=== PATIENT | male | born 1945 | race Caucasian/White ===

== ENCOUNTER 2020-03-06 10:16 | Outpatient (REF) | payer MEDICARE, MEDICAID, SELFPAY | END 2020-03-06 10:17 | disposition home or self-care (01) | LOC: HO.LAB 10:16 | PROVIDERS: PCP Family Medicine; Visit Provider Internal Medicine | DX: Z20.828 Contact with and (suspected) exposure to other viral communicable diseases (principal) | CPT/HCPCS: 87635 ==

== ENCOUNTER → 2020-03-21 11:37 | Outpatient (BNVA) | payer MEDICARE, MEDICAID, SELFPAY | PROVIDERS: PCP Family Medicine; Referring Provider Family Medicine; Visit Provider Nurse Practitioner | DX: K70.30 Alcoholic cirrhosis of liver without ascites (principal); K21.9 Gastro-esophageal reflux disease without esophagitis; K72.90 Hepatic failure, unspecified without coma; I85.00 Esophageal varices without bleeding; E55.9 Vitamin D deficiency, unspecified; Z79.899 Other long term (current) drug therapy | CPT/HCPCS: 99212 ==

== ENCOUNTER 2020-04-07 22:55 | Emergency (ER) | payer MEDICARE, MEDICAID, SELFPAY ==
[2020-04-07 22:59] VITALS: BP 130/80; BP 138/71; PULSE 79; PULSE 80; RESP 18; TEMP 36.9; O2SAT 94; BMI 25.6
--- NOTE | 2020-04-07 23:36 | XR_ITS ---
EXAMINATION: XR ABDOMEN KUB CLINICAL INDICATION: Evaluate stool burden COMPARISON: CT from 08/05/2017 TECHNIQUE: AP view of the abdomen. FINDINGS: Nonobstructive bowel gas pattern. No dilated loops of bowel. No obstruction. Gas and stool throughout the colon. Mild to moderate colonic stool burden. Degenerative changes of the spine. XR/XR KUB IMPRESSION: Mild to moderate colonic stool burden.
--- NOTE | 2020-04-07 23:49 | XR_ITS ---
EXAMINATION: XR CHEST CLINICAL INFORMATION: Baseline COMPARISON: 07/28/2018 TECHNIQUE: Frontal view of the chest was obtained. FINDINGS: Lung volumes are low. Patchy bilateral diffuse airspace opacities are seen. No pleural effusion or pneumothorax. The cardiomediastinal silhouette is unchanged. No acute osseous abnormality. XR/XR chest 1V IMPRESSION: Patchy diffuse bilateral airspace opacities.
[2020-04-08] MEDS: 0.9 % Sodium Chloride 1,000 ML 1000 ML IV (00:21)
--- NOTE | 2020-04-08 00:22 | ED.GENADULT ---
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 Otherwise, patient states he has not had the energy to walk around and it is noted on review of his history that he does have liver cirrhosis and on review of documentation it is noted that he attended an appointment with GI on 03/21 Related Data Home Medications Medication Instructions Recorded Confirmed brimonidine [Alphagan P] 1 drp OPHTHALMIC (EYE) BID 04/08/20 04/08/20 cholecalciferol (vitamin D3) 1 cap PO DAILY 04/08/20 04/08/20 fluticasone propionate [Flovent 2 puff PO BID 04/08/20 04/08/20 HFA] lisinopril 1 tab PO DAILY 04/08/20 04/08/20 loratadine 1 tab PO DAILY 04/08/20 04/08/20 metformin 1 tab PO QAM 04/08/20 04/08/20 montelukast 1 tab PO BEDTIME 04/08/20 04/08/20 multivitamin [Daily-Arlene] 1 tab PO DAILY 04/08/20 04/08/20 rifaximin [Xifaxan] 1 tab PO BID 04/08/20 04/08/20 Previous Rx's Medication Instructions Recorded omeprazole 20 mg capsule,delayed 20 mg PO BID 30 Days #60 cap 04/05/20 release Allergies Allergy/AdvReac Type Severity Reaction Status Date / Time No Known Allergies Allergy Verified 03/21/20 11:41 Review of Systems Review of Systems: Pertinent positives and negatives as stated in HPI 10 point review systems is otherwise negative. PMFSH Past Medical History Source: nursing notes reviewed Medical History Diabetes Hypertension Liver problem Surgical History Hx of colonoscopy Hx of endoscopy Family History Family History Father Diabetes HTN (hypertension) Mother Diabetes Sister Cancer Social History Social History Alcohol intake: current Alcohol intake frequency: does not drink Smoking Status: Never smoker Use of substances other than those prescribed or required for medical reasons: No Advance Directives: No Advance Directives Information Provided: No Physical Exam Vital Signs: Vital Signs: Last Vital Signs Temp 98.5 F 04/07/20 22:59 Pulse 80 04/08/20 01:24 Resp 16 04/08/20 01:24 BP 133/59 L 04/08/20 01:24 Pulse Ox 96 04/08/20 01:24 Body Mass Index 25.6 VITAL SIGNS: Reviewed. GENERAL: Well developed, well nourished, in no acute distress. HEAD: Normocephalic/atraumatic, EYES: PERRLA, EOMI intact without pain, no nystagmus/pallor/icterus noted EARS: Ext canals without abnormality, TMs non-bulging and non-erythematous NOSE: Nares patent bilateral OROPHARYNX: no oral lesions noted, posterior pharynx clear and non-erythematous without noted tonsillar enlargement/erythema/exudates NECK: Supple, no adenopathy LUNGS: Normal breath sounds. No adventitious sounds or accessory muscle use. SpO2<96> CARDIOVASCULAR: Regular rate and rhythm without noted murmurs, no JVD or lower extremity edema. ABDOMEN: Soft, non-tender, non-distended with bowel sounds. No rigidity. No guarding. No palpable masses or hernias noted MUSCULOSKELETAL: No tenderness, deformities, or effusions noted on gross inspection. EXTREMITIES: No cyanosis, clubbing or edema. SKIN: Inspection of the skin reveals no rashes, ulcerations, jaundice, pallor, or petechiae. NEUROLOGIC: Alert and oriented x3. Strength and sensation to light touch were grossly intact x 4. Course Course Course Narrative: This is a 74-year-old male with history and clinical presentation consistent with some component of deconditioning, however on review of investigations there are no acute findings to suggest infectious, anemic, electrolyte etiologies for patient's condition. This would include an ammonia level that is noted to be within normal limits and KUB findings that show mild to moderate stool burden and this was communicated with both the daughter and the patient that he should continue with his cirrhotic medications which will assist in regular bowel movements. Urinalysis is also noted to be within normal limits and although COVID-19 testing is demonstrated to be positive again this is not an unusual finding and patient is not currently hypoxic or complaining of shortness of breath. All results and findings were discussed with the daughter as well as the patient and they wish for patient to be returned home and he is agreeable as well. Patient is discharged to home in stable condition. Medical Decision Making Lab Data Result diagrams: 04/08/20 00:18 04/08/20 00:18 Labs: Lab Results 04/08/20 04/08/20 04/08/20 Range/Units 00:18 00:18 01:02 WBC 4.7 L (4.8-10.8) X10*3/uL RBC 5.00 (4.60-5.80) X10*6/uL Hgb 14.2 (14.0-18.0) g/dl Hct 40.1 L (42-52) % MCV 80.2 (80-98) fL MCH 28.4 (27.0-33.0) pg MCHC 35.4 (31.0-36.0) g/dl RDW 17.5 H (11.0-16.0) % Plt Count 124 L (160-400) X10*3/uL MPV 9.1 L (9.4-12.4) fL Immature Gran % (Auto) 0.4 (0.0-0.4) % Neut % (Auto) 65.3 (45-73) % Lymph % (Auto) 19.6 L (20-40) % [place] % (Auto) 12.8 H (2-11) % Eos % (Auto) 1.7 (0-4) % Baso % (Auto) 0.2 (0-2) % Lymph # (Auto) 0.9 L (1.2-4.9) X10*3/uL [place] # (Auto) 0.6 (0.1-1.2) X10*3/uL Eos # (Auto) 0.1 (0.0-0.4) X10*3/uL Baso # (Auto) 0.0 (0.0-0.2) X10*3/uL Abs Immat Gran (auto) 0.02 (0.00-0.03) X10*3/uL Absolute Neuts (auto) 3.1 (2.0-8.3) X10*3/uL Absolute Nucleated RBC 0.000 (0.0-0.012) X10*3/uL Nucleated RBC % (auto) 0.0 (0.0-0.2) /100WBC Sodium 134 L (135-145) mmol/L Potassium 4.3 (3.3-5.1) mmol/l Chloride 102 (96-108) mmol/L Carbon Dioxide 20 L (22-29) mmol/L Anion Gap 16 (12-20) BUN 15 (9-16) mg/dL Creatinine 1.09 (0.5-1.4) mg/dL Estim Creat Clear Calc 53.6 Estimated GFR > 60 Random Glucose 206 H (60-115) mg/dL Calcium 10.8 H (8.4-10.2) mg/dL Total Bilirubin 2.6 H (0.0-1.0) mg/dL AST 36 (5-37) U/L ALT 42 H (0-40) U/L Alkaline Phosphatase 114 (39-117) U/L Ammonia 51 (13-55) umol/L Total Protein 5.6 L (6.5-8.0) g/dL Albumin 2.7 L (3.5-5.0) g/dL Urine Color Urine Appearance Urine pH (5.0-8.0) Ur Specific [place] (1.005-1.025) Urine Protein (NEG-TRACE) MG/DL Urine Glucose (UA) (NEG) MG/DL Urine Ketones (NEG) MG/DL Urine Blood (NEG) Urine Nitrite (NEG) Ur Leukocyte Esterase (NEG) Coronavirus (PCR) (Negative) Influenza Type A (PCR) (Negative) Influenza Type B (PCR) (Negative) RSV RNA Qual (PCR) (Negative) 04/08/20 04/08/20 Range/Units 01:12 01:23 WBC (4.8-10.8) X10*3/uL RBC (4.60-5.80) X10*6/uL Hgb (14.0-18.0) g/dl Hct (42-52) % MCV (80-98) fL MCH (27.0-33.0) pg MCHC (31.0-36.0) g/dl RDW (11.0-16.0) % Plt Count (160-400) X10*3/uL MPV (9.4-12.4) fL Immature Gran % (Auto) (0.0-0.4) % Neut % (Auto) (45-73) % Lymph % (Auto) (20-40) % [place] % (Auto) (2-11) % Eos % (Auto) (0-4) % Baso % (Auto) (0-2) % Lymph # (Auto) (1.2-4.9) X10*3/uL [place] # (Auto) (0.1-1.2) X10*3/uL Eos # (Auto) (0.0-0.4) X10*3/uL Baso # (Auto) (0.0-0.2) X10*3/uL Abs Immat Gran (auto) (0.00-0.03) X10*3/uL Absolute Neuts (auto) (2.0-8.3) X10*3/uL Absolute Nucleated RBC (0.0-0.012) X10*3/uL Nucleated RBC % (auto) (0.0-0.2) /100WBC Sodium (135-145) mmol/L Potassium (3.3-5.1) mmol/l Chloride (96-108) mmol/L Carbon Dioxide (22-29) mmol/L Anion Gap (12-20) BUN (9-16) mg/dL Creatinine (0.5-1.4) mg/dL Estim Creat Clear Calc Estimated GFR Random Glucose (60-115) mg/dL Calcium (8.4-10.2) mg/dL Total Bilirubin (0.0-1.0) mg/dL AST (5-37) U/L ALT (0-40) U/L Alkaline Phosphatase (39-117) U/L Ammonia (13-55) umol/L Total Protein (6.5-8.0) g/dL Albumin (3.5-5.0) g/dL Urine Color RUDDY Urine Appearance CLEAR Urine pH 5.5 (5.0-8.0) Ur Specific [place] 1.025 (1.005-1.025) Urine Protein NEG (NEG-TRACE) MG/DL Urine Glucose (UA) NEG (NEG) MG/DL Urine Ketones NEG (NEG) MG/DL Urine Blood NEG (NEG) Urine Nitrite NEG (NEG) Ur Leukocyte Esterase NEG (NEG) Coronavirus (PCR) POSITIVE A (Negative) Influenza Type A (PCR) NEGATIVE (Negative) Influenza Type B (PCR) NEGATIVE (Negative) RSV RNA Qual (PCR) NEGATIVE (Negative) Discharge Plan Discharge Clinical Impression: COVID-19 Constipation Qualifiers: Constipation type: unspecified constipation type Qualified Code(s): K59.00 - Constipation, unspecified Patient Disposition: Home, Self-Care Instructions: COVID-19 (Coronavirus Disease 2019) (ED), Constipation (ED) Additional Instructions: 1. Reanude todos los medicamentos caseros seg?n lo recetado, especialmente los recomendados para lakhani afecci?n hep?candelario. Estos medicamentos pueden ayudarlo a defecar. 2. Regrese al departamento de emergencias si comienza a tener fiebre o dificultad para respirar. El paciente y / o la mayi reconocen que comprenden los resultados (seg?n corresponda), el diagn?stico, el plan de tratamiento, la necesidad de seguimiento y los s?ntomas que deber?an impulsar el regreso a la solis de emergencias. Prescriptions: No Action omeprazole 20 mg capsule,delayed release(DR/EC) 20 mg PO BID 30 Days Qty: 60 RF: 3 multivitamin [Daily-Arlene] Tablet 1 tab PO DAILY RF: 0 lisinopril 10 mg tablet 1 tab PO DAILY RF: 0 montelukast 10 mg tablet 1 tab PO BEDTIME RF: 0 Flovent HFA 220 mcg/actuation HFA aerosol inhaler 2 puff PO BID RF: 0 metformin 500 mg tablet extended release 24 hr 1 tab PO QAM RF: 0 brimonidine [Alphagan P] 0.15 % drops 1 drp ophthalmic (eye) BID RF: 0 loratadine 10 mg tablet 1 tab PO DAILY RF: 0 cholecalciferol (vitamin D3) 50 mcg (2,000 unit) capsule 1 cap PO DAILY RF: 0 Xifaxan 550 mg tablet 1 tab PO BID RF: 0 Referrals: Sabrina Franco, CESARC [Nurse Practitioner] - 2 days ( For re-evaluation of constipation and suspect not taking Xifaxan) Print Language: Belarusian
[2020-04-08 00:28] LABS: Mean Corpuscular HGB Conc 35.4 g/dl (31.0-36.0); PLT CLUMP 1; Red Cell Distribution Width 17.5 % (11.0-16.0); SCAN SMEAR FLAG 1
[2020-04-08 00:29] LABS: Basophils Percent Auto 0.2 % (0-2); Eosinophils Absolute Auto 0.1 X10*3/uL (0.0-0.4); Eosinophils Percent Auto 1.7 % (0-4); Hematocrit 40.1 % (42-52); Hemoglobin 14.2 g/dl (14.0-18.0); Imm Gran Abs Auto 0.02 X10*3/uL (0.00-0.03); Imm Gran Pct Auto 0.4 % (0.0-0.4); Lymphocytes Absolute Auto 0.9 X10*3/uL (1.2-4.9); Lymphocytes Percent Auto 19.6 % (20-40); Mean Corpuscular Hemoglobin 28.4 pg (27.0-33.0); Mean Corpuscular Volume 80.2 fL (80-98); Mean Platelet Volume 9.1 fL (9.4-12.4); Monocytes Absolute Auto 0.6 X10*3/uL (0.1-1.2); Monocytes Percent Auto 12.8 % (2-11); Neutrophils Absolute Auto 3.1 X10*3/uL (2.0-8.3); Neutrophils Percent Auto 65.3 % (45-73); Platelet Count 124 X10*3/uL (160-400); White Blood Count 4.7 X10*3/uL (4.8-10.8)
[2020-04-08 00:30] LABS: MANUAL DIFF FLAG NO
[2020-04-08 01:08] LABS: Alanine Aminotransferase 42 U/L (0-40); Albumin Level 2.7 g/dL (3.5-5.0); Alkaline Phosphatase 114 U/L (39-117); Anion Gap 16 (12-20); Aspartate Amino Transferase 36 U/L (5-37); Bilirubin Total 2.6 mg/dL (0.0-1.0); Blood Urea Nitrogen 15 mg/dL (9-16); Calcium 10.8 mg/dL (8.4-10.2); Carbon Dioxide 20 mmol/L (22-29); Chloride 102 mmol/L (96-108); Creatinine Clr Calc Pharmacy 53.6; Estimated Glomerular Filt Rate > 60; Glucose Random 206 mg/dL (60-115); Potassium 4.3 mmol/l (3.3-5.1); Sodium 134 mmol/L (135-145); Total Protein 5.6 g/dL (6.5-8.0)
[2020-04-08 01:24] VITALS: BP 133/59; PULSE 80; RESP 16; O2SAT 96
[2020-04-08 01:26] LABS: Ammonia 51 umol/L (13-55)
[2020-04-08 01:36] LABS: Glucose Urine UA NEG (NEG); Leukocyte Esterase Urine NEG (NEG); Nitrite Urine NEG (NEG); PH 5.5 (5.0-8.0); Specific Gravity - Urine 1.025 (1.005-1.025); Urine Blood NEG (NEG); Urine Ketones NEG (NEG); Urine Protein NEG (NEG-TRACE)
[2020-04-08 01:38] LABS: Appearance Urine CLEAR; Color Urine AMBER; UACC Culture Trigger NO
[2020-04-08 02:16] LABS: Influenza A PCR NEGATIVE (Negative); Influenza B PCR NEGATIVE (Negative); Resp Syncy Virus RNA Qual PCR NEGATIVE (Negative)
[2020-04-08 02:20] LABS: SARS COV2 PCR INHOUSE POSITIVE (Negative)
== END 2020-04-08 04:07 | disposition home or self-care (01) ==
PROVIDERS: Emergency Provider Student in an Organized Health Care Education/Training Program
DX: U07.1 COVID-19 (principal); K59.00 Constipation, unspecified; Z79.899 Other long term (current) drug therapy
CPT/HCPCS: 0241U; 36415; 71045; 74018; 80053; 81003; 82140; 85025; 96360; 99284

== ENCOUNTER → 2020-04-20 11:24 | Outpatient (BNVA) | payer MEDICARE, MEDICAID, SELFPAY | PROVIDERS: PCP Family Medicine; Referring Provider Family Medicine; Visit Provider Nurse Practitioner | DX: K74.60 Unspecified cirrhosis of liver (principal); K21.9 Gastro-esophageal reflux disease without esophagitis; K72.90 Hepatic failure, unspecified without coma; I85.00 Esophageal varices without bleeding; E11.9 Type 2 diabetes mellitus without complications; I10 Essential (primary) hypertension | CPT/HCPCS: Q3014 ==

== ENCOUNTER 2020-04-25 10:36 | Outpatient (REF) | payer MEDICARE, MEDICAID, SELFPAY ==
[2020-04-25 12:05] LABS: MANUAL DIFF FLAG NO
[2020-04-25 12:08] LABS: Basophils Percent Auto 0.7 % (0-2); Eosinophils Absolute Auto 0.1 X10*3/uL (0.0-0.4); Eosinophils Percent Auto 1.1 % (0-4); Hematocrit 38.4 % (42-52); Hemoglobin 13.1 g/dl (14.0-18.0); Imm Gran Abs Auto 0.01 X10*3/uL (0.00-0.03); Imm Gran Pct Auto 0.2 % (0.0-0.4); Lymphocytes Absolute Auto 1.2 X10*3/uL (1.2-4.9); Lymphocytes Percent Auto 22.6 % (20-40); Mean Corpuscular HGB Conc 34.1 g/dl (31.0-36.0); Mean Corpuscular Hemoglobin 28.6 pg (27.0-33.0); Mean Corpuscular Volume 83.8 fL (80-98); Monocytes Absolute Auto 0.4 X10*3/uL (0.1-1.2); Neutrophils Absolute Auto 3.6 X10*3/uL (2.0-8.3); Neutrophils Percent Auto 67.4 % (45-73); Red Blood Count 4.58 X10*6/uL (4.60-5.80); Red Cell Distribution Width 18.1 % (11.0-16.0); White Blood Count 5.4 X10*3/uL (4.8-10.8)
--- NOTE | 2020-04-25 12:09 | US_ITS ---
EXAMINATION: US ABDOMEN LIMITED US DUPLEX ARTERIAL VENOUS COMP CLINICAL INFORMATION: Cirrhosis of liver COMPARISON: Abdomen ultrasound 04/07/2019 TECHNIQUE: Real-time imaging of the right upper quadrant abdominal viscera. FINDINGS: LIMITED ABDOMEN ULTRASOUND: PANCREAS: The pancreas is limited in evaluation due to overlying large varices and gas. A dilated splenic vein is noted. LIVER: The liver is slightly echogenic, cirrhotic with moderate ascites surrounding the liver. 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 No focal lesion seen in the liver. GALLBLADDER: Gallbladder wall thickness is 0.4 cm. The gallbladder is physiologically distended without evidence of stones, sludge, polyps or pericholecystic fluid. COMMON BILE DUCT: Common bile duct is not seen well. RIGHT KIDNEY: Normal. No hydronephrosis. No renal calculi or focal parenchymal lesions. The kidney measures 8.9 cm in maximum dimension. FREE FLUID: None. ABDOMINAL DOPPLER: There is hepatopedal flow seen in the extrahepatic portal veins, thrombosed main, right and left portal veins are noted. The main and the left hepatic artery have antegrade flow seen. The right hepatic artery is not seen. The left hepatic artery velocity measures 35.6 cm/s. The main hepatic vein is patent. The right and left hepatic veins are not visualized. The IVC waveform is above and below the baseline suggestive of slow flow. There are collateral vessels seen in the area of the pancreas. US/US duplex arterial venous comp IMPRESSION: 1. Diffuse ascites. 2. Cirrhotic liver with increased echogenicity but no focal lesion. 3. 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 4. 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 5. Normal antegrade flow seen in the main and left hepatic artery. 6. The main hepatic vein is patent. The right and left hepatic veins are not seen. 7. The IVC has slow flow.
[2020-04-25 12:19] LABS: Platelet Count 74 X10*3/uL (160-400)
[2020-04-25 12:23] LABS: Ammonia 84 umol/L (13-55)
[2020-04-25 12:31] LABS: Alanine Aminotransferase 33 U/L (0-40); Albumin Level 2.7 g/dL (3.5-5.0); Alkaline Phosphatase 98 U/L (39-117); Aspartate Amino Transferase 39 U/L (5-37); Bilirubin Direct 1.4 mg/dL (0.0-0.5); Bilirubin Total 2.9 mg/dL (0.0-1.0); Total Protein 5.3 g/dL (6.5-8.0)
== END 2020-04-25 10:37 | disposition home or self-care (01) ==
LOC: HO.US 10:36
PROVIDERS: PCP Family Medicine; Visit Provider Nurse Practitioner
DX: K72.90 Hepatic failure, unspecified without coma (principal); K74.60 Unspecified cirrhosis of liver
CPT/HCPCS: 36415; 76705; 80076; 82140; 85025; 93975

== ENCOUNTER 2020-05-01 13:29 | Outpatient (REF) | payer MEDICARE, MEDICAID, SELFPAY | END 2020-05-01 13:30 | disposition home or self-care (01) | LOC: HO.LAB 13:29 | PROVIDERS: PCP Family Medicine; Visit Provider Internal Medicine | DX: Z20.828 Contact with and (suspected) exposure to other viral communicable diseases (principal) | CPT/HCPCS: C9803; U0003 ==

== ENCOUNTER → 2020-06-01 11:19 | Outpatient (BNVA) | payer MEDICARE, MEDICAID, SELFPAY | PROVIDERS: PCP Family Medicine; Visit Provider Nurse Practitioner | DX: Z13.89 Encounter for screening for other disorder (principal) | CPT/HCPCS: Q3014 ==

== ENCOUNTER → 2020-06-29 11:23 | Outpatient (BNVA) | payer MEDICARE, MEDICAID, SELFPAY | PROVIDERS: PCP Family Medicine; Visit Provider Nurse Practitioner | DX: Z76.89 Persons encountering health services in other specified circumstances (principal) | CPT/HCPCS: 99212 ==

== ENCOUNTER 2020-07-03 11:39 | Outpatient (REF) | payer MEDICARE, MEDICAID, SELFPAY ==
[2020-07-03 11:54] LABS: MANUAL DIFF FLAG NO
[2020-07-03 11:56] LABS: Basophils Percent Auto 0.4 % (0-2); Eosinophils Absolute Auto 0.3 X10*3/uL (0.0-0.4); Hematocrit 30.2 % (42-52); Hemoglobin 10.3 g/dl (14.0-18.0); Imm Gran Abs Auto 0.06 X10*3/uL (0.00-0.03); Imm Gran Pct Auto 0.5 % (0.0-0.4); Lymphocytes Absolute Auto 1.8 X10*3/uL (1.2-4.9); Lymphocytes Percent Auto 16.7 % (20-40); Mean Corpuscular HGB Conc 34.1 g/dl (31.0-36.0); Mean Corpuscular Hemoglobin 29.5 pg (27.0-33.0); Mean Corpuscular Volume 86.5 fL (80-98); Mean Platelet Volume 8.8 fL (9.4-12.4); Monocytes Absolute Auto 0.9 X10*3/uL (0.1-1.2); Monocytes Percent Auto 8.5 % (2-11); Neutrophils Absolute Auto 7.8 X10*3/uL (2.0-8.3); Neutrophils Percent Auto 70.9 % (45-73); Platelet Count 131 X10*3/uL (160-400); Red Blood Count 3.49 X10*6/uL (4.60-5.80); Red Cell Distribution Width 15.9 % (11.0-16.0)
[2020-07-03 12:13] LABS: Ammonia 47 umol/L (13-55)
[2020-07-03 12:35] LABS: Alanine Aminotransferase 22 U/L (0-40); Albumin Level 2.7 g/dL (3.5-5.0); Alkaline Phosphatase 101 U/L (39-117); Anion Gap 14 (12-20); Aspartate Amino Transferase 27 U/L (5-37); Bilirubin Total 3.5 mg/dL (0.0-1.0); Blood Urea Nitrogen 14 mg/dL (9-16); Calcium 9.1 mg/dL (8.4-10.2); Carbon Dioxide 25 mmol/L (22-29); Chloride 108 mmol/L (96-108); Estimated Glomerular Filt Rate 59; Glucose Random 153 mg/dL (60-115); Potassium 4.2 mmol/L (3.3-5.1); Sodium 143 mmol/L (135-145)
[2020-07-04 14:21] LABS: Alpha Fetoprotein 1.4 ng/mL (<6.1)
== END 2020-07-03 11:40 | disposition home or self-care (01) ==
LOC: HO.LAB 11:39
PROVIDERS: PCP Family Medicine; Visit Provider Nurse Practitioner
DX: R18.8 Other ascites (principal); I81 Portal vein thrombosis; K72.90 Hepatic failure, unspecified without coma; K74.60 Unspecified cirrhosis of liver
CPT/HCPCS: 36415; 80053; 82105; 82140; 85025

== ENCOUNTER 2020-07-12 08:15 | Outpatient (REF) | payer MEDICARE, MEDICAID, SELFPAY ==
--- NOTE | ~2020-07-12 | US_ITS ---
EXAMINATION: US ABDOMEN COMPLETE CLINICAL INFORMATION: Ascites. COMPARISON: Ultrasound abdomen limited 04/25/2020. TECHNIQUE: Real-time imaging of the abdominal viscera. FINDINGS: PANCREAS: Normal. ABDOMINAL AORTA: The proximal, mid, and distal segments are normal in caliber. INFERIOR VENA CAVA: Visualized portions are normal. LIVER: The liver is small size and diffusely coarse and heterogeneous. Liver contour is lobulated. No focal hepatic lesion. There is no intrahepatic biliary duct dilatation seen. There is moderate free fluid. GALLBLADDER: Gallbladder wall thickness measures 0.35 cm. The gallbladder is physiologically distended without evidence of stones, sludge, polyps, wall thickening or pericholecystic fluid. COMMON BILE DUCT: CBD is not visualized. Right kidney: Normal. No hydronephrosis. No echogenic renal calculi or focal parenchymal lesions.. The kidney measures 8.1 cm Left kidney: Normal.mNo hydronephrosis. No renal calculi or focal parenchymal lesions. The kidney measures 9.4 cm. Spleen: Normal. The spleen measures 13.0 cm borderline dimension. FREE FLUID: Moderate ascites. US/US abdomen complete IMPRESSION: Small shrunken liver with heterogeneous coarse echogenicity and lobulated liver surface contour suggestive of cirrhosis. There is moderate ascites. Similar findings were seen on the previous exam 04/25/2020. The rest of the visualized abdominal ultrasound is unremarkable.
== END 2020-07-12 08:16 | disposition home or self-care (01) ==
LOC: HO.US 08:15
PROVIDERS: Visit Provider Nurse Practitioner
DX: R18.8 Other ascites (principal); K72.90 Hepatic failure, unspecified without coma; K74.60 Unspecified cirrhosis of liver; I81 Portal vein thrombosis
CPT/HCPCS: 76700

== ENCOUNTER → 2020-08-02 10:39 | Outpatient (BNVA) | payer MEDICARE, MEDICAID, SELFPAY | PROVIDERS: PCP Family Medicine; Visit Provider Nurse Practitioner | DX: K74.60 Unspecified cirrhosis of liver (principal); K72.90 Hepatic failure, unspecified without coma; K21.9 Gastro-esophageal reflux disease without esophagitis; I81 Portal vein thrombosis; I85.00 Esophageal varices without bleeding; Z79.899 Other long term (current) drug therapy | CPT/HCPCS: Q3014 ==

== ENCOUNTER → 2020-08-30 10:58 | Outpatient (BNVA) | payer MEDICARE, MEDICAID, SELFPAY | PROVIDERS: PCP Family Medicine; Visit Provider Nurse Practitioner | DX: Z13.89 Encounter for screening for other disorder (principal) | CPT/HCPCS: Q3014 ==

== ENCOUNTER 2020-09-01 12:25 | Outpatient (REF) | payer MEDICARE, MEDICAID, SELFPAY ==
[2020-09-01 13:16] LABS: Ammonia 94 umol/L (13-55)
[2020-09-01 14:32] LABS: Alanine Aminotransferase 22 U/L (0-40); Albumin Level 2.4 g/dL (3.5-5.0); Alkaline Phosphatase 100 U/L (39-117); Anion Gap 12 (12-20); Aspartate Amino Transferase 28 U/L (5-37); Bilirubin Total 2.2 mg/dL (0.0-1.0); Blood Urea Nitrogen 22 mg/dL (9-16); Calcium 9.3 mg/dL (8.4-10.2); Carbon Dioxide 28 mmol/L (22-29); Chloride 103 mmol/L (96-108); Estimated Glomerular Filt Rate 35; Glucose Random 146 mg/dL (60-115); Potassium 4.5 mmol/L (3.3-5.1); Sodium 138 mmol/L (135-145); Total Protein 5.1 g/dL (6.5-8.0)
[2020-09-01 14:53] LABS: Ferritin 492 ng/mL (20-250)
== END 2020-09-01 12:26 | disposition home or self-care (01) ==
LOC: HO.LAB 12:25
PROVIDERS: PCP Family Medicine; Visit Provider Nurse Practitioner
DX: K74.60 Unspecified cirrhosis of liver (principal); R18.8 Other ascites
CPT/HCPCS: 36415; 80053; 82140; 82728; 84134

== ENCOUNTER → 2020-09-22 10:01 | Outpatient (BNVA) | payer MEDICARE, MEDICAID, SELFPAY | PROVIDERS: PCP Family Medicine; Visit Provider Nurse Practitioner | CPT/HCPCS: Q3014 ==

== ENCOUNTER → 2020-11-06 09:06 | Outpatient (BNVA) | payer MEDICARE, MEDICAID, SELFPAY | PROVIDERS: PCP Family Medicine; Visit Provider Nurse Practitioner | DX: K76.7 Hepatorenal syndrome (principal); K74.60 Unspecified cirrhosis of liver; K21.9 Gastro-esophageal reflux disease without esophagitis; K72.90 Hepatic failure, unspecified without coma; R18.8 Other ascites; I81 Portal vein thrombosis; I85.00 Esophageal varices without bleeding | CPT/HCPCS: Q3014 ==

== ENCOUNTER 2020-11-07 10:37 | Outpatient (REF) | payer MEDICARE, MEDICAID, SELFPAY ==
[2020-11-07 12:32] LABS: Ammonia 74 umol/L (13-55)
[2020-11-07 13:08] LABS: Alanine Aminotransferase 18 U/L (0-40); Albumin Level 2.4 g/dL (3.5-5.0); Alkaline Phosphatase 88 U/L (39-117); Anion Gap 12 (12-20); Aspartate Amino Transferase 24 U/L (5-37); Bilirubin Direct 0.6 mg/dL (0.0-0.5); Bilirubin Total 1.2 mg/dL (0.0-1.0); Blood Urea Nitrogen 26 mg/dL (9-16); Calcium 8.6 mg/dL (8.4-10.2); Carbon Dioxide 21 mmol/L (22-29); Chloride 111 mmol/L (96-108); Estimated Glomerular Filt Rate 29; Glucose Random 106 mg/dL (60-115); Potassium 4.7 mmol/L (3.3-5.1); Sodium 139 mmol/L (135-145); Total Protein 4.7 g/dL (6.5-8.0)
== END 2020-11-07 10:38 | disposition home or self-care (01) ==
LOC: HO.LAB 10:37
PROVIDERS: PCP Family Medicine; Visit Provider Nurse Practitioner
DX: K74.60 Unspecified cirrhosis of liver (principal); R18.8 Other ascites; K76.7 Hepatorenal syndrome
CPT/HCPCS: 36415; 80053; 82140; 82248

== ENCOUNTER 2020-11-09 | Outpatient (REF) | payer MEDICARE, MEDICAID, SELFPAY ==
[2020-11-15 08:14] LABS: FIT1 NEGATIVE (NEGATIVE); FIT2 NEGATIVE (NEGATIVE)
[2020-11-15 08:15] LABS: FIT Int Ctl YES
== END 2020-11-09 00:01 ==
LOC: HO.LNP
PROVIDERS: Visit Provider Nurse Practitioner
DX: K74.60 Unspecified cirrhosis of liver (principal); R18.8 Other ascites
CPT/HCPCS: 82274

== ENCOUNTER → 2020-11-10 14:13 | Outpatient (BNVA) | payer MEDICARE, MEDICAID, SELFPAY | PROVIDERS: PCP Family Medicine; Referring Provider Family Medicine; Visit Provider Nurse Practitioner | DX: K76.7 Hepatorenal syndrome (principal); K70.31 Alcoholic cirrhosis of liver with ascites; K72.90 Hepatic failure, unspecified without coma; K21.9 Gastro-esophageal reflux disease without esophagitis; I85.00 Esophageal varices without bleeding; I81 Portal vein thrombosis; E11.9 Type 2 diabetes mellitus without complications; I10 Essential (primary) hypertension | CPT/HCPCS: Q3014 ==

== ENCOUNTER → 2020-12-08 10:31 | Outpatient (BNVA) | payer MEDICARE, MEDICAID, SELFPAY | PROVIDERS: PCP Nurse Practitioner; Visit Provider Dietitian, Registered | DX: K74.60 Unspecified cirrhosis of liver (principal); E11.9 Type 2 diabetes mellitus without complications | CPT/HCPCS: 97802 ==

== ENCOUNTER 2020-12-11 07:40 | Outpatient (REF) | payer MEDICARE, MEDICAID, SELFPAY ==
--- NOTE | ~2020-12-11 | US_ITS ---
EXAMINATION: US COMPLETE ABDOMEN WITH LIVER ELASTOGRAPHY CLINICAL INFORMATION: Hepatorenal syndrome COMPARISON: Previous abdominal ultrasounds most recent July 2020 CT of the abdomen and pelvis July 2017 TECHNIQUE: Real-time imaging of the abdominal viscera. Noninvasive ultrasound liver fibrosis assessment is performed using Ernesto ElastPQ point quantification shear wave elastography (pSWE) with a C5-2 MHz transducer. Multiple elastography samples are obtained. FINDINGS: PANCREAS: Not well visualized due to bowel gas ABDOMINAL AORTA: Not well visualized due to bowel gas. INFERIOR VENA CAVA: Visualized portions are normal. LIVER: Liver appears cirrhotic. No focal liver lesion is seen. There is no biliary duct dilatation. The right lobe measures 11 cm in length. The left lobe measures 11 cm in length. Portal flow is hepatopedal. There is question of nonocclusive thrombus seen in the main portal vein. Last sonography is limited due to large volume of ascites. Shear wave liver elastography median stiffness is 1.5 m/s (reference: normal median stiffness is 1.3 m/s or less). IQR/median stiffness to assess sampling precision is 0.2 (reference: good quality data set is IQR/median stiffness of 0.15 or less). GALLBLADDER: The gallbladder wall is thickened. The gallbladder is normal in size. There are no gallstones. COMMON BILE DUCT: Normal in caliber measuring 0.3 cm in diameter. RIGHT KIDNEY: Normal. No hydronephrosis. No renal calculi or focal parenchymal lesions. The kidney measures 8.5 cm in maximum dimension. LEFT KIDNEY: Normal. No hydronephrosis. No renal calculi or focal parenchymal lesions. The kidney measures 8.4 cm in maximum dimension. SPLEEN: The spleen is enlarged. The spleen measures 14 cm in maximum dimension. FREE FLUID: There is a large amount of ascites. US/US abdomen comp w elastography IMPRESSION: 1. Small kidneys. Cirrhosis, splenomegaly and large amount of ascites. Probable nonocclusive thrombus in the main portal vein. Limited visualization of the pancreas and aorta. 2. Liver elastography: Very limited due to large amount of ascites. REFERENCE: Society of Radiologists in Ultrasound Liver Stiffness Thresholds (2020): LIVER STIFFNESS THRESHOLDS: *Liver Stiffness equal or less than 1.3 m/s: High probability of being normal. *Liver Stiffness less than 1.7 m/s: In the absence of other known clinical signs, rules out compensated advanced chronic liver disease. *Liver Stiffness 1.7-2.1 m/s: Suggestive of compensated advanced chronic liver disease but need further test for confirmation. *Liver Stiffness over 2.1 m/s: Rules in compensated advanced chronic liver disease. *Liver Stiffness over 2.4 m/s: Suggestive of clinically significant portal hypertension. QUALITY OF DATA SET: *IQR/Median value equal or less than 0.15 implies a quality data set. *IQR/Median value over 0.15 implies a poor quality data set. SIGNIFICANT CHANGE FROM PRIOR EXAM: Significant change if liver stiffness measurement is 10% or greater from prior exam. OTHER CONSIDERATIONS: The stage of liver fibrosis may be overestimated in the setting of acute hepatitis, liver inflammation, elevated liver function tests, hepatic vascular congestion, obstructive cholestasis, non-fasting state, and infiltrative diseases such as amyloidosis and lymphoma. In some patients with NAFLD, the liver stiffness thresholds for compensated advanced chronic liver disease may be lower. In causes other than viral hepatitis and NAFLD, liver stiffness thresholds are not well established.
== END 2020-12-11 07:41 | disposition home or self-care (01) ==
LOC: HO.US 07:40
PROVIDERS: Visit Provider Nurse Practitioner
DX: I81 Portal vein thrombosis (principal); I85.00 Esophageal varices without bleeding; K72.90 Hepatic failure, unspecified without coma; K74.60 Unspecified cirrhosis of liver; K76.7 Hepatorenal syndrome; R18.8 Other ascites
CPT/HCPCS: 76705; 76981

== ENCOUNTER 2020-12-20 07:45 | Day surgery (SDC) | payer OTHER, MEDICAID, SELFPAY ==
[2020-12-20] VITALS (7 sets, daily range): BP systolic 125–148; BP diastolic 55–72; PULSE 57–73; RESP 16–18; TEMP 36.1–37.3; O2SAT 99–100; BMI 25.8
--- NOTE | ~2020-12-20 | US_ITS ---
EXAMINATION: US GUIDED PARACENTESIS CLINICAL INFORMATION: Hepatorenal syndrome. COMPARISON: None TECHNIQUE: Following explaining the ultrasound-guided paracentesis procedure, benefits and risks via a family practitioner, a written consent was obtained. The patient was placed supine on the ultrasound stretcher and preliminary ultrasound imaging was obtained. An optimal site was selected along the right lower quadrant and marked. The marked site was cleaned and draped in the usual sterile manner. 1% lidocaine was injected at the puncture site. Through a small skin incision, a [employer] catheter was advanced into the peritoneal space. After observing fluid return, the stylet was withdrawn and the catheter connected to a vacuum bottle via a connecting cannula. After obtaining all fluid and observing no more fluid remaining by ultrasound, the catheter was removed and complete hemostasis achieved at the puncture site. Intravenous albumin was administered during the exam. FINDINGS: On preliminary ultrasound imaging, there is a large amount of ascites. Approximately 7.8 liters of cheryl-colored fluid was drained from the right lower quadrant. Part of this fluid was sent to the lab. US/US paracentesis abd w/image IMPRESSION: Successful ultrasound-guided therapeutic and diagnostic paracentesis performed.
[2020-12-20 08:29] LABS: Glucose, Whole Blood 99 mg/dL (60-115)
[2020-12-20 08:52] LABS: MANUAL DIFF FLAG NO
[2020-12-20 08:56] LABS: Basophils Percent Auto 0.7 % (0-2); Eosinophils Absolute Auto 0.2 X10*3/uL (0.0-0.4); Eosinophils Percent Auto 3.8 % (0-4); Hematocrit 26.3 % (42-52); Hemoglobin 8.9 g/dl (14.0-18.0); Imm Gran Abs Auto 0.01 X10*3/uL (0.00-0.03); Imm Gran Pct Auto 0.2 % (0.0-0.4); Lymphocytes Absolute Auto 0.9 X10*3/uL (1.2-4.9); Lymphocytes Percent Auto 22.1 % (20-40); Mean Corpuscular HGB Conc 33.8 g/dl (31.0-36.0); Mean Corpuscular Hemoglobin 28.5 pg (27.0-33.0); Mean Corpuscular Volume 84.3 fL (80-98); Mean Platelet Volume 9.4 fL (9.4-12.4); Monocytes Absolute Auto 0.3 X10*3/uL (0.1-1.2); Monocytes Percent Auto 7.9 % (2-11); Neutrophils Absolute Auto 2.7 X10*3/uL (2.0-8.3); Neutrophils Percent Auto 65.3 % (45-73); Red Blood Count 3.12 X10*6/uL (4.60-5.80); Red Cell Distribution Width 15.1 % (11.0-16.0); White Blood Count 4.2 X10*3/uL (4.8-10.8)
[2020-12-20 08:59] LABS: Platelet Count 60 X10*3/uL (160-400)
[2020-12-20 09:02] LABS: INTERNATIONAL NORM RATIO 1.5 (0.9-1.1); Prothrombin Time 16.8 SEC (9.9-13.0)
[2020-12-20 09:05] LABS: Partial Thromboplastin Time 32.4 SEC (24.1-38.0)
[2020-12-20 09:11] LABS: Anion Gap 12 (12-20); Carbon Dioxide 24 mmol/L (22-29); Chloride 110 mmol/L (96-108); Potassium 4.4 mmol/L (3.3-5.1); Sodium 142 mmol/L (135-145)
[2020-12-20] MEDS: Lidocaine HCl 1 % MPF 5 ML VIAL SUBCUT (10:54)
[2020-12-21 06:56] LABS: Total Protein Peritoneal Fluid 1.2
== END 2020-12-20 12:26 | disposition home or self-care (01) ==
PROVIDERS: Radiology Diagnostic Radiology; Visit Provider Nurse Practitioner
DX: R18.8 Other ascites (principal); K74.60 Unspecified cirrhosis of liver; K76.7 Hepatorenal syndrome; I10 Essential (primary) hypertension
CPT/HCPCS: 36415; 49083; 80051; 82947; 84157; 85025; 85610; 85730; 88112; P9047

== ENCOUNTER 2021-01-04 11:32 | Inpatient (IN) | payer OTHER, MEDICAID, SELFPAY ==
--- NOTE | ~2021-01-04 | US_ITS ---
EXAMINATION: ULTRASOUND-GUIDED PARACENTESIS CLINICAL INFORMATION: Ascites COMPARISON: Previous exam most recent 12/20/2020 TECHNIQUE: Procedure and risks and benefits including bleeding, infection and low blood pressure were discussed with the patient and informed consent was obtained. The right lower quadrant was prepped and draped in usual sterile fashion. The skin and soft tissues were anesthetized with 1% lidocaine plain. Using ultrasound guidance and a 5 Faroese rapid catheter, access to the ascitic fluid was obtained. 5.3 L of clear cheryl-colored fluid was removed. Diagnostic specimen was sent as requested by the ordering physician. FINDINGS: There is a large amount of ascites. US/US paracentesis abd w/image IMPRESSION: Ultrasound-guided paracentesis.
[2021-01-04 11:53] VITALS: BP 145/73; PULSE 65; RESP 16; TEMP 36.7; O2SAT 100; BMI 25.0
--- NOTE | 2021-01-04 12:31 | ED.GENADULT ---
HPI - General Adult General Chief complaint: General Medical Stated complaint: retaining water Time Seen by Provider: 01/04/21 11:51 Source: patient Mode of arrival: ambulatory History of Present Illness HPI narrative: 75-year-old male with a past medical history of alcohol use disorder, cirrhosis, asthma, prior COVID-19, AFib, diabetes, encephalopathy, recent admission to [facility], presenting to the ED complaining of increasing abdominal distension. Denies fever, chills, nausea, vomiting, dysuria/hematuria, CP/SOB Per external notes on 11/15 patient had JACOB with peak creatinine 1.8 upon admission, was obtaining IV albumin transfusion had a drop in his H&H suspected from dilution from albumin, dropped to 6.7, improved 8.3 after 1 unit RBCs. -appears patient also had 7.8 L of fluid drain from abdomen on 12/20 Related Data Home Medications Medication Instructions Recorded Confirmed fluticasone propionate 220 2 puff PO BID 04/08/20 01/04/21 mcg/actuation HFA aerosol inhaler (Flovent HFA) loratadine 10 mg tablet 1 tab PO DAILY 04/08/20 01/04/21 metformin 500 mg tablet,extended 1 tab PO QAM 04/08/20 01/04/21 release 24 hr montelukast 10 mg tablet 1 tab PO BEDTIME 04/08/20 01/04/21 multivitamin (Daily-Arlene) 1 tab PO DAILY 04/08/20 01/04/21 citalopram 10 mg tablet 10 mg PO DAILY 06/01/20 01/04/21 rivaroxaban 20 mg tablet (Xarelto) 20 mg PO DAILY 06/01/20 01/04/21 blood sugar diagnostic #10 ea 06/29/20 lactulose 10 gram/15 mL oral 30 ml PO TID 01/04/21 01/04/21 solution spironolactone 25 mg tablet 25 mg PO DAILY 01/04/21 01/04/21 Previous Rx's Medication Instructions Recorded cholecalciferol (vitamin D3) 50 50 mcg PO DAILY #30 cap 05/25/20 mcg (2,000 unit) capsule omeprazole 20 mg capsule,delayed 20 mg PO BID #60 cap 07/21/20 release rifaximin 550 mg tablet (Xifaxan) 550 mg PO BID 30 Days #60 tab 09/26/20 midodrine 2.5 mg tablet 2.5 mg PO BID 30 Days #60 tab 11/10/20 Allergies Allergy/AdvReac Type Severity Reaction Status Date / Time No Known Allergies Allergy Verified 11/10/20 14:15 Review of Systems Review of Systems: Constitutional: No Fever, No Chills, No Fatigue, No Malaise ENT/Mouth: No Ear Pain, No Nasal Congestion, No sore throat, No Rhinorrhea, No Swallowing Difficulty Eyes: No Eye Pain, No Discharge, No Vision Changes Cardiovascular: No Chest Pain, No SOB, No Dyspnea on Exertion, No Orthopnea, + Edema Respiratory: No Cough, No Dyspnea Gastrointestinal: No Nausea, No Vomiting, No Diarrhea, No Abdominal pain, + abdominal distension Genitourinary: No Dysuria, No Urinary Frequency, No Hematuria, No Flank Pain Musculoskeletal: No joint pain, No Myalgias, No Joint Swelling Skin: No Skin Lesions, No rash Neuro: No Weakness, No Numbness Yes all other systems are reviewed and are negative REPLACED BY [facility] Past Medical History Attestation statement: The following information was validated with the patient. Medical History Diabetes Hypertension Liver problem Surgical History Hx of colonoscopy Hx of endoscopy Hx of inguinal hernia repair Family History Family History Father Diabetes HTN (hypertension) Mother Diabetes Sister Cancer Social History Social History Household Members: Spouse Alcohol intake: never Patient Tobacco Use Status: Never used Tobacco Smoked in Last 30 Days: No Use of substances other than those prescribed or required for medical reasons: No Advance Directives: No Advance Directives Information Provided: No Physical Exam Vital Signs: Vital Signs: Last Vital Signs Temp 98.0 F 01/04/21 11:53 Pulse 65 01/04/21 11:53 Resp 16 01/04/21 11:53 BP 145/73 H 01/04/21 11:53 Pulse Ox 100 01/04/21 11:53 Body Mass Index 25.0 Const: General: cooperative, healthy appearing and no acute distress Orientation/consciousness: patient oriented x3 Limitations: no limitations HENMT: Head: Yes normal to inspection Ears: hearing grossly normal bilaterally General nose exam: Normal external nose present Face and sinus: Yes normal facial exam Eyes: General: appearance normal, both eyes and all related structures EOM: EOMs intact bilaterally Neck: Neck: Yes normal visual inspection and Yes no meningeal signs Resp: Effort & Inspection: normal respiratory effort Auscultation: clear to auscultation bilaterally, no rhonchi and no wheezes Cardio: Rate: regular rate Heart sounds: S1 normal heart sound present and S2 normal heart sound present GI: Inspection: Yes normal to inspection and Yes distended Palpation (GI): Soft to palpation, nontender, no guarding, not rigid and Ascites present Skin: Rashes: no rashes Wounds: no wounds Neuro: General: patient oriented x3, tone normal and no meningeal signs Gait exam (Neuro): Normal gait present Extrem: Other: +1 pedal edema General: Yes normal to inspection Course Course Course Narrative: -1400--chronic leukopenia. H&H at patient's baseline with anemia of chronic disease & chronic thrombocytopenia with elevated INR to 6.2 >> no evidence of active bleeding, occult stool obtained > 10mg IV Vitamin K+ ordered -acute on chronic JACOB with creatinine 1.79 & potassium elevated to 5.6 > IV Calcium gluconate/Kayexalyate & Albumin ordered -1513--occult blood stool negative, plan for admission Medical Decision Making MDM Narrative Medical decision making narrative: 75-year-old male with a past medical history of alcohol use disorder, cirrhosis, asthma, prior COVID-19, AFib, DM, encephalopathy, recent admission to [facility], presenting to the ED c/o increasing abdominal distension. On exam VSS, NAD, well appearing, abd soft distended nontender, +1 b/l LE edema. Low concern for SBP. Likely ascites. R/o anemia and metabolic abnormalities Plan: Labs, UA, paracentesis, fluid studies, reassess Lab Data Result diagrams: 01/04/21 13:15 01/04/21 13:15 Labs: Lab Results 01/04/21 01/04/21 01/04/21 Range/Units 13:13 13:14 13:14 WBC (4.8-10.8) X10*3/uL RBC (4.60-5.80) X10*6/uL Hgb (14.0-18.0) g/dl Hct (42-52) % MCV (80-98) fL MCH (27.0-33.0) pg MCHC (31.0-36.0) g/dl RDW (11.0-16.0) % Plt Count (160-400) X10*3/uL MPV (9.4-12.4) fL Immature Gran % (Auto) (0.0-0.4) % Neut % (Auto) (45-73) % Lymph % (Auto) (20-40) % Phelps % (Auto) (2-11) % Eos % (Auto) (0-4) % Baso % (Auto) (0-2) % Lymph # (Auto) (1.2-4.9) X10*3/uL Phelps # (Auto) (0.1-1.2) X10*3/uL Eos # (Auto) (0.0-0.4) X10*3/uL Baso # (Auto) (0.0-0.2) X10*3/uL Abs Immat Gran (auto) (0.00-0.03) X10*3/uL Absolute Neuts (auto) (2.0-8.3) X10*3/uL Absolute Nucleated RBC (0.0-0.012) X10*3/uL Nucleated RBC % (auto) (0.0-0.2) /100WBC PT 73.3 H D (9.9-13.0) SEC INR 6.2 H* D (0.9-1.1) APTT 48.6 H D (24.1-38.0) SEC Sodium (135-145) mmol/L Potassium (3.3-5.1) mmol/L Chloride (96-108) mmol/L Carbon Dioxide (22-29) mmol/L Anion Gap (12-20) BUN (9-16) mg/dL Creatinine (0.5-1.4) mg/dL Estim Creat Clear Calc Estimated GFR Random Glucose (60-115) mg/dL Calcium (8.4-10.2) mg/dL Phosphorus 3.2 (2.7-4.5) mg/dL Magnesium 2.0 (1.6-2.6) mg/dL Total Bilirubin (0.0-1.0) mg/dL Direct Bilirubin (0.0-0.5) mg/dL AST (5-37) U/L ALT (0-40) U/L Alkaline Phosphatase (39-117) U/L Ammonia (13-55) umol/L B-Natriuretic Peptide (<100) pg/mL Total Protein (6.5-8.0) g/dL Albumin (3.5-5.0) g/dL Lipase 17 (8-78) U/L Stool Occult Blood (NEGATIVE) COVID-19 ([facility]) Negative (Negative) COVID-19 Clin Com See Note 01/04/21 01/04/21 01/04/21 Range/Units 13:14 13:14 13:15 WBC 3.7 L (4.8-10.8) X10*3/uL RBC 3.17 L (4.60-5.80) X10*6/uL Hgb 9.0 L (14.0-18.0) g/dl Hct 26.7 L (42-52) % MCV 84.2 (80-98) fL MCH 28.4 (27.0-33.0) pg MCHC 33.7 (31.0-36.0) g/dl RDW 14.8 (11.0-16.0) % Plt Count 55 L (160-400) X10*3/uL MPV 9.5 (9.4-12.4) fL Immature Gran % (Auto) 0.3 (0.0-0.4) % Neut % (Auto) 68.0 (45-73) % Lymph % (Auto) 20.1 (20-40) % Phelps % (Auto) 8.6 (2-11) % Eos % (Auto) 2.7 (0-4) % Baso % (Auto) 0.3 (0-2) % Lymph # (Auto) 0.8 L (1.2-4.9) X10*3/uL Phelps # (Auto) 0.3 (0.1-1.2) X10*3/uL Eos # (Auto) 0.1 (0.0-0.4) X10*3/uL Baso # (Auto) 0.0 (0.0-0.2) X10*3/uL Abs Immat Gran (auto) 0.01 (0.00-0.03) X10*3/uL Absolute Neuts (auto) 2.6 (2.0-8.3) X10*3/uL Absolute Nucleated RBC 0.000 (0.0-0.012) X10*3/uL Nucleated RBC % (auto) 0.0 (0.0-0.2) /100WBC PT (9.9-13.0) SEC INR (0.9-1.1) APTT (24.1-38.0) SEC Sodium (135-145) mmol/L Potassium (3.3-5.1) mmol/L Chloride (96-108) mmol/L Carbon Dioxide (22-29) mmol/L Anion Gap (12-20) BUN (9-16) mg/dL Creatinine (0.5-1.4) mg/dL Estim Creat Clear Calc Estimated GFR Random Glucose (60-115) mg/dL Calcium (8.4-10.2) mg/dL Phosphorus (2.7-4.5) mg/dL Magnesium (1.6-2.6) mg/dL Total Bilirubin (0.0-1.0) mg/dL Direct Bilirubin (0.0-0.5) mg/dL AST (5-37) U/L ALT (0-40) U/L Alkaline Phosphatase (39-117) U/L Ammonia (13-55) umol/L B-Natriuretic Peptide 554 H (<100) pg/mL Total Protein 5.1 L (6.5-8.0) g/dL Albumin (3.5-5.0) g/dL Lipase (8-78) U/L Stool Occult Blood (NEGATIVE) COVID-19 ([facility]) (Negative) COVID-19 Clin Com 01/04/21 01/04/21 01/04/21 Range/Units 13:15 13:30 14:47 WBC (4.8-10.8) X10*3/uL RBC (4.60-5.80) X10*6/uL Hgb (14.0-18.0) g/dl Hct (42-52) % MCV (80-98) fL MCH (27.0-33.0) pg MCHC (31.0-36.0) g/dl RDW (11.0-16.0) % Plt Count (160-400) X10*3/uL MPV (9.4-12.4) fL Immature Gran % (Auto) (0.0-0.4) % Neut % (Auto) (45-73) % Lymph % (Auto) (20-40) % Phelps % (Auto) (2-11) % Eos % (Auto) (0-4) % Baso % (Auto) (0-2) % Lymph # (Auto) (1.2-4.9) X10*3/uL Phelps # (Auto) (0.1-1.2) X10*3/uL Eos # (Auto) (0.0-0.4) X10*3/uL Baso # (Auto) (0.0-0.2) X10*3/uL Abs Immat Gran (auto) (0.00-0.03) X10*3/uL Absolute Neuts (auto) (2.0-8.3) X10*3/uL Absolute Nucleated RBC (0.0-0.012) X10*3/uL Nucleated RBC % (auto) (0.0-0.2) /100WBC PT (9.9-13.0) SEC INR (0.9-1.1) APTT (24.1-38.0) SEC Sodium 142 (135-145) mmol/L Potassium 5.6 H D (3.3-5.1) mmol/L Chloride 110 H (96-108) mmol/L Carbon Dioxide 25 (22-29) mmol/L Anion Gap 13 (12-20) BUN 18 H (9-16) mg/dL Creatinine 1.79 H (0.5-1.4) mg/dL Estim Creat Clear Calc 32.1 Estimated GFR 37 Random Glucose 101 (60-115) mg/dL Calcium 9.5 D (8.4-10.2) mg/dL Phosphorus (2.7-4.5) mg/dL Magnesium (1.6-2.6) mg/dL Total Bilirubin 1.7 H (0.0-1.0) mg/dL Direct Bilirubin 0.7 H (0.0-0.5) mg/dL AST 22 (5-37) U/L ALT 15 (0-40) U/L Alkaline Phosphatase 67 D (39-117) U/L Ammonia 50 (13-55) umol/L B-Natriuretic Peptide (<100) pg/mL Total Protein 5.2 L (6.5-8.0) g/dL Albumin 3.1 L D (3.5-5.0) g/dL Lipase (8-78) U/L Stool Occult Blood NEGATIVE (NEGATIVE) COVID-19 ([facility]) (Negative) COVID-19 Clin Com Discharge Plan Discharge Clinical Impression: Ascites, JACOB (acute kidney injury), Elevated INR, Thrombocytopenia, Acute hyperkalemia Patient Disposition: Admitted As Inpatient Prescriptions: No Action cholecalciferol (vitamin D3) 50 mcg (2,000 unit) capsule 50 mcg PO DAILY Qty: 30 RF: 1 omeprazole 20 mg capsule,delayed release(DR/EC) 20 mg PO BID Qty: 60 RF: 6 Xifaxan 550 mg tablet 550 mg PO BID 30 Days Qty: 60 RF: 1 multivitamin [Daily-Arlene] Tablet 1 tab PO DAILY RF: 0 montelukast 10 mg tablet 1 tab PO BEDTIME RF: 0 Flovent HFA 220 mcg/actuation HFA aerosol inhaler 2 puff PO BID RF: 0 metformin 500 mg tablet extended release 24 hr 1 tab PO QAM RF: 0 loratadine 10 mg tablet 1 tab PO DAILY RF: 0 lactulose 10 gram/15 mL solution 30 ml PO TID RF: 0 spironolactone 25 mg tablet 25 mg PO DAILY RF: 0 Xarelto 20 mg tablet 20 mg PO DAILY RF: 0 citalopram 10 mg tablet 10 mg PO DAILY RF: 0 (DME) FreeStyle Lite Strips Strip See Rx Instructions ea Not Applicable BID Qty: 10 RF: 0 midodrine 2.5 mg tablet 2.5 mg PO BID 30 Days Qty: 60 RF: 3
[2021-01-04 13:19] LABS: MANUAL DIFF FLAG NO
[2021-01-04 13:23] LABS: Basophils Percent Auto 0.3 % (0-2); Eosinophils Absolute Auto 0.1 X10*3/uL (0.0-0.4); Eosinophils Percent Auto 2.7 % (0-4); Hematocrit 26.7 % (42-52); Imm Gran Abs Auto 0.01 X10*3/uL (0.00-0.03); Imm Gran Pct Auto 0.3 % (0.0-0.4); Lymphocytes Absolute Auto 0.8 X10*3/uL (1.2-4.9); Lymphocytes Percent Auto 20.1 % (20-40); Mean Corpuscular HGB Conc 33.7 g/dl (31.0-36.0); Mean Corpuscular Hemoglobin 28.4 pg (27.0-33.0); Mean Corpuscular Volume 84.2 fL (80-98); Mean Platelet Volume 9.5 fL (9.4-12.4); Monocytes Absolute Auto 0.3 X10*3/uL (0.1-1.2); Monocytes Percent Auto 8.6 % (2-11); Neutrophils Absolute Auto 2.6 X10*3/uL (2.0-8.3); Red Blood Count 3.17 X10*6/uL (4.60-5.80); Red Cell Distribution Width 14.8 % (11.0-16.0); White Blood Count 3.7 X10*3/uL (4.8-10.8)
[2021-01-04 13:25] LABS: Platelet Count 55 X10*3/uL (160-400)
[2021-01-04 13:32] LABS: Partial Thromboplastin Time 48.6 SEC (24.1-38.0)
[2021-01-04 13:36] LABS: Prothrombin Time 73.3 SEC (9.9-13.0)
[2021-01-04 13:43] LABS: INTERNATIONAL NORM RATIO 6.2 (0.9-1.1)
[2021-01-04 13:46] LABS: COVID-19 Test Negative (Negative)
[2021-01-04 13:50] LABS: B Type Natriuretic Peptide 554 pg/mL (<100)
[2021-01-04 13:50] LABS: Ammonia 50 umol/L (13-55)
[2021-01-04 13:51] LABS: Total Protein 5.1 g/dL (6.5-8.0)
--- NOTE | 2021-01-04 13:53 | PHA.MEDREC ---
Pharmacy Consult ? Medication Reconciliation Pharmacy has completed the medication reconciliation. There are no remarkable issues for provider's attention. Patient's brought in a medication list for patient that match up to claim history. Izabella Gómez, JoseD
[2021-01-04 13:57] LABS: Alanine Aminotransferase 15 U/L (0-40); Albumin Level 3.1 g/dL (3.5-5.0); Alkaline Phosphatase 67 U/L (39-117); Anion Gap 13 (12-20); Aspartate Amino Transferase 22 U/L (5-37); Bilirubin Direct 0.7 mg/dL (0.0-0.5); Bilirubin Total 1.7 mg/dL (0.0-1.0); Blood Urea Nitrogen 18 mg/dL (9-16); Calcium 9.5 mg/dL (8.4-10.2); Carbon Dioxide 25 mmol/L (22-29); Chloride 110 mmol/L (96-108); Creatinine Clr Calc Pharmacy 32.1; Estimated Glomerular Filt Rate 37; Glucose Random 101 mg/dL (60-115); Potassium 5.6 mmol/L (3.3-5.1); Sodium 142 mmol/L (135-145); Total Protein 5.2 g/dL (6.5-8.0)
[2021-01-04 14:02] LABS: Lipase 17 U/L (8-78)
[2021-01-04 14:29] LABS: Phosphorus 3.2 mg/dL (2.7-4.5)
[2021-01-04] MEDS: Albumin Human 25 % 100 ML IV (14:40)
[2021-01-04 15:05] LABS: OBS Int Ctl Valid YES; OBS1 NEGATIVE (NEGATIVE)
[2021-01-04 15:24] VITALS: BP 139/69; PULSE 61; RESP 16; TEMP 36.6; O2SAT 100
[2021-01-04] MEDS: Sodium Polystyrene Sulfon/Sorb 15 GM/60 ML ORAL.SUSP 30 GM PO (15:45)
[2021-01-04] MEDS: Calcium Gluconate/NaCl,Iso-Osm 1 GM/50 ML PLAST..BAG IV (15:46)
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
--- NOTE | 2021-01-04 16:36 | PC.NURSE ---
nurse not ready for report, will call back
[2021-01-04] MEDS: Furosemide 20 MG/2 ML VIAL IVPUSH (17:32)
[2021-01-04] MEDS: Phytonadione (Vit K1) 10 MG in 0.9 % Sodium Chloride 50 ML 51 MG IV (17:32)
[2021-01-04] MEDS: 0.9 % Sodium Chloride Flush 3 ML SYRINGE IVFLUSH (17:35)
[2021-01-04 17:36] VITALS: BP 144/62; PULSE 64; RESP 16; O2SAT 95
[2021-01-04] MEDS: Omeprazole 20 MG CAPSULE.DR PO (18:15)
[2021-01-04 18:17] VITALS: BP 149/81; PULSE 66; RESP 18; TEMP 36.6; O2SAT 99
[2021-01-04] MEDS: rifAXIMin 550 MG TABLET PO (20:44)
[2021-01-04] MEDS: Lactulose 20 GM/30 ML SOLUTION PO (20:44)
[2021-01-04] MEDS: Montelukast Sodium 10 MG TABLET PO (20:44)
[2021-01-04 23:36] VITALS: BP 124/57; PULSE 56; RESP 15; TEMP 36.9; O2SAT 100
[2021-01-05] VITALS (7 sets, daily range): BP systolic 118–151; BP diastolic 54–65; PULSE 50–75; RESP 16–20; TEMP 36.2–37.4; O2SAT 98–100
[2021-01-05] MEDS: Omeprazole 20 MG CAPSULE.DR PO ×2 (06:07→15:27)
[2021-01-05 06:36] LABS: Hematocrit 24.7 % (42-52); Hemoglobin 8.3 g/dl (14.0-18.0); Mean Corpuscular HGB Conc 33.6 g/dl (31.0-36.0); Mean Corpuscular Hemoglobin 28.1 pg (27.0-33.0); Mean Corpuscular Volume 83.7 fL (80-98); Mean Platelet Volume 9.8 fL (9.4-12.4); Red Blood Count 2.95 X10*6/uL (4.60-5.80); Red Cell Distribution Width 14.7 % (11.0-16.0); White Blood Count 3.2 X10*3/uL (4.8-10.8)
[2021-01-05 06:47] LABS: Prothrombin Time 34.9 SEC (9.9-13.0)
[2021-01-05 06:52] LABS: Anion Gap 8 (12-20); Blood Urea Nitrogen 18 mg/dL (9-16); Calcium 9.1 mg/dL (8.4-10.2); Carbon Dioxide 28 mmol/L (22-29); Chloride 110 mmol/L (96-108); Creatinine Clr Calc Pharmacy 33.6; Estimated Glomerular Filt Rate 39; Glucose Random 115 mg/dL (60-115); Magnesium 1.7 mg/dL (1.6-2.6); Potassium 4.2 mmol/L (3.3-5.1); Sodium 142 mmol/L (135-145)
[2021-01-05 06:55] LABS: Platelet Count 51 X10*3/uL (160-400)
[2021-01-05] MEDS: Cholecalciferol (Vitamin D3) 25 MCG TABLET 50 MCG PO (08:36)
[2021-01-05] MEDS: Spironolactone 25 MG TABLET PO (08:37)
[2021-01-05] MEDS: Lactulose 20 GM/30 ML SOLUTION PO ×3 (08:37→19:50)
[2021-01-05] MEDS: Midodrine HCl 2.5 MG TABLET PO ×2 (08:37→16:37)
[2021-01-05] MEDS: rifAXIMin 550 MG TABLET PO ×2 (08:37→19:50)
[2021-01-05] MEDS: Loratadine 10 MG TABLET PO (08:37)
[2021-01-05] MEDS: Multivitamin TABLET 1 TAB PO (08:37)
--- NOTE | 2021-01-05 08:43 | P.CDIC_ITS ---
CDI Concurrent Query Service Date: 01/05/21 Documentation Clarification: Please clarify if you are treating a proba ble/suspected/likely or confirmed: Hepatorenal Syndrome No Hepatorenal Syndrome Unable to Determine Other, please specify Provider Response: Other Other Diagnosis: No Hepatorenal Syndrome PLEASE DO NOT DELETE/MODIFY EXISTING CONTENT Additional information is needed in order to code to the highest accuracy and appropriate Severity of Illness (SOI). Please clarify the information noted below in your progress notes and discharge summary. Risk Factors/Clinical Indicators/Treatments Abdominal distention, history Cirrhosis, Alcohol Use disorder s/p 7.8 L fluid drained on 12/20/20 BUN 18 Creatinine 1.79 Per ED: JACOB, Ascites CDS: Zaida Plascencia RN Contact Number: [phone] Please Review the information above and exercise your independent professional judgment in responding to the query. If you concur, pleas document in the PROGRESS NOTES and DISCHARGE SUMMARY. If you do not agree with the query, please document in the query above. THIS QUERY IS PART OF THE PERMANENT MEDICAL RECORD
--- NOTE | 2021-01-05 10:42 | HO.RADPN ---
RADIOLOGY Narrative Narrative: RLQ paracentesis performed using 5 Fr angiocath. L clear ambered colored fluid removed.
[2021-01-05] MEDS: Lidocaine HCl 1 % MPF 5 ML VIAL SUBCUT (11:01)
[2021-01-05 11:47] LABS: MN% 85.7 %; PMN% 14.3 %; RBC Peritoneal Fluid 0.002 X10*6/uL; WBC Peritoneal Fluid 0.157 X10*3/uL
--- NOTE | 2021-01-05 12:14 | PC.NURSE ---
1115 returned from paracentesis Dsg D@I on right lower quad. VSS Bedrest until 1300. Denies pain.
[2021-01-05 12:24] LABS: BF Shift QC OK YES; Lymphocyte Peritoneal Fl 17 %; Monocytes Peritoneal Fl 5 %; Neutrophils Peritoneal Fluid 8 %; Other Peritioneal Fl 70 %
--- NOTE | 2021-01-05 12:39 | HO.RADPN ---
RADIOLOGY Narrative Narrative: RLQ paracentesis performed using 5 Fr catheter. 5.3 L clear cheryl colored fluid removed. Diagnostic specimen sent as ordered.
[2021-01-05] MEDS: 0.9 % Sodium Chloride Flush 3 ML SYRINGE IVFLUSH ×4 (12:42→19:50)
[2021-01-05] MEDS: Albumin Human 25 % 100 ML IV ×3 (12:42→23:26)
--- NOTE | 2021-01-05 13:51 | HO.PM.IMPN ---
Subjective Subjective Date of Service: 01/05/21 Interval History: the patient was seen and evaluated this afternoon Laying in bed, feels better after doing paracentesis done removing the fluids Denies any fever, chills or shortness of breath No reported other overnight events. Systemic review: No fever, chills or weakness No chest pain, palpitation No shortness of breath or coughing No abdominal pain, nausea or vomiting, distension decreased Passing urine No any rash or wounds Physical Exam Vital Signs: Vital Signs: Last Vital Signs Temp 97.8 F 01/05/21 12:00 Pulse 54 01/05/21 12:00 Resp 18 01/05/21 12:00 BP 125/62 01/05/21 12:00 Pulse Ox 99 01/05/21 12:00 Body Mass Index 25.0 Const: Other: Constitutional : Alert, oriented, not in distress Neck : Normal inspection, Supple Cardiovascular : RRR, S1 S2, +1 bilateral lower extremity edema Respiratory : Good bilateral air entry, no crackles, wheezes or rhonchi Gastrointestinal: soft, lax, Normal bowel sounds, Non tender, distension decreased significantly Skin : Warm, Dry Neurological : Alert & oriented x3, No focal deficit Objective Data Current Medications Generic Name Dose Route Start Last Admin Trade Name Freq PRN Reason Stop Dose Admin Acetaminophen 650 mg 01/04/21 15:50 Acetaminophen 325 Mg Tablet PO Q6H PRN Pain, Mild (Pain Scale 1-3) Albumin Human 100 mls @ 100 mls/hr 01/05/21 12:30 01/05/21 13:48 Kedbumin 25 % IV 01/06/21 07:29 Infused Q6H JAY JAY Infusion Lactulose 20 gm 01/04/21 21:00 01/05/21 08:37 Lactulose 20 Gm/30 Ml Solution PO 20 gm TID JAY JAY Administration Loratadine 10 mg 01/05/21 09:00 01/05/21 08:37 Loratadine 10 Mg Tablet PO 10 mg DAILY JAY JAY Administration Midodrine 2.5 mg 01/05/21 08:00 01/05/21 08:37 Midodrine Hcl 2.5 Mg Tablet PO 2.5 mg BIDWM JAY JAY Administration Montelukast Sodium 10 mg 01/04/21 21:00 01/04/21 20:44 Montelukast Sodium 10 Mg Tablet PO 10 mg BEDTIME JAY JAY Administration Multivitamins/Vitamin C 1 tab 01/05/21 09:00 01/05/21 08:37 Multivitamin Tablet PO 1 tab DAILY JAY JAY Administration Omeprazole 20 mg 01/04/21 16:30 01/05/21 06:07 Omeprazole 20 Mg Capsule. PO 20 mg BID@8830,5190 JAY JAY Administration Ondansetron HCl 4 mg 01/04/21 15:50 Ondansetron Hcl 4 Mg/2 Ml Vial IVPUSH Q8H PRN Nausea and Vomiting Rifaximin 550 mg 01/04/21 21:00 01/05/21 08:37 Rifaximin 550 Mg Tablet PO 550 mg BID JAY JAY Administration Sodium Chloride 3 ml 01/04/21 16:00 01/05/21 12:42 0.9 % Sodium Chloride Flush 3 Ml Syringe IVFLUSH 3 ml QSHIFT JAY JAY Administration Spironolactone 25 mg 01/05/21 09:00 01/05/21 08:37 Spironolactone 25 Mg Tablet PO 25 mg DAILY [facility] Administration Protocol Vitamin D 50 mcg 01/05/21 09:00 01/05/21 08:36 Cholecalciferol (Vitamin D3) 25 Mcg Tablet PO 50 mcg DAILY JAY JAY Administration Labs CBC & Chem 7: 01/05/21 06:00 01/05/21 06:00 Labs: Laboratory Results - last 24 hr 01/04/21 01/04/21 01/04/21 13:14 13:14 13:15 MCV MCH MCHC RDW Plt Count MPV Absolute Nucleated RBC Nucleated RBC % (auto) PT INR Anion Gap 13 Estim Creat Clear Calc 32.1 Estimated GFR 37 Random Glucose 101 Calcium 9.5 D Phosphorus 3.2 Magnesium 2.0 Total Bilirubin 1.7 H Direct Bilirubin 0.7 H AST 22 ALT 15 Alkaline Phosphatase 67 D Total Protein 5.1 L 5.2 L Albumin 3.1 L D Lipase 17 Peritoneal WBC Peritoneal RBC Periton Neutrophils Periton Lymphocytes Peritoneal Monocytes Peritoneal Other Cells Stool Occult Blood 01/04/21 01/05/21 01/05/21 14:47 06:00 06:00 MCV 83.7 MCH 28.1 MCHC 33.6 RDW 14.7 Plt Count 51 L MPV 9.8 Absolute Nucleated RBC 0.000 Nucleated RBC % (auto) 0.0 PT 34.9 H D INR 3.0 H Anion Gap Estim Creat Clear Calc Estimated GFR Random Glucose Calcium Phosphorus Magnesium Total Bilirubin Direct Bilirubin AST ALT Alkaline Phosphatase Total Protein Albumin Lipase Peritoneal WBC Peritoneal RBC Periton Neutrophils Periton Lymphocytes Peritoneal Monocytes Peritoneal Other Cells Stool Occult Blood NEGATIVE 01/05/21 01/05/21 06:00 10:15 MCV MCH MCHC RDW Plt Count MPV Absolute Nucleated RBC Nucleated RBC % (auto) PT INR Anion Gap 8 L Estim Creat Clear Calc 33.6 Estimated GFR 39 Random Glucose 115 Calcium 9.1 Phosphorus Magnesium 1.7 Total Bilirubin Direct Bilirubin AST ALT Alkaline Phosphatase Total Protein Albumin Lipase Peritoneal WBC 0.157 Peritoneal RBC 0.002 Periton Neutrophils 8 Periton Lymphocytes 17 Peritoneal Monocytes 5 Peritoneal Other Cells 70 Stool Occult Blood Assessment and Plan (1) Elevated INR: Status: Acute (2) Thrombocytopenia: Status: Acute (3) Acute hyperkalemia: Status: Acute (4) Ascites: Status: Acute Assessment and Plan: 75 years old male with PMH of alcohol use disorder, liver cirrhosis, asthma, AFib, diabetes among others who presented to the hospital with complaint of increase abdominal distension and edema in the lower extremities. Ascites Lower extremities edema Not tender, no fever or elevated WBCs To do therapeutic tap when INR drops Continue Lasix continue spironolactone Elevated INR From liver disease Xarelto Hold Xarelto for now due to therapeutic tap Received vitamin K Improved to 3, continue to monitor INR Acute hyperkalemia Resolved Monitor BMP Thrombocytopenia Secondary to chronic liver disease Monitor, no need to transfusion DVT PPX SCDs Quality Stroke Does the patient have a stroke diagnosis?: No VTE Prior VTE?: No VTE Risk Level:: Medical - moderate - high VTE Device Contraindication: N/A - Device Ordered VTE Drug Contraindication: Treatment Not Indicated
[2021-01-05] MEDS: Furosemide 20 MG/2 ML VIAL IVPUSH (14:41)
--- NOTE | 2021-01-05 15:34 | PC.NURSE ---
Right lower quadrant paracentesis site drsg CDI
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
[2021-01-05] MEDS: Montelukast Sodium 10 MG TABLET PO (19:50)
[2021-01-06] MEDS: Omeprazole 20 MG CAPSULE.DR PO (05:51)
[2021-01-06] MEDS: Albumin Human 25 % 100 ML IV (05:51)
[2021-01-06 06:16] LABS: INTERNATIONAL NORM RATIO 2.2 (0.9-1.1); Prothrombin Time 25.1 SEC (9.9-13.0)
[2021-01-06 06:43] LABS: Anion Gap 10 (12-20); Blood Urea Nitrogen 18 mg/dL (9-16); Calcium 9.4 mg/dL (8.4-10.2); Carbon Dioxide 27 mmol/L (22-29); Chloride 111 mmol/L (96-108); Creatinine Clr Calc Pharmacy 32.9; Estimated Glomerular Filt Rate 38; Glucose Random 100 mg/dL (60-115); Potassium 3.7 mmol/L (3.3-5.1); Sodium 144 mmol/L (135-145)
[2021-01-06 07:00] VITALS: BP 144/65; PULSE 54; RESP 18; TEMP 36.6; O2SAT 96
[2021-01-06] MEDS: 0.9 % Sodium Chloride Flush 3 ML SYRINGE IVFLUSH (07:40)
[2021-01-06] MEDS: Furosemide 40 MG TABLET PO (08:19)
[2021-01-06] MEDS: Spironolactone 25 MG TABLET PO (08:19)
[2021-01-06] MEDS: rifAXIMin 550 MG TABLET PO (08:19)
[2021-01-06] MEDS: Cholecalciferol (Vitamin D3) 25 MCG TABLET 50 MCG PO (08:19)
[2021-01-06] MEDS: Midodrine HCl 2.5 MG TABLET PO (08:19)
[2021-01-06] MEDS: Lactulose 20 GM/30 ML SOLUTION PO (08:20)
[2021-01-06] MEDS: Loratadine 10 MG TABLET PO (08:20)
[2021-01-06] MEDS: Multivitamin TABLET 1 TAB PO (08:20)
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
[2021-01-06 10:55] VITALS: BP 145/67; PULSE 52; RESP 20; TEMP 36.6; O2SAT 99
== END 2021-01-06 11:32 | disposition home or self-care (01) | DRG 432 ==
LOC: HO.ED 15:15 → HO.S3 16:28
PROVIDERS: Physician Assistant; Admitting Provider Student in an Organized Health Care Education/Training Program; Emergency Provider Emergency Medicine; PCP Family Medicine; Visit Provider Student in an Organized Health Care Education/Training Program
DX: K70.31 Alcoholic cirrhosis of liver with ascites (principal); I81 Portal vein thrombosis; N17.9 Acute kidney failure, unspecified; I85.10 Secondary esophageal varices without bleeding; R79.1 Abnormal coagulation profile; F10.11 Alcohol abuse, in remission; K72.90 Hepatic failure, unspecified without coma; E87.5 Hyperkalemia; E11.9 Type 2 diabetes mellitus without complications; D69.6 Thrombocytopenia, unspecified; Z86.16 Personal history of COVID-19; Z20.822 Contact with and (suspected) exposure to COVID-19; Z79.01 Long term (current) use of anticoagulants; Z79.899 Other long term (current) drug therapy
CPT/HCPCS: 36415; 49083; 80048; 80076; 82140; 82272; 83690; 83735; 83880; 84100; 84155; 85025; 85027; 85610; 85730; 87071; 87073; 87205; 87635; 89051; 96365; 96375; 99285; J0610; J1940; J3430; P9047

== ENCOUNTER 2021-01-13 10:05 | Observation (INO) | payer OTHER, SELFPAY ==
[2021-01-13] VITALS (7 sets, daily range): BP systolic 132–162; BP diastolic 67–73; PULSE 57–78; RESP 15–18; TEMP 36.2–36.8; O2SAT 98–100; BMI 23.0; BMI 22.4
--- NOTE | 2021-01-13 | ECG_ITS ---
Test Reason : ALTERED MENTAL Blood Pressure : / mmHG Vent. Rate : 068 BPM Atrial Rate : 068 BPM P-R Int : 440 ms QRS Dur : 084 ms QT Int : 430 ms P-R-T Axes : 000 -01 -65 degrees QTc Int : 457 ms Sinus rhythm with 1st degree A-V block Low voltage QRS ST & T wave abnormality, consider anterior ischemia Abnormal ECG When compared with ECG of 10-NOV-2012 11:34, Sinus rhythm is no longer with 2nd degree A-V block (Mobitz I) QRS voltage has decreased Nonspecific T wave abnormality, worse in Inferior leads T wave inversion now evident in Anterior leads QT has lengthened Referred By: Amber Juarez Electronically Signed By:MARCAI OSEI
--- NOTE | ~2021-01-13 | CT_ITS ---
EXAMINATION: CT CHEST, ABDOMEN AND PELVIS WITHOUT CONTRAST. CLINICAL INFORMATION: AMS, distended abdomen, ?ascites . COMPARISON: 08/05/2017 CT scan. TECHNIQUE: Multidetector volumetric imaging was performed from the thoracic inlet through the pubic symphysis without intravenous contrast. Sagittal and coronal reformatted images were obtained on the technologist workstation. This CT examination was performed using dose optimization techniques as appropriate, variously including the following: *Automated exposure control *Adjustment of mA and/or kV according to patient size (this includes techniques or standardized protocols for targeted exams where dose is matched to indication/reason for exam; i.e. extremities or head) *Use of iterative reconstruction technique DLP: 1004 mGy-cm FINDINGS: CHEST: Lungs: Bibasilar dependent markings more likely due to atelectasis. Tiny calcified granuloma at the right base. Mediastinum: Vascular calcification within the aorta and coronary vessels. No hilar or mediastinal adenopathy. Moderate-sized but decompressed hiatal hernia. Pericardium/Pleura: No significant effusion. No pleural mass or thickening. Chest Wall/Axilla: Gynecomastia. Likely postoperative changes to the left first rib ABDOMEN/PELVIS: Peritoneal Space:Moderate volume of abdominal ascites is again seen Liver, Gallbladder, Biliary Tree: Nodular cirrhotic liver. No gross lesions seen but the liver is not well assessed on this noncontrast study. The gallbladder is unremarkable with no evidence of radiopaque gallstones, gallbladder wall thickening, or obvious pericholecystic inflammatory changes. Pancreas: Atrophic Spleen: Mildly enlarged measuring 13.8 cm in length. Adrenal Glands: Unremarkable. Kidneys and Ureters: The kidneys are normal in size, shape, and attenuation. No hydronephrosis, hydroureter, or calculi seen. No perinephric stranding. Bladder: Decompressed by Castro catheter Gastrointestinal Tract: Moderate amount of stool within the rectum. Scattered diverticulosis but no obvious diverticulitis. No obstructive changes to the visualized small bowel Abdominal Wall: Small fluid containing right femoral hernia incidentally noted. Lymphovascular Structures: Prominent vascular calcification within the aorta iliac system. The patient's known portal varicosities are not well seen on this noncontrast study. Pelvic Viscera: Unremarkable. Osseus Structures: No acute bony abnormality. Mild degenerative changes. Old healed mid left humeral fracture incidentally noted. CT/CT abdomen pelvis wo con IMPRESSION: Moderately large volume of ascites and cirrhotic liver with sequela of portal hypertension. I do not appreciate any definitive acute superimposed process when compared to prior studies.
--- NOTE | ~2021-01-13 | CT_ITS ---
EXAMINATION: CT HEAD WITHOUT CONTRAST CLINICAL INFORMATION: Altered mental status COMPARISON: None TECHNIQUE: Contiguous axial imaging was performed from the skull base to vertex without intravenous administration of contrast. This CT examination was performed using dose optimization techniques as appropriate, variously including the following: *Automated exposure control *Adjustment of mA and/or kV according to patient size (this includes techniques or standardized protocols for targeted exams where dose is matched to indication/reason for exam; i.e. extremities or head) *Use of iterative reconstruction technique DLP: 723 mGy-cm FINDINGS: There is no evidence of acute intracranial hemorrhage or edematous territorial infarction. No abnormal mass effect or midline shift is seen. Bueno to white matter differentiation is well preserved. No extra-axial fluid collections are identified. Mild cerebral volume loss with sulcal and ventricular prominence. Mild periventricular deep white matter hypodensities suggestive of chronic microangiopathic changes. No acute calvarial fracture. Opacification right maxillary sinus, with findings in the right lamina papyracea, may be related to sinus disease versus postsurgical changes. Partial opacification of the right sphenoid sinus. Mucocele/mucosal thickening in the left maxillary sinus. Opacification of the sphenoid sinuses. Mastoid air cells are well-aerated. CT/CT head/brain wo con IMPRESSION: No CT evidence of acute intracranial pathology. Chronic changes, sinus disease as detailed above.
--- NOTE | ~2021-01-13 | XR_ITS ---
EXAMINATION: XR CHEST CLINICAL INFORMATION: Rule out pneumonia COMPARISON: Previous chest x-ray most recent March 2020 TECHNIQUE: Frontal view of the chest was obtained. FINDINGS: The cardiac and mediastinal contours are stable. The lung volumes are low. There are increased markings seen in the lungs, greatest peripherally at the lung bases. This appears improved from March 2020 exam and may be the residual of prior infection. No definite acute pneumonia is seen. There is no pleural effusion or pneumothorax. There are degenerative changes of the spine. There is question of a old healed fracture of the left humeral shaft. XR/XR chest 1V IMPRESSION: Increased lung markings peripherally and at the lung bases improved from March 2020 exam. This probably represents residual changes of a prior pneumonia. No definite acute pneumonia is seen.
[2021-01-13 11:23] LABS: Glucose, Whole Blood 105 mg/dL (60-115)
[2021-01-13 11:24] LABS: MANUAL DIFF FLAG NO
[2021-01-13 11:31] LABS: Ammonia 67 umol/L (13-55)
[2021-01-13 11:35] LABS: Lactic Acid 1.8 mmol/L (0.5-2.0)
[2021-01-13 11:36] LABS: Basophils Percent Auto 0.3 % (0-2); Eosinophils Absolute Auto 0.1 X10*3/uL (0.0-0.4); Eosinophils Percent Auto 2.6 % (0-4); Hematocrit 24.5 % (42-52); Hemoglobin 8.4 g/dl (14.0-18.0); Imm Gran Abs Auto 0.01 X10*3/uL (0.00-0.03); Imm Gran Pct Auto 0.3 % (0.0-0.4); Lymphocytes Absolute Auto 0.7 X10*3/uL (1.2-4.9); Mean Corpuscular HGB Conc 34.3 g/dl (31.0-36.0); Mean Corpuscular Hemoglobin 28.6 pg (27.0-33.0); Mean Corpuscular Volume 83.3 fL (80-98); Mean Platelet Volume 9.7 fL (9.4-12.4); Monocytes Absolute Auto 0.2 X10*3/uL (0.1-1.2); Monocytes Percent Auto 7.9 % (2-11); Neutrophils Percent Auto 65.9 % (45-73); Red Blood Count 2.94 X10*6/uL (4.60-5.80); Red Cell Distribution Width 14.6 % (11.0-16.0); White Blood Count 3.1 X10*3/uL (4.8-10.8)
[2021-01-13 11:37] LABS: Ethanol < 10 mg/dL
[2021-01-13 11:39] LABS: Anion Gap 15 (12-20); Blood Urea Nitrogen 31 mg/dL (9-16); Calcium 10.4 mg/dL (8.4-10.2); Carbon Dioxide 25 mmol/L (22-29); Chloride 106 mmol/L (96-108); Creatinine Clr Calc Pharmacy 25.8; Estimated Glomerular Filt Rate 31; Glucose Random 109 mg/dL (60-115); Potassium 4.7 mmol/L (3.3-5.1); Sodium 141 mmol/L (135-145)
[2021-01-13 11:50] LABS: Platelet Count 47 X10*3/uL (160-400)
--- NOTE | 2021-01-13 12:42 | ED_ITS ---
HPI - Altered Mental Status General Chief Complaint: Altered Mental Status Stated Complaint: ams Time Seen by Provider: 01/13/21 10:53 Source: patient, family (Daughter, isac) and seismic interpreter Mode of arrival: EMS History of Present Illness HPI narrative: 75-year-old male with history of liver cirrhosis secondary to alcohol use who is brought in by his family via ambulance when they called because patient seemed ?off?. To them. As per EMS family told them that patient got lost in the house trying to find the bathroom, as per the daughter she states that he flushed the toilet and then walked over and peed in the bed. As per the daughter, Isac, she states that patient has been seen at [facility] as well as being seen here recently. Related Data Home Medications Medication Instructions Recorded Confirmed fluticasone propionate 220 2 puff PO BID 04/08/20 01/13/21 mcg/actuation HFA aerosol inhaler (Flovent HFA) loratadine 10 mg tablet 1 tab PO DAILY 04/08/20 01/13/21 metformin 500 mg tablet,extended 1 tab PO QAM 04/08/20 01/13/21 release 24 hr montelukast 10 mg tablet 1 tab PO BEDTIME 04/08/20 01/13/21 multivitamin (Daily-Arlene) 1 tab PO DAILY 04/08/20 01/13/21 citalopram 10 mg tablet 10 mg PO DAILY 06/01/20 01/13/21 rivaroxaban 20 mg tablet (Xarelto) 20 mg PO DAILY 06/01/20 01/13/21 blood sugar diagnostic #10 ea 06/29/20 lactulose 10 gram/15 mL oral 30 ml PO TID 01/04/21 01/13/21 solution spironolactone 25 mg tablet 25 mg PO DAILY 01/04/21 01/13/21 Previous Rx's Medication Instructions Recorded cholecalciferol (vitamin D3) 50 50 mcg PO DAILY #30 cap 05/25/20 mcg (2,000 unit) capsule omeprazole 20 mg capsule,delayed 20 mg PO BID #60 cap 07/21/20 release rifaximin 550 mg tablet (Xifaxan) 550 mg PO BID 30 Days #60 tab 09/26/20 midodrine 2.5 mg tablet 2.5 mg PO BID 30 Days #60 tab 11/10/20 furosemide 40 mg tablet 40 mg PO DAILY 30 Days #30 tab 01/06/21 Allergies Allergy/AdvReac Type Severity Reaction Status Date / Time No Known Allergies Allergy Verified 11/10/20 14:15 Review of Systems Review of Systems: Pertinent positives and negatives as stated in HPI 10 point review of systems is otherwise negative. [facility] Past Medical History Source: nursing notes reviewed Medical History (Updated 01/13/21 @ 16:41 by Amber Juarez MD) Ascites Cirrhosis of liver COVID-19 Diabetes Esophageal varices Esophageal varices determined by endoscopy Hypertension Liver problem Portal vein thrombosis Vitamin D deficiency Surgical History Hx of colonoscopy Hx of endoscopy Hx of inguinal hernia repair Family History Family History Father Diabetes HTN (hypertension) Mother Diabetes Sister Cancer Social History Social History Household Members: Spouse Housing: Apartment Do you presently have visiting nurse or other home services: No Alcohol intake: never Patient Tobacco Use Status: Never used Tobacco Advance Directives: No Advance Directives Information Provided: No Physical Exam Vital Signs: Vital Signs: Last Vital Signs Temp 98.3 F 01/13/21 14:55 Pulse 70 01/13/21 14:55 Resp 15 01/13/21 14:55 BP 145/67 H 01/13/21 14:55 Pulse Ox 99 01/13/21 14:55 Body Mass Index 23.0 VITAL SIGNS: Reviewed. GENERAL: Well developed, well nourished, in no acute distress. HEAD: Normocephalic/atraumatic EYES: PERRLA, EOMI OROPHARYNX: no oral lesions noted, posterior pharynx clear, dry mucosa NECK: Supple, no adenopathy LUNGS: Normal breath sounds. No adventitious sounds or accessory muscle use. SpO2<99> CARDIOVASCULAR: Regular rate and rhythm without noted murmurs, no JVD or lower extremity edema. ABDOMEN: Soft, non-tender, distended with bowel sounds and no fluid wave SKIN: Inspection of the skin reveals no rashes NEUROLOGIC: Alert and oriented x 2. Strength and sensation to light touch were grossly intact x 4. Course Course Course Narrative: 73-year-old male with known liver cirrhosis secondary to alcohol use presents with mild altered mental status and review of all investigations demonstrates a mild JACOB on underlying CKD with mildly elevated ammonia level and otherwise CT scan negative for acute findings other than abdominal ascites. Patient was also noted to be in urinary retention and had Castro catheter placed with a negative urinalysis. This case was discussed with the inpatient hospitalist who accepts admission. MDM - Altered Mental Status Lab Data Result diagrams: 01/13/21 11:16 01/13/21 11:16 Labs: Lab Results 01/13/21 01/13/21 01/13/21 Range/Units 11:03 11:16 11:16 WBC 3.1 L (4.8-10.8) X10*3/uL RBC 2.94 L (4.60-5.80) X10*6/uL Hgb 8.4 L (14.0-18.0) g/dl Hct 24.5 L (42-52) % MCV 83.3 (80-98) fL MCH 28.6 (27.0-33.0) pg MCHC 34.3 (31.0-36.0) g/dl RDW 14.6 (11.0-16.0) % Plt Count 47 L (160-400) X10*3/uL MPV 9.7 (9.4-12.4) fL Immature Gran % (Auto) 0.3 (0.0-0.4) % Neut % (Auto) 65.9 (45-73) % Lymph % (Auto) 23.0 (20-40) % [place] % (Auto) 7.9 (2-11) % Eos % (Auto) 2.6 (0-4) % Baso % (Auto) 0.3 (0-2) % Lymph # (Auto) 0.7 L (1.2-4.9) X10*3/uL [place] # (Auto) 0.2 (0.1-1.2) X10*3/uL Eos # (Auto) 0.1 (0.0-0.4) X10*3/uL Baso # (Auto) 0.0 (0.0-0.2) X10*3/uL Abs Immat Gran (auto) 0.01 (0.00-0.03) X10*3/uL Absolute Neuts (auto) 2.0 (2.0-8.3) X10*3/uL Absolute Nucleated RBC 0.000 (0.0-0.012) X10*3/uL Nucleated RBC % (auto) 0.0 (0.0-0.2) /100WBC Sodium 141 (135-145) mmol/L Potassium 4.7 D (3.3-5.1) mmol/L Chloride 106 (96-108) mmol/L Carbon Dioxide 25 (22-29) mmol/L Anion Gap 15 (12-20) BUN 31 H D (9-16) mg/dL Creatinine 2.07 H (0.5-1.4) mg/dL Estim Creat Clear Calc 25.8 Estimated GFR 31 POC Glucose 105 (60-115) mg/dL Random Glucose 109 (60-115) mg/dL Lactic Acid (0.5-2.0) mmol/L Calcium 10.4 H D (8.4-10.2) mg/dL Ammonia (13-55) umol/L Urine Color Urine Appearance Urine pH (5.0-8.0) Ur Specific [place] (1.005-1.025) Urine Protein (NEG-TRACE) MG/DL Urine Glucose (UA) (NEG) MG/DL Urine Ketones (NEG) MG/DL Urine Blood (NEG) Urine Nitrite (NEG) Ur Leukocyte Esterase (NEG) Urine RBC (0) /HPF Urine WBC (0-4) /HPF Ur Squamous Epith Cells /LPF Urine Bacteria /LPF Urine Mucus /LPF Urine Opiates Screen (Not Detect) Urine Fentanyl Screen (Not Detect) Ur Barbiturates Screen (Not Detect) Ur Phencyclidine Scrn (Not Detect) Ur Amphetamines Screen (Not Detect) U Benzodiazepines Scrn (Not Detect) Urine Cocaine Screen (Not Detect) U Marijuana (THC) Screen (Not Detect) Ethyl Alcohol mg/dL 01/13/21 01/13/21 01/13/21 Range/Units 11:16 11:17 11:17 WBC (4.8-10.8) X10*3/uL RBC (4.60-5.80) X10*6/uL Hgb (14.0-18.0) g/dl Hct (42-52) % MCV (80-98) fL MCH (27.0-33.0) pg MCHC (31.0-36.0) g/dl RDW (11.0-16.0) % Plt Count (160-400) X10*3/uL MPV (9.4-12.4) fL Immature Gran % (Auto) (0.0-0.4) % Neut % (Auto) (45-73) % Lymph % (Auto) (20-40) % [place] % (Auto) (2-11) % Eos % (Auto) (0-4) % Baso % (Auto) (0-2) % Lymph # (Auto) (1.2-4.9) X10*3/uL [place] # (Auto) (0.1-1.2) X10*3/uL Eos # (Auto) (0.0-0.4) X10*3/uL Baso # (Auto) (0.0-0.2) X10*3/uL Abs Immat Gran (auto) (0.00-0.03) X10*3/uL Absolute Neuts (auto) (2.0-8.3) X10*3/uL Absolute Nucleated RBC (0.0-0.012) X10*3/uL Nucleated RBC % (auto) (0.0-0.2) /100WBC Sodium (135-145) mmol/L Potassium (3.3-5.1) mmol/L Chloride (96-108) mmol/L Carbon Dioxide (22-29) mmol/L Anion Gap (12-20) BUN (9-16) mg/dL Creatinine (0.5-1.4) mg/dL Estim Creat Clear Calc Estimated GFR POC Glucose (60-115) mg/dL Random Glucose (60-115) mg/dL Lactic Acid 1.8 (0.5-2.0) mmol/L Calcium (8.4-10.2) mg/dL Ammonia 67 H (13-55) umol/L Urine Color Urine Appearance Urine pH (5.0-8.0) Ur Specific [place] (1.005-1.025) Urine Protein (NEG-TRACE) MG/DL Urine Glucose (UA) (NEG) MG/DL Urine Ketones (NEG) MG/DL Urine Blood (NEG) Urine Nitrite (NEG) Ur Leukocyte Esterase (NEG) Urine RBC (0) /HPF Urine WBC (0-4) /HPF Ur Squamous Epith Cells /LPF Urine Bacteria /LPF Urine Mucus /LPF Urine Opiates Screen (Not Detect) Urine Fentanyl Screen (Not Detect) Ur Barbiturates Screen (Not Detect) Ur Phencyclidine Scrn (Not Detect) Ur Amphetamines Screen (Not Detect) U Benzodiazepines Scrn (Not Detect) Urine Cocaine Screen (Not Detect) U Marijuana (THC) Screen (Not Detect) Ethyl Alcohol < 10 mg/dL 01/13/21 01/13/21 Range/Units 13:08 13:08 WBC (4.8-10.8) X10*3/uL RBC (4.60-5.80) X10*6/uL Hgb (14.0-18.0) g/dl Hct (42-52) % MCV (80-98) fL MCH (27.0-33.0) pg MCHC (31.0-36.0) g/dl RDW (11.0-16.0) % Plt Count (160-400) X10*3/uL MPV (9.4-12.4) fL Immature Gran % (Auto) (0.0-0.4) % Neut % (Auto) (45-73) % Lymph % (Auto) (20-40) % [place] % (Auto) (2-11) % Eos % (Auto) (0-4) % Baso % (Auto) (0-2) % Lymph # (Auto) (1.2-4.9) X10*3/uL [place] # (Auto) (0.1-1.2) X10*3/uL Eos # (Auto) (0.0-0.4) X10*3/uL Baso # (Auto) (0.0-0.2) X10*3/uL Abs Immat Gran (auto) (0.00-0.03) X10*3/uL Absolute Neuts (auto) (2.0-8.3) X10*3/uL Absolute Nucleated RBC (0.0-0.012) X10*3/uL Nucleated RBC % (auto) (0.0-0.2) /100WBC Sodium (135-145) mmol/L Potassium (3.3-5.1) mmol/L Chloride (96-108) mmol/L Carbon Dioxide (22-29) mmol/L Anion Gap (12-20) BUN (9-16) mg/dL Creatinine (0.5-1.4) mg/dL Estim Creat Clear Calc Estimated GFR POC Glucose (60-115) mg/dL Random Glucose (60-115) mg/dL Lactic Acid (0.5-2.0) mmol/L Calcium (8.4-10.2) mg/dL Ammonia (13-55) umol/L Urine Color YELLOW Urine Appearance HAZY Urine pH 7.5 (5.0-8.0) Ur Specific [place] 1.010 (1.005-1.025) Urine Protein NEG (NEG-TRACE) MG/DL Urine Glucose (UA) NEG (NEG) MG/DL Urine Ketones NEG (NEG) MG/DL Urine Blood 3+ H (NEG) Urine Nitrite NEG (NEG) Ur Leukocyte Esterase NEG (NEG) Urine RBC 76-150 H (0) /HPF Urine WBC 0 (0-4) /HPF Ur Squamous Epith Cells TRACE /LPF Urine Bacteria NONE /LPF Urine Mucus TRACE /LPF Urine Opiates Screen Not Detected (Not Detect) Urine Fentanyl Screen Not Detected (Not Detect) Ur Barbiturates Screen Not Detected (Not Detect) Ur Phencyclidine Scrn Not Detected (Not Detect) Ur Amphetamines Screen Not Detected (Not Detect) U Benzodiazepines Scrn Not Detected (Not Detect) Urine Cocaine Screen Not Detected (Not Detect) U Marijuana (THC) Screen Not Detected (Not Detect) Ethyl Alcohol mg/dL ECG Data ECG #1: Attestation: I personally reviewed and interpreted this ECG as follows: Prior ECG tracings: available for review (11/10/2012 second-degree AV block at that time is now 1st degree AV block) Interpretation: Sinus rhythm with first-degree AV block, HR-68, TN/440, no STEMI, QRS/QTC are within normal limits. Discharge Plan Discharge Clinical Impression: Encephalopathy, hepatic, JACOB (acute kidney injury), Urinary retention Patient Disposition: Admitted As Inpatient Prescriptions: No Action cholecalciferol (vitamin D3) 50 mcg (2,000 unit) capsule 50 mcg PO DAILY Qty: 30 RF: 1 omeprazole 20 mg capsule,delayed release(DR/EC) 20 mg PO BID Qty: 60 RF: 6 Xifaxan 550 mg tablet 550 mg PO BID 30 Days Qty: 60 RF: 1 multivitamin [Daily-Arlene] Tablet 1 tab PO DAILY RF: 0 montelukast 10 mg tablet 1 tab PO BEDTIME RF: 0 Flovent HFA 220 mcg/actuation HFA aerosol inhaler 2 puff PO BID RF: 0 metformin 500 mg tablet extended release 24 hr 1 tab PO QAM RF: 0 loratadine 10 mg tablet 1 tab PO DAILY RF: 0 lactulose 10 gram/15 mL solution 30 ml PO TID RF: 0 spironolactone 25 mg tablet 25 mg PO DAILY RF: 0 furosemide 40 mg Tablet 40 mg PO DAILY 30 Days Qty: 30 RF: 0 Xarelto 20 mg tablet 20 mg PO DAILY RF: 0 citalopram 10 mg tablet 10 mg PO DAILY RF: 0 (DME) blood sugar diagnostic Strip See Rx Instructions ea Not Applicable BID Qty: 10 RF: 0 midodrine 2.5 mg tablet 2.5 mg PO BID 30 Days Qty: 60 RF: 3
[2021-01-13] MEDS: Lidocaine HCl 2 % Urojet 10 ML JEL.PF.APP TOPICAL (13:09)
[2021-01-13 13:17] LABS: Glucose Urine UA NEG (NEG); Leukocyte Esterase Urine NEG (NEG); Nitrite Urine NEG (NEG); PH 7.5 (5.0-8.0); UACC Culture Trigger NO; Urine Blood 3+ (NEG); Urine Ketones NEG (NEG); Urine Protein NEG (NEG-TRACE)
[2021-01-13 13:18] LABS: Appearance Urine HAZY; Color Urine YELLOW
[2021-01-13 13:25] LABS: Mucus Urine TRACE /LPF; Squamous Epithelial Cell Urine TRACE /LPF; WBC Urine 0 /HPF (0-4)
[2021-01-13 13:37] LABS: Amphetamine Screen Urine Not Detected (Not Detect); Barbiturates, Urine Not Detected (Not Detect); Benzodiazepines Screen Urine Not Detected (Not Detect); Cannabinoid Screen Urine Not Detected (Not Detect); Cocaine Screen Urine Not Detected (Not Detect); Fentanyl, urine Not Detected (Not Detect); Opiate Screen Urine Not Detected (Not Detect); Phencyclidine Screen Urine Not Detected (Not Detect)
[2021-01-13] MEDS: Lactulose 20 GM/30 ML SOLUTION PO ×2 (15:17→20:36)
--- NOTE | 2021-01-13 16:33 | P.HPHOSP_ITS ---
History of Present Illness Date of Service: 01/13/21 Chief Complaint: confusion Source of history: patient and , certified court interpreter used 75 year male with multiple medical problems including advanced liver disease, cirrhosis of liver, CKD3, diabetes, HTN was recently discharged from the hospital on January 06 2021 following admission for symptomatic and underwent 5.5 Liter therapeutic paracentesis at that time. He is melissa in by family today due to confusio, he reportedly not lost his way in the house trying to find bathroom and ended voding onto a bed. He has no fever, alert and oriented to self, place but not date and otherwise seem apropriate, renal failure is within baseline, ammonia is 67 which high for him, no UTI, head CT is unremarkable, and other routine lab unremarkable. Given lactulose in ED for presumed hapatic encephalopathy Review of Systems Review of Systems: Gen: no fever Resp: no sob, no cough CV: no chest, no ORTIZ, no leg edema GI: No n/v, no abd pain Neuro: No confusion Yes all other systems are reviewed and are negative [facility] Medical History (Updated 01/13/21 @ 16:42 by Gonzalo Beckman MD) Ascites Cirrhosis of liver CKD (chronic kidney disease) stage 3, GFR 30-59 ml/min COVID-19 Diabetes Esophageal varices Esophageal varices determined by endoscopy Hypertension Liver problem Portal vein thrombosis Vitamin D deficiency Family History Father Diabetes HTN (hypertension) Mother Diabetes Sister Cancer Surgical History Hx of colonoscopy Hx of endoscopy Hx of inguinal hernia repair Social History Household Members: Spouse Housing: Apartment Do you presently have visiting nurse or other home services: No Alcohol intake: never Patient Tobacco Use Status: Never used Tobacco Advance Directives: No Advance Directives Information Provided: No Meds Allergies Allergy/AdvReac Type Severity Reaction Status Date / Time No Known Allergies Allergy Verified 11/10/20 14:15 Home Medications Medication Instructions Recorded Confirmed Last Taken Type fluticasone propionate 220 2 puff PO BID 04/08/20 01/13/21 01/04/21 History mcg/actuation HFA aerosol inhaler (Flovent HFA) loratadine 10 mg tablet 1 tab PO DAILY 04/08/20 01/13/21 01/04/21 History metformin 500 mg tablet,extended 1 tab PO QAM 04/08/20 01/13/21 01/04/21 History release 24 hr montelukast 10 mg tablet 1 tab PO BEDTIME 04/08/20 01/13/21 01/03/21 History multivitamin (Daily-Arlene) 1 tab PO DAILY 04/08/20 01/13/21 01/04/21 History citalopram 10 mg tablet 10 mg PO DAILY 06/01/20 01/13/21 01/04/21 History rivaroxaban 20 mg tablet (Xarelto) 20 mg PO DAILY 06/01/20 01/13/21 01/04/21 [facility] blood sugar diagnostic #10 ea 06/29/20 Unknown History lactulose 10 gram/15 mL oral 30 ml PO TID 01/04/21 01/13/21 01/04/21 History solution spironolactone 25 mg tablet 25 mg PO DAILY 01/04/21 01/13/21 01/04/21 History Physical Exam Vital Signs and Narrative: Vital Signs: Last Vital Signs Temp 98.3 F 01/13/21 14:55 Pulse 70 01/13/21 14:55 Resp 15 01/13/21 14:55 BP 145/67 H 01/13/21 14:55 Pulse Ox 99 01/13/21 14:55 Body Mass Index 23.0 Constitutional Awake and Alert, No apparent distress HEENT, anicteric Neck Supple, No lymphadenopathy Cardiovascular RRR, No M/R/G, S1 S2, No S3 S4, No pedal edema Respiratory Lungs clear, No respiratory distress Gastrointestinal Non tender, Non-distended, soft,non tense ascites Skin No rash Neurological Alert & oriented x3 Psychological Appropriate affect Results Labs CBC and Chem 7: 01/13/21 11:16 01/13/21 11:16 Labs: Laboratory Results - last 24 hr 01/13/21 01/13/21 01/13/21 11:03 11:16 11:16 MCV 83.3 MCH 28.6 MCHC 34.3 RDW 14.6 Plt Count 47 L MPV 9.7 Immature Gran % (Auto) 0.3 Neut % (Auto) 65.9 Lymph % (Auto) 23.0 [place] % (Auto) 7.9 Eos % (Auto) 2.6 Baso % (Auto) 0.3 Lymph # (Auto) 0.7 L [place] # (Auto) 0.2 Eos # (Auto) 0.1 Baso # (Auto) 0.0 Abs Immat Gran (auto) 0.01 Absolute Neuts (auto) 2.0 Absolute Nucleated RBC 0.000 Nucleated RBC % (auto) 0.0 Anion Gap 15 Estim Creat Clear Calc 25.8 Estimated GFR 31 POC Glucose 105 Random Glucose 109 Lactic Acid Calcium 10.4 H D Ammonia Urine Color Urine Appearance Urine pH Ur Specific [place] Urine Protein Urine Glucose (UA) Urine Ketones Urine Blood Urine Nitrite Ur Leukocyte Esterase Urine RBC Urine WBC Ur Squamous Epith Cells Urine Bacteria Urine Mucus Urine Opiates Screen Urine Fentanyl Screen Ur Barbiturates Screen Ur Phencyclidine Scrn Ur Amphetamines Screen U Benzodiazepines Scrn Urine Cocaine Screen U Marijuana (THC) Screen Ethyl Alcohol 01/13/21 01/13/21 01/13/21 11:16 11:17 11:17 MCV MCH MCHC RDW Plt Count MPV Immature Gran % (Auto) Neut % (Auto) Lymph % (Auto) [place] % (Auto) Eos % (Auto) Baso % (Auto) Lymph # (Auto) [place] # (Auto) Eos # (Auto) Baso # (Auto) Abs Immat Gran (auto) Absolute Neuts (auto) Absolute Nucleated RBC Nucleated RBC % (auto) Anion Gap Estim Creat Clear Calc Estimated GFR POC Glucose Random Glucose Lactic Acid 1.8 Calcium Ammonia 67 H Urine Color Urine Appearance Urine pH Ur Specific [place] Urine Protein Urine Glucose (UA) Urine Ketones Urine Blood Urine Nitrite Ur Leukocyte Esterase Urine RBC Urine WBC Ur Squamous Epith Cells Urine Bacteria Urine Mucus Urine Opiates Screen Urine Fentanyl Screen Ur Barbiturates Screen Ur Phencyclidine Scrn Ur Amphetamines Screen U Benzodiazepines Scrn Urine Cocaine Screen U Marijuana (THC) Screen Ethyl Alcohol < 10 01/13/21 01/13/21 13:08 13:08 MCV MCH MCHC RDW Plt Count MPV Immature Gran % (Auto) Neut % (Auto) Lymph % (Auto) [place] % (Auto) Eos % (Auto) Baso % (Auto) Lymph # (Auto) [place] # (Auto) Eos # (Auto) Baso # (Auto) Abs Immat Gran (auto) Absolute Neuts (auto) Absolute Nucleated RBC Nucleated RBC % (auto) Anion Gap Estim Creat Clear Calc Estimated GFR POC Glucose Random Glucose Lactic Acid Calcium Ammonia Urine Color YELLOW Urine Appearance HAZY Urine pH 7.5 Ur Specific [place] 1.010 Urine Protein NEG Urine Glucose (UA) NEG Urine Ketones NEG Urine Blood 3+ H Urine Nitrite NEG Ur Leukocyte Esterase NEG Urine RBC 76-150 H Urine WBC 0 Ur Squamous Epith Cells TRACE Urine Bacteria NONE Urine Mucus TRACE Urine Opiates Screen Not Detected Urine Fentanyl Screen Not Detected Ur Barbiturates Screen Not Detected Ur Phencyclidine Scrn Not Detected Ur Amphetamines Screen Not Detected U Benzodiazepines Scrn Not Detected Urine Cocaine Screen Not Detected U Marijuana (THC) Screen Not Detected Ethyl Alcohol Imaging Radiologist's Impressions: Impressions Chest X-Ray 01/13/21 11:23 IMPRESSION: Increased lung markings peripherally and at the lung bases improved from March 2020 exam. This probably represents residual changes of a prior pneumonia. No definite acute pneumonia is seen. Abdomen/Pelvis CT 01/13/21 13:02 IMPRESSION: Moderately large volume of ascites and cirrhotic liver with sequela of portal hypertension. I do not appreciate any definitive acute superimposed process when compared to prior studies. Chest CT 01/13/21 13:02 IMPRESSION: Moderately large volume of ascites and cirrhotic liver with sequela of portal hypertension. I do not appreciate any definitive acute superimposed process when compared to prior studies. Head CT 01/13/21 13:02 IMPRESSION: No CT evidence of acute intracranial pathology. Chronic changes, sinus disease as detailed above. Assessment and Plan (1) Encephalopathy, hepatic: Status: Acute Confusion d/t heatic encephalopathy--continue Lactulose, continue rifaximin h/o portal vein thrombosis--continue xarelto Diabetes--SSI, should not be on metformin d/t renal failure Cirrhsis/Ascietes, continue Aldactone and Lasix GERD --continue Omeprazole CKD 3--stable DVT prophylaxis--Xarelto Quality Stroke Does the patient have a stroke diagnosis?: No VTE Prior VTE?: No VTE Risk Level:: Medical - low VTE Device Contraindication: Treatment Not Indicated VTE Drug Contraindication: N/A - Med Ordered
[2021-01-13 17:54] LABS: COVID-19 Test Negative (Negative); IDNOW Serial# 08D9AD1C
[2021-01-13 18:35] LABS: Glucose, Whole Blood 113 mg/dL (60-115)
[2021-01-13] MEDS: Midodrine HCl 2.5 MG TABLET PO (18:52)
[2021-01-13] MEDS: metFORMIN HCl ER 500 MG TAB.ER.24H PO (18:53)
[2021-01-13] MEDS: Fluticasone Propionate 250 MCG BLST.W.DEV 2 PUFF INHALE (19:52)
[2021-01-13 20:15] LABS: Glucose, Whole Blood 161 mg/dL (60-115)
--- NOTE | 2021-01-13 20:17 | PM.EVENT ---
Event Note Date of Service: 01/14/21 Event Note: Penile Bleeding: Patient has bleeding from the penis since insertion of Castro in the ER; gradually improving. Held Home Xarelto. Consulted urology h&H stable initially planned to to GIve platelets and FFP; Will hold off as H&H stable.
[2021-01-13] MEDS: 0.9 % Sodium Chloride Flush 3 ML SYRINGE IVFLUSH (20:36)
[2021-01-13] MEDS: rifAXIMin 550 MG TABLET PO (20:36)
[2021-01-13] MEDS: Montelukast Sodium 10 MG TABLET PO (20:36)
[2021-01-13] MEDS: Omeprazole 20 MG CAPSULE.DR PO (20:36)
--- NOTE | 2021-01-13 22:51 | PC.NURSE ---
Pt came up around 1800 from the Ed with a Castro, There was bleeding around the penile area and inner thigh. It was cleaned. 2 hrs later CANDY SEPARATOR ENROBING reported new bleeding around the same area. MD was notified of the Situation. MD ordered labs
[2021-01-13 23:39] LABS: MANUAL DIFF FLAG NO
[2021-01-13 23:41] LABS: Basophils Percent Auto 0.3 % (0-2); Eosinophils Percent Auto 0.8 % (0-4); Hematocrit 25.5 % (42-52); Hemoglobin 8.7 g/dl (14.0-18.0); Imm Gran Abs Auto 0.01 X10*3/uL (0.00-0.03); Imm Gran Pct Auto 0.3 % (0.0-0.4); Lymphocytes Absolute Auto 0.5 X10*3/uL (1.2-4.9); Lymphocytes Percent Auto 12.1 % (20-40); Mean Corpuscular HGB Conc 34.1 g/dl (31.0-36.0); Mean Corpuscular Hemoglobin 28.7 pg (27.0-33.0); Mean Corpuscular Volume 84.2 fL (80-98); Mean Platelet Volume 10.5 fL (9.4-12.4); Monocytes Absolute Auto 0.3 X10*3/uL (0.1-1.2); Monocytes Percent Auto 8.7 % (2-11); Neutrophils Percent Auto 77.8 % (45-73); Red Blood Count 3.03 X10*6/uL (4.60-5.80); White Blood Count 3.8 X10*3/uL (4.8-10.8)
[2021-01-13 23:42] LABS: Platelet Count 51 X10*3/uL (160-400)
[2021-01-14] VITALS (8 sets, daily range): BP systolic 109–145; BP diastolic 38–68; PULSE 61–79; RESP 14–18; TEMP 36.1–37.1; O2SAT 97–100
[2021-01-14 06:48] LABS: Ammonia 41 umol/L (13-55)
[2021-01-14 07:43] LABS: Glucose, Whole Blood 88 mg/dL (60-115)
[2021-01-14] MEDS: Fluticasone Propionate 250 MCG BLST.W.DEV 2 PUFF INHALE ×2 (07:51→20:47)
[2021-01-14] MEDS: Omeprazole 20 MG CAPSULE.DR PO ×2 (10:47→21:00)
[2021-01-14] MEDS: rifAXIMin 550 MG TABLET PO ×2 (10:47→21:00)
[2021-01-14] MEDS: Cholecalciferol (Vitamin D3) 25 MCG TABLET 50 MCG PO (10:48)
[2021-01-14] MEDS: Furosemide 40 MG TABLET PO (10:48)
[2021-01-14] MEDS: Midodrine HCl 2.5 MG TABLET PO (10:48)
[2021-01-14] MEDS: Loratadine 10 MG TABLET PO (10:48)
[2021-01-14] MEDS: Multivitamin TABLET 1 TAB PO (10:48)
[2021-01-14] MEDS: Escitalopram Oxalate 5 MG TABLET PO (10:49)
[2021-01-14] MEDS: Spironolactone 25 MG TABLET PO (10:49)
[2021-01-14] MEDS: 0.9 % Sodium Chloride Flush 3 ML SYRINGE IVFLUSH ×2 (10:50→16:32)
[2021-01-14 12:13] LABS: Glucose, Whole Blood 113 mg/dL (60-115)
--- NOTE | 2021-01-14 12:36 | MHC.AU.ANO ---
Adult Audiological Evaluation Date of Visit: Italian Lecturer Used: Reason for Appointment: Does patient feel they have a hearing loss?: If Yes, Which Ear?: When Was Hearing Difficulty First Noticed?: Has hearing been tested previously?: Previous Hearing Test Results: Hearing Handicap Inventory: HHIE SCORE: Based on HHIE score, patient has: Ear History: Ear Deformity: Recent Ear Drainage: Recent Ear Pain: Family History of Hearing Loss?: Recent Ear Infections: Ear Infections in Childhood: History of Ear Wax Buildup: Previous Ear Surgery: Bothersome Tinnitus/Ringing/Noises in Ears: Ear used on the phone: Blocked/Full Sensation in Ear(s): History of occupational noise exposure?: History: History: Branch: Years in : Medical History: Medical History: Medical History: Allergies: Medication List: Otoscopy: Right Ear: Left Ear: Tympanometry: Tympanometry performed due to: Right Ear: Left Ear: Acoustic Reflexes: Ipsilateral Probe Right: 500 Hz: 1000 Hz: 2000 Hz: 4000 Hz: Probe Left: 500 Hz: 1000 Hz: 2000 Hz: 4000 Hz: Contralateral Probe Right: 500 Hz: 1000 Hz: 2000 Hz: 4000 Hz: Probe Left: 500 Hz: 1000 Hz: 2000 Hz: 4000 Hz: Screening Ipsilateral Reflex Probe Right Ear: Probe Left Ear: Acoustic Reflex Decay Right Ear: Left Ear: Otoacoustic Emissions Frequency Range Used: Right Ear Results: Analysis: Left Ear Results: Analysis: Hearing Evaluation: Transducer(s) Used: Method: Stimuli Used: Right Ear: Description of Hearing: Left Ear: Description of Hearing: Speech Recognition Threshold (SRT): Method Used: Stimuli Used: Right Ear: Left Ear: Word Discrimination: Method: Word Lists Used: Right Ear: Left Ear: Most Comfortable Level (MCL): Right Ear: Left Ear: Uncomfortable Loudness Level (UCL): Right Ear: Left Ear: QuickSIN: BKB-SIN: Comparison: Compared to the most recent evaluation: Compared to most recent evaluation: Interpretation of Results: Recommendations: Diagnosis: Primary Diagnosis: Secondary Diagnosis: Services Performed: Signature: Student/Clinical Fellow: I have reviewed/agreed with student/fellow documentation: Provider:
--- NOTE | 2021-01-14 12:39 | MHC.CM.PN ---
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 PCP VERIFIED [facility] AND PT HAS NO HCP, PT WILL CONSIDER COMPLETEING PRIOR TO D/C. PT PREFERS TO RETURN HOME W/SERVICES AND NOT TO STR IF RECOMMENDED. D/C PLAN: HOME W/RESUMP OF CONFIGURATION MANAGEMENT ARCHITECT/[facility] AND [facility], FAMILY FOR TRANSPORT.
--- NOTE | 2021-01-14 15:35 | PC.NURSE ---
1400 no further bleeding from F/C.
[2021-01-14 16:17] LABS: Glucose, Whole Blood 164 mg/dL (60-115)
[2021-01-14] MEDS: Insulin Lispro 100 UNIT/ML 3 ML VIAL SUBCUT (16:32)
--- NOTE | 2021-01-14 19:45 | PM.EVENT ---
Event Note Date of Service: 01/14/21 Event Note: bacteremia: s/w Zosyn; AM team to follow up final results.
[2021-01-14 20:23] LABS: Glucose, Whole Blood 80 mg/dL (60-115)
[2021-01-14] MEDS: Piperacillin Sodium/Tazobactam 2.25 GM in 0.9 % Sodium Chloride 50 ML IV (20:58)
[2021-01-14] MEDS: Lactulose 20 GM/30 ML SOLUTION PO (20:59)
[2021-01-14] MEDS: Montelukast Sodium 10 MG TABLET PO (21:00)
[2021-01-15] VITALS (8 sets, daily range): BP systolic 119–142; BP diastolic 56–70; PULSE 60–75; RESP 15–18; TEMP 36.6–36.9; O2SAT 97–100
[2021-01-15] MEDS: Piperacillin Sodium/Tazobactam 2.25 GM in 0.9 % Sodium Chloride 50 ML IV ×4 (01:11→21:07)
[2021-01-15] MEDS: 0.9 % Sodium Chloride Flush 3 ML SYRINGE IVFLUSH ×4 (01:15→21:08)
[2021-01-15 08:08] LABS: Glucose, Whole Blood 91 mg/dL (60-115)
[2021-01-15] MEDS: Fluticasone Propionate 250 MCG BLST.W.DEV 2 PUFF INHALE ×2 (08:14→19:59)
[2021-01-15] MEDS: rifAXIMin 550 MG TABLET PO ×2 (09:39→21:07)
[2021-01-15] MEDS: Multivitamin TABLET 1 TAB PO (09:39)
[2021-01-15] MEDS: Cholecalciferol (Vitamin D3) 25 MCG TABLET 50 MCG PO (09:39)
[2021-01-15] MEDS: Furosemide 40 MG TABLET PO (09:39)
[2021-01-15] MEDS: Midodrine HCl 2.5 MG TABLET PO ×2 (09:39→18:31)
[2021-01-15] MEDS: Escitalopram Oxalate 5 MG TABLET PO (09:39)
[2021-01-15] MEDS: Loratadine 10 MG TABLET PO (09:39)
[2021-01-15] MEDS: Lactulose 20 GM/30 ML SOLUTION PO ×3 (09:39→21:08)
[2021-01-15] MEDS: Spironolactone 25 MG TABLET PO (09:39)
[2021-01-15] MEDS: Omeprazole 20 MG CAPSULE.DR PO ×2 (09:40→21:07)
--- NOTE | 2021-01-15 09:56 | MHC.CM.PN ---
PATIENT IS DISCHARGED HOME WITH [facility] FOR MEDICATION MANAGEMENT
--- NOTE | 2021-01-15 10:10 | P.CNUR_ITS ---
History of Present Illness Consult details Consult date: 01/15/21 Reason for consult: other (Patient Castro catheter consult for hematuria on inspection the patient this morning patient has no hematuria as yellow clear urine. Recommend removing Castro if possible and no longer clinically indicated.) Review of Systems Review of Systems: Yes all other systems are reviewed and are negative [facility] Past Medical History Medical History JACOB (acute kidney injury) Ascites Cirrhosis of liver CKD (chronic kidney disease) stage 3, GFR 30-59 ml/min COVID-19 Diabetes Elevated INR Esophageal varices Esophageal varices determined by endoscopy GERD (gastroesophageal reflux disease) Hepatic encephalopathy Hypertension Liver problem Portal vein thrombosis Thrombocytopenia Vitamin D deficiency Family History Family History Father Diabetes HTN (hypertension) Mother Diabetes Sister Cancer Surgical History Surgical History Hx of colonoscopy Hx of endoscopy Hx of inguinal hernia repair Social History Social History Household Members: Spouse Housing: House Do you presently have visiting nurse or other home services: Yes Alcohol intake: never Patient Tobacco Use Status: Never used Tobacco Use of substances other than those prescribed or required for medical reasons: No Currently Displaying Signs/Symptoms of Drug Intoxication Withdrawal: No Have you been hit, kicked, punched, or otherwise hurt by someone within the past year? If so, by whom?: No Do you feel safe in your current relationship?: No Is there a partner from a previous relationship who is making you feel unsafe now?: No Are you made to feel afraid or neglected: No Advance Directives: No Advance Directives Information Provided: No Do you have thoughts of harming others: None Do you have a plan to hurt others: No Plan Recently lost weight without trying: Yes How much weight loss: Unsure Eating poorly because of decreased appetite: No Nutrition screen score: 4 Nutrition Risks: No Nutritional Risk Poor oral hygiene: No service: No Current occupational status: retired Meds Allergies Allergy/AdvReac Type Severity Reaction Status Date / Time No Known Allergies Allergy Verified 11/10/20 14:15 Active Medications: Current Medications Generic Name Dose Route Start Last Admin Trade Name Jose PRN Reason Stop Dose Admin Dextrose 25 gm 01/13/21 20:22 Dextrose 50 % 25 Gm/50 Ml Vial IVPUSH Q15M PRN per Hypoglycemia Standing Ord. Protocol Escitalopram Oxalate 5 mg 01/14/21 09:00 01/15/21 09:39 Escitalopram Oxalate 5 Mg Tablet PO 5 mg DAILY JAY JAY Administration Fluticasone Propionate 2 puff 01/13/21 20:00 01/15/21 08:14 Fluticasone Propionate 250 Mcg Blst.W.Dev INHALE 2 puff RBID JAY JAY Administration Furosemide 40 mg 01/14/21 09:00 01/15/21 09:39 Furosemide 40 Mg Tablet PO 40 mg DAILY JAY JAY Administration Protocol Glucose 15 gm 01/13/21 20:22 Glucose Gel 15 Gm Gel..Gram. PO Q15M PRN per Hypoglycemia Standing Ord. Protocol Piperacillin Sod/Tazobactam 50 mls @ 100 mls/hr 01/14/21 20:00 01/15/21 09:40 Sod 2.25 gm/ Sodium Chloride IV 100 mls/hr Q6H JAY JAY Administration Insulin Human Lispro 0 unit 01/13/21 21:00 01/15/21 07:38 Insulin Lispro 100 Unit/Ml 3 Ml Vial SUBCUT [facility] Protocol Lactulose 20 gm 01/13/21 21:00 01/15/21 09:39 Lactulose 20 Gm/30 Ml Solution PO 20 gm TID JAY JAY Administration Loratadine 10 mg 01/14/21 09:00 01/15/21 09:39 Loratadine 10 Mg Tablet PO 10 mg DAILY JAY JAY Administration Metformin HCl 500 mg 01/13/21 17:00 01/13/21 18:53 Metformin Hcl Er 500 Mg Tab.Er.24h PO 500 mg DAILY JAY JAY Administration Midodrine 2.5 mg 01/13/21 18:00 01/15/21 09:39 Midodrine Hcl 2.5 Mg Tablet PO 2.5 mg BID@0900,1800 JAY JAY Administration Montelukast Sodium 10 mg 01/13/21 21:00 01/14/21 21:00 Montelukast Sodium 10 Mg Tablet PO 10 mg BEDTIME JAY JAY Administration Multivitamins/Vitamin C 1 tab 01/14/21 09:00 01/15/21 09:39 Multivitamin Tablet PO 1 tab DAILY [facility] Administration Omeprazole 20 mg 01/13/21 21:00 01/15/21 09:40 Omeprazole 20 Mg Capsule. PO 20 mg BID JAY JAY Administration Ondansetron HCl 4 mg 01/13/21 16:50 Ondansetron Hcl 4 Mg/2 Ml Vial IVPUSH Q8H PRN Nausea and Vomiting Rifaximin 550 mg 01/13/21 21:00 01/15/21 09:39 Rifaximin 550 Mg Tablet PO 550 mg BID JAY JAY Administration Rivaroxaban 20 mg 01/14/21 09:00 Rivaroxaban 20 Mg Tablet PO DAILY [facility] Sodium Chloride 3 ml 01/14/21 00:00 01/15/21 09:40 0.9 % Sodium Chloride Flush 3 Ml Syringe IVFLUSH 3 ml QSHIFT [facility] Administration Spironolactone 25 mg 01/14/21 09:00 01/15/21 09:39 Spironolactone 25 Mg Tablet PO 25 mg DAILY [facility] Administration Protocol Vitamin D 50 mcg 01/14/21 09:00 01/15/21 09:39 Cholecalciferol (Vitamin D3) 25 Mcg Tablet PO 50 mcg DAILY [facility] Administration Home Medications Medication Instructions Recorded Confirmed Last Taken Type fluticasone propionate 220 2 puff PO BID 04/08/20 01/13/21 01/04/21 History mcg/actuation HFA aerosol inhaler (Flovent HFA) loratadine 10 mg tablet 1 tab PO DAILY 04/08/20 01/13/21 01/04/21 History metformin 500 mg tablet,extended 1 tab PO QAM 04/08/20 01/13/21 01/04/21 History release 24 hr montelukast 10 mg tablet 1 tab PO BEDTIME 04/08/20 01/13/21 01/03/21 History multivitamin (Daily-Arlene) 1 tab PO DAILY 04/08/20 01/13/21 01/04/21 History citalopram 10 mg tablet 10 mg PO DAILY 06/01/20 01/13/21 01/04/21 History rivaroxaban 20 mg tablet (Xarelto) 20 mg PO DAILY 06/01/20 01/13/21 01/04/21 History blood sugar diagnostic #10 ea 06/29/20 Unknown History lactulose 10 gram/15 mL oral 30 ml PO TID 01/04/21 01/13/21 01/04/21 History solution spironolactone 25 mg tablet 25 mg PO DAILY 01/04/21 01/13/21 01/04/21 History Physical Exam Vital Signs: Vital Signs: Last Vital Signs Temp 97.9 F 01/15/21 08:00 Pulse 67 01/15/21 08:00 Resp 18 01/15/21 08:00 BP 131/65 01/15/21 08:00 Pulse Ox 100 01/15/21 08:00 Body Mass Index 22.4 HENMT: Head: Yes normal to inspection Neck: Neck: Yes normal visual inspection Chest: Chest palpation & inspection: normal inspection of the chest Resp: Effort & Inspection: normal respiratory effort and able to speak in complete sentences Cardio: Rate: regular rate Rhythm: regular rhythm GI: Inspection: Yes normal to inspection Skin: General skin exam: turgor normal Extrem: General: Yes normal to inspection and Yes full ROM Psych: Appearance: grossly normal Results Labs Result diagrams: 01/13/21 23:32 01/13/21 11:16 Labs: Abnormal lab results 01/14/21 Range/Units 16:13 POC Glucose 164 H (60-115) mg/dL Urine 01/13/21 Range/Units 13:08 Urine Color YELLOW Urine Appearance HAZY Urine pH 7.5 (5.0-8.0) Ur Specific [place] 1.010 (1.005-1.025) Urine Protein NEG (NEG-TRACE) MG/DL Urine Glucose (UA) NEG (NEG) MG/DL All other labs normal. Assessment and Plan (1) Hematuria: Status: Acute Follow-up with urology on a p.r.n. basis., most likely etiology for the bleeding that was noted his Castro catheter but is no longer bleeding. Procedures Date of Service Date of Service: 01/15/21
[2021-01-15 10:46] LABS: Anion Gap 13 (12-20); Blood Urea Nitrogen 30 mg/dL (9-16); Calcium 10.2 mg/dL (8.4-10.2); Carbon Dioxide 28 mmol/L (22-29); Chloride 106 mmol/L (96-108); Creatinine Clr Calc Pharmacy 24.2; Estimated Glomerular Filt Rate 29; Glucose Random 127 mg/dL (60-115); Sodium 143 mmol/L (135-145)
[2021-01-15 11:47] LABS: Glucose, Whole Blood 132 mg/dL (60-115)
--- NOTE | 2021-01-15 12:20 | PC.NURSE ---
flannery removed at 1000. ambualted to br and voided 200cc at 12:15. dtv # 2 at 1815.
--- NOTE | 2021-01-15 14:26 | MHC.CM.PN ---
PER CONVERSATION WITH RN, PATIENT IS NO LONGER DC. [facility] MADE AWARE [facility].
[2021-01-15 15:56] LABS: Glucose, Whole Blood 152 mg/dL (60-115)
[2021-01-15] MEDS: Insulin Lispro 100 UNIT/ML 3 ML VIAL SUBCUT (16:23)
--- NOTE | 2021-01-15 18:00 | P.PNIM_ITS ---
Subjective Subjective Date of Service: 01/16/21 Interval History: F/u on hepatic encephalopathy Review of Systems mentally clear no fever no urinary retention Physical Exam Vital Signs: Vital Signs: Last Vital Signs Temp 98 F 01/15/21 15:09 Pulse 60 01/15/21 15:09 Resp 18 01/15/21 15:09 BP 140/70 H 01/15/21 15:09 Pulse Ox 100 01/15/21 15:09 Body Mass Index 22.4 Objective Data Active Medications Dextrose (Dextrose 50 % 25 Gm/50 Ml Vial) 25 gm IVPUSH Q15M PRN; Protocol PRN Reason: per Hypoglycemia Standing Ord. Escitalopram Oxalate (Escitalopram Oxalate 5 Mg Tablet) 5 mg PO DAILY [facility] Last Admin: 01/15/21 09:39 Dose: 5 mg Documented by: TRACEY Fluticasone Propionate (Fluticasone Propionate 250 Mcg Blst.W.Dev) 2 puff INHALE RBID [facility] Last Admin: 01/15/21 08:14 Dose: 2 puff Documented by: KENNEDY Furosemide (Furosemide 40 Mg Tablet) 40 mg PO DAILY [facility]; Protocol Last Admin: 01/15/21 09:39 Dose: 40 mg Documented by: TRACEY Glucose (Glucose Gel 15 Gm Gel..Gram.) 15 gm PO Q15M PRN; Protocol PRN Reason: per Hypoglycemia Standing Ord. Piperacillin Sod/Tazobactam (Sod 2.25 gm/ Sodium Chloride) 50 mls @ 100 mls/hr IV Q6H [facility] Last Infusion: 01/15/21 15:09 Dose: 0 mls/hr Documented by: TRACEY Insulin Human Lispro (Insulin Lispro 100 Unit/Ml 3 Ml Vial) 0 unit SUBCUT QIDACHS [facility]; Protocol Last Admin: 01/15/21 16:23 Dose: 2 unit Documented by: EVANGELINA Lactulose (Lactulose 20 Gm/30 Ml Solution) 20 gm PO TID [facility] Last Admin: 01/15/21 14:35 Dose: 20 gm Documented by: TRACEY Loratadine (Loratadine 10 Mg Tablet) 10 mg PO DAILY [facility] Last Admin: 01/15/21 09:39 Dose: 10 mg Documented by: TRACEY Metformin HCl (Metformin Hcl Er 500 Mg Tab.Er.24h) 500 mg PO DAILY [facility] Last Admin: 01/13/21 18:53 Dose: 500 mg Documented by: HANNAH Midodrine (Midodrine Hcl 2.5 Mg Tablet) 2.5 mg PO BID@0900,1800 [facility] Last Admin: 01/15/21 09:39 Dose: 2.5 mg Documented by: TRACEY Montelukast Sodium (Montelukast Sodium 10 Mg Tablet) 10 mg PO BEDTIME [facility] Last Admin: 01/14/21 21:00 Dose: 10 mg Documented by: ZENA Multivitamins/Vitamin C (Multivitamin Tablet) 1 tab PO DAILY [facility] Last Admin: 01/15/21 09:39 Dose: 1 tab Documented by: TRACEY Omeprazole (Omeprazole 20 Mg Capsule.) 20 mg PO BID [facility] Last Admin: 01/15/21 09:40 Dose: 20 mg Documented by: TRACEY Ondansetron HCl (Ondansetron Hcl 4 Mg/2 Ml Vial) 4 mg IVPUSH Q8H PRN PRN Reason: Nausea and Vomiting Rifaximin (Rifaximin 550 Mg Tablet) 550 mg PO BID [facility] Last Admin: 01/15/21 09:39 Dose: 550 mg Documented by: TRACEY Rivaroxaban (Rivaroxaban 20 Mg Tablet) 20 mg PO DAILY [facility] Sodium Chloride (0.9 % Sodium Chloride Flush 3 Ml Syringe) 3 ml IVFLUSH QSHIFT [facility] Last Admin: 01/15/21 15:58 Dose: 3 ml Documented by: EVANGELINA Spironolactone (Spironolactone 25 Mg Tablet) 25 mg PO DAILY [facility]; Protocol Last Admin: 01/15/21 09:39 Dose: 25 mg Documented by: TRACEY Vitamin D (Cholecalciferol (Vitamin D3) 25 Mcg Tablet) 50 mcg PO DAILY [facility] Last Admin: 01/15/21 09:39 Dose: 50 mcg Documented by: TRACEY Labs CBC & Chem 7: 01/13/21 23:32 01/16/21 08:22 Labs: Laboratory Results - last 24 hr 01/14/21 01/15/21 01/15/21 20:16 07:36 10:13 Anion Gap 13 Estim Creat Clear Calc 24.2 Estimated GFR 29 POC Glucose 80 91 Random Glucose 127 H Calcium 10.2 09/06/21 09/06/21 11:28 15:42 Anion Gap Estim Creat Clear Calc Estimated GFR POC Glucose 132 H 152 H Random Glucose Calcium Microbiology Microbiology Results: Microbiology 01/13/21 12:00 Blood Culture - Preliminary Blood - Venous No growth after 48 hours. 01/13/21 11:16 Blood Culture - Final Blood - Venous Coag negative Staphylococcus Quality Stroke Does the patient have a stroke diagnosis?: No VTE Prior VTE?: No VTE Risk Level:: Medical - low VTE Device Contraindication: Treatment Not Indicated VTE Drug Contraindication: N/A - Med Ordered
[2021-01-15 20:06] LABS: Glucose, Whole Blood 107 mg/dL (60-115)
[2021-01-15] MEDS: Montelukast Sodium 10 MG TABLET PO (21:07)
[2021-01-16] VITALS (9 sets, daily range): BP systolic 118–144; BP diastolic 61–69; PULSE 58–75; RESP 16–18; TEMP 36.2–36.8; O2SAT 97–100
[2021-01-16] MEDS: Piperacillin Sodium/Tazobactam 2.25 GM in 0.9 % Sodium Chloride 50 ML IV ×2 (03:00→08:19)
[2021-01-16] MEDS: Fluticasone Propionate 250 MCG BLST.W.DEV 2 PUFF INHALE ×2 (08:00→20:01)
[2021-01-16 08:01] LABS: Glucose, Whole Blood 90 mg/dL (60-115)
[2021-01-16] MEDS: rifAXIMin 550 MG TABLET PO ×2 (08:20→20:35)
[2021-01-16] MEDS: Lactulose 20 GM/30 ML SOLUTION PO ×3 (08:20→20:36)
[2021-01-16] MEDS: Loratadine 10 MG TABLET PO (08:20)
[2021-01-16] MEDS: Multivitamin TABLET 1 TAB PO (08:20)
[2021-01-16] MEDS: Spironolactone 25 MG TABLET PO (08:20)
[2021-01-16] MEDS: Omeprazole 20 MG CAPSULE.DR PO ×2 (08:20→20:35)
[2021-01-16] MEDS: 0.9 % Sodium Chloride Flush 3 ML SYRINGE IVFLUSH ×3 (08:20→23:23)
[2021-01-16] MEDS: Cholecalciferol (Vitamin D3) 25 MCG TABLET 50 MCG PO (08:20)
[2021-01-16] MEDS: Furosemide 40 MG TABLET PO (08:20)
[2021-01-16] MEDS: Midodrine HCl 2.5 MG TABLET PO ×2 (08:20→18:44)
[2021-01-16] MEDS: Escitalopram Oxalate 5 MG TABLET PO (08:20)
[2021-01-16 09:00] LABS: Anion Gap 13 (12-20); Blood Urea Nitrogen 30 mg/dL (9-16); Calcium 10.1 mg/dL (8.4-10.2); Carbon Dioxide 28 mmol/L (22-29); Chloride 107 mmol/L (96-108); Estimated Glomerular Filt Rate 28; Glucose Random 102 mg/dL (60-115); Sodium 144 mmol/L (135-145)
--- NOTE | 2021-01-16 10:00 | HO.PM.IMPN ---
Subjective Subjective Date of Service: 01/16/21 Interval History: f/u hepatic encephalopathy and jacob, no new issues, cr slightly worse Review of Systems no confusion no fever Physical Exam Vital Signs: Vital Signs: Last Vital Signs Temp 97.1 F 01/16/21 07:37 Pulse 63 01/16/21 07:37 Resp 18 01/16/21 07:37 BP 141/69 H 01/16/21 07:37 Pulse Ox 100 01/16/21 07:37 Body Mass Index 22.4 General: AO X 2, no acute distress Resp: CTA bilateral CVS: S1,S2,RRR GI: +BS, NT, no distention, mild sings of ascietes Skin: No rash Neuro: motor grossly intact Psych: appropriate affect Objective Data Active Medications Dextrose (Dextrose 50 % 25 Gm/50 Ml Vial) 25 gm IVPUSH Q15M PRN; Protocol PRN Reason: per Hypoglycemia Standing Ord. Escitalopram Oxalate (Escitalopram Oxalate 5 Mg Tablet) 5 mg PO DAILY [facility] Last Admin: 01/16/21 08:20 Dose: 5 mg Documented by: TRACEY Fluticasone Propionate (Fluticasone Propionate 250 Mcg Blst.W.Dev) 2 puff INHALE RBID [facility] Last Admin: 01/16/21 08:00 Dose: 2 puff Documented by: KENNEDY Furosemide (Furosemide 40 Mg Tablet) 40 mg PO DAILY [facility]; Protocol Last Admin: 01/16/21 08:20 Dose: 40 mg Documented by: TRACEY Glucose (Glucose Gel 15 Gm Gel..Gram.) 15 gm PO Q15M PRN; Protocol PRN Reason: per Hypoglycemia Standing Ord. Piperacillin Sod/Tazobactam (Sod 2.25 gm/ Sodium Chloride) 50 mls @ 100 mls/hr IV Q6H [facility] Last Infusion: 01/16/21 09:02 Dose: 0 mls/hr Documented by: TRACEY Insulin Human Lispro (Insulin Lispro 100 Unit/Ml 3 Ml Vial) 0 unit SUBCUT QIDACHS [facility]; Protocol Last Admin: 01/16/21 08:11 Dose: Not Given Documented by: TRACEY Non-Admin Reason: No Insulin Coverage Lactulose (Lactulose 20 Gm/30 Ml Solution) 20 gm PO TID [facility] Last Admin: 01/16/21 08:20 Dose: 20 gm Documented by: TRACEY Loratadine (Loratadine 10 Mg Tablet) 10 mg PO DAILY [facility] Last Admin: 01/16/21 08:20 Dose: 10 mg Documented by: TRACEY Metformin HCl (Metformin Hcl Er 500 Mg Tab.Er.24h) 500 mg PO DAILY [facility] Last Admin: 01/13/21 18:53 Dose: 500 mg Documented by: HANNAH Midodrine (Midodrine Hcl 2.5 Mg Tablet) 2.5 mg PO BID@0900,1800 [facility] Last Admin: 01/16/21 08:20 Dose: 2.5 mg Documented by: TRACEY Montelukast Sodium (Montelukast Sodium 10 Mg Tablet) 10 mg PO BEDTIME [facility] Last Admin: 01/15/21 21:07 Dose: 10 mg Documented by: GROVER Multivitamins/Vitamin C (Multivitamin Tablet) 1 tab PO DAILY [facility] Last Admin: 01/16/21 08:20 Dose: 1 tab Documented by: TRACEY Omeprazole (Omeprazole 20 Mg Capsule.Dr) 20 mg PO BID [facility] Last Admin: 01/16/21 08:20 Dose: 20 mg Documented by: TRACEY Ondansetron HCl (Ondansetron Hcl 4 Mg/2 Ml Vial) 4 mg IVPUSH Q8H PRN PRN Reason: Nausea and Vomiting Rifaximin (Rifaximin 550 Mg Tablet) 550 mg PO BID [facility] Last Admin: 01/16/21 08:20 Dose: 550 mg Documented by: TRACEY Rivaroxaban (Rivaroxaban 20 Mg Tablet) 20 mg PO DAILY [facility] Sodium Chloride (0.9 % Sodium Chloride Flush 3 Ml Syringe) [facility] Last Admin: 01/16/21 08:20 Dose: 3 ml Documented by: TRACEY Spironolactone (Spironolactone 25 Mg Tablet) 25 mg PO DAILY [facility]; Protocol Last Admin: 01/16/21 08:20 Dose: 25 mg Documented by: TRACEY Vitamin D (Cholecalciferol (Vitamin D3) 25 Mcg Tablet) 50 mcg PO DAILY [facility] Last Admin: 01/16/21 08:20 Dose: 50 mcg Documented by: TRACEY Labs CBC & Chem 7: 01/13/21 23:32 01/16/21 08:22 Labs: Laboratory Results - last 24 hr 01/15/21 01/15/21 01/15/21 10:13 11:28 15:42 Anion Gap 13 Estim Creat Clear Calc 24.2 Estimated GFR 29 POC Glucose 132 H 152 H Random Glucose 127 H Calcium 10.2 01/15/21 01/16/21 01/16/21 19:57 07:35 08:22 Anion Gap 13 Estim Creat Clear Calc 23.0 Estimated GFR 28 POC Glucose 107 90 Random Glucose 102 Calcium 10.1 Microbiology Microbiology Results: Microbiology 01/13/21 12:00 Blood Culture - Preliminary Blood - Venous No growth after 48 hours. 01/13/21 11:16 Blood Culture - Final Blood - Venous Coag negative Staphylococcus Assessment and Plan (1) Elevated INR: (2) Thrombocytopenia: (3) Acute hyperkalemia: Status: Resolved (4) Ascites: Status: Inactive Assessment and Plan: 75/with CKD, cirrhosis here with hepatic encephalopathy and mild jacob hepatic encephalopathy--resolved JACOB on CDK, creatinine slightly hiher, nephro consult, hold diuretics ascietes--stable, possibly home today Quality Stroke Does the patient have a stroke diagnosis?: No VTE Prior VTE?: No VTE Risk Level:: Medical - low VTE Device Contraindication: Treatment Not Indicated VTE Drug Contraindication: N/A - Med Ordered
[2021-01-16 11:53] LABS: Glucose, Whole Blood 173 mg/dL (60-115)
[2021-01-16] MEDS: Insulin Lispro 100 UNIT/ML 3 ML VIAL SUBCUT ×2 (12:02→21:16)
[2021-01-16 16:44] LABS: Glucose, Whole Blood 119 mg/dL (60-115)
--- NOTE | 2021-01-16 17:07 | P.CONNP_ITS ---
History of Present Illness Reason for Consult Consult date: 01/16/21 Reason for consult: JACOB Chief Complaint Chief complaint: Hepatic encephalopathy History of Present Illness Narrative: 75 year male with multiple medical problems including advanced liver disease, cirrhosis of liver, CKD3, diabetes, HTN was recently discharged from the hospital on January 06 2021 who had underwent 5.5 Liter therapeutic paracentesis at that time. He is brought in by family today due to altered mental status. He has no fever, alert and oriented to self, place but not date and otherwise seem apropriate. His renal function was close baseline, with ammonia of 67 which high for him, no UTI, head CT is unremarkable, and other routine lab unremarkable. Given lactulose in ED for presumed hapatic encephalopathy. His serum creatinine had gone up during this hospital stay. Nephrology has been consulted to assist in his clinical care during his current hospital stay. Review of Systems Review of Systems Yes all other systems are reviewed and are negative PMFSH Past Medical History Medical History JACOB (acute kidney injury) Ascites Cirrhosis of liver CKD (chronic kidney disease) stage 3, GFR 30-59 ml/min COVID-19 Diabetes Elevated INR Esophageal varices Esophageal varices determined by endoscopy GERD (gastroesophageal reflux disease) Hepatic encephalopathy Hypertension Liver problem Portal vein thrombosis Thrombocytopenia Vitamin D deficiency Family History Family History Father Diabetes HTN (hypertension) Mother Diabetes Sister Cancer Surgical History Surgical History Hx of colonoscopy Hx of endoscopy Hx of inguinal hernia repair Social History Social History Household Members: Spouse Housing: House Do you presently have visiting nurse or other home services: Yes Alcohol intake: never Patient Tobacco Use Status: Never used Tobacco service: No Current occupational status: retired Meds Allergies Allergy/AdvReac Type Severity Reaction Status Date / Time No Known Allergies Allergy Verified 11/10/20 14:15 Active Medications: Current Medications Generic Name Dose Route Start Last Admin Trade Name Freq PRN Reason Stop Dose Admin Dextrose 25 gm 01/13/21 20:22 Dextrose 50 % 25 Gm/50 Ml Vial IVPUSH Q15M PRN per Hypoglycemia Standing Ord. Protocol Escitalopram Oxalate 5 mg 01/14/21 09:00 01/16/21 08:20 Escitalopram Oxalate 5 Mg Tablet PO 5 mg DAILY JAY JAY Administration Fluticasone Propionate 2 puff 01/13/21 20:00 01/16/21 08:00 Fluticasone Propionate 250 Mcg Blst.W.Dev INHALE 2 puff RBID JAY JAY Administration Furosemide 40 mg 01/14/21 09:00 01/16/21 08:20 Furosemide 40 Mg Tablet PO 40 mg DAILY JAY JAY Administration Protocol Glucose 15 gm 01/13/21 20:22 Glucose Gel 15 Gm Gel..Gram. PO Q15M PRN per Hypoglycemia Standing Ord. Protocol Insulin Human Lispro 0 unit 01/13/21 21:00 01/16/21 17:05 Insulin Lispro 100 Unit/Ml 3 Ml Vial SUBCUT Not Given QIDACHS [facility] Protocol Lactulose 20 gm 01/13/21 21:00 01/16/21 14:10 Lactulose 20 Gm/30 Ml Solution PO 20 gm TID JAY JAY Administration Loratadine 10 mg 01/14/21 09:00 01/16/21 08:20 Loratadine 10 Mg Tablet PO 10 mg DAILY JAY JAY Administration Metformin HCl 500 mg 01/13/21 17:00 01/13/21 18:53 Metformin Hcl Er 500 Mg Tab.Er.24h PO 500 mg DAILY JAY JAY Administration Midodrine 2.5 mg 01/13/21 18:00 01/16/21 08:20 Midodrine Hcl 2.5 Mg Tablet PO 2.5 mg BID@0900,1800 JAY JAY Administration Montelukast Sodium 10 mg 01/13/21 21:00 01/15/21 21:07 Montelukast Sodium 10 Mg Tablet PO 10 mg BEDTIME JAY JAY Administration Multivitamins/Vitamin C 1 tab 01/14/21 09:00 01/16/21 08:20 Multivitamin Tablet PO 1 tab DAILY JAY JAY Administration Omeprazole 20 mg 01/13/21 21:00 01/16/21 08:20 Omeprazole 20 Mg Capsule.Dr PO 20 mg BID JAY JAY Administration Ondansetron HCl 4 mg 01/13/21 16:50 Ondansetron Hcl 4 Mg/2 Ml Vial IVPUSH Q8H PRN Nausea and Vomiting Rifaximin 550 mg 01/13/21 21:00 01/16/21 08:20 Rifaximin 550 Mg Tablet PO 550 mg BID [facility] Administration Rivaroxaban 20 mg 01/14/21 09:00 Rivaroxaban 20 Mg Tablet PO DAILY [facility] Sodium Chloride 3 ml 01/14/21 00:00 01/16/21 14:10 0.9 % Sodium Chloride Flush 3 Ml Syringe IVFLUSH 3 ml QSHIFT [facility] Administration Spironolactone 25 mg 01/14/21 09:00 01/16/21 08:20 Spironolactone 25 Mg Tablet PO 25 mg DAILY [facility] Administration Protocol Vitamin D 50 mcg 01/14/21 09:00 01/16/21 08:20 Cholecalciferol (Vitamin D3) 25 Mcg Tablet PO 50 mcg DAILY [facility] Administration Home Medications Medication Instructions Recorded Confirmed Last Taken Type fluticasone propionate 220 2 puff PO BID 04/08/20 01/13/21 01/04/21 History mcg/actuation HFA aerosol inhaler (Flovent HFA) loratadine 10 mg tablet 1 tab PO DAILY 04/08/20 01/13/21 01/04/21 History metformin 500 mg tablet,extended 1 tab PO QAM 04/08/20 01/13/21 01/04/21 History release 24 hr montelukast 10 mg tablet 1 tab PO BEDTIME 04/08/20 01/13/21 01/03/21 History multivitamin (Daily-Arlene) 1 tab PO DAILY 04/08/20 01/13/21 01/04/21 History citalopram 10 mg tablet 10 mg PO DAILY 06/01/20 01/13/21 01/04/21 History rivaroxaban 20 mg tablet (Xarelto) 20 mg PO DAILY 06/01/20 01/13/21 01/04/21 History blood sugar diagnostic #10 ea 06/29/20 Unknown History lactulose 10 gram/15 mL oral 30 ml PO TID 01/04/21 01/13/21 01/04/21 History solution spironolactone 25 mg tablet 25 mg PO DAILY 01/04/21 01/13/21 01/04/21 History Physical Exam Vital Signs: Last Vital Signs Temp 98.0 F 01/16/21 15:20 Pulse 58 01/16/21 15:20 Resp 17 01/16/21 15:20 BP 118/61 01/16/21 15:20 Pulse Ox 100 01/16/21 15:20 Body Mass Index 22.4 Const General: No acute distress Neck Neck: Yes supple Resp Auscultation: diminished lung sounds Cardio Rate: regular rate GI Palpation (GI): Soft to palpation Neuro General: moves all extremities Results Lab Results Result Diagrams: 01/13/21 23:32 01/16/21 08:22 Lab results: Chemistry 01/15/21 01/16/21 10:13 08:22 Sodium 143 144 Potassium 4.0 4.0 Carbon Dioxide 28 28 BUN 30 H 30 H Creatinine 2.20 H 2.32 H Calcium 10.2 10.1 Hematology 01/13/21 23:32 WBC 3.8 L Hgb 8.7 L Plt Count 51 L Assessment and Plan (1) JACOB (acute kidney injury): Status: Acute JACOB likely due to compromise in renal perfusion Differential is HRS. Urine Na ordered Diuretics put on hold; On midodrine May have to given 25 % Albumin 25 Gram Q 6 hourly X 3 days Concur with rest of current management Labs AM. Shall closely follow up Procedures Date of Service Date of Service: 01/16/21
[2021-01-16] MEDS: Montelukast Sodium 10 MG TABLET PO (20:35)
[2021-01-16 21:11] LABS: Glucose, Whole Blood 165 mg/dL (60-115)
[2021-01-17] VITALS: BP 155/68; PULSE 66; RESP 16; TEMP 36.7; O2SAT 99
[2021-01-17 03:31] VITALS: BP 109/56; PULSE 55; RESP 16; TEMP 36.4; O2SAT 99
[2021-01-17 07:38] VITALS: BP 116/87; PULSE 97; RESP 18; TEMP 36.7; O2SAT 99
[2021-01-17] MEDS: Spironolactone 25 MG TABLET PO (07:46)
[2021-01-17] MEDS: Lactulose 20 GM/30 ML SOLUTION PO (07:46)
[2021-01-17] MEDS: Omeprazole 20 MG CAPSULE.DR PO (07:46)
[2021-01-17] MEDS: Multivitamin TABLET 1 TAB PO (07:46)
[2021-01-17 07:47] LABS: Glucose, Whole Blood 109 mg/dL (60-115)
[2021-01-17] MEDS: Cholecalciferol (Vitamin D3) 25 MCG TABLET 50 MCG PO (07:47)
[2021-01-17] MEDS: Midodrine HCl 2.5 MG TABLET PO (07:47)
[2021-01-17] MEDS: 0.9 % Sodium Chloride Flush 3 ML SYRINGE IVFLUSH (07:47)
[2021-01-17] MEDS: Escitalopram Oxalate 5 MG TABLET PO (07:47)
[2021-01-17] MEDS: Loratadine 10 MG TABLET PO (07:47)
[2021-01-17] MEDS: rifAXIMin 550 MG TABLET PO (07:47)
--- NOTE | 2021-01-17 08:10 | HO.PM.IMPN ---
Subjective Subjective Date of Service: 01/15/21 Interval History: Late entry not for 01/15 Seen in f/u for hepatic encephaloapthy, renal failure, overall patient feels fine, renal function is slighly Review of Systems no fever no confusion Physical Exam Vital Signs: Vital Signs: Selected Entries 01/15/21 11:59 Pulse Rate 72 Blood Pressure 119/65 vitals reviewed Body Mass Index 22.4 General: AO X 3, no acute distress Resp: CTA bilateral CVS: S1,S2,RRR GI: +BS, NT, no distention Skin: No rash Neuro: motor grossly intact Psych: appropriate affect Objective Data Active Medications Dextrose (Dextrose 50 % 25 Gm/50 Ml Vial) 25 gm IVPUSH Q15M PRN; Protocol PRN Reason: per Hypoglycemia Standing Ord. Escitalopram Oxalate (Escitalopram Oxalate 5 Mg Tablet) 5 mg PO DAILY [facility] Last Admin: 01/17/21 07:47 Dose: 5 mg Documented by: RUMA Fluticasone Propionate (Fluticasone Propionate 250 Mcg Blst.W.Dev) 2 puff INHALE RBID [facility] Last Admin: 01/16/21 20:01 Dose: 2 puff Documented by: RENE Glucose (Glucose Gel 15 Gm Gel..Gram.) 15 gm PO Q15M PRN; Protocol PRN Reason: per Hypoglycemia Standing Ord. Insulin Human Lispro (Insulin Lispro 100 Unit/Ml 3 Ml Vial) 0 unit SUBCUT QIDACHS [facility]; Protocol Last Admin: 01/17/21 07:27 Dose: Not Given Documented by: RUMA Non-Admin Reason: No Insulin Coverage Lactulose (Lactulose 20 Gm/30 Ml Solution) 20 gm PO TID [facility] Last Admin: 01/17/21 07:46 Dose: 20 gm Documented by: RUMA Loratadine (Loratadine 10 Mg Tablet) 10 mg PO DAILY [facility] Last Admin: 01/17/21 07:47 Dose: 10 mg Documented by: RUMA Metformin HCl (Metformin Hcl Er 500 Mg Tab.Er.24h) 500 mg PO DAILY [facility] Last Admin: 01/13/21 18:53 Dose: 500 mg Documented by: HANNAH Midodrine (Midodrine Hcl 2.5 Mg Tablet) 2.5 mg PO BID@0900,1800 [facility] Last Admin: 01/17/21 07:47 Dose: 2.5 mg Documented by: RUMA Montelukast Sodium (Montelukast Sodium 10 Mg Tablet) 10 mg PO BEDTIME [facility] Last Admin: 01/16/21 20:35 Dose: 10 mg Documented by: JOYCE Multivitamins/Vitamin C (Multivitamin Tablet) 1 tab PO DAILY [facility] Last Admin: 01/17/21 07:46 Dose: 1 tab Documented by: RUMA Omeprazole (Omeprazole 20 Mg Capsule.Dr) 20 mg PO BID [facility] Last Admin: 01/17/21 07:46 Dose: 20 mg Documented by: RUMA Ondansetron HCl (Ondansetron Hcl 4 Mg/2 Ml Vial) 4 mg IVPUSH Q8H PRN PRN Reason: Nausea and Vomiting Rifaximin (Rifaximin 550 Mg Tablet) 550 mg PO BID [facility] Last Admin: 01/17/21 07:47 Dose: 550 mg Documented by: RUMA Rivaroxaban (Rivaroxaban 20 Mg Tablet) 20 mg PO DAILY [facility] Sodium Chloride (0.9 % Sodium Chloride Flush 3 Ml Syringe) 3 ml IVFLUSH QSHIFT [facility] Last Admin: 01/17/21 07:47 Dose: 3 ml Documented by: RUMA Spironolactone (Spironolactone 25 Mg Tablet) 25 mg PO DAILY [facility]; Protocol Last Admin: 01/17/21 07:46 Dose: 25 mg Documented by: RUMA Vitamin D (Cholecalciferol (Vitamin D3) 25 Mcg Tablet) 50 mcg PO DAILY [facility] Last Admin: 01/17/21 07:47 Dose: 50 mcg Documented by: RUMA Labs CBC & Chem 7: 01/13/21 23:32 01/16/21 08:22 Labs: Laboratory Results - last 24 hr 01/16/21 01/16/21 01/16/21 08:22 11:20 16:34 Anion Gap 13 Estim Creat Clear Calc 23.0 Estimated GFR 28 POC Glucose 173 H 119 H Random Glucose 102 Calcium 10.1 Ur Random Sodium 01/16/21 01/17/21 01/17/21 21:05 00:05 07:38 Anion Gap Estim Creat Clear Calc Estimated GFR POC Glucose 165 H 109 Random Glucose Calcium Ur Random Sodium 73.0 Assessment and Plan (1) Elevated INR: (2) Thrombocytopenia: (3) Acute hyperkalemia: Status: Resolved (4) Ascites: Status: Inactive Assessment and Plan: 75/with CKD, cirrhosis here with hepatic encephalopathy and mild jacob hepatic encephalopathy--resolved JACOB on CDK, Cr slightly high, will monit Chronic liver disease with ascietes--stable, no indication for paracentesis at this time bacteremia 05/13, contamination, should not need Abx Date of service 01/15/21, this is a late entry Quality Stroke Does the patient have a stroke diagnosis?: No VTE Prior VTE?: No VTE Risk Level:: Medical - low VTE Device Contraindication: Treatment Not Indicated VTE Drug Contraindication: N/A - Med Ordered
[2021-01-17] MEDS: Fluticasone Propionate 250 MCG BLST.W.DEV 2 PUFF INHALE (08:17)
[2021-01-17 08:18] VITALS: PULSE 80; O2SAT 94
[2021-01-17 09:26] LABS: Anion Gap 15 (12-20); Blood Urea Nitrogen 28 mg/dL (9-16); Calcium 10.6 mg/dL (8.4-10.2); Carbon Dioxide 26 mmol/L (22-29); Chloride 105 mmol/L (96-108); Creatinine Clr Calc Pharmacy 22.3; Estimated Glomerular Filt Rate 27; Glucose Random 131 mg/dL (60-115); Potassium 4.1 mmol/L (3.3-5.1); Sodium 142 mmol/L (135-145)
--- NOTE | 2021-01-17 10:16 | PM.PNNEP ---
Subjective Subjective Date of Service: 01/17/21 Interval history: Seen AM. Events noted. Feels better. All recent data reviewed. D/W Med Attending Physical Exam Vital Signs: Vital Signs: Last Vital Signs Temp 98.0 F 01/17/21 07:38 Pulse 97 01/17/21 07:38 Resp 18 01/17/21 07:38 BP 116/87 01/17/21 07:38 Pulse Ox 99 01/17/21 07:38 Body Mass Index 22.4 Const: General: cooperative HENMT: Mouth: Normal oral and palatal mucosa present Eyes: EOM: EOMs intact bilaterally Neck: Neck: Yes supple Resp: Auscultation: diminished lung sounds Cardio: Jugular venous distension: no JVD Rate: regular rate GI: Palpation (GI): Soft to palpation Neuro: General: moves all extremities Objective Data Labs CBC & Chem 7: 01/13/21 23:32 01/17/21 08:07 Labs: Laboratory Results - last 24 hr 01/16/21 01/16/21 01/16/21 11:20 16:34 21:05 Sodium Potassium Chloride Carbon Dioxide Anion Gap BUN Creatinine Estim Creat Clear Calc Estimated GFR POC Glucose 173 H 119 H 165 H Random Glucose Calcium Ur Random Sodium 01/17/21 01/17/21 01/17/21 00:05 07:38 08:07 Sodium 142 Potassium 4.1 Chloride 105 Carbon Dioxide 26 Anion Gap 15 BUN 28 H Creatinine 2.39 H Estim Creat Clear Calc 22.3 Estimated GFR 27 POC Glucose 109 Random Glucose 131 H Calcium 10.6 H Ur Random Sodium 73.0 Microbiology Microbiology Results: Microbiology 01/13/21 12:00 Blood - Venous Blood Culture - Preliminary No growth after 48 hours. 01/13/21 11:16 Blood - Venous Blood Culture - Final Coag negative Staphylococcus Procedures Date of Service Date of Service: 01/17/21 Assessment & Plan Assessment and plan (1) JACOB (acute kidney injury): Status: Acute Assessment and Plan: ?JACOB likely due to compromise in renal perfusion Diuretics had been on hold; Could restart Spironolactone 25 mg daily Concur with rest of current management Shall arrange close office follow up if D/Reji Time Spent With Patient Time: Total time spent is greater than 50% in coordination of care (as documented) at patient's floor/unit and/or counseling patient: Progress Note: Quality Stroke Does the patient have a stroke diagnosis?: No
--- NOTE | 2021-01-17 10:45 | PM.DS ---
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 He is melissa in by family today due to confusio, he reportedly not lost his way in the house trying to find bathroom and ended voding onto a bed. He has no fever, alert and oriented to self, place but not date and otherwise seem apropriate, renal failure is within baseline, ammonia is 67 which high for him, no UTI, head CT is unremarkable, and other routine lab unremarkable. Given lactulose in ED for presumed hapatic encephalopathy Hospital course: Patient was admitted due to confusion related to hepatic encephalopathy and was treated with Lactulose with ammonia level returning to normal from 67 to 41, he had mild JACOB on top CKD and had a flannery inserted for urinary retention but believe that the visualized retention was relection of ascites,. Because renal function went up we are stopping Lasix and to continue Aldactone 25 and follow up with nephrology next week Final diagnoses Hepatic Encephalopathy JACOB Time Spent with Patient Time attestation: Total time spent providing and/or coordinating discharge services: Discharge coordination time: Greater than 30 minutes Quality: Stroke Does the patient have a stroke diagnosis?: No Physical Exam Vital Signs: Vital Signs: Selected Entries 01/17/21 07:38 Temperature 98.0 F Pulse Rate 97 Respiratory Rate 18 Blood Pressure 116/87 Pulse Oximetry 99 Oxygen Delivery Me thod Room Air Body Mass Index 22.4 General: AO X 3, no acute distress Resp: CTA bilateral CVS: S1,S2,RRR GI: +BS, NT, no distention Skin: No rash Neuro: motor grossly intact Psych: appropriate affect DS: Data Data Completed and Pending Completed studies during hospitalization [Text1]: Procedures Drainage of Peritoneal Cavity, Percutaneous Approach (01/04/21) Labs on day of discharge: Laboratory Results - last 24 hr 01/14/21 01/14/21 01/14/21 11:26 16:13 20:16 POC Glucose 113 164 H 80 01/15/21 07:36 POC Glucose 91 Preliminary micro results at discharge 01/13/21 12:00 Blood Culture - Preliminary Blood - Venous No growth after 24 hours. Discharge Plan Discharge Anticipated Discharge Date/Time: 01/17/21 10:37 Patient Disposition: Home Health Service Discharge Diagnosis: Hepatic encephalopathy Referrals: Matt MARI [Outside] - 1 Week Becca Chavez MD [Primary Care Provider] - 1 Week Discharge Medications: Continued cholecalciferol (vitamin D3) 50 mcg (2,000 unit) capsule 50 mcg PO DAILY Qty: 30 RF: 1 omeprazole 20 mg capsule,delayed release(DR/EC) 20 mg PO BID Qty: 60 RF: 6 Xifaxan 550 mg tablet 550 mg PO BID 30 Days Qty: 60 RF: 1 multivitamin [Daily-Arlene] Tablet 1 tab PO DAILY RF: 0 montelukast 10 mg tablet 1 tab PO BEDTIME RF: 0 Flovent HFA 220 mcg/actuation HFA aerosol inhaler 2 puff PO BID RF: 0 metformin 500 mg tablet extended release 24 hr 1 tab PO QAM RF: 0 loratadine 10 mg tablet 1 tab PO DAILY RF: 0 lactulose 10 gram/15 mL solution 30 ml PO TID RF: 0 spironolactone 25 mg tablet 25 mg PO DAILY RF: 0 Xarelto 20 mg tablet 20 mg PO DAILY RF: 0 citalopram 10 mg tablet 10 mg PO DAILY RF: 0 (DME) blood sugar diagnostic Strip See Rx Instructions ea Not Applicable BID Qty: 10 RF: 0 midodrine 2.5 mg tablet 2.5 mg PO BID 30 Days Qty: 60 RF: 3 Discontinued furosemide 40 mg Tablet 40 mg PO DAILY 30 Days Qty: 30 RF: 0 Discharge Orders: Discharge Order (Routine); Ordered 01/15/21 Ordered By: Gonzalo Beckman Diet: advance to usual diet Activity on Discharge: As tolerated Stand Alone Forms: Patient Portal Discharge page Care Plan Goals: avoid rehospitalization Health Concerns: chronic liver disease Plan of Treatment: take lactulose as recommended and follow up with your docotor in a week stop taking lasix (Furosemide) and follow up with kidney Doctor next week Assessment: as above
--- NOTE | 2021-01-17 10:45 | P.F2F_ITS ---
Service Date Service Date: 01/17/21 Reasons for Services Homebound: Leaving the home is medically contraindicated at this time without the asist of a device and/or another person due th the listed conditions above and below. Homebound supporting statement: homebound due to advance liver disease, ascietes causing difficulty ambulating and therefore needs the assistance of another person Certification: Based on the above findings, I certify that this patient is confined to the home and needs intermittent correction care, physical therapy and/or speech therapy, or continues to need occupational therapy. The patient is under my care, and I have initiated the establishment of the plan of care. The patient will be followed by a physician who will periodically review the plan of care.
[2021-01-17 11:31] VITALS: BP 119/54; PULSE 52; RESP 18; TEMP 36; O2SAT 100
[2021-01-17 11:37] LABS: Glucose, Whole Blood 179 mg/dL (60-115)
== END 2021-01-17 12:16 | disposition home health service (06) ==
LOC: HO.ED 16:41 → HO.EDOVER 17:11 → HO.S3 17:19
PROVIDERS: Hospitalist; Internal Medicine Nephrology; Admitting Provider Internal Medicine; Emergency Provider Student in an Organized Health Care Education/Training Program; PCP Family Medicine; Visit Provider Internal Medicine
DX: K72.90 Hepatic failure, unspecified without coma (principal); K70.31 Alcoholic cirrhosis of liver with ascites; N17.9 Acute kidney failure, unspecified; E11.22 Type 2 diabetes mellitus with diabetic chronic kidney disease; E11.65 Type 2 diabetes mellitus with hyperglycemia; I12.9 Hypertensive chronic kidney disease with stage 1 through stage 4 chronic kidney disease, or unspecified chronic kidney disease; N18.30 Chronic kidney disease, stage 3 unspecified; R79.1 Abnormal coagulation profile; D69.6 Thrombocytopenia, unspecified; E87.5 Hyperkalemia; E55.9 Vitamin D deficiency, unspecified; R33.9 Retention of urine, unspecified; R31.9 Hematuria, unspecified; R41.82 Altered mental status, unspecified; Z79.84 Long term (current) use of oral hypoglycemic drugs; Z79.899 Other long term (current) drug therapy
CPT/HCPCS: 36415; 70450; 71045; 71250; 74176; 80048; 80307; 81001; 82077; 82140; 82947; 83605; 84300; 85025; 86850; 86900; 86901; 87040; 87147; 87205; 87635; 93005; 99218; 99285; J2543

== ENCOUNTER → 2021-01-23 10:22 | Outpatient (BNVA) | payer OTHER, SELFPAY | PROVIDERS: PCP Family Medicine; Visit Provider Internal Medicine Gastroenterology ==

== ENCOUNTER 2021-03-01 13:19 | Emergency (ER) | payer OTHER, SELFPAY ==
[2021-03-01] VITALS (7 sets, daily range): BP systolic 130–159; BP diastolic 50–76; PULSE 64–81; RESP 12–18; TEMP 36.4–36.9; O2SAT 97–100; BMI 29.0
--- NOTE | ~2021-03-01 | CT_ITS ---
EXAMINATION: CT HEAD WITHOUT CONTRAST CLINICAL INFORMATION: AMS COMPARISON: CT scan of January 13, 2021 TECHNIQUE: Contiguous axial imaging was performed from the skull base to vertex without intravenous administration of contrast. This CT examination was performed using dose optimization techniques as appropriate, variously including the following: *Automated exposure control *Adjustment of mA and/or kV according to patient size (this includes techniques or standardized protocols for targeted exams where dose is matched to indication/reason for exam; i.e. extremities or head) *Use of iterative reconstruction technique DLP: 702 mGy-cm FINDINGS: There is no evidence of acute intracranial hemorrhage or territorial infarction. No abnormal mass effect or midline shift is seen. Bu[place] to white matter differentiation is well preserved. No extra-axial fluid collections are identified. There is some prominence of the ventricles, sulci, and cisterns. There is some periventricular white matter low density consistent with microangiopathy. The osseous structures and soft tissues are normal. Mastoid air cells are aerated. There is mucosal thickening seen within the sphenoid sinus. CT/CT head/brain wo con IMPRESSION: No acute intracranial pathology. Findings consistent with microangiopathy.
--- NOTE | ~2021-03-01 | XR_ITS ---
EXAMINATION: XR CHEST CLINICAL INFORMATION: Clinical suspicion for pneumonia. COMPARISON: Chest radiographs 01/13/2021, 04/07/2020, CT chest noncontrast 01/13/2021. TECHNIQUE: Portable upright AP view of the chest was obtained. FINDINGS: There are low lung volumes with mild elevation right diaphragm similar to prior studies. There is no lobar or segmental airspace consolidation or definite groundglass opacity. No air bronchograms. No visible effusion. The cardiopericardial silhouette is stable. The vascularity is within normal. XR/XR chest 1V IMPRESSION: Low lung volumes. Lungs grossly clear.
--- NOTE | 2021-03-01 14:04 | ECG_ITS ---
Test Reason : AMS Blood Pressure : / mmHG Vent. Rate : 066 BPM Atrial Rate : 066 BPM P-R Int : 456 ms QRS Dur : 090 ms QT Int : 418 ms P-R-T Axes : 085 -08 -35 degrees QTc Int : 438 ms Sinus rhythm with 1st degree A-V block Nonspecific T wave abnormality RSR' or QR pattern in V1 suggests right ventricular conduction delay Abnormal ECG When compared with ECG of 13-JAN-2021 11:09, No significant change was found Referred By: Dick Diaz Electronically Signed By:BRIAN FLORES MD
[2021-03-01 14:51] LABS: Hematocrit 21.4 % (42-52); Hemoglobin 7.2 g/dl (14.0-18.0); Mean Corpuscular HGB Conc 33.6 g/dl (31.0-36.0); Mean Corpuscular Volume 86.3 fL (80-98); Mean Platelet Volume 9.8 fL (9.4-12.4); Red Blood Count 2.48 X10*6/uL (4.60-5.80); Red Cell Distribution Width 16.1 % (11.0-16.0); White Blood Count 3.1 X10*3/uL (4.8-10.8)
[2021-03-01 14:52] LABS: Platelet Count 48 X10*3/uL (160-400)
[2021-03-01 14:56] LABS: Ammonia 51 umol/L (13-55)
[2021-03-01 14:58] LABS: Partial Thromboplastin Time 47.4 SEC (24.1-38.0)
[2021-03-01 15:02] LABS: Prothrombin Time 60.3 SEC (9.9-13.0)
[2021-03-01 15:04] LABS: INTERNATIONAL NORM RATIO 5.1 (0.9-1.1)
[2021-03-01 15:09] LABS: Troponin-I High Sensitivity 23.8 ng/L (<3.5-35.0)
[2021-03-01 15:11] LABS: Alanine Aminotransferase 20 U/L (0-40); Albumin Level 3.7 g/dL (3.5-5.0); Alkaline Phosphatase 74 U/L (39-117); Anion Gap 14 (12-20); Aspartate Amino Transferase 22 U/L (5-37); Bilirubin Total 1.2 mg/dL (0.0-1.0); Blood Urea Nitrogen 32 mg/dL (9-16); Calcium 10.1 mg/dL (8.4-10.2); Carbon Dioxide 22 mmol/L (22-29); Chloride 110 mmol/L (96-108); Creatinine Clr Calc Pharmacy 26.9; Estimated Glomerular Filt Rate 27; Glucose Random 128 mg/dL (60-115); Potassium 4.5 mmol/L (3.3-5.1); Sodium 141 mmol/L (135-145)
[2021-03-01 16:31] LABS: Appearance Urine CLEAR; Color Urine YELLOW; Glucose Urine UA NEG (NEG); Leukocyte Esterase Urine NEG (NEG); Nitrite Urine NEG (NEG); Specific Gravity - Urine 1.015 (1.005-1.025); Urine Blood NEG (NEG); Urine Ketones NEG (NEG); Urine Protein NEG (NEG-TRACE)
--- NOTE | 2021-03-01 17:32 | ED.GENADULT ---
HPI - General Adult General Chief complaint: Altered Mental Status Stated complaint: AMS/UTI Time Seen by Provider: 03/01/21 14:04 Source: patient and EMS Mode of arrival: ambulatory Limitations: no limitations History of Present Illness HPI narrative: Patient brought to the ED for evaluation for altered mental status as per EMS. Family states patient has been altered for couple days. EMS does not know baseline mentally of patient. Patient self denies any physical complaints. Patient is alert oriented x2. Patient history with diabetes, CKD, hypertension, and cirrhosis. Related Data Home Medications Medication Instructions Recorded Confirmed fluticasone propionate 220 2 puff PO BID 04/08/20 03/01/21 mcg/actuation HFA aerosol inhaler (Flovent HFA) loratadine 10 mg tablet 1 tab PO DAILY 04/08/20 03/01/21 metformin 500 mg tablet,extended 1 tab PO QAM 04/08/20 03/01/21 release 24 hr montelukast 10 mg tablet 1 tab PO BEDTIME 04/08/20 03/01/21 multivitamin (Daily-Arlene) 1 tab PO DAILY 04/08/20 03/01/21 citalopram 10 mg tablet 10 mg PO DAILY 06/01/20 03/01/21 rivaroxaban 20 mg tablet (Xarelto) 20 mg PO DAILY 06/01/20 03/01/21 lactulose 10 gram/15 mL oral 30 ml PO TID 01/04/21 01/13/21 solution spironolactone 25 mg tablet 25 mg PO DAILY 01/04/21 03/01/21 furosemide 20 mg tablet 1 tab PO BID 03/01/21 03/01/21 Previous Rx's Medication Instructions Recorded cholecalciferol (vitamin D3) 50 50 mcg PO DAILY #30 cap 05/25/20 mcg (2,000 unit) capsule rifaximin 550 mg tablet (Xifaxan) 550 mg PO BID 30 Days #60 tab 09/26/20 midodrine 2.5 mg tablet 2.5 mg PO BID 30 Days #60 tab 11/10/20 omeprazole 20 mg capsule,delayed 20 mg PO BID #60 cap 01/23/21 release trazodone 50 mg tablet 25 mg PO BEDTIME PRN #4 tab 03/01/21 Allergies Allergy/AdvReac Type Severity Reaction Status Date / Time No Known Allergies Allergy Verified 01/23/21 10:24 Review of Systems Review of Systems: Yes all other systems are reviewed and are negative Constitutional: Constitutional: Reports as per HPI and Reports no additional constitutional complaints Eyes: Eyes: Reports as per HPI and Reports no additional eye complaints ENT: Reports system reviewed and no additional complaints, except as documented and Reports as per HPI Cardiovascular: Cardiovascular: Reports as per HPI and Reports no additional cardiovascular complaints Respiratory: Respiratory: Reports as per HPI and Reports no additional respiratory complaints Gastrointestinal: Gastrointestinal: Reports as per HPI and Reports no additional gastrointestinal complaints Genitourinary: Genitourinary: Reports no additional male genitourinary complaints and Reports as per HPI Musculoskeletal: Musculoskeletal: Reports no additional musculoskeletal complaints and Reports as per HPI Integumentary/Breasts: Skin/Breast: Reports system reviewed and no additional complaints, except as docu and Reports as per HPI Neurologic: Reports system reviewed and no additional complaints, except as documented and Reports as per HPI Comments: Altered mental status Psychiatric: Psychiatric: Reports no additional psychiatric complaints and Reports as per HPI [facility] Past Medical History Medical History JACOB (acute kidney injury) Ascites Cirrhosis of liver CKD (chronic kidney disease) stage 3, GFR 30-59 ml/min COVID-19 Diabetes Elevated INR Esophageal varices Esophageal varices determined by endoscopy GERD (gastroesophageal reflux disease) Hepatic encephalopathy Hypertension Liver problem Portal vein thrombosis Thrombocytopenia Vitamin D deficiency Surgical History Hx of colonoscopy Hx of endoscopy Hx of inguinal hernia repair Family History Family History Father Diabetes HTN (hypertension) Mother Diabetes Sister Cancer Social History Social History Household Members: Spouse Housing: House Do you presently have visiting nurse or other home services: Yes Alcohol intake: never Patient Tobacco Use Status: Never used Tobacco Advance Directives: No service: No Current occupational status: retired Physical Exam Vital Signs: Vital Signs: Last Vital Signs Temp 98 F 03/01/21 16:22 Pulse 66 03/01/21 16:22 Resp 18 03/01/21 16:22 BP 154/62 H 03/01/21 16:22 Pulse Ox 97 03/01/21 16:22 Body Mass Index 29.0 Const: General: cooperative, healthy appearing, comfortable, no acute distress, well developed, alert, awake and Physically active HENMT: Head: Yes normal to inspection, Yes No palpable skull fracture present, Yes normocephalic, Yes atraumatic and No abrasion Eyes: General: appearance normal, both eyes and all related structures Neck: Neck: Yes normal visual inspection, Yes full ROM, Yes no lymphadenopathy, Yes no meningeal signs, Yes trachea midline, Yes supple and No tender Chest: Chest palpation & inspection: normal inspection of the chest and normal palpation of entire chest wall Resp: Effort & Inspection: normal respiratory effort and able to speak in complete sentences Auscultation: clear to auscultation bilaterally Cardio: Jugular venous distension: no JVD Heart sounds: S1 normal heart sound present and S2 normal heart sound present GI: Inspection: Yes normal to inspection, No abdominal wall ecchymosis and Yes distended (Abdomen usually distending at baseline due to cirrhosis.) Palpation (GI): Soft to palpation, not firm, nontender, no guarding and not rigid : General: No CVA tenderness and Yes no CVA tenderness Back/Spine/Pelvis: Back: no CVA tenderness, No CVA tenderness and No back tenderness Skin: General skin exam: no rashes or lesions noted and elasticity normal Neuro: Other: Negative slurred speech. Negative facial droop. Negative pronator drift. All extremities equal strength 5+. [id number] rapid hand movement intact. Patient presently alert oriented to person and place. Alert oriented x2. Patient knows address of his house, children's name, 's name, birthday, and has good insight. Patient able to have normal conversation. General: no meningeal signs and CN's II-XI intact bilaterally Cranial nerves: Yes CN's II-XII intact bilaterally Extrem: General: Yes normal to inspection and Yes full ROM Psych: Appearance: grossly normal, well kempt and not disheveled Course Course Course Narrative: Patient presently not toxic appearing. Patient is alert oriented x2. Will do baseline medical evaluation including head CT scan, look for source of infection. Ammonia will be added due to history of liver cirrhosis. EKG ordered. Reevaluation(s) Reevaluation #1: Patient patient hemoglobin and hematocrit dropped from 8.7-7.2. Patient's 1st troponin negative. EKG negative STEMI. Chest x-ray normal. Head CT came back negative. was at bedside and was accessed about why patient came to the ED. she states patient has been having moments of memory loss and confusion for over week. described as she will have a conversation with him and then ask him later what they talked about and he totally forgot. She then states patient with then recall the conversation. states patient has memories from Long time ago that are still intact. also states states at nighttime patient will wake up go to the kitchen and have discussion with himself and calling for people from old memories who are not there as per . Such as his mother and brothers. She states then patient will be normal when she redirects patient. states patient mother of dementia/Alzheimer's. She states patient has not officially been diagnosed with any dementia. She denies patient being lethargic or having any complaints. He denies any fever, chills, abdominal pain, any recent head trauma rectal exam negative for shayan blood, black stool, or melena. Stool guaiac negative. Discussed with hospitalist Dr. Platt for possible admission and recommend discussing case with GI to see if patient get inpatient endoscopy workup.. Due to patient being on Xarelto. Time: 18:08 Reevaluation #2: Spoke with Dr. Peters and he was informed of patient's history, physical exam, and diagnostics. Does not recommend patient be admitted for endoscopy. He does not believe he is having an active GI bleed. Spoke with hospitalist Dr. Edmar apple and she will have informed of patient's history, physical exam, and diagnostic. She states patient does not need to be admitted for lower hemoglobin/hematocrit. She recommends vitamin K, and 1 unit of blood. She also recommend holding Xarelto. She recommends patient from the take Xarelto tomorrow and follow up with her PCP for repeat INR testing on Friday. Spoke with ER attending doctor andrew Ivey who does not recommend vitamin K but agrees with plan of blood and holding Xarelto. Spoke with and daughter (whose health proxy of patient) and they were explained the patient will be receiving 1 unit of blood and they will also plan of risks including , allergic reaction, and fluid overload. Daughter Aiyana Quesada gave consent over the phone for 1 unit of blood. Daughter and patient informed that patient should not take his Xarelto tomorrow and call his PCP for repeat INR on Friday. Patient presently is alert oriented x3. states patient is at baseline. Not suspecting meningitis or encephalitis. Daughter requested patient be discharged with medication to sleep due to patient being up middle of the night talking to himself due to old memories coming back. Patient will be discharged with low-dose trazodone at bedtime as request of daughter and mother for sleep Patient presently alert oriented x3 patient is recognize , year, place, date, and person. Patient able to have conversation and make sense. Patient is not toxic appearing. Not suspecting NE, stroke, or pneumonia. Case signed out to ELVIE Mariano for discharge after blood Time: 21:11 Medical Decision Making MDM Narrative Medical decision making narrative: Behavior disturbance. Dementia. Elevated INR Lab Data Result diagrams: 03/01/21 14:43 03/01/21 14:43 Labs: Lab Results 03/01/21 03/01/21 03/01/21 Range/Units 14:43 14:43 14:43 WBC 3.1 L (4.8-10.8) X10*3/uL RBC 2.48 L (4.60-5.80) X10*6/uL Hgb 7.2 L (14.0-18.0) g/dl Hct 21.4 L (42-52) % MCV 86.3 (80-98) fL MCH 29.0 (27.0-33.0) pg MCHC 33.6 (31.0-36.0) g/dl RDW 16.1 H (11.0-16.0) % Plt Count 48 L (160-400) X10*3/uL MPV 9.8 (9.4-12.4) fL Absolute Nucleated RBC 0.000 (0.0-0.012) X10*3/uL Nucleated RBC % (auto) 0.0 (0.0-0.2) /100WBC PT (9.9-13.0) SEC INR (0.9-1.1) APTT (24.1-38.0) SEC Sodium 141 (135-145) mmol/L Potassium 4.5 (3.3-5.1) mmol/L Chloride 110 H (96-108) mmol/L Carbon Dioxide 22 (22-29) mmol/L Anion Gap 14 (12-20) BUN 32 H (9-16) mg/dL Creatinine 2.38 H (0.5-1.4) mg/dL Estim Creat Clear Calc 26.9 Estimated GFR 27 Random Glucose 128 H (60-115) mg/dL Lactic Acid 2.0 (0.5-2.0) mmol/L Calcium 10.1 (8.4-10.2) mg/dL Total Bilirubin 1.2 H (0.0-1.0) mg/dL AST 22 (5-37) U/L ALT 20 (0-40) U/L Alkaline Phosphatase 74 (39-117) U/L Ammonia (13-55) umol/L Troponin I High Sens (<3.5-35.0) ng/L Total Protein 6.0 L (6.5-8.0) g/dL Albumin 3.7 (3.5-5.0) g/dL Urine Color Urine Appearance Urine pH (5.0-8.0) Ur Specific [place] (1.005-1.025) Urine Protein (NEG-TRACE) MG/DL Urine Glucose (UA) (NEG) MG/DL Urine Ketones (NEG) MG/DL Urine Blood (NEG) Urine Nitrite (NEG) Ur Leukocyte Esterase (NEG) Stool Occult Blood (NEGATIVE) Urine Opiates Screen (Not Detect) Urine Fentanyl Screen (Not Detect) Ur Barbiturates Screen (Not Detect) Ur Phencyclidine Scrn (Not Detect) Ur Amphetamines Screen (Not Detect) U Benzodiazepines Scrn (Not Detect) Urine Cocaine Screen (Not Detect) U Marijuana (THC) Screen (Not Detect) Blood Type Antibody Screen Crossmatch 03/01/21 03/01/21 03/01/21 Range/Units 14:43 14:43 14:43 WBC (4.8-10.8) X10*3/uL RBC (4.60-5.80) X10*6/uL Hgb (14.0-18.0) g/dl Hct (42-52) % MCV (80-98) fL MCH (27.0-33.0) pg MCHC (31.0-36.0) g/dl RDW (11.0-16.0) % Plt Count (160-400) X10*3/uL MPV (9.4-12.4) fL Absolute Nucleated RBC (0.0-0.012) X10*3/uL Nucleated RBC % (auto) (0.0-0.2) /100WBC PT 60.3 H (9.9-13.0) SEC INR 5.1 H* (0.9-1.1) APTT 47.4 H (24.1-38.0) SEC Sodium (135-145) mmol/L Potassium (3.3-5.1) mmol/L Chloride (96-108) mmol/L Carbon Dioxide (22-29) mmol/L Anion Gap (12-20) BUN (9-16) mg/dL Creatinine (0.5-1.4) mg/dL Estim Creat Clear Calc Estimated GFR Random Glucose (60-115) mg/dL Lactic Acid (0.5-2.0) mmol/L Calcium (8.4-10.2) mg/dL Total Bilirubin (0.0-1.0) mg/dL AST (5-37) U/L ALT (0-40) U/L Alkaline Phosphatase (39-117) U/L Ammonia 51 (13-55) umol/L Troponin I High Sens 23.8 (<3.5-35.0) ng/L Total Protein (6.5-8.0) g/dL Albumin (3.5-5.0) g/dL Urine Color Urine Appearance Urine pH (5.0-8.0) Ur Specific [place] (1.005-1.025) Urine Protein (NEG-TRACE) MG/DL Urine Glucose (UA) (NEG) MG/DL Urine Ketones (NEG) MG/DL Urine Blood (NEG) Urine Nitrite (NEG) Ur Leukocyte Esterase (NEG) Stool Occult Blood (NEGATIVE) Urine Opiates Screen (Not Detect) Urine Fentanyl Screen (Not Detect) Ur Barbiturates Screen (Not Detect) Ur Phencyclidine Scrn (Not Detect) Ur Amphetamines Screen (Not Detect) U Benzodiazepines Scrn (Not Detect) Urine Cocaine Screen (Not Detect) U Marijuana (THC) Screen (Not Detect) Blood Type Antibody Screen Crossmatch 03/01/21 03/01/21 03/01/21 Range/Units 16:18 16:18 16:21 WBC (4.8-10.8) X10*3/uL RBC (4.60-5.80) X10*6/uL Hgb (14.0-18.0) g/dl Hct (42-52) % MCV (80-98) fL MCH (27.0-33.0) pg MCHC (31.0-36.0) g/dl RDW (11.0-16.0) % Plt Count (160-400) X10*3/uL MPV (9.4-12.4) fL Absolute Nucleated RBC (0.0-0.012) X10*3/uL Nucleated RBC % (auto) (0.0-0.2) /100WBC PT (9.9-13.0) SEC INR (0.9-1.1) APTT (24.1-38.0) SEC Sodium (135-145) mmol/L Potassium (3.3-5.1) mmol/L Chloride (96-108) mmol/L Carbon Dioxide (22-29) mmol/L Anion Gap (12-20) BUN (9-16) mg/dL Creatinine (0.5-1.4) mg/dL Estim Creat Clear Calc Estimated GFR Random Glucose (60-115) mg/dL Lactic Acid (0.5-2.0) mmol/L Calcium (8.4-10.2) mg/dL Total Bilirubin (0.0-1.0) mg/dL AST (5-37) U/L ALT (0-40) U/L Alkaline Phosphatase (39-117) U/L Ammonia (13-55) umol/L Troponin I High Sens (<3.5-35.0) ng/L Total Protein (6.5-8.0) g/dL Albumin (3.5-5.0) g/dL Urine Color YELLOW Urine Appearance CLEAR Urine pH 6.0 (5.0-8.0) Ur Specific [place] 1.015 (1.005-1.025) Urine Protein NEG (NEG-TRACE) MG/DL Urine Glucose (UA) NEG (NEG) MG/DL Urine Ketones NEG (NEG) MG/DL Urine Blood NEG (NEG) Urine Nitrite NEG (NEG) Ur Leukocyte Esterase NEG (NEG) Stool Occult Blood (NEGATIVE) Urine Opiates Screen Not Detected (Not Detect) Urine Fentanyl Screen Not Detected (Not Detect) Ur Barbiturates Screen Not Detected (Not Detect) Ur Phencyclidine Scrn Not Detected (Not Detect) Ur Amphetamines Screen Not Detected (Not Detect) U Benzodiazepines Scrn Not Detected (Not Detect) Urine Cocaine Screen Not Detected (Not Detect) U Marijuana (THC) Screen Not Detected (Not Detect) Blood Type O Positive Antibody Screen NEGATIVE Crossmatch See Detail 03/01/21 03/01/21 Range/Units 17:26 17:31 WBC (4.8-10.8) X10*3/uL RBC (4.60-5.80) X10*6/uL Hgb (14.0-18.0) g/dl Hct (42-52) % MCV (80-98) fL MCH (27.0-33.0) pg MCHC (31.0-36.0) g/dl RDW (11.0-16.0) % Plt Count (160-400) X10*3/uL MPV (9.4-12.4) fL Absolute Nucleated RBC (0.0-0.012) X10*3/uL Nucleated RBC % (auto) (0.0-0.2) /100WBC PT (9.9-13.0) SEC INR (0.9-1.1) APTT (24.1-38.0) SEC Sodium (135-145) mmol/L Potassium (3.3-5.1) mmol/L Chloride (96-108) mmol/L Carbon Dioxide (22-29) mmol/L Anion Gap (12-20) BUN (9-16) mg/dL Creatinine (0.5-1.4) mg/dL Estim Creat Clear Calc Estimated GFR Random Glucose (60-115) mg/dL Lactic Acid (0.5-2.0) mmol/L Calcium (8.4-10.2) mg/dL Total Bilirubin (0.0-1.0) mg/dL AST (5-37) U/L ALT (0-40) U/L Alkaline Phosphatase (39-117) U/L Ammonia (13-55) umol/L Troponin I High Sens 25.0 (<3.5-35.0) ng/L Total Protein (6.5-8.0) g/dL Albumin (3.5-5.0) g/dL Urine Color Urine Appearance Urine pH (5.0-8.0) Ur Specific [place] (1.005-1.025) Urine Protein (NEG-TRACE) MG/DL Urine Glucose (UA) (NEG) MG/DL Urine Ketones (NEG) MG/DL Urine Blood (NEG) Urine Nitrite (NEG) Ur Leukocyte Esterase (NEG) Stool Occult Blood NEGATIVE (NEGATIVE) Urine Opiates Screen (Not Detect) Urine Fentanyl Screen (Not Detect) Ur Barbiturates Screen (Not Detect) Ur Phencyclidine Scrn (Not Detect) Ur Amphetamines Screen (Not Detect) U Benzodiazepines Scrn (Not Detect) Urine Cocaine Screen (Not Detect) U Marijuana (THC) Screen (Not Detect) Blood Type Antibody Screen Crossmatch ECG Data Interpretation: Rhythm. Ventricular rate 66. Pr interval 456. QT C4 38. Negative STEMI Discharge Plan Discharge Clinical Impression: Behavior disturbance, Chronic anemia, Elevated INR Patient Disposition: Home, Self-Care Instructions: Anemia (ED), Elevated INR (ED) Additional Instructions: La historia, el examen f?sico y los diagn?sticos indican milly mayor posibilidad de demencia temprana. Ser? necesario que un m?dico de atenci?n primaria y un neur?logo lo eval?en m?s a fondo en busca de demencia. Tambi?n necesitar? seguimiento con gastroenterolog?a ambulatoria para la anemia debida a la cirrosis. El proveedor de atenci?n primaria tambi?n debe evaluar la presencia de anemia debido tambi?n a milly enfermedad renal cr?miguel. La tomograf?a computarizada de garg earle result? negativa por accidente cerebrovascular, hemorragia o masa. Los an?lisis de lacey y el electrocardiograma resultaron negativos para un ataque card?aco. Garg radiograf?a de t?rax result? negativa para neumon?a. La infecci?n del tracto urinario result? negativa para milly infecci?n. Garg hemograma muestra anemia cr?miguel. Le recomendamos que sostenga garg Xarelto y no lo tome ma?livia. Debe llamar a garg proveedor de atenci?n primaria para obtener un seguimiento inmediato y repetir la evaluaci?n del INR el s?bado. Regrese al servicio de urgencias inmediatamente si tiene sangrado rectal, v?mitos de lacey, tos con lacey, debilidad, mareos, letargo, palidez de la piel, dificultad para hablar, p?rdida de visi?n, mareos, dolor de pecho, dificultad para respirar, dolor de earle, dolor abdominal o cualquier otro sobre los s?ntomas. Garg nivel de cari?aco volvi? a la normalidad. Prescriptions: New trazodone 50 mg tablet 25 mg PO BEDTIME PRN (Reason: insomnia) Qty: 4 RF: 0 No Action cholecalciferol (vitamin D3) 50 mcg (2,000 unit) capsule 50 mcg PO DAILY Qty: 30 RF: 1 Xifaxan 550 mg tablet 550 mg PO BID 30 Days Qty: 60 RF: 1 omeprazole 20 mg capsule,delayed release(DR/EC) 20 mg PO BID Qty: 60 RF: 1 multivitamin [Daily-Arlene] Tablet 1 tab PO DAILY RF: 0 montelukast 10 mg tablet 1 tab PO BEDTIME RF: 0 Flovent HFA 220 mcg/actuation HFA aerosol inhaler 2 puff PO BID RF: 0 metformin 500 mg tablet extended release 24 hr 1 tab PO QAM RF: 0 loratadine 10 mg tablet 1 tab PO DAILY RF: 0 lactulose 10 gram/15 mL solution 30 ml PO TID RF: 0 spironolactone 25 mg tablet 25 mg PO DAILY RF: 0 furosemide 20 mg tablet 1 tab PO BID RF: 0 Xarelto 20 mg tablet 20 mg PO DAILY RF: 0 citalopram 10 mg tablet 10 mg PO DAILY RF: 0 midodrine 2.5 mg tablet 2.5 mg PO BID 30 Days Qty: 60 RF: 3 Referrals: Becca Chavez MD [Primary Care Provider] - 2 days
[2021-03-01 17:34] LABS: OBS1 NEGATIVE (NEGATIVE)
[2021-03-01 17:35] LABS: OBS Int Ctl Valid YES
[2021-03-01 20:00] LABS: Amphetamine Screen Urine Not Detected (Not Detect); Barbiturates, Urine Not Detected (Not Detect); Benzodiazepines Screen Urine Not Detected (Not Detect); Cannabinoid Screen Urine Not Detected (Not Detect); Cocaine Screen Urine Not Detected (Not Detect); Fentanyl, urine Not Detected (Not Detect); Opiate Screen Urine Not Detected (Not Detect); Phencyclidine Screen Urine Not Detected (Not Detect)
== END 2021-03-02 00:15 | disposition home or self-care (01) ==
PROVIDERS: Physician Assistant; Emergency Provider Emergency Medicine; PCP Family Medicine
DX: R41.82 Altered mental status, unspecified (principal); D64.9 Anemia, unspecified; R06.02 Shortness of breath; R79.89 Other specified abnormal findings of blood chemistry; R51.9 Headache, unspecified; Z79.899 Other long term (current) drug therapy
CPT/HCPCS: 36415; 36430; 70450; 71045; 80053; 80307; 81003; 82140; 82272; 83605; 84484; 85027; 85610; 85730; 86850; 86900; 86901; 86923; 87040; 87077; 87205; 93005; 99284; 99285; P9016

== ENCOUNTER 2021-03-03 09:48 | Outpatient (REF) | payer OTHER, SELFPAY ==
[2021-03-03 11:14] LABS: Albumin Level 3.7 g/dL (3.5-5.0); Anion Gap 14 (12-20); Blood Urea Nitrogen 30 mg/dL (9-16); Calcium 10.1 mg/dL (8.4-10.2); Carbon Dioxide 21 mmol/L (22-29); Chloride 109 mmol/L (96-108); Estimated Glomerular Filt Rate 27; Glucose Random 120 mg/dL (60-115); Potassium 4.3 mmol/L (3.3-5.1); Sodium 140 mmol/L (135-145)
== END 2021-03-03 09:49 | disposition home or self-care (01) ==
LOC: HO.LAB 09:48
PROVIDERS: PCP Family Medicine; Visit Provider Student in an Organized Health Care Education/Training Program
DX: K74.60 Unspecified cirrhosis of liver (principal); R18.8 Other ascites; N17.9 Acute kidney failure, unspecified
CPT/HCPCS: 36415; 80048; 82040

== ENCOUNTER 2021-03-06 11:19 | Inpatient (IN) | payer OTHER, SELFPAY ==
[2021-03-06] VITALS (9 sets, daily range): BP systolic 108–157; BP diastolic 44–82; PULSE 55–68; RESP 15–18; TEMP 36.4–36.9; O2SAT 99–100; BMI 24.2
--- NOTE | ~2021-03-06 | CT_ITS ---
EXAMINATION: CT HEAD WITHOUT CONTRAST CLINICAL INFORMATION: Head trauma. Mental status change. COMPARISON: Previous head CT most recent 03/01/2021 TECHNIQUE: Contiguous axial imaging was performed from the skull base to vertex without intravenous administration of contrast. This CT examination was performed using dose optimization techniques as appropriate, variously including the following: *Automated exposure control *Adjustment of mA and/or kV according to patient size (this includes techniques or standardized protocols for targeted exams where dose is matched to indication/reason for exam; i.e. extremities or head) *Use of iterative reconstruction technique DLP: 665 mGy-cm FINDINGS: There is no evidence of an extra-axial collection. There is no evidence of intra-axial or extra-axial hemorrhage. Ventricles and extra-axial CSF spaces are prominent suggestive of mild generalized atrophy. There is not a periventricular white matter disease. No mass, mass effect or infarct is seen. No skull fracture is seen. There is soft tissue thickening seen in the sphenoid and right ethmoid and maxillary sinuses. Paranasal sinuses, mastoid air cells and middle ears are otherwise clear. CT/CT head/brain wo con IMPRESSION: No acute findings. Mild atrophy and nonspecific periventricular white matter disease previous exams.
--- NOTE | ~2021-03-06 | XR_ITS ---
EXAMINATION: XR CHEST CLINICAL INFORMATION: AMS. COMPARISON: Chest 03/01/2021 TECHNIQUE: Frontal view of the chest was obtained. FINDINGS: The lungs are hypoexpanded but clear of acute process. The heart size and pulmonary vascularity is normal. There is moderate spondylosis of dorsal spine. There is old healed left mid humeral fracture.. XR/XR chest 1V IMPRESSION: Hypoexpanded lungs without acute process.
--- NOTE | 2021-03-06 11:31 | ECG_ITS ---
Test Reason : WEAKNESS Blood Pressure : / mmHG Vent. Rate : 058 BPM Atrial Rate : 000 BPM P-R Int : 000 ms QRS Dur : 088 ms QT Int : 640 ms P-R-T Axes : 000 -11 057 degrees QTc Int : 628 ms Normal sinus rhythm with 1st degree A-V block Low voltage QRS RSR' or QR pattern in V1 suggests right ventricular conduction delay Nonspecific T wave abnormality Prolonged QT Abnormal ECG No significant changes seen Referred By: Toro Nickerson Electronically Signed By:BRIAN FLORES MD
--- NOTE | 2021-03-06 11:38 | ED.AMS ---
HPI - Altered Mental Status General Chief Complaint: Fall Stated Complaint: lethargy Time Seen by Provider: 03/06/21 11:31 Source: family and EMS Mode of arrival: EMS Limitations: altered mental status History of Present Illness HPI narrative: 75 yo male with a past medical history of alcohol use disorder, cirrhosis, asthma, prior COVID-19, AFib, diabetes, encephalopathy, recent diagnosis of dementia presents to the emergency department via ambulance floor and generalized weaknes, 2 falls within the past 2 days, and altered mental status. Patient is unable to provide me with a history, as he appears to be altered at this time. History was obtained from EMS, and patient's daughter who is at the bedside. According to patient's daughter, yesterday she noted that her father appeared to be more confused than usual, she states he was unable to complete tasks usually complete on his own since she is eating. She states when he sat down to eat, he was unable to grab his food from his plate. She also mentions that her father has had 2 falls that occurred yesterday. She states this is not normal for him. It is unclear of whether not he hit his head, or loss consciousness. However, she states he does not on the ground for long, family helped him up. She also mentions that lately he has been peeing everywhere, and unable to control his urine. She states he has not been complaining of any pain. Daughter states that he has been diagnosed with dementia not long ago, however, he is typically able to do all activities of daily living on his own, however he has not been able to do this over the past 2 days. She reports no recent changes in medication. She states he has not had a fever, chills, abdominal pain, chest pain, shortness of breath. She does note that he has been urinating more frequently. MD complaint: altered mental status and weakness Onset (ago): day(s) (2) Timing confirmed by: family member Severity: severe Consistency of symptoms: getting Worse Context: other (dementia) Associated symptoms: weakness Related Data Home Medications Medication Instructions Recorded Confirmed fluticasone propionate 220 2 puff PO BID 04/08/20 03/06/21 mcg/actuation HFA aerosol inhaler (Flovent HFA) loratadine 10 mg tablet 1 tab PO DAILY 04/08/20 03/06/21 montelukast 10 mg tablet 1 tab PO BEDTIME 04/08/20 03/06/21 multivitamin (Daily-Arlene) 1 tab PO DAILY 04/08/20 03/06/21 citalopram 10 mg tablet 10 mg PO DAILY 06/01/20 03/06/21 rivaroxaban 20 mg tablet (Xarelto) 20 mg PO DAILY 06/01/20 03/06/21 lactulose 10 gram/15 mL oral 30 ml PO TID 01/04/21 03/06/21 solution spironolactone 25 mg tablet 25 mg PO DAILY 01/04/21 03/06/21 albuterol sulfate 3 ml INHALATION Q6H PRN 03/06/21 03/06/21 Previous Rx's Medication Instructions Recorded cholecalciferol (vitamin D3) 50 50 mcg PO DAILY #30 cap 05/25/20 mcg (2,000 unit) capsule rifaximin 550 mg tablet (Xifaxan) 550 mg PO BID 30 Days #60 tab 09/26/20 midodrine 2.5 mg tablet 2.5 mg PO BID 30 Days #60 tab 11/10/20 omeprazole 20 mg capsule,delayed 20 mg PO BID #60 cap 01/23/21 release trazodone 50 mg tablet 25 mg PO BEDTIME PRN #4 tab 03/01/21 Allergies Allergy/AdvReac Type Severity Reaction Status Date / Time No Known Allergies Allergy Verified 01/23/21 10:24 Review of Systems Review of Systems: Yes Unobtainable due to mental status PMFSH Past Medical History Attestation statement: The following information was validated with the patient. (and daughter ) Source: old records reviewed and nursing notes reviewed Medical History JACOB (acute kidney injury) JACOB (acute kidney injury) Ascites Cirrhosis of liver CKD (chronic kidney disease) stage 3, GFR 30-59 ml/min COVID-19 Diabetes Elevated INR Esophageal varices Esophageal varices determined by endoscopy GERD (gastroesophageal reflux disease) Hepatic encephalopathy Hypertension Liver problem Portal vein thrombosis Thrombocytopenia Vitamin D deficiency Surgical History Hx of colonoscopy Hx of endoscopy Hx of inguinal hernia repair Family History Family History Father Diabetes HTN (hypertension) Mother Diabetes Sister Cancer Social History Social History Household Members: Spouse Housing: House Do you presently have visiting nurse or other home services: Yes Alcohol intake: unknown Patient Tobacco Use Status: Never used Tobacco Use of substances other than those prescribed or required for medical reasons: No Advance Directives: Yes Advance Directives on File: Yes Advance Directives Date on File: 03/06/21 service: No Current occupational status: retired Physical Exam Vital Signs: Vital Signs: Last Vital Signs Temp 97.5 F 03/08/21 19:27 Pulse 60 03/08/21 19:27 Resp 14 03/08/21 19:27 BP 136/61 03/08/21 19:27 Pulse Ox 100 03/08/21 19:27 Body Mass Index 24.2 Const: General: cooperative and no acute distress Orientation/consciousness: oriented to person and oriented to place Limitations: no limitations HENMT: Head: Yes normal to inspection, Yes normocephalic and Yes atraumatic Ears: external ears normal General nose exam: Normal external nose present Face and sinus: Yes normal facial exam Mouth: Normal oral and palatal mucosa present Throat: Yes posterior oropharynx normal Eyes: General: appearance normal, both eyes and all related structures Pupils: Equal, round and reactive pupils present Neck: Neck: Yes normal visual inspection, Yes no lymphadenopathy, Yes trachea midline and Yes supple Chest: Chest palpation & inspection: normal inspection of the chest and normal palpation of entire chest wall Resp: Effort & Inspection: normal respiratory effort and able to speak in complete sentences Auscultation: clear to auscultation bilaterally Cardio: Rate: regular rate Rhythm: regular rhythm Heart sounds: S1 normal heart sound present, S2 normal heart sound present and no murmurs GI: Inspection: Yes normal to inspection Palpation (GI): Soft to palpation, nontender and no guarding Auscultation: normal bowel sounds : General: Yes no CVA tenderness Back/Spine/Pelvis: Back: no CVA tenderness Skin: General skin exam: no rashes or lesions noted Neuro: Other: Patient appears confused, unable to follow commands. General: oriented to person and oriented to place Cranial nerves: Yes CN's II-XII intact bilaterally and Yes Equal, round and reactive pupils present Cognition (Neuro): abnormal cognition and abnormal cognition (alterned mental status, unable to follow commands ) Motor exam (neuro): 5/5 motor strength present throughout Extrem: General: Yes normal to inspection Psych: Appearance: grossly normal Speech and movement: Normal speech and movement present Affect: normal affect Attitude: cooperative Thought process: Normal thought process present Thought content: Normal thought content present Course Reevaluation(s) Reevaluation #1: Baseline pancytopenia noted. With baseline anemia noted. Lactic acid 1.5, COVID negative. UA negative. Will discuss these finding with family and give them the option of speaking to case management. Time: 14:05 Reevaluation #2: Spoke to patient's daughter, and patient. Daughter expresses concerns that she is unable to take the patient back home, since he is unable to ambulate around the house, has been continuously falling, is weak. She states that they do not have the proper resources to take care of him at home. For this reason a case management consult, as well as a PT evaluation will be ordered at this time. Time: 14:12 Reevaluation #3: Physician observation started at 1414 Patient placed in physician observation because the patient needed more time for Case management and PT consult and to be further evaluated, and to look for possible placement for this patient. At the time observation was started the patient's vitals were stable, patient is alert and oriented but slightly agitated, Neuro: nonfocal, CV RRR, Lungs clear. Time: 14:14 MDM - Altered Mental Status MDM Narrative Medical decision making narrative: 75 yo m with a pmhx of alcohol use disorder, cirrhosis, asthma, prior COVID-19, AFib, diabetes, encephalopathy, recent diagnosis of dementia presents to the emergency department via ambulance for generalized weakness, 2 falls within the past 2 days, and altered mental status progressively worsening over the past two days. According to daughter she is also concerned because he has been urinating everywhere, unable to control his urine, which is abnormal for him. Patient appears to be altered, and confused, so history was obtained from EMS and daughter. No new medications. Patient is on anticoagulation, xerelto. Upon physical examination lungs are clear to auscultation bilaterally, S1-S2 appreciated free of murmurs. Patient is unable to follow commands. Abdomen is soft nontender nondistended. Head is atraumatic, normocephalic. No lower extremity edema. No signs of evident trauma. This time is to obtain an EKG, UA, CT of head and brain, chest x-ray, CBC, CMP, COVID, lactate, lipase, troponin, UA, blood cultures. Will rule out infection, ACS, ICH. Lab Data Attestation: I reviewed the patient's lab results. Result diagrams: 03/06/21 12:03/06/21 12:29 Labs: Lab Results 03/06/21 03/06/21 03/06/21 Range/Units 12: 12: 12:29 WBC 2.9 L (4.8-10.8) X10*3/uL RBC 3.11 L D (4.60-5.80) X10*6/uL Hgb 9.1 L D (14.0-18.0) g/dl Hct 27.8 L D (42-52) % MCV 89.4 (80-98) fL MCH 29.3 (27.0-33.0) pg MCHC 32.7 (31.0-36.0) g/dl RDW 15.9 (11.0-16.0) % Plt Count 48 L (160-400) X10*3/uL MPV 10.0 (9.4-12.4) fL Immature Gran % (Auto) 0.3 (0.0-0.4) % Neut % (Auto) 71.1 (45-73) % Lymph % (Auto) 18.6 L (20-40) % [place] % (Auto) 7.6 (2-11) % Eos % (Auto) 2.1 (0-4) % Baso % (Auto) 0.3 (0-2) % Lymph # (Auto) 0.5 L (1.2-4.9) X10*3/uL [place] # (Auto) 0.2 (0.1-1.2) X10*3/uL Eos # (Auto) 0.1 (0.0-0.4) X10*3/uL Baso # (Auto) 0.0 (0.0-0.2) X10*3/uL Abs Immat Gran (auto) 0.01 (0.00-0.03) X10*3/uL Absolute Neuts (auto) 2.1 (2.0-8.3) X10*3/uL Absolute Nucleated RBC 0.000 (0.0-0.012) X10*3/uL Nucleated RBC % (auto) 0.0 (0.0-0.2) /100WBC PT (9.9-13.0) SEC INR (0.9-1.1) APTT (24.1-38.0) SEC Sodium 143 (135-145) mmol/L Potassium 4.7 (3.3-5.1) mmol/L Chloride 112 H (96-108) mmol/L Carbon Dioxide 24 (22-29) mmol/L Anion Gap 12 (12-20) BUN 31 H (9-16) mg/dL Creatinine 2.12 H (0.5-1.4) mg/dL Estim Creat Clear Calc 27.1 Estimated GFR 31 Random Glucose 100 (60-115) mg/dL Lactic Acid (0.5-2.0) mmol/L Calcium 10.2 (8.4-10.2) mg/dL Total Bilirubin 1.3 H (0.0-1.0) mg/dL AST 19 (5-37) U/L ALT 15 (0-40) U/L Alkaline Phosphatase 69 (39-117) U/L Troponin I High Sens 16.0 (<3.5-35.0) ng/L Total Protein 5.9 L (6.5-8.0) g/dL Albumin 3.5 (3.5-5.0) g/dL Lipase (8-78) U/L Urine Color Urine Appearance Urine pH (5.0-8.0) Ur Specific [place] (1.005-1.025) Urine Protein (NEG-TRACE) MG/DL Urine Glucose (UA) (NEG) MG/DL Urine Ketones (NEG) MG/DL Urine Blood (NEG) Urine Nitrite (NEG) Ur Leukocyte Esterase (NEG) Urine RBC (0) /HPF Urine WBC (0-4) /HPF Ur Squamous Epith Cells /LPF Urine Bacteria /LPF COVID-19 ([facility]) (Negative) COVID-19 Clin Com 03/06/21 03/06/21 03/06/21 Range/Units 12:30 12:30 12:30 WBC (4.8-10.8) X10*3/uL RBC (4.60-5.80) X10*6/uL Hgb (14.0-18.0) g/dl Hct (42-52) % MCV (80-98) fL MCH (27.0-33.0) pg MCHC (31.0-36.0) g/dl RDW (11.0-16.0) % Plt Count (160-400) X10*3/uL MPV (9.4-12.4) fL Immature Gran % (Auto) (0.0-0.4) % Neut % (Auto) (45-73) % Lymph % (Auto) (20-40) % [place] % (Auto) (2-11) % Eos % (Auto) (0-4) % Baso % (Auto) (0-2) % Lymph # (Auto) (1.2-4.9) X10*3/uL [place] # (Auto) (0.1-1.2) X10*3/uL Eos # (Auto) (0.0-0.4) X10*3/uL Baso # (Auto) (0.0-0.2) X10*3/uL Abs Immat Gran (auto) (0.00-0.03) X10*3/uL Absolute Neuts (auto) (2.0-8.3) X10*3/uL Absolute Nucleated RBC (0.0-0.012) X10*3/uL Nucleated RBC % (auto) (0.0-0.2) /100WBC PT (9.9-13.0) SEC INR (0.9-1.1) APTT (24.1-38.0) SEC Sodium (135-145) mmol/L Potassium (3.3-5.1) mmol/L Chloride (96-108) mmol/L Carbon Dioxide (22-29) mmol/L Anion Gap (12-20) BUN (9-16) mg/dL Creatinine (0.5-1.4) mg/dL Estim Creat Clear Calc Estimated GFR Random Glucose (60-115) mg/dL Lactic Acid 1.5 (0.5-2.0) mmol/L Calcium (8.4-10.2) mg/dL Total Bilirubin (0.0-1.0) mg/dL AST (5-37) U/L ALT (0-40) U/L Alkaline Phosphatase (39-117) U/L Troponin I High Sens (<3.5-35.0) ng/L Total Protein (6.5-8.0) g/dL Albumin (3.5-5.0) g/dL Lipase 19 (8-78) U/L Urine Color Urine Appearance Urine pH (5.0-8.0) Ur Specific [place] (1.005-1.025) Urine Protein (NEG-TRACE) MG/DL Urine Glucose (UA) (NEG) MG/DL Urine Ketones (NEG) MG/DL Urine Blood (NEG) Urine Nitrite (NEG) Ur Leukocyte Esterase (NEG) Urine RBC (0) /HPF Urine WBC (0-4) /HPF Ur Squamous Epith Cells /LPF Urine Bacteria /LPF COVID-19 ([facility]) Negative (Negative) COVID-19 Clin Com See Note 03/06/21 03/06/21 Range/Units 12:32 14:06 WBC (4.8-10.8) X10*3/uL RBC (4.60-5.80) X10*6/uL Hgb (14.0-18.0) g/dl Hct (42-52) % MCV (80-98) fL MCH (27.0-33.0) pg MCHC (31.0-36.0) g/dl RDW (11.0-16.0) % Plt Count (160-400) X10*3/uL MPV (9.4-12.4) fL Immature Gran % (Auto) (0.0-0.4) % Neut % (Auto) (45-73) % Lymph % (Auto) (20-40) % [place] % (Auto) (2-11) % Eos % (Auto) (0-4) % Baso % (Auto) (0-2) % Lymph # (Auto) (1.2-4.9) X10*3/uL [place] # (Auto) (0.1-1.2) X10*3/uL Eos # (Auto) (0.0-0.4) X10*3/uL Baso # (Auto) (0.0-0.2) X10*3/uL Abs Immat Gran (auto) (0.00-0.03) X10*3/uL Absolute Neuts (auto) (2.0-8.3) X10*3/uL Absolute Nucleated RBC (0.0-0.012) X10*3/uL Nucleated RBC % (auto) (0.0-0.2) /100WBC PT 16.4 H (9.9-13.0) SEC INR 1.4 H D (0.9-1.1) APTT 33.6 D (24.1-38.0) SEC Sodium (135-145) mmol/L Potassium (3.3-5.1) mmol/L Chloride (96-108) mmol/L Carbon Dioxide (22-29) mmol/L Anion Gap (12-20) BUN (9-16) mg/dL Creatinine (0.5-1.4) mg/dL Estim Creat Clear Calc Estimated GFR Random Glucose (60-115) mg/dL Lactic Acid (0.5-2.0) mmol/L Calcium (8.4-10.2) mg/dL Total Bilirubin (0.0-1.0) mg/dL AST (5-37) U/L ALT (0-40) U/L Alkaline Phosphatase (39-117) U/L Troponin I High Sens (<3.5-35.0) ng/L Total Protein (6.5-8.0) g/dL Albumin (3.5-5.0) g/dL Lipase (8-78) U/L Urine Color YELLOW Urine Appearance CLEAR Urine pH 6.0 (5.0-8.0) Ur Specific [place] 1.015 (1.005-1.025) Urine Protein NEG (NEG-TRACE) MG/DL Urine Glucose (UA) NEG (NEG) MG/DL Urine Ketones NEG (NEG) MG/DL Urine Blood 3+ H (NEG) Urine Nitrite NEG (NEG) Ur Leukocyte Esterase NEG (NEG) Urine RBC 50-75 H (0) /HPF Urine WBC 0-2 (0-4) /HPF Ur Squamous Epith Cells NONE /LPF Urine Bacteria NONE /LPF COVID-19 ([facility]) (Negative) COVID-19 Clin Com ECG Data ECG #1: Attestation: I personally reviewed and interpreted this ECG as follows: ECG interpretation date: 03/06/21 ECG interpretation time: 12:57 Prior ECG tracings: available for review Interpretation: Ventricular rate 58,QRS normal, QT/QTC prolonged EKG shows a 1 degree AVB no TONY or depression. No acute ischemia. No significant changes when compared to EKGs from 03/01/21 Discharge Plan Discharge Clinical Impression: Falls frequently, Physical deconditioning Prescriptions: No Action cholecalciferol (vitamin D3) 50 mcg (2,000 unit) capsule 50 mcg PO DAILY Qty: 30 RF: 1 Xifaxan 550 mg tablet 550 mg PO BID 30 Days Qty: 60 RF: 1 omeprazole 20 mg capsule,delayed release(DR/EC) 20 mg PO BID Qty: 60 RF: 1 multivitamin [Daily-Arlene] Tablet 1 tab PO DAILY RF: 0 montelukast 10 mg tablet 1 tab PO BEDTIME RF: 0 Flovent HFA 220 mcg/actuation HFA aerosol inhaler 2 puff PO BID RF: 0 loratadine 10 mg tablet 1 tab PO DAILY RF: 0 lactulose 10 gram/15 mL solution 30 ml PO TID RF: 0 spironolactone 25 mg tablet 25 mg PO DAILY RF: 0 trazodone 50 mg tablet 25 mg PO BEDTIME PRN (Reason: insomnia) Qty: 4 RF: 0 albuterol sulfate 2.5 mg /3 mL (0.083 %) solution for nebulization 3 ml inhalation Q6H PRN (Reason: Shortness Of Breath) RF: 0 Xarelto 20 mg tablet 20 mg PO DAILY RF: 0 citalopram 10 mg tablet 10 mg PO DAILY RF: 0 midodrine 2.5 mg tablet 2.5 mg PO BID 30 Days Qty: 60 RF: 3
--- NOTE | 2021-03-06 12:07 | PHA.MEDREC ---
Pharmacy Consult ? Medication Reconciliation Pharmacy has completed the medication reconciliation. Based on external pharmacy fill history and most recent outpatient oncology report from 03/02/21.
[2021-03-06 12:39] LABS: MANUAL DIFF FLAG NO
[2021-03-06 12:43] LABS: Basophils Percent Auto 0.3 % (0-2); Eosinophils Absolute Auto 0.1 X10*3/uL (0.0-0.4); Eosinophils Percent Auto 2.1 % (0-4); Hematocrit 27.8 % (42-52); Hemoglobin 9.1 g/dl (14.0-18.0); Imm Gran Abs Auto 0.01 X10*3/uL (0.00-0.03); Imm Gran Pct Auto 0.3 % (0.0-0.4); Lymphocytes Absolute Auto 0.5 X10*3/uL (1.2-4.9); Lymphocytes Percent Auto 18.6 % (20-40); Mean Corpuscular HGB Conc 32.7 g/dl (31.0-36.0); Mean Corpuscular Hemoglobin 29.3 pg (27.0-33.0); Mean Corpuscular Volume 89.4 fL (80-98); Monocytes Absolute Auto 0.2 X10*3/uL (0.1-1.2); Monocytes Percent Auto 7.6 % (2-11); Neutrophils Absolute Auto 2.1 X10*3/uL (2.0-8.3); Neutrophils Percent Auto 71.1 % (45-73); Red Blood Count 3.11 X10*6/uL (4.60-5.80); Red Cell Distribution Width 15.9 % (11.0-16.0); White Blood Count 2.9 X10*3/uL (4.8-10.8)
[2021-03-06 12:45] LABS: Platelet Count 48 X10*3/uL (160-400)
[2021-03-06 12:55] LABS: Lactic Acid 1.5 mmol/L (0.5-2.0)
[2021-03-06 12:59] LABS: Lipase 19 U/L (8-78)
[2021-03-06 12:59] LABS: Alanine Aminotransferase 15 U/L (0-40); Albumin Level 3.5 g/dL (3.5-5.0); Alkaline Phosphatase 69 U/L (39-117); Anion Gap 12 (12-20); Aspartate Amino Transferase 19 U/L (5-37); Bilirubin Total 1.3 mg/dL (0.0-1.0); Blood Urea Nitrogen 31 mg/dL (9-16); Calcium 10.2 mg/dL (8.4-10.2); Carbon Dioxide 24 mmol/L (22-29); Chloride 112 mmol/L (96-108); Creatinine Clr Calc Pharmacy 27.1; Estimated Glomerular Filt Rate 31; Glucose Random 100 mg/dL (60-115); Potassium 4.7 mmol/L (3.3-5.1); Sodium 143 mmol/L (135-145); Total Protein 5.9 g/dL (6.5-8.0)
[2021-03-06 13:00] LABS: COVID-19 Test Negative (Negative); IDNOW Serial# 9DD0AD1C
[2021-03-06 13:42] LABS: Appearance Urine CLEAR; Color Urine YELLOW; Glucose Urine UA NEG (NEG); Leukocyte Esterase Urine NEG (NEG); Nitrite Urine NEG (NEG); Specific Gravity - Urine 1.015 (1.005-1.025); UACC Culture Trigger NO; Urine Blood 3+ (NEG); Urine Ketones NEG (NEG); Urine Protein NEG (NEG-TRACE)
[2021-03-06 14:01] LABS: RBC Urine 50-75 /HPF (0); WBC Urine 0-2 /HPF (0-4)
[2021-03-06 14:20] LABS: INTERNATIONAL NORM RATIO 1.4 (0.9-1.1); Prothrombin Time 16.4 SEC (9.9-13.0)
[2021-03-06 14:22] LABS: Partial Thromboplastin Time 33.6 SEC (24.1-38.0)
--- NOTE | 2021-03-06 20:39 | MHC.CM.ED ---
CM met with patient and daughter, Yudith Quesada and medical insurance biller, as pt is Fijian speaking. Pt is alert and seems to understand that he is staying overnight and will go to [facility], but it had to be explained to him several times. Pt is agreeable to go. Reviewed HCP. Again had to explain HCP several times, and patient stated his daughter would be his HCP. Yudith Quesada ([phone]). HCP completed and signed. Copies given and uploaded into [facility] and [facility] [employer]. Pt lives with his S.O. Nora Ballard. Pt uses a walker. 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 37 hours/week/daytime and 14 hours/week nighttime. Yudith expressed concerns over needing more night time hours. CM encouraged her to call her father's care program director at [facility] to address his CIVIL PROCESS SERVER needs. Pt is fully vaccinated with Moderna-07/14 and 08/11/2020. [facility] Port given to Yudith and reviewed. Yudith requests that referrals to made to [facility], [facility] and [facility]. CM did explain that additional referrals may necessary if not bed offers were made. Yudith acknowledges understanding. D/C plan is STR. [facility] will provide transportation. CM to follow for d/c needs.
[2021-03-06] MEDS: Spironolactone 25 MG TABLET PO (21:16)
[2021-03-06] MEDS: rifAXIMin 550 MG TABLET PO (21:16)
[2021-03-06] MEDS: Rivaroxaban 20 MG TABLET PO (21:17)
[2021-03-07] VITALS (10 sets, daily range): BP systolic 128–160; BP diastolic 54–67; PULSE 57–76; RESP 15–16; TEMP 36.1–36.9; O2SAT 96–100
[2021-03-07] MEDS: Omeprazole 20 MG CAPSULE.DR PO ×2 (05:46→18:41)
--- NOTE | 2021-03-07 08:33 | MHC.CM.ED ---
Patient remains in ER. Clinical updates sent to [facility] choice: [facility]) [facility] 3) [facility]. Continue to monitor for d/c needs.
[2021-03-07] MEDS: Midodrine HCl 2.5 MG TABLET PO ×2 (09:30→18:39)
[2021-03-07] MEDS: Spironolactone 25 MG TABLET PO (09:31)
[2021-03-07] MEDS: Multivitamin TABLET 1 TAB PO (09:32)
[2021-03-07] MEDS: Rivaroxaban 20 MG TABLET PO (09:32)
[2021-03-07] MEDS: rifAXIMin 550 MG TABLET PO ×2 (09:32→22:06)
[2021-03-07] MEDS: Cholecalciferol (Vitamin D3) 25 MCG TABLET 50 MCG PO (09:32)
[2021-03-07] MEDS: Escitalopram Oxalate 5 MG TABLET PO (09:38)
--- NOTE | 2021-03-07 10:25 | PC.NURSE ---
pt and family updated on placement status. CM aware pt has appointment upstairs later today.
--- NOTE | 2021-03-07 10:53 | MHC.CM.ED ---
Received notification from Aissatou FRY that patient has appointment at [address] Brewer aware patient is in the ER and will reschedule appointment.
--- NOTE | 2021-03-07 11:10 | PC.NURSE ---
pt ambulated to bathroom with walker and standby assist. back in bed, repositioned. call gutierrez in reach.
--- NOTE | 2021-03-07 15:09 | MHC.CM.ED ---
[facility] are unable to offer a bed. [facility] may be able to offer a bed tomorrow. Continue to monitor for d/c needs.
--- NOTE | 2021-03-07 15:51 | MHC.CM.PN ---
Addendum entered by Criselda Grider 03/07/21 21:08: Spoke with Yudith. 11 referrals sent. [facility] is first choice. Patient pleasant and cooperative. CM to follow for d/c needs. Original Note: [facility] and [facility] unable to offer a bed. [facility] might have a bed tomorrow. CM spoke with Yudith regarding options to refer to more facilities locally or consider home PT if she doesn't like choices. Yudith willing to refer locally. 7 referral placed. Will discuss with Yudith if bed offers made. Yudith is worried about finding the right place for him. CM to follow for d/c needs.
--- NOTE | 2021-03-07 20:32 | PC.NURSE ---
PATIENT ATE 75 % OF SHAHEED ,DRANK 240 ML MILK ,
--- NOTE | 2021-03-07 20:32 | PC.NURSE ---
PATIENT URINATE 3 TIMES IN THE URINAL .
--- NOTE | 2021-03-07 21:26 | PC.NURSE ---
patient was given a bed bath by this pct ,patient void 200 ml in urinal .
--- NOTE | 2021-03-08 02:08 | PC.NURSE ---
this nurse called to bedside by charge master coordinator and manufacturing process technician. pt requesting to void but unable to, pt was bladder scanned which revealed 700ml in bladder. this nurse, charge master coordinator and manufacturing process technician Kamla attempted to straight cath pt but unabe to pass catheter through to bladder. notified. pts IV (L ac) was leaking blood. IV site cleaned but did not stop bleeding at site. IV removed by Miroslava FRY. MD notified.
--- NOTE | 2021-03-08 02:19 | PC.NURSE ---
PREM Cason and Medina at bedside assisting pt with bedside urinal while standing up. pt voided 200cc of urine into urinal and was bladder scanned after voiding. bladder scan revealed 420ml still in bladder. notified
--- NOTE | 2021-03-08 02:24 | PC.NURSE ---
MD aware of pt retaining urine and unsuccessful straight cath attempt. per provider pt is to be monitored for voiding needs. no new orders at this time.
[2021-03-08 07:16] VITALS: BP 155/70; PULSE 58; RESP 14; O2SAT 100
[2021-03-08] MEDS: Midodrine HCl 2.5 MG TABLET PO ×2 (07:18→16:46)
[2021-03-08] MEDS: Omeprazole 20 MG CAPSULE.DR PO ×2 (07:18→16:48)
[2021-03-08] MEDS: Cholecalciferol (Vitamin D3) 25 MCG TABLET 50 MCG PO (09:03)
[2021-03-08] MEDS: Escitalopram Oxalate 5 MG TABLET PO (09:03)
[2021-03-08] MEDS: Multivitamin TABLET 1 TAB PO (09:03)
[2021-03-08] MEDS: Spironolactone 25 MG TABLET PO (09:03)
[2021-03-08] MEDS: Rivaroxaban 20 MG TABLET PO (10:49)
[2021-03-08] MEDS: rifAXIMin 550 MG TABLET PO (10:49)
--- NOTE | 2021-03-08 14:47 | MHC.CM.ED ---
Ana Cristina from [facility] will be on site at 4pm to see patient. Continue to monitor for d/c needs.
[2021-03-08 15:57] VITALS: BP 178/68; PULSE 59; RESP 16; TEMP 36.6; O2SAT 100
[2021-03-08 16:50] VITALS: BP 123/52; PULSE 65; RESP 14; O2SAT 96
--- NOTE | 2021-03-08 19:19 | PC.NURSE ---
assumed care of pt. Pt's daughter is ready to leave and wants us to know pt is incontinent. Curtain open and pt by nursing station for safety. Bed in low locked position, call gutierrez at bedside for pt. will continue to monitor pt.
[2021-03-08 19:27] VITALS: BP 136/61; PULSE 60; RESP 14; TEMP 36.4; O2SAT 100
--- NOTE | 2021-03-08 23:15 | PC.NURSE ---
PT CLEANED UP AFTER PT URINATING IN STRETCHER. PT FALLS BACK TO SLEEP AND IN NAD. RESPIRATIONS EASY, N/L. SKIN W/D. PT AWAITING FOR FURTHER ORDERS.
[2021-03-08 23:18] VITALS: BP 164/73; PULSE 61; RESP 12; O2SAT 95
[2021-03-09] VITALS (9 sets, daily range): BP systolic 136–159; BP diastolic 63–73; PULSE 60–86; RESP 14–19; TEMP 36.6–37; O2SAT 99–100
--- NOTE | 2021-03-09 00:51 | PC.NURSE ---
pt sleeping, wakes to voice. respirations n/l, skin w/d.
--- NOTE | 2021-03-09 02:19 | PC.NURSE ---
pt cleaned up, warm blk applied to pt. vs obtained. pt in NAD,
--- NOTE | 2021-03-09 04:27 | PC.NURSE ---
Pt urinated in bed, pt unable to hold urinal. pt cleaned up. pt awaiting for bed assignment. will continue to monitor pt.
--- NOTE | 2021-03-09 06:13 | PC.NURSE ---
pt cleaned and linens changed.
[2021-03-09] MEDS: Omeprazole 20 MG CAPSULE.DR PO ×2 (06:33→16:46)
--- NOTE | 2021-03-09 06:33 | PC.NURSE ---
pt medicated as per emar. Pt awake, respirations are non-labored. skin w/d will continue to monitor pt.
[2021-03-09] MEDS: Fluticasone Propionate 250 MCG BLST.W.DEV 2 PUFF INHALE (08:28)
--- NOTE | 2021-03-09 08:45 | MHC.CM.ED ---
Late entry from 03/08 at 4pm: Ana Cristina from [facility] on site. Visited with patient and spoke with daughter Yudith via telephone. [facility] will start insurance auth. But will need an updated physical therapy eval. Physical therapy will be made aware in morning. Continue to monitor for d/c needs.
[2021-03-09] MEDS: Cholecalciferol (Vitamin D3) 25 MCG TABLET 50 MCG PO (09:06)
[2021-03-09] MEDS: Escitalopram Oxalate 5 MG TABLET PO (09:06)
[2021-03-09] MEDS: Multivitamin TABLET 1 TAB PO (09:06)
[2021-03-09] MEDS: Midodrine HCl 2.5 MG TABLET PO ×2 (09:07→16:42)
[2021-03-09] MEDS: Spironolactone 25 MG TABLET PO (09:09)
[2021-03-09] MEDS: Rivaroxaban 20 MG TABLET PO (09:18)
[2021-03-09] MEDS: rifAXIMin 550 MG TABLET PO ×2 (09:18→20:17)
--- NOTE | 2021-03-09 09:53 | PC.NURSE ---
incontinent of urine, and cleaned, medicated as ordered, drank a small amt of water w meds, declined breakfast
--- NOTE | 2021-03-09 09:55 | MHC.CM.ED ---
Addendum entered by Jerilyn [place] 03/09/21 11:15: Neg Covid PCR sent to [facility]. Original Note: Physical therapy progress note completed and uploaded to [facility]. [facility] is starting insurance auth. Requesting PCR Covid swab. Covid swab pending. Continue to monitor for d/c needs.
[2021-03-09 10:35] LABS: Influenza A PCR NEGATIVE (Negative); Influenza B PCR NEGATIVE (Negative); Resp Syncy Virus RNA Qual PCR NEGATIVE (Negative); SARS COV2 PCR INHOUSE NEGATIVE (Negative)
[2021-03-09 12:51] LABS: MANUAL DIFF FLAG NO
[2021-03-09 12:52] LABS: Basophils Percent Auto 0.3 % (0-2); Eosinophils Absolute Auto 0.1 X10*3/uL (0.0-0.4); Eosinophils Percent Auto 3.7 % (0-4); Hematocrit 27.1 % (42-52); Hemoglobin 9.1 g/dl (14.0-18.0); Imm Gran Abs Auto 0.01 X10*3/uL (0.00-0.03); Imm Gran Pct Auto 0.3 % (0.0-0.4); Lymphocytes Absolute Auto 0.7 X10*3/uL (1.2-4.9); Lymphocytes Percent Auto 20.7 % (20-40); Mean Corpuscular HGB Conc 33.6 g/dl (31.0-36.0); Mean Corpuscular Hemoglobin 29.8 pg (27.0-33.0); Mean Corpuscular Volume 88.9 fL (80-98); Mean Platelet Volume 9.6 fL (9.4-12.4); Monocytes Absolute Auto 0.3 X10*3/uL (0.1-1.2); Neutrophils Absolute Auto 2.4 X10*3/uL (2.0-8.3); Red Blood Count 3.05 X10*6/uL (4.60-5.80); Red Cell Distribution Width 15.7 % (11.0-16.0); White Blood Count 3.5 X10*3/uL (4.8-10.8)
[2021-03-09 12:53] LABS: Platelet Count 47 X10*3/uL (160-400)
[2021-03-09 13:11] LABS: Ammonia 80 umol/L (13-55)
[2021-03-09 13:16] LABS: Alanine Aminotransferase 18 U/L (0-40); Albumin Level 3.5 g/dL (3.5-5.0); Alkaline Phosphatase 62 U/L (39-117); Anion Gap 12 (12-20); Aspartate Amino Transferase 19 U/L (5-37); Bilirubin Direct 0.6 mg/dL (0.0-0.5); Bilirubin Total 1.4 mg/dL (0.0-1.0); Blood Urea Nitrogen 32 mg/dL (9-16); Calcium 10.8 mg/dL (8.4-10.2); Carbon Dioxide 24 mmol/L (22-29); Chloride 112 mmol/L (96-108); Creatinine Clr Calc Pharmacy 29.9; Estimated Glomerular Filt Rate 34; Glucose Random 111 mg/dL (60-115); Sodium 143 mmol/L (135-145); Total Protein 5.7 g/dL (6.5-8.0)
--- NOTE | 2021-03-09 14:00 | MHC.CM.ED ---
Received notification from [facility] [place]Note 2] that they are not able to offer any more beds. There is a bed for patient at [facility] when insurance auth is obtained. Received notification from Cheri MARX that patient will be admitted due to elevated ammonia levels. Cheri notified daughter. T/W notified [facility] [place]. Continue to monitor for d/c needs.
--- NOTE | 2021-03-09 14:12 | PM.IMHP ---
History of Present Illness Date of Service: 03/09/21 Chief Complaint: Altered mental status 75-year-old male was brought in by his on 03/06/2021 for altered mental status. She reported that at nighttime patient would get up to use the bathroom and urinate on the floor, occasionally falling on the floor, she was having difficulty taking care of him. She also noted that he was only having bowel movements every other day, and that he was shaky when trying to feed himself. During the day he was mostly at baseline. In ED patient was awaiting bed for rehab, he then became more confused and sleepy, on day of admission patient did not recognize his . Labs were done which showed elevated ammonia of 80. Review of Systems Review of Systems: Yes Unobtainable due to mental status PMFSH Medical History JACOB (acute kidney injury) JACOB (acute kidney injury) Ascites Cirrhosis of liver CKD (chronic kidney disease) stage 3, GFR 30-59 ml/min COVID-19 Diabetes Elevated INR Esophageal varices Esophageal varices determined by endoscopy GERD (gastroesophageal reflux disease) Hepatic encephalopathy Hypertension Portal vein thrombosis Thrombocytopenia Vitamin D deficiency Family History Father Diabetes HTN (hypertension) Mother Diabetes Sister Cancer Pertinent family history: . Surgical History Hx of colonoscopy Hx of endoscopy Hx of inguinal hernia repair Social History Household Members: Spouse Housing: House Do you presently have visiting nurse or other home services: Yes Alcohol intake: unknown Patient Tobacco Use Status: Never used Tobacco Use of substances other than those prescribed or required for medical reasons: No Advance Directives: Yes Advance Directives on File: Yes Advance Directives Date on File: 03/06/21 service: No Current occupational status: retired Meds Allergies Allergy/AdvReac Type Severity Reaction Status Date / Time No Known Allergies Allergy Verified 01/23/21 10:24 Active Medications: Current Medications Albuterol Sulfate (Albuterol Sulfate (0.083%) 2.5 Mg/3 Ml Vial.Neb) 2.5 mg INHALE Q6H PRN PRN Reason: Shortness Of Breath Escitalopram Oxalate (Escitalopram Oxalate 5 Mg Tablet) 5 mg PO DAILY [facility] Last Admin: 03/09/21 09:06 Dose: 5 mg Documented by: Fluticasone Propionate (Fluticasone Propionate 250 Mcg Blst.W.Dev) 2 puff INHALE RBID [facility] Last Admin: 03/09/21 08:28 Dose: 2 puff Documented by: Lactulose (Lactulose 20 Gm/30 Ml Solution) 20 gm PO TID [facility] Midodrine (Midodrine Hcl 2.5 Mg Tablet) 2.5 mg PO BIDWM [facility] Last Admin: 03/09/21 09:07 Dose: 2.5 mg Documented by: Montelukast Sodium (Montelukast Sodium 10 Mg Tablet) 10 mg PO BEDTIME [facility] Multivitamins/Vitamin C (Multivitamin Tablet) 1 tab PO DAILY [facility] Last Admin: 03/09/21 09:06 Dose: 1 tab Documented by: Omeprazole (Omeprazole 20 Mg Capsule.Dr) 20 mg PO BID@0630,1630 [facility] Last Admin: 03/09/21 06:33 Dose: 20 mg Documented by: Pharmacy Consult (Consult Rx Perform Med Rec) 1 each MISCELLANE ONCE PRN PRN Reason: Consult order Rifaximin (Rifaximin 550 Mg Tablet) 550 mg PO BID [facility] Last Admin: 03/09/21 09:18 Dose: 550 mg Documented by: Rivaroxaban (Rivaroxaban 20 Mg Tablet) 20 mg PO DAILY [facility] Last Admin: 03/09/21 09:18 Dose: 20 mg Documented by: Spironolactone (Spironolactone 25 Mg Tablet) 25 mg PO DAILY [facility]; Protocol Last Admin: 03/09/21 09:09 Dose: 25 mg Documented by: Trazodone HCl (Trazodone Hcl 25 Mg Halftab) 25 mg PO BEDTIME PRN PRN Reason: insomnia Vitamin D (Cholecalciferol (Vitamin D3) 25 Mcg Tablet) 50 mcg PO DAILY [facility] Last Admin: 03/09/21 09:06 Dose: 50 mcg Documented by: Home Medications Medication Instructions Recorded Confirmed Last Taken Type fluticasone propionate 220 2 puff PO BID 04/08/20 03/06/21 01/04/21 History mcg/actuation HFA aerosol inhaler (Flovent HFA) loratadine 10 mg tablet 1 tab PO DAILY 04/08/20 03/06/21 01/04/21 History montelukast 10 mg tablet 1 tab PO BEDTIME 04/08/20 03/06/21 01/03/21 History multivitamin (Daily-Arlene) 1 tab PO DAILY 04/08/20 03/06/21 01/04/21 History citalopram 10 mg tablet 10 mg PO DAILY 06/01/20 03/06/21 01/04/21 History rivaroxaban 20 mg tablet (Xarelto) 20 mg PO DAILY 06/01/20 03/06/21 01/04/21 History lactulose 10 gram/15 mL oral 30 ml PO TID 01/04/21 03/06/21 01/04/21 History solution spironolactone 25 mg tablet 25 mg PO DAILY 01/04/21 03/06/21 01/04/21 History albuterol sulfate 3 ml INHALATION Q6H PRN 03/06/21 03/06/21 Unknown History Physical Exam Vital Signs and Narrative: Vital Signs: Last Vital Signs Temp 97.8 F 03/09/21 06:11 Pulse 63 03/09/21 09:12 Resp 19 03/09/21 09:12 BP 159/73 H 03/09/21 09:12 Pulse Ox 99 03/09/21 06:11 Body Mass Index 24.2 General: lethargic, groaning, not answering any questions HEENT: atraumatic Neck: normal to visual inspection CVS: S1, S2, RRR Resp: CTA bilateral Chest: non tender GI: soft, non tender, non distended : no CVA tenderness Skin: no rashes Extremities: no edema Neuro: disoriented, grossly intact Psych: flat affect Results Labs CBC and Chem 7: 03/09/21 12:46 03/09/21 12:46 Labs: Laboratory Results - last 24 hr 03/09/21 03/09/21 03/09/21 09:46 12:46 12:46 MCV 88.9 MCH 29.8 MCHC 33.6 RDW 15.7 Plt Count 47 L MPV 9.6 Immature Gran % (Auto) 0.3 Neut % (Auto) 67.0 Lymph % (Auto) 20.7 [place] % (Auto) 8.0 Eos % (Auto) 3.7 Baso % (Auto) 0.3 Lymph # (Auto) 0.7 L [place] # (Auto) 0.3 Eos # (Auto) 0.1 Baso # (Auto) 0.0 Abs Immat Gran (auto) 0.01 Absolute Neuts (auto) 2.4 Absolute Nucleated RBC 0.000 Nucleated RBC % (auto) 0.0 Anion Gap 12 Estim Creat Clear Calc 29.9 Estimated GFR 34 Random Glucose 111 Calcium 10.8 H Total Bilirubin 1.4 H Direct Bilirubin 0.6 H AST 19 ALT 18 Alkaline Phosphatase 62 Ammonia Total Protein 5.7 L Albumin 3.5 Influenza Type A (PCR) NEGATIVE Influenza Type B (PCR) NEGATIVE RSV RNA Qual (PCR) NEGATIVE SARS-CoV-2 RNA (RT-PCR) NEGATIVE 03/09/21 12:46 MCV MCH MCHC RDW Plt Count MPV Immature Gran % (Auto) Neut % (Auto) Lymph % (Auto) [place] % (Auto) Eos % (Auto) Baso % (Auto) Lymph # (Auto) [place] # (Auto) Eos # (Auto) Baso # (Auto) Abs Immat Gran (auto) Absolute Neuts (auto) Absolute Nucleated RBC Nucleated RBC % (auto) Anion Gap Estim Creat Clear Calc Estimated GFR Random Glucose Calcium Total Bilirubin Direct Bilirubin AST ALT Alkaline Phosphatase Ammonia 80 H Total Protein Albumin Influenza Type A (PCR) Influenza Type B (PCR) RSV RNA Qual (PCR) SARS-CoV-2 RNA (RT-PCR) Assessment and Plan (1) Hepatic encephalopathy: Status: Acute 75M presented with AMS hepatic encephalopathy in setting of 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
--- NOTE | 2021-03-09 16:30 | PC.NURSE ---
pt arrived from ER with no IV access.
[2021-03-09] MEDS: 0.9 % Sodium Chloride Flush 3 ML SYRINGE IVFLUSH (16:42)
[2021-03-09] MEDS: Lactulose 20 GM/30 ML SOLUTION PO ×2 (16:45→20:17)
[2021-03-09] MEDS: Montelukast Sodium 10 MG TABLET PO (20:17)
[2021-03-10] VITALS: BP 155/69; PULSE 59; RESP 14; TEMP 36.8; O2SAT 100
[2021-03-10] MEDS: 0.9 % Sodium Chloride Flush 3 ML SYRINGE IVFLUSH ×4 (01:53→21:48)
[2021-03-10 06:16] LABS: Hematocrit 27.8 % (42-52); Hemoglobin 9.4 g/dl (14.0-18.0); Mean Corpuscular HGB Conc 33.8 g/dl (31.0-36.0); Mean Corpuscular Hemoglobin 29.8 pg (27.0-33.0); Mean Corpuscular Volume 88.3 fL (80-98); Mean Platelet Volume 9.5 fL (9.4-12.4); Platelet Count 54 X10*3/uL (160-400); Red Blood Count 3.15 X10*6/uL (4.60-5.80); Red Cell Distribution Width 15.4 % (11.0-16.0); White Blood Count 4.3 X10*3/uL (4.8-10.8)
[2021-03-10 06:47] LABS: Anion Gap 13 (12-20); Blood Urea Nitrogen 33 mg/dL (9-16); Calcium 10.9 mg/dL (8.4-10.2); Carbon Dioxide 23 mmol/L (22-29); Chloride 113 mmol/L (96-108); Creatinine Clr Calc Pharmacy 29.2; Estimated Glomerular Filt Rate 33; Glucose Fasting 112 mg/dL (60-99); Magnesium 1.9 mg/dL (1.6-2.6); Potassium 4.4 mmol/L (3.3-5.1); Sodium 145 mmol/L (135-145)
[2021-03-10 07:15] LABS: Glucose, Whole Blood 117 mg/dL (60-115)
[2021-03-10 07:15] LABS: Estimated Average Glucose 88 mg/dL; Hemoglobin A1c % 4.7 %
[2021-03-10 08:00] VITALS: BP 138/73; PULSE 78; RESP 18; TEMP 36.9; O2SAT 100
[2021-03-10] MEDS: Fluticasone Propionate 250 MCG BLST.W.DEV 2 PUFF INHALE ×2 (08:00→20:37)
[2021-03-10 08:01] VITALS: PULSE 75; O2SAT 98
[2021-03-10 08:32] LABS: Glucose, Whole Blood 104 mg/dL (60-115)
[2021-03-10] MEDS: Midodrine HCl 2.5 MG TABLET PO ×2 (08:43→16:36)
[2021-03-10] MEDS: Multivitamin TABLET 1 TAB PO (08:43)
[2021-03-10] MEDS: Rivaroxaban 20 MG TABLET PO (08:43)
[2021-03-10] MEDS: rifAXIMin 550 MG TABLET PO ×2 (08:43→21:45)
[2021-03-10] MEDS: Spironolactone 25 MG TABLET PO (08:43)
[2021-03-10] MEDS: Cholecalciferol (Vitamin D3) 25 MCG TABLET 50 MCG PO (08:43)
[2021-03-10] MEDS: Escitalopram Oxalate 5 MG TABLET PO (08:43)
[2021-03-10] MEDS: Lactulose 20 GM/30 ML SOLUTION PO ×4 (08:43→17:28)
--- NOTE | 2021-03-10 10:08 | P.PNIM_ITS ---
Subjective Subjective Date of Service: 03/10/21 Interval History: cc: ams interval history: unchanged Review of Systems Review of Systems: Yes Unobtainable due to mental status Physical Exam Vital Signs: Vital Signs: Last Vital Signs Temp 98.4 F 03/10/21 08:00 Pulse 78 03/10/21 08:00 Resp 18 03/10/21 08:00 BP 138/73 03/10/21 08:00 Pulse Ox 100 03/10/21 08:00 Body Mass Index 24.2 General: confused, arousable, no acute distress Resp: CTA bilateral, no accessory muscles used CVS: S1,S2,RRR GI: soft, non tender, non distended Neuro: motor grossly intact, alert Psych: appropriate affect, impaired insight Objective Data Active Medications Albuterol Sulfate (Albuterol Sulfate (0.083%) 2.5 Mg/3 Ml Vial.Neb) 2.5 mg INHALE Q6H PRN PRN Reason: Shortness Of Breath Escitalopram Oxalate (Escitalopram Oxalate 5 Mg Tablet) 5 mg PO DAILY [facility] Last Admin: 03/10/21 08:43 Dose: 5 mg Documented by: MAXIME Fluticasone Propionate (Fluticasone Propionate 250 Mcg Blst.W.Dev) 2 puff INHALE RBID [facility] Last Admin: 03/10/21 08:00 Dose: 2 puff Documented by: LOC Lactulose (Lactulose 20 Gm/30 Ml Solution) 20 gm PO Q4H [facility] Last Admin: 03/10/21 08:43 Dose: 20 gm Documented by: MAXIME Midodrine (Midodrine Hcl 2.5 Mg Tablet) 2.5 mg PO BIDWM [facility] Last Admin: 03/10/21 08:43 Dose: 2.5 mg Documented by: MAXIME Montelukast Sodium (Montelukast Sodium 10 Mg Tablet) 10 mg PO BEDTIME [facility] Last Admin: 03/09/21 20:17 Dose: 10 mg Documented by: VIKTORIA Multivitamins/Vitamin C (Multivitamin Tablet) 1 tab PO DAILY [facility] Last Admin: 03/10/21 08:43 Dose: 1 tab Documented by: MAXIME Omeprazole (Omeprazole 20 Mg Capsule.) 20 mg PO BID@0630,1630 [facility] Last Admin: 03/10/21 06:05 Dose: Not Given Documented by: VIKTORIA Non-Admin Reason: unable to swallow whole pill Pharmacy Consult (Consult Rx Perform Med Rec) 1 each MISCELLANE ONCE PRN PRN Reason: Consult order Rifaximin (Rifaximin 550 Mg Tablet) 550 mg PO BID [facility] Last Admin: 03/10/21 08:43 Dose: 550 mg Documented by: MAXIME Rivaroxaban (Rivaroxaban 20 Mg Tablet) 20 mg PO DAILY [facility] Last Admin: 03/10/21 08:43 Dose: 20 mg Documented by: MAXIME Sodium Chloride (0.9 % Sodium Chloride Flush 3 Ml Syringe) 3 ml IVFLUSH QSHIFT [facility] Last Admin: 03/10/21 08:43 Dose: 3 ml Documented by: MAXIME Spironolactone (Spironolactone 25 Mg Tablet) 25 mg PO DAILY [facility]; Protocol Last Admin: 03/10/21 08:43 Dose: 25 mg Documented by: MAXIME Trazodone HCl (Trazodone Hcl 25 Mg Halftab) 25 mg PO BEDTIME PRN PRN Reason: insomnia Vitamin D (Cholecalciferol (Vitamin D3) 25 Mcg Tablet) 50 mcg PO DAILY [facility] Last Admin: 03/10/21 08:43 Dose: 50 mcg Documented by: MAXIME Labs CBC & Chem 7: 03/10/21 05:40 03/10/21 05:40 Labs: Laboratory Results - last 24 hr 03/09/21 03/09/21 03/09/21 09:46 12:46 12:46 MCV 88.9 MCH 29.8 MCHC 33.6 RDW 15.7 Plt Count 47 L MPV 9.6 Immature Gran % (Auto) 0.3 Neut % (Auto) 67.0 Lymph % (Auto) 20.7 [place] % (Auto) 8.0 Eos % (Auto) 3.7 Baso % (Auto) 0.3 Lymph # (Auto) 0.7 L [place] # (Auto) 0.3 Eos # (Auto) 0.1 Baso # (Auto) 0.0 Abs Immat Gran (auto) 0.01 Absolute Neuts (auto) 2.4 Absolute Nucleated RBC 0.000 Nucleated RBC % (auto) 0.0 Anion Gap 12 Estim Creat Clear Calc 29.9 Estimated GFR 34 POC Glucose Random Glucose 111 Fasting Glucose Estimat Average Glucose Hemoglobin A1c % Calcium 10.8 H Magnesium Total Bilirubin 1.4 H Direct Bilirubin 0.6 H AST 19 ALT 18 Alkaline Phosphatase 62 Ammonia Total Protein 5.7 L Albumin 3.5 Influenza Type A (PCR) NEGATIVE Influenza Type B (PCR) NEGATIVE RSV RNA Qual (PCR) NEGATIVE SARS-CoV-2 RNA (RT-PCR) NEGATIVE 03/09/21 03/09/21 03/10/21 12:46 23:42 05:40 MCV 88.3 MCH 29.8 MCHC 33.8 RDW 15.4 Plt Count 54 L MPV 9.5 Immature Gran % (Auto) Neut % (Auto) Lymph % (Auto) [place] % (Auto) Eos % (Auto) Baso % (Auto) Lymph # (Auto) [place] # (Auto) Eos # (Auto) Baso # (Auto) Abs Immat Gran (auto) Absolute Neuts (auto) Absolute Nucleated RBC 0.000 Nucleated RBC % (auto) 0.0 Anion Gap Estim Creat Clear Calc Estimated GFR POC Glucose 117 H Random Glucose Fasting Glucose Estimat Average Glucose Hemoglobin A1c % Calcium Magnesium Total Bilirubin Direct Bilirubin AST ALT Alkaline Phosphatase Ammonia 80 H Total Protein Albumin Influenza Type A (PCR) Influenza Type B (PCR) RSV RNA Qual (PCR) SARS-CoV-2 RNA (RT-PCR) 03/10/21 03/10/21 03/10/21 05:40 05:40 08:28 MCV MCH MCHC RDW Plt Count MPV Immature Gran % (Auto) Neut % (Auto) Lymph % (Auto) [place] % (Auto) Eos % (Auto) Baso % (Auto) Lymph # (Auto) [place] # (Auto) Eos # (Auto) Baso # (Auto) Abs Immat Gran (auto) Absolute Neuts (auto) Absolute Nucleated RBC Nucleated RBC % (auto) Anion Gap 13 Estim Creat Clear Calc 29.2 Estimated GFR 33 POC Glucose 104 Random Glucose Fasting Glucose 112 H Estimat Average Glucose 88 Hemoglobin A1c % 4.7 Calcium 10.9 H Magnesium 1.9 Total Bilirubin Direct Bilirubin AST ALT Alkaline Phosphatase Ammonia Total Protein Albumin Influenza Type A (PCR) Influenza Type B (PCR) RSV RNA Qual (PCR) SARS-CoV-2 RNA (RT-PCR) 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
--- NOTE | 2021-03-10 10:29 | MHC.CM.PN ---
spoke with pts dgter plan is for deloris luciano ...jimmy searches [facility]place pt is kailee
[2021-03-10 11:29] LABS: Glucose, Whole Blood 168 mg/dL (60-115)
[2021-03-10 15:22] VITALS: BP 160/70; PULSE 60; RESP 16; TEMP 36.8; O2SAT 99
[2021-03-10] MEDS: Omeprazole 20 MG CAPSULE.DR PO (15:46)
[2021-03-10 16:41] LABS: Glucose, Whole Blood 146 mg/dL (60-115)
[2021-03-10 20:37] VITALS: PULSE 73; O2SAT 96
[2021-03-10 20:45] LABS: Glucose, Whole Blood 131 mg/dL (60-115)
[2021-03-10] MEDS: Montelukast Sodium 10 MG TABLET PO (21:45)
[2021-03-10 23:15] VITALS: BP 163/72; PULSE 71; RESP 14; TEMP 36.6; O2SAT 99
[2021-03-11] MEDS: Lactulose 20 GM/30 ML SOLUTION PO ×3 (01:45→16:51)
[2021-03-11] MEDS: traZODone HCL 25 MG HALFTAB PO (01:45)
[2021-03-11] MEDS: Omeprazole 20 MG CAPSULE.DR PO ×2 (05:47→16:51)
[2021-03-11 06:12] LABS: Hematocrit 24.1 % (42.0-52.0); Hemoglobin 8.2 g/dl (14.0-18.0); Mean Corpuscular Hemoglobin 29.6 pg (27.0-33.0); Mean Platelet Volume 9.3 fL (9.4-12.4); Red Blood Count 2.77 X10*6/uL (4.60-5.80); Red Cell Distribution Width 15.4 % (11.0-16.0)
[2021-03-11 06:18] LABS: Ammonia 53 umol/L (13-55)
[2021-03-11 06:21] LABS: Platelet Count 40 X10*3/uL (160-400); White Blood Count 2.3 X10*3/uL (4.8-10.8)
[2021-03-11 06:51] LABS: Anion Gap 12 (12-20); Blood Urea Nitrogen 26 mg/dL (9-16); Calcium 10.4 mg/dL (8.4-10.2); Carbon Dioxide 21 mmol/L (22-29); Chloride 112 mmol/L (96-108); Creatinine Clr Calc Pharmacy 27.5; Estimated Glomerular Filt Rate 31; Glucose Fasting 132 mg/dL (60-99); Magnesium 1.8 mg/dL (1.6-2.6); Potassium 4.1 mmol/L (3.3-5.1); Sodium 141 mmol/L (135-145)
[2021-03-11 07:15] VITALS: BP 147/70; PULSE 74; RESP 18; TEMP 36.1; O2SAT 100
[2021-03-11 07:53] LABS: Glucose, Whole Blood 112 mg/dL (60-115)
--- NOTE | 2021-03-11 09:03 | HO.PM.IMPN ---
Subjective Subjective Date of Service: 03/11/21 Interval History: cc: ams interval history: less sleepy, had 3 BMs Cardiovascular Cardiovascular: Reports no additional cardiovascular complaints Respiratory Respiratory: Reports no additional respiratory complaints Physical Exam Vital Signs: Vital Signs: Last Vital Signs Temp 97.0 F 03/11/21 07:15 Pulse 74 03/11/21 07:15 Resp 18 03/11/21 07:15 BP 147/70 H 03/11/21 07:15 Pulse Ox 100 03/11/21 07:15 Body Mass Index 24.2 General: confused, arousable, no acute distress Resp:? CTA bilateral, no accessory muscles used CVS: S1,S2,RRR GI: soft, non tender, non distended Neuro:? motor grossly intact, alert Psych: appropriate affect, impaired insight? Objective Data Active Medications Albuterol Sulfate (Albuterol Sulfate (0.083%) 2.5 Mg/3 Ml Vial.Neb) 2.5 mg INHALE Q6H PRN PRN Reason: Shortness Of Breath Escitalopram Oxalate (Escitalopram Oxalate 5 Mg Tablet) 5 mg PO DAILY [facility] Last Admin: 03/10/21 08:43 Dose: 5 mg Documented by: MAXIME Fluticasone Propionate (Fluticasone Propionate 250 Mcg Blst.W.Dev) 2 puff INHALE RBID [facility] Last Admin: 03/11/21 07:52 Dose: Not Given Documented by: LOC Non-Admin Reason: See Note Lactulose (Lactulose 20 Gm/30 Ml Solution) 20 gm PO Q8H [facility] Last Admin: 03/11/21 01:45 Dose: 20 gm Documented by: ZENA Midodrine (Midodrine Hcl 2.5 Mg Tablet) 2.5 mg PO BIDWM [facility] Last Admin: 03/10/21 16:36 Dose: 2.5 mg Documented by: MAXIME Montelukast Sodium (Montelukast Sodium 10 Mg Tablet) 10 mg PO BEDTIME [facility] Last Admin: 03/10/21 21:45 Dose: 10 mg Documented by: ZENA Multivitamins/Vitamin C (Multivitamin Tablet) 1 tab PO DAILY [facility] Last Admin: 03/10/21 08:43 Dose: 1 tab Documented by: MAXIME Omeprazole (Omeprazole 20 Mg Capsule.) 20 mg PO BID@0630,1630 [facility] Last Admin: 03/11/21 05:47 Dose: 20 mg Documented by: ZENA Pharmacy Consult (Consult Rx Perform Med Rec) 1 each MISCELLANE ONCE PRN PRN Reason: Consult order Rifaximin (Rifaximin 550 Mg Tablet) 550 mg PO BID [facility] Last Admin: 03/10/21 21:45 Dose: 550 mg Documented by: ZENA Rivaroxaban (Rivaroxaban 20 Mg Tablet) 20 mg PO DAILY [facility] Last Admin: 03/10/21 08:43 Dose: 20 mg Documented by: MAXIME Sodium Chloride (0.9 % Sodium Chloride Flush 3 Ml Syringe) 3 ml IVFLUSH QSHIFT [facility] Last Admin: 03/10/21 21:48 Dose: 3 ml Documented by: ZENA Spironolactone (Spironolactone 25 Mg Tablet) 25 mg PO DAILY [facility]; Protocol Last Admin: 03/10/21 08:43 Dose: 25 mg Documented by: MAXIME Trazodone HCl (Trazodone Hcl 25 Mg Halftab) 25 mg PO BEDTIME PRN PRN Reason: insomnia Last Admin: 03/11/21 01:45 Dose: 25 mg Documented by: ZENA Vitamin D (Cholecalciferol (Vitamin D3) 25 Mcg Tablet) 50 mcg PO DAILY [facility] Last Admin: 03/10/21 08:43 Dose: 50 mcg Documented by: MAXIME Labs CBC & Chem 7: 03/11/21 05:45 03/11/21 05:45 Labs: Laboratory Results - last 24 hr 03/06/21 03/09/21 03/10/21 12:29 12:46 05:40 MCV MCH MCHC RDW Plt Count MPV Absolute Nucleated RBC Nucleated RBC % (auto) Anion Gap Creatinine 2.12 H 1.92 H 1.97 H Estim Creat Clear Calc Estimated GFR POC Glucose Fasting Glucose Calcium Magnesium Ammonia 03/10/21 03/10/21 03/10/21 11:24 16:37 20:33 MCV MCH MCHC RDW Plt Count MPV Absolute Nucleated RBC Nucleated RBC % (auto) Anion Gap Creatinine Estim Creat Clear Calc Estimated GFR POC Glucose 168 H 146 H 131 H Fasting Glucose Calcium Magnesium Ammonia 03/11/21 03/11/21 03/11/21 05:45 05:45 05:45 MCV 87.0 MCH 29.6 MCHC 34.0 RDW 15.4 Plt Count 40 L MPV 9.3 L Absolute Nucleated RBC 0.000 Nucleated RBC % (auto) 0.0 Anion Gap 12 Creatinine 2.09 H Estim Creat Clear Calc 27.5 Estimated GFR 31 POC Glucose Fasting Glucose 132 H Calcium 10.4 H Magnesium 1.8 Ammonia 53 03/11/21 07:12 MCV MCH MCHC RDW Plt Count MPV Absolute Nucleated RBC Nucleated RBC % (auto) Anion Gap Creatinine Estim Creat Clear Calc Estimated GFR POC Glucose 112 Fasting Glucose Calcium Magnesium Ammonia 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 ) lactulose for 2-3 bm.day - had 3 BM, will decrease back to q8h rifaximin monitor electrolytes complicated by ascites not tense, continue aldactone ammonia improved from 80 back to 53 (close to baseline) history of DM not on meds, appears normoglycemic a1c - 4.7 likely resolved history of portal vein thrombosis xarelto hepatorenal type 2 - CKD III-IV stable, monitor mild intermittent asthma singulair, albuterol prn dispo- will likely need placement Quality Stroke Does the patient have a stroke diagnosis?: No VTE Prior VTE?: Yes VTE Risk Level:: Medical - moderate - high VTE Device Contraindication: Treatment Not Indicated VTE Drug Contraindication: N/A - Med Ordered
[2021-03-11] MEDS: Midodrine HCl 2.5 MG TABLET PO ×2 (09:19→16:51)
[2021-03-11] MEDS: 0.9 % Sodium Chloride Flush 3 ML SYRINGE IVFLUSH ×3 (09:19→20:34)
[2021-03-11] MEDS: rifAXIMin 550 MG TABLET PO ×2 (09:20→20:34)
[2021-03-11] MEDS: Escitalopram Oxalate 5 MG TABLET PO (09:20)
[2021-03-11] MEDS: Cholecalciferol (Vitamin D3) 25 MCG TABLET 50 MCG PO (09:20)
[2021-03-11] MEDS: Spironolactone 25 MG TABLET PO (09:20)
[2021-03-11] MEDS: Multivitamin TABLET 1 TAB PO (09:20)
[2021-03-11] MEDS: Rivaroxaban 20 MG TABLET PO (09:20)
[2021-03-11 12:03] LABS: Glucose, Whole Blood 133 mg/dL (60-115)
[2021-03-11 15:28] VITALS: BP 132/58; PULSE 74; RESP 16; TEMP 36.4; O2SAT 99
[2021-03-11 16:25] LABS: Glucose, Whole Blood 154 mg/dL (60-115)
[2021-03-11 19:51] VITALS: PULSE 74; O2SAT 98
[2021-03-11] MEDS: Fluticasone Propionate 250 MCG BLST.W.DEV 2 PUFF INHALE (19:51)
[2021-03-11 20:19] LABS: Glucose, Whole Blood 171 mg/dL (60-115)
[2021-03-11] MEDS: Montelukast Sodium 10 MG TABLET PO (20:34)
[2021-03-12] VITALS (9 sets, daily range): BP systolic 111–150; BP diastolic 58–68; PULSE 55–76; RESP 16–18; TEMP 36.4–37.3; O2SAT 96–100
[2021-03-12] MEDS: Lactulose 20 GM/30 ML SOLUTION PO ×3 (02:36→17:07)
[2021-03-12] MEDS: Omeprazole 20 MG CAPSULE.DR PO ×2 (05:57→17:07)
[2021-03-12 06:20] LABS: Hematocrit 22.9 % (42.0-52.0); Hemoglobin 7.8 g/dl (14.0-18.0); Mean Corpuscular HGB Conc 34.1 g/dl (31.0-36.0); Mean Corpuscular Hemoglobin 29.8 pg (27.0-33.0); Mean Corpuscular Volume 87.4 fL (80.0-98.0); Mean Platelet Volume 10.8 fL (9.4-12.4); Red Blood Count 2.62 X10*6/uL (4.60-5.80); Red Cell Distribution Width 14.9 % (11.0-16.0); White Blood Count 2.6 X10*3/uL (4.8-10.8)
[2021-03-12 06:22] LABS: Platelet Count 43 X10*3/uL (160-400)
[2021-03-12 06:34] LABS: Anion Gap 12 (12-20); Blood Urea Nitrogen 23 mg/dL (9-16); Carbon Dioxide 23 mmol/L (22-29); Chloride 108 mmol/L (96-108); Creatinine Clr Calc Pharmacy 29.2; Estimated Glomerular Filt Rate 33; Glucose Fasting 108 mg/dL (60-99); Magnesium 1.8 mg/dL (1.6-2.6); Potassium 4.9 mmol/L (3.3-5.1); Sodium 138 mmol/L (135-145)
[2021-03-12 07:08] LABS: Glucose, Whole Blood 93 mg/dL (60-115)
[2021-03-12] MEDS: 0.9 % Sodium Chloride Flush 3 ML SYRINGE IVFLUSH ×2 (07:33→17:07)
[2021-03-12] MEDS: Midodrine HCl 2.5 MG TABLET PO ×2 (07:34→17:07)
[2021-03-12] MEDS: Multivitamin TABLET 1 TAB PO (07:34)
[2021-03-12] MEDS: rifAXIMin 550 MG TABLET PO ×2 (07:34→20:34)
[2021-03-12] MEDS: Spironolactone 25 MG TABLET PO (07:35)
[2021-03-12] MEDS: Escitalopram Oxalate 5 MG TABLET PO (07:35)
[2021-03-12] MEDS: Rivaroxaban 20 MG TABLET PO (07:35)
[2021-03-12] MEDS: Cholecalciferol (Vitamin D3) 25 MCG TABLET 50 MCG PO (07:35)
[2021-03-12] MEDS: Fluticasone Propionate 250 MCG BLST.W.DEV 2 PUFF INHALE ×2 (07:48→20:24)
--- NOTE | 2021-03-12 09:17 | HO.PM.IMPN ---
Subjective Subjective Date of Service: 03/12/21 Interval History: cc: ams interval history: no complaints, appears back to baseline Cardiovascular Cardiovascular: Reports no additional cardiovascular complaints Respiratory Respiratory: Reports no additional respiratory complaints Physical Exam Vital Signs: Vital Signs: Last Vital Signs Temp 99.1 F 03/12/21 07:25 Pulse 62 03/12/21 07:35 Resp 18 03/12/21 07:25 BP 150/68 H 03/12/21 07:35 Pulse Ox 99 03/12/21 07:25 Body Mass Index 24.2 General: Alert, no acute distress Resp: CTA bilateral, no accessory muscles used CVS: S1,S2,RRR GI: soft, non tender, non distended Neuro: motor grossly intact, alert Psych: appropriate affect, impaired insight Objective Data Active Medications Albuterol Sulfate (Albuterol Sulfate (0.083%) 2.5 Mg/3 Ml Vial.Neb) 2.5 mg INHALE Q6H PRN PRN Reason: Shortness Of Breath Escitalopram Oxalate (Escitalopram Oxalate 5 Mg Tablet) 5 mg PO DAILY [facility] Last Admin: 03/12/21 07:35 Dose: 5 mg Documented by: RADHA Fluticasone Propionate (Fluticasone Propionate 250 Mcg Blst.W.Dev) 2 puff INHALE RBID [facility] Last Admin: 03/12/21 07:48 Dose: 2 puff Documented by: POLY Lactulose (Lactulose 20 Gm/30 Ml Solution) 20 gm PO Q8H [facility] Last Admin: 03/12/21 07:35 Dose: 20 gm Documented by: RADHA Midodrine (Midodrine Hcl 2.5 Mg Tablet) 2.5 mg PO BIDWM [facility] Last Admin: 03/12/21 07:34 Dose: 2.5 mg Documented by: RADHA Montelukast Sodium (Montelukast Sodium 10 Mg Tablet) 10 mg PO BEDTIME [facility] Last Admin: 03/11/21 20:34 Dose: 10 mg Documented by: GROVER Multivitamins/Vitamin C (Multivitamin Tablet) 1 tab PO DAILY [facility] Last Admin: 03/12/21 07:34 Dose: 1 tab Documented by: RADHA Omeprazole (Omeprazole 20 Mg Capsule.) 20 mg PO BID@0630,1630 [facility] Last Admin: 03/12/21 05:57 Dose: 20 mg Documented by: GROVER Pharmacy Consult (Consult Rx Perform Med Rec) 1 each MISCELLANE ONCE PRN PRN Reason: Consult order Rifaximin (Rifaximin 550 Mg Tablet) 550 mg PO BID [facility] Last Admin: 03/12/21 07:34 Dose: 550 mg Documented by: RADHA Rivaroxaban (Rivaroxaban 20 Mg Tablet) 20 mg PO DAILY [facility] Last Admin: 03/12/21 07:35 Dose: 20 mg Documented by: RADHA Sodium Chloride (0.9 % Sodium Chloride Flush 3 Ml Syringe) 3 ml IVFLUSH QSHIFT [facility] Last Admin: 03/12/21 07:33 Dose: 3 ml Documented by: RADHA Spironolactone (Spironolactone 25 Mg Tablet) 25 mg PO DAILY [facility]; Protocol Last Admin: 03/12/21 07:35 Dose: 25 mg Documented by: RADHA Trazodone HCl (Trazodone Hcl 25 Mg Halftab) 25 mg PO BEDTIME PRN PRN Reason: insomnia Last Admin: 03/11/21 01:45 Dose: 25 mg Documented by: ZENA Vitamin D (Cholecalciferol (Vitamin D3) 25 Mcg Tablet) 50 mcg PO DAILY [facility] Last Admin: 03/12/21 07:35 Dose: 50 mcg Documented by: RADHA Labs CBC & Chem 7: 03/12/21 06:01 03/12/21 06:01 Labs: Laboratory Results - last 24 hr 03/11/21 03/11/21 03/11/21 11:10 16:14 20:05 MCV MCH MCHC RDW Plt Count MPV Absolute Nucleated RBC Nucleated RBC % (auto) Anion Gap Estim Creat Clear Calc Estimated GFR POC Glucose 133 H 154 H 171 H Fasting Glucose Calcium Magnesium 03/12/21 03/12/21 03/12/21 06:01 06:01 07:05 MCV 87.4 MCH 29.8 MCHC 34.1 RDW 14.9 Plt Count 43 L MPV 10.8 Absolute Nucleated RBC 0.000 Nucleated RBC % (auto) 0.0 Anion Gap 12 Estim Creat Clear Calc 29.2 Estimated GFR 33 POC Glucose 93 Fasting Glucose 108 H Calcium 10.0 Magnesium 1.8 Microbiology Microbiology Results: Microbiology 03/06/21 12:31 Blood Culture - Final Blood - Venous No growth after 5 days. 03/06/21 12:29 Blood Culture - Final Blood - Venous No growth after 5 days. 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 ) much improved lactulose for 2-3 bm.day - continue lactulose q8h rifaximin monitor electrolytes continue aldactone ammonia improved from 80 back to 53 (close to baseline) history of DM not on meds, appears normoglycemic a1c - 4.7 likely resolved history of portal vein thrombosis xarelto hepatorenal type 2 - CKD III-IV stable, monitor mild intermittent asthma singulair, albuterol prn dispo- will likely need placement Quality Stroke Does the patient have a stroke diagnosis?: No VTE Prior VTE?: Yes VTE Risk Level:: Medical - moderate - high VTE Device Contraindication: Treatment Not Indicated VTE Drug Contraindication: N/A - Med Ordered
[2021-03-12 11:58] LABS: Glucose, Whole Blood 160 mg/dL (60-115)
--- NOTE | 2021-03-12 12:32 | MHC.CM.PN ---
Addendum entered by Emily Robert 03/12/21 13:26: CM MET WITH PT AND DAUGHTER WHO WAS AT BEDSIDE. THEY ARE BOTH AWARE [facility] OFFERING A BED FOR TOMORROW PENDING INSURANCE AUTH AND COVID RESULTS Original Note: CM SPOKE TO ADAN AT [facility]. SHE REPORTS THEY WILL NEED A NEW PT EVAL TO OBTAIN AUTH FOR THIS PT WELL A PCR COVID-19 TEST. INFO FORWARDED TO .
[2021-03-12 13:17] LABS: COVID-19 Test Negative (Negative); IDNOW Serial# 08D9AD1C
--- NOTE | 2021-03-12 16:14 | MHC.CLN ---
NUTRITION CONSULT VISITED WITH PATIENT AND WITH VOCATIONAL TEACHER, ALYSSA. CONSULT DUE TO WEIGHT LOSS. REVIEW OF WEIGHT HISTORY SHOWS VARIABLE WEIGHTS. SUSPECT WEIGHT FLUCTUATION DUE TO HAS RECEIVED PARACENTESIS. PATIENT REPORTS GOOD APPETITE AT HOSPITAL. WOULD LIKE GLUCERNA TID. ADDED TO PROVIDE 710 KCAL, 30 GRAMS PROTEIN. WANTED LOWER SUGAR PRODUCT DUE TO HX DM BUT CURRENT A1c NORMAL SHOWING GOOD BLOOD GLUCOSE CONTROL. ASSOCIATES POOR APPETITE WHEN PATIENT IS CONFUSED DUE TO LIVER DISEASE. CHANGED DIET TO 2 GRAM SODIUM DUE TO CKD STAGE 3-4. ADDED GLUCERNA TID.
[2021-03-12 16:57] LABS: Glucose, Whole Blood 111 mg/dL (60-115)
[2021-03-12] MEDS: Magnesium Oxide 400 MG TABLET PO (17:07)
[2021-03-12 19:43] LABS: Glucose, Whole Blood 140 mg/dL (60-115)
[2021-03-12] MEDS: Montelukast Sodium 10 MG TABLET PO (20:34)
[2021-03-13] VITALS (7 sets, daily range): BP systolic 118–120; BP diastolic 56; PULSE 50–63; RESP 17–18; TEMP 36.2–36.3; O2SAT 96–100
[2021-03-13] MEDS: 0.9 % Sodium Chloride Flush 3 ML SYRINGE IVFLUSH ×4 (01:04→23:10)
[2021-03-13] MEDS: Lactulose 20 GM/30 ML SOLUTION PO ×3 (02:05→16:33)
[2021-03-13] MEDS: Omeprazole 20 MG CAPSULE.DR PO ×2 (06:21→16:33)
[2021-03-13 07:44] LABS: Glucose, Whole Blood 98 mg/dL (60-115)
[2021-03-13] MEDS: Fluticasone Propionate 250 MCG BLST.W.DEV 2 PUFF INHALE ×2 (08:16→20:49)
[2021-03-13] MEDS: Rivaroxaban 20 MG TABLET PO (08:20)
[2021-03-13] MEDS: Midodrine HCl 2.5 MG TABLET PO ×2 (08:20→16:33)
[2021-03-13] MEDS: Spironolactone 25 MG TABLET PO (08:20)
[2021-03-13] MEDS: Multivitamin TABLET 1 TAB PO (08:20)
[2021-03-13] MEDS: Magnesium Oxide 400 MG TABLET PO ×2 (08:20→16:33)
[2021-03-13] MEDS: Escitalopram Oxalate 5 MG TABLET PO (08:21)
[2021-03-13] MEDS: Cholecalciferol (Vitamin D3) 25 MCG TABLET 50 MCG PO (08:21)
[2021-03-13] MEDS: rifAXIMin 550 MG TABLET PO ×2 (08:21→20:48)
[2021-03-13 11:13] LABS: Glucose, Whole Blood 80 mg/dL (60-115)
--- NOTE | 2021-03-13 11:57 | MHC.CM.PN ---
MALE 75 DX HEPATIC ENCEPHALOPATHY HE IS READY TO DISCHARGE TO [facility] TODAY. THE FACILITY IS GOING FOR AUTHORIZATION. a PCR COVID TEST HAS BEEN REQUESTED FOR ADMITT. THE MD HAS BEEN NOTIFIED. CM WILL FOLLOW.
[2021-03-13 13:07] LABS: Influenza A PCR NEGATIVE (Negative); Influenza B PCR NEGATIVE (Negative); Resp Syncy Virus RNA Qual PCR NEGATIVE (Negative); SARS COV2 PCR INHOUSE NEGATIVE (Negative)
--- NOTE | 2021-03-13 13:23 | HO.PM.IMPN ---
Subjective Subjective Date of Service: 03/13/21 Interval History: cc: ams interval history: no complaints, appears back to baseline Cardiovascular Cardiovascular: Reports no additional cardiovascular complaints Respiratory Respiratory: Reports no additional respiratory complaints Physical Exam Vital Signs: Vital Signs: Last Vital Signs Temp 97.2 F 03/13/21 07:14 Pulse 63 03/13/21 09:11 Resp 17 03/13/21 07:14 BP 120/56 L 03/13/21 09:11 Pulse Ox 100 03/13/21 07:14 Body Mass Index 24.2 General: Alert, no acute distress Resp:? CTA bilateral, no accessory muscles used CVS: S1,S2,RRR GI: soft, non tender, non distended Neuro:? motor grossly intact, alert Psych: appropriate affect, impaired insight? Objective Data Active Medications Albuterol Sulfate (Albuterol Sulfate (0.083%) 2.5 Mg/3 Ml Vial.Neb) 2.5 mg INHALE Q6H PRN PRN Reason: Shortness Of Breath Escitalopram Oxalate (Escitalopram Oxalate 5 Mg Tablet) 5 mg PO DAILY [facility] Last Admin: 03/13/21 08:21 Dose: 5 mg Documented by: RADHA Fluticasone Propionate (Fluticasone Propionate 250 Mcg Blst.W.Dev) 2 puff INHALE RBID [facility] Last Admin: 03/13/21 08:16 Dose: 2 puff Documented by: KAT Lactulose (Lactulose 20 Gm/30 Ml Solution) 20 gm PO Q8H [facility] Last Admin: 03/13/21 08:21 Dose: 20 gm Documented by: RADHA Magnesium Oxide (Magnesium Oxide 400 Mg Tablet) 400 mg PO BIDPC [facility] Last Admin: 03/13/21 08:20 Dose: 400 mg Documented by: RADHA Midodrine (Midodrine Hcl 2.5 Mg Tablet) 2.5 mg PO BIDWM [facility] Last Admin: 03/13/21 08:20 Dose: 2.5 mg Documented by: RADHA Montelukast Sodium (Montelukast Sodium 10 Mg Tablet) 10 mg PO BEDTIME [facility] Last Admin: 03/12/21 20:34 Dose: 10 mg Documented by: GROVER Multivitamins/Vitamin C (Multivitamin Tablet) 1 tab PO DAILY [facility] Last Admin: 03/13/21 08:20 Dose: 1 tab Documented by: RADHA Omeprazole (Omeprazole 20 Mg Capsule.Dr) 20 mg PO BID@0630,8950 [facility] Last Admin: 03/13/21 06:21 Dose: 20 mg Documented by: GROVER Pharmacy Consult (Consult Rx Perform Med Rec) 1 each MISCELLANE ONCE PRN PRN Reason: Consult order Rifaximin (Rifaximin 550 Mg Tablet) 550 mg PO BID [facility] Last Admin: 03/13/21 08:21 Dose: 550 mg Documented by: RADHA Rivaroxaban (Rivaroxaban 20 Mg Tablet) 20 mg PO DAILY [facility] Last Admin: 03/13/21 08:20 Dose: 20 mg Documented by: RADHA Sodium Chloride (0.9 % Sodium Chloride Flush 3 Ml Syringe) 3 ml IVFLUSH QSHIFT [facility] Last Admin: 03/13/21 08:21 Dose: 3 ml Documented by: RADHA Spironolactone (Spironolactone 25 Mg Tablet) 25 mg PO DAILY [facility]; Protocol Last Admin: 03/13/21 08:20 Dose: 25 mg Documented by: RADHA Trazodone HCl (Trazodone Hcl 25 Mg Halftab) 25 mg PO BEDTIME PRN PRN Reason: insomnia Last Admin: 03/11/21 01:45 Dose: 25 mg Documented by: ZENA Vitamin D (Cholecalciferol (Vitamin D3) 25 Mcg Tablet) 50 mcg PO DAILY [facility] Last Admin: 03/13/21 08:21 Dose: 50 mcg Documented by: RADHA Labs CBC & Chem 7: 03/12/21 06:01 03/12/21 06:01 Labs: Laboratory Results - last 24 hr 03/12/21 03/12/21 03/13/21 16:52 19:39 07:41 POC Glucose 111 140 H 98 Influenza Type A (PCR) Influenza Type B (PCR) RSV RNA Qual (PCR) SARS-CoV-2 RNA (RT-PCR) 03/13/21 03/13/21 11:09 11:58 POC Glucose 80 Influenza Type A (PCR) NEGATIVE Influenza Type B (PCR) NEGATIVE RSV RNA Qual (PCR) NEGATIVE SARS-CoV-2 RNA (RT-PCR) NEGATIVE 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 ) much improved lactulose for 2-3 bm.day - continue lactulose q8h rifaximin monitor electrolytes continue aldactone ammonia improved from 80 back to 53 (close to baseline) mental status back to baseline history of DM not on meds, appears normoglycemic a1c - 4.7 likely resolved history of portal vein thrombosis xarelto hepatorenal type 2 - CKD III-IV stable, monitor mild intermittent asthma singulair, albuterol prn dispo- awaiting SNF placement Quality Stroke Does the patient have a stroke diagnosis?: No VTE Prior VTE?: Yes VTE Risk Level:: Medical - moderate - high VTE Device Contraindication: Treatment Not Indicated VTE Drug Contraindication: N/A - Med Ordered
[2021-03-13 17:03] LABS: Glucose, Whole Blood 137 mg/dL (60-115)
[2021-03-13 20:17] LABS: Glucose, Whole Blood 138 mg/dL (60-115)
[2021-03-13] MEDS: Montelukast Sodium 10 MG TABLET PO (20:48)
[2021-03-14] VITALS: BP 117/68; PULSE 67; RESP 18; TEMP 37.3; O2SAT 100
[2021-03-14] MEDS: Lactulose 20 GM/30 ML SOLUTION PO ×2 (00:25→09:44)
[2021-03-14] MEDS: Omeprazole 20 MG CAPSULE.DR PO ×2 (05:44→15:40)
[2021-03-14 06:25] LABS: Hematocrit 25.9 % (42.0-52.0); Hemoglobin 8.6 g/dl (14.0-18.0); Mean Corpuscular HGB Conc 33.2 g/dl (31.0-36.0); Mean Corpuscular Hemoglobin 29.6 pg (27.0-33.0); Mean Platelet Volume 10.3 fL (9.4-12.4); Red Blood Count 2.91 X10*6/uL (4.60-5.80); White Blood Count 4.8 X10*3/uL (4.8-10.8)
[2021-03-14 06:26] LABS: Platelet Count 59 X10*3/uL (160-400)
[2021-03-14 06:45] LABS: Anion Gap 10 (12-20); Blood Urea Nitrogen 34 mg/dL (9-16); Calcium 10.6 mg/dL (8.4-10.2); Carbon Dioxide 27 mmol/L (22-29); Chloride 105 mmol/L (96-108); Creatinine Clr Calc Pharmacy 24.5; Estimated Glomerular Filt Rate 27; Glucose Fasting 109 mg/dL (60-99); Potassium 5.1 mmol/L (3.3-5.1); Sodium 137 mmol/L (135-145)
[2021-03-14 07:18] VITALS: BP 131/61; PULSE 50; RESP 17; TEMP 36.6; O2SAT 99
[2021-03-14 07:29] LABS: Glucose, Whole Blood 105 mg/dL (60-115)
[2021-03-14] MEDS: Fluticasone Propionate 250 MCG BLST.W.DEV 2 PUFF INHALE (07:29)
[2021-03-14 07:30] VITALS: PULSE 62; O2SAT 95
[2021-03-14] MEDS: Rivaroxaban 20 MG TABLET PO (09:44)
[2021-03-14] MEDS: Midodrine HCl 2.5 MG TABLET PO ×2 (09:44→15:40)
[2021-03-14] MEDS: Multivitamin TABLET 1 TAB PO (09:44)
[2021-03-14] MEDS: Spironolactone 25 MG TABLET PO (09:44)
[2021-03-14] MEDS: Cholecalciferol (Vitamin D3) 25 MCG TABLET 50 MCG PO (09:44)
[2021-03-14] MEDS: 0.9 % Sodium Chloride Flush 3 ML SYRINGE IVFLUSH ×2 (09:44→15:40)
[2021-03-14] MEDS: Escitalopram Oxalate 5 MG TABLET PO (09:44)
[2021-03-14] MEDS: Magnesium Oxide 400 MG TABLET PO (09:44)
[2021-03-14 09:54] VITALS: BP 131/61; PULSE 50; O2SAT 99
[2021-03-14 11:33] LABS: Glucose, Whole Blood 127 mg/dL (60-115)
--- NOTE | 2021-03-14 11:53 | MHC.CM.PN ---
IMM 03/14/21 Male 75 DX Encephalopathy Discharge today. Pt did not qualify for STR. He was accepted for skilled nursing. The family declined SNF for LTC. They have requested Rehab at home. Preferences obtained, referral sent. [facility] is 1st choice. Family providing transportation home.
[2021-03-14 15:18] VITALS: BP 117/59; PULSE 65; RESP 16; TEMP 37.4; O2SAT 100
--- NOTE | 2021-03-14 15:37 | W.MHC.F2F ---
Service Date Service Date: 03/14/21 Encounter Date of encounter: 03/14/21 Reasons for Services Reason for physical therapy: home safety and mobility Homebound: Leaving the home is medically contraindicated at this time without the asist of a device and/or another person due th the listed conditions above and below. Reason homebound: unsteady gait / fall risk Certification: Based on the above findings, I certify that this patient is confined to the home and needs intermittent fci care, physical therapy and/or speech therapy, or continues to need occupational therapy. The patient is under my care, and I have initiated the establishment of the plan of care. The patient will be followed by a physician who will periodically review the plan of care.
--- NOTE | 2021-03-14 15:38 | PM.DS ---
DS: Providers Provider Date of Service: 03/14/21 Date of admission: 03/09/21 14:10 Primary care physician: Becca Chavez MD DS: Diagnosis Discharge Diagnosis (1) Hepatic encephalopathy: Status: Acute (2) Portal vein thrombosis: Status: Acute DS: Summary Hospital Course Hospital Course: History of presenting illness Chief Complaint: Altered mental status 75-year-old male was brought in by his on 03/06/2021 for altered mental status.? She reported that at nighttime patient would get up to use the bathroom and urinate on the floor, occasionally falling on the floor, she was having difficulty taking care of him.? She also noted that he was only having bowel movements every other day, and that he was shaky when trying to feed himself.? During the day he was mostly at baseline.? In ED patient was awaiting bed for rehab, he then became more confused and sleepy, on day of admission patient did not recognize his .? Labs were done which showed elevated ammonia of 80. 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 Has history of grade 4 esophageal varices and portal gastropathy recommend to continue Prilosec. Due to generalized weakness,falls and deconditioning patient was recommended rehab by Physical therapy however patient's declined and wishes to take patient home with [facility] care. 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 history of DM not on meds, appears normoglycemic hemoglobin A1c 4.7 History mild intermittent asthma recommend to continue singulair, albuterol prn Time Spent with Patient Time attestation: Total time spent providing and/or coordinating discharge services: Discharge coordination time: Greater than 30 minutes Quality: Stroke Does the patient have a stroke diagnosis?: No Physical Exam Vital Signs: Vital Signs: Last Vital Signs Temp 99.3 F 03/14/21 15:18 Pulse 65 03/14/21 15:18 Resp 16 03/14/21 15:18 BP 117/59 L 03/14/21 15:18 Pulse Ox 100 03/14/21 15:18 Body Mass Index 24.2 General: Awake alert, no acute distress Resp:? CTA bilateral, no accessory muscles used CVS: S1,S2,RRR GI: soft, non tender, non distended Neuro:? motor grossly intact, alert Psych: appropriate affect, impaired insight? ? DS: Data Data Completed and Pending Completed studies during hospitalization [Text1]: Procedures Drainage of Peritoneal Cavity, Percutaneous Approach (01/04/21) Labs on day of discharge: Laboratory Results - last 24 hr 03/13/21 03/13/21 03/14/21 16:59 20:00 05:51 WBC 4.8 RBC 2.91 L Hgb 8.6 L Hct 25.9 L MCV 89.0 MCH 29.6 MCHC 33.2 RDW 15.0 Plt Count 59 L D MPV 10.3 Absolute Nucleated RBC 0.000 Nucleated RBC % (auto) 0.0 Sodium Potassium Chloride Carbon Dioxide Anion Gap BUN Creatinine Estim Creat Clear Calc Estimated GFR POC Glucose 137 H 138 H Fasting Glucose Calcium 03/14/21 03/14/21 03/14/21 05:51 07:15 11:24 WBC RBC Hgb Hct MCV MCH MCHC RDW Plt Count MPV Absolute Nucleated RBC Nucleated RBC % (auto) Sodium 137 Potassium 5.1 Chloride 105 Carbon Dioxide 27 Anion Gap 10 L BUN 34 H Creatinine 2.35 H Estim Creat Clear Calc 24.5 Estimated GFR 27 POC Glucose 105 127 H Fasting Glucose 109 H Calcium 10.6 H Discharge Plan Discharge Patient Disposition: Home Health Service Discharge Diagnosis: Acute hepatic encephalopathy Referrals: Becca Chavez MD [Primary Care Provider] - 1 Week Discharge Medications: Continued cholecalciferol (vitamin D3) 50 mcg (2,000 unit) capsule 50 mcg PO DAILY Qty: 30 RF: 1 Xifaxan 550 mg tablet 550 mg PO BID 30 Days Qty: 60 RF: 1 omeprazole 20 mg capsule,delayed release(DR/EC) 20 mg PO BID Qty: 60 RF: 1 multivitamin [Daily-Arlene] Tablet 1 tab PO DAILY RF: 0 montelukast 10 mg tablet 1 tab PO BEDTIME RF: 0 Flovent HFA 220 mcg/actuation HFA aerosol inhaler 2 puff PO BID RF: 0 loratadine 10 mg tablet 1 tab PO DAILY RF: 0 lactulose 10 gram/15 mL solution 30 ml PO TID RF: 0 spironolactone 25 mg tablet 25 mg PO DAILY RF: 0 trazodone 50 mg tablet 25 mg PO BEDTIME PRN (Reason: insomnia) Qty: 4 RF: 0 albuterol sulfate 2.5 mg /3 mL (0.083 %) solution for nebulization 3 ml inhalation Q6H PRN (Reason: Shortness Of Breath) RF: 0 Xarelto 20 mg tablet 20 mg PO DAILY RF: 0 citalopram 10 mg tablet 10 mg PO DAILY RF: 0 midodrine 2.5 mg tablet 2.5 mg PO BID 30 Days Qty: 60 RF: 3 No Action melatonin-lemon balm leaf extr 10-1 mg tablet 1 tab PO BEDTIME RF: 0 Discharge Orders: Discharge Order (Routine); Ordered 03/14/21 Ordered By: Roberto Mayo Diet: advance to usual diet and diabetic diet Activity on Discharge: As tolerated Stand Alone Forms: Patient Portal Discharge page Care Plan Goals: Acute hepatic encephalopathy resolved continue to take lactulose 3 times a day as recommended hold for more than 2 bowel movement per day, patient and family was recommended rehab however they declined and wishes to go home but 02/12 Health Concerns: Unsteady gait and fall recommend home physical therapy Plan of Treatment: Outpatient follow-up with primary care physician in next 7-10 days Assessment: As above Discharge Date/Time: 03/14/21 16:59
== END 2021-03-14 16:59 | disposition home health service (06) | DRG 441 ==
LOC: HO.ED 19:48 → HO.EDOVER 03-09 14:16 → HO.S3 03-09 15:18
PROVIDERS: Nurse Practitioner Family; Admitting Provider Internal Medicine; Emergency Provider Emergency Medicine Emergency Medical Services; PCP Family Medicine; Visit Provider Hospitalist
DX: K72.90 Hepatic failure, unspecified without coma (principal); K76.7 Hepatorenal syndrome; D61.818 Other pancytopenia; N18.30 Chronic kidney disease, stage 3 unspecified; K70.30 Alcoholic cirrhosis of liver without ascites; E11.22 Type 2 diabetes mellitus with diabetic chronic kidney disease; I12.9 Hypertensive chronic kidney disease with stage 1 through stage 4 chronic kidney disease, or unspecified chronic kidney disease; J45.20 Mild intermittent asthma, uncomplicated; Z20.822 Contact with and (suspected) exposure to COVID-19; Z23 Encounter for immunization; F10.11 Alcohol abuse, in remission; Z86.718 Personal history of other venous thrombosis and embolism; Z86.16 Personal history of COVID-19; Z79.01 Long term (current) use of anticoagulants; Z79.899 Other long term (current) drug therapy
CPT/HCPCS: 0241U; 36415; 70450; 71045; 72125; 80048; 80053; 80076; 80143; 80179; 81001; 82077; 82140; 82550; 82947; 83036; 83605; 83690; 83735; 84484; 85025; 85027; 85610; 85730; 86850; 86900; 86901; 86923; 87040; 87635; 90686; 93005; 96360; 97110; 97116; 97161; 97162; 99285; P9016

== ENCOUNTER 2021-03-18 09:23 | Inpatient (IN) | payer OTHER, SELFPAY ==
[2021-03-18] VITALS (7 sets, daily range): BP systolic 105–140; BP diastolic 40–62; PULSE 55–70; RESP 15–18; TEMP 36.6–37; O2SAT 97–100; BMI 25.2
--- NOTE | ~2021-03-18 | CT_ITS ---
EXAMINATION: CT HEAD/BRAIN WITHOUT CONTRAST CLINICAL INFORMATION: Status post fall downstairs, acute mental status change, rule out intracranial abnormality. COMPARISON: 03/06/[address] scan. TECHNIQUE: Multiple axial images of the head/brain were obtained without administration of intravenous contrast. Coronal and sagittal reformatted images were obtained. FINDINGS: There is mild widening of the cortical sulci and associated ventriculomegaly. Mild periventricular microvascular changes are seen. The lateral ventricles are symmetrical. The third and fourth ventricles are in their normal midline position. The basilar and prepontine cisterns are unremarkable. There is no acute intra or extracerebral abnormality. There is no mass effect or midline shift. Sections through the bony calvarium are unremarkable. The orbits are intact. The paranasal sinuses are clear. The mastoid air cells are clear. CT/CT cervical spine wo con IMPRESSION: No acute intracranial abnormality.
--- NOTE | ~2021-03-18 | XR_ITS ---
EXAMINATION: XR CHEST CLINICAL INFORMATION: Falls, acute mental status change. COMPARISON: 03/06/2021 chest radiograph. TECHNIQUE: Frontal view of the chest was obtained. FINDINGS: The lungs are clear. The heart and mediastinal structures are unremarkable. The visualized osseous structures are intact. XR/XR chest 1V IMPRESSION: No acute cardiopulmonary process.
--- NOTE | ~2021-03-18 | CT_ITS ---
EXAMINATION: CT HEAD/BRAIN WITHOUT CONTRAST CLINICAL INFORMATION: Status post fall downstairs, acute mental status change, rule out intracranial abnormality. COMPARISON: 03/06/[address] scan. TECHNIQUE: Multiple axial images of the head/brain were obtained without administration of intravenous contrast. Coronal and sagittal reformatted images were obtained. FINDINGS: There is mild widening of the cortical sulci and associated ventriculomegaly. Mild periventricular microvascular changes are seen. The lateral ventricles are symmetrical. The third and fourth ventricles are in their normal midline position. The basilar and prepontine cisterns are unremarkable. There is no acute intra or extracerebral abnormality. There is no mass effect or midline shift. Sections through the bony calvarium are unremarkable. The orbits are intact. The paranasal sinuses are clear. The mastoid air cells are clear. CT/CT head/brain wo con IMPRESSION: No acute intracranial abnormality.
--- NOTE | 2021-03-18 09:32 | ECG_ITS ---
Test Reason : SOB Blood Pressure : / mmHG Vent. Rate : 063 BPM Atrial Rate : 044 BPM P-R Int : 000 ms QRS Dur : 080 ms QT Int : 322 ms P-R-T Axes : 000 010 093 degrees QTc Int : 329 ms Junctional rhythm with A-V dissociation T wave abnormality, consider inferior ischemia Abnormal ECG previous study had long with 1st degree A-V block Clinical Correlation Advised Referred By: Celia Rankin Electronically Signed By:BRIAN FLORES MD
--- NOTE | 2021-03-18 09:36 | ED.GENADULT ---
HPI - General Adult General Chief complaint: Psychiatric Symptoms <ELVIE Roach - Last Filed: 03/18/21 12:51> Stated complaint: SUICIDAL IDEATION, SEEN RECENTLY PER EMS <ELVIE Roach - Last Filed: 03/18/21 12:51> Time Seen by Provider: 03/18/21 09:31 <ELVIE Roach - Last Filed: 03/18/21 12:51> Source: patient and EMS <ELVIE Roach - Last Filed: 03/18/21 12:51> Mode of arrival: EMS <ELVIE Roach Last Filed: 03/18/21 12:51> Limitations: no limitations <ELVIE Roach Last Filed: 03/18/21 12:51> History of Present Illness HPI narrative: 75-year-old male alcohol use disorder, cirrhosis, asthma, prior COVID-19, AFib, diabetes, encephalopathy, portal HTN gastropathy, esophageal varicies presents to the ED via EMS for altered mental status, and suicidal ideation x2 days on a [place] [address]. According to EMS patient's family is concerned that patient has been acting strangely, talking to himself, peeing in various corners of the house. Family also states that he has been making frequent suicidal comments, according to family he states he wants to hang himself. Family also reports that yesterday he threw himself down a flight of stairs. She states that this is not normal behavior for him. When interviewing the patient he is slow to answer questions, he states he wants to , he does not elaborate on the plan. When asked if anything hurts he says yes, but he does not elaborate on what is hurting. Patient denies chest pain, shortness of breath, fevers, chills, headache, changes in vision. Patient denies visual, auditory and tactile hallucinations. Patient is currently on rivaroxaban 20 mg daily. <ELVIE Roach - Last Filed: 03/18/21 12:51> Onset (ago): day(s) (2) <ELVIE Roach Last Filed: 03/18/21 12:51> Relieving factors: none <ELVIE Roach - Last Filed: 03/18/21 12:51> Exacerbating factors: none <ELVIE Roach - Last Filed: 03/18/21 12:51> Associated symptoms: denies other symptoms and other (SI) <ELVIE Roach - Last Filed: 03/18/21 12:51> Treatments prior to arrival: none <ELVIE Roach - Last Filed: 03/18/21 12:51> Related Data Home medications: Home Medications Medication Instructions Recorded Confirmed fluticasone propionate 220 2 puff PO BID 04/08/20 03/18/21 mcg/actuation HFA aerosol inhaler (Flovent HFA) loratadine 10 mg tablet 1 tab PO DAILY 04/08/20 03/18/21 montelukast 10 mg tablet 1 tab PO BEDTIME 04/08/20 03/18/21 multivitamin (Daily-Arlene) 1 tab PO DAILY 04/08/20 03/18/21 citalopram 10 mg tablet 10 mg PO DAILY 06/01/20 03/18/21 rivaroxaban 20 mg tablet (Xarelto) 20 mg PO DAILY 06/01/20 03/18/21 lactulose 10 gram/15 mL oral 30 ml PO TID 01/04/21 03/18/21 solution spironolactone 25 mg tablet 25 mg PO DAILY 01/04/21 03/18/21 albuterol sulfate 3 ml INHALATION Q6H PRN 03/06/21 03/18/21 melatonin 10 mg-lemon balm leaf 1 tab PO BEDTIME 03/18/21 03/18/21 extract 1 mg tablet Previous Rx's Medication Instructions Recorded cholecalciferol (vitamin D3) 50 50 mcg PO DAILY #30 cap 05/25/20 mcg (2,000 unit) capsule rifaximin 550 mg tablet (Xifaxan) 550 mg PO BID 30 Days #60 tab 09/26/20 midodrine 2.5 mg tablet 2.5 mg PO BID 30 Days #60 tab 11/10/20 omeprazole 20 mg capsule,delayed 20 mg PO BID #60 cap 01/23/21 release trazodone 50 mg tablet 25 mg PO BEDTIME PRN #4 tab 03/01/21 <ELVIE Roach - Last Filed: 03/18/21 12:51> Allergies/adverse reactions: Allergies Allergy/AdvReac Type Severity Reaction Status Date / Time No Known Allergies Allergy Verified 01/23/21 10:24 <ELVIE Roach Last Filed: 03/18/21 12:51> Review of Systems Review of Systems: Constitutional : No Weight loss, No Fever, No Chills, No Fatigue, No Malaise ENT/Mouth : No sore throat, No Rhinorrhea Eyes: No Eye Pain, No Swelling, No Redness Cardiovascular : No Chest Pain, No SOB, No Dyspnea on Exertion, No Orthopnea, No Edema, No Palpitations Respiratory : No Cough, No Sputum, No Wheezing Gastrointestinal : No Nausea, No Vomiting, No Diarrhea, No Constipation, No abdominal Pain, No Hematochezia, No Melena Genitourinary : No Dysuria, No Urinary Frequency, No Hematuria, Musculoskeletal : No joint pain, No Myalgias, No Joint Swelling Skin : No Skin Lesions, No rash Neuro : No Weakness, No Numbness, No Dizziness, No Headache Psych : + Anxiety/Panic, + Depression, + SI Heme/Lymph: + Bruising, No Bleeding,No Lymphadenopathy All other systems reviewed and are negative <LEVIE Roach Last Filed: 03/18/21 12:51> [facility] Past Medical History Attestation statement: The following information was validated with the patient. <ELVIE Roach Last Filed: 03/18/21 12:51> Source: old records reviewed and nursing notes reviewed <ELVIE Roach - Last Filed: 03/18/21 12:51> Medical History: Medical History JACOB (acute kidney injury) JACOB (acute kidney injury) Ascites Cirrhosis of liver CKD (chronic kidney disease) stage 3, GFR 30-59 ml/min COVID-19 Diabetes Elevated INR Esophageal varices Esophageal varices determined by endoscopy GERD (gastroesophageal reflux disease) Hepatic encephalopathy Hypertension Portal vein thrombosis Thrombocytopenia Vitamin D deficiency <ELVIE Roach Last Filed: 03/18/21 12:51> Surgical History: Surgical History Hx of colonoscopy Hx of endoscopy Hx of inguinal hernia repair <ELVIE Roach - Last Filed: 03/18/21 12:51> Family History Family History: Family History Father Diabetes HTN (hypertension) Mother Diabetes Sister Cancer <ELVIE Roach - Last Filed: 03/18/21 12:51> Social History Social History: Social History Household Members: Spouse Housing: Apartment Do you presently have visiting nurse or other home services: No Alcohol intake: unknown Patient Tobacco Use Status: Never used Tobacco Advance Directives: Yes Advance Directives on File: Yes Advance Directives Date on File: 03/06/21 service: No Current occupational status: retired <ELVIE Roach - Last Filed: 03/18/21 12:51> Physical Exam Vital Signs: Vital Signs: Last Vital Signs Temp 98.1 F 03/18/21 23:25 Pulse 70 03/18/21 23:25 Resp 16 03/18/21 23:25 BP 140/59 H 03/18/21 23:25 Pulse Ox 97 03/18/21 23:25 Body Mass Index 25.2 <ELVIE Roach - Last Filed: 03/18/21 12:51> Vital Signs: Last Vital Signs Temp 98.1 F 03/18/21 23:25 Pulse 70 03/18/21 23:25 Resp 16 03/18/21 23:25 BP 140/59 H 03/18/21 23:25 Pulse Ox 97 03/18/21 23:25 Body Mass Index 25.2 <Jordi Pereyra MD - Last Filed: 03/18/21 11:00> Vital Signs: Last Vital Signs Temp 98.1 F 03/18/21 23:25 Pulse 70 03/18/21 23:25 Resp 16 03/18/21 23:25 BP 140/59 H 03/18/21 23:25 Pulse Ox 97 03/18/21 23:25 Body Mass Index 25.2 <Toro Nickerson MD - Last Filed: 03/19/21 02:42> Appearance: Alert, awake. Oriented X3. Slow to respond. No acute distress.? No evident signs of trauma Head: Normocephalic, atraumatic. No stepoffs or deformities. +Small spider angiomas noted on bilateral cheeks Eyes: Pupils equal, round and reactive to light.? ENT: Pharynx normal.?+ mild tongue fasciculation Neck: Normal inspection.? Neck supple.? CVS: Normal heart rate and rhythm.? Pulses normal.? Respiratory: No respiratory distress.? Breath sounds normal.? Abdomen: Soft and nontender.? Skin: Skin warm and dry.? Normal skin color.? Normal skin turgor.? Extremities: No lower extremity edema.? No calf ttp. + Bilateral asterixis noted. Neuro: Alert, awake. Oriented X3.? No motor deficit.? No sensory deficit. <ELVIE Roach - Last Filed: 03/18/21 12:51> Course Reevaluation(s) Reevaluation #1: I agree with history, my physical in fral thin male, skin with ecchymotic lesions, spider angiomata, lungs clear, CV RRR, abd nontender, psych patient with slow mentation, neuro with asterixis of hands and tongue. Patient has hepatic encephalopathy he is not suicidal or homicidal in his current condition <Jordi Pereyra MD - Last Filed: 03/18/21 11:00> Time: 11:00 <Jordi Pereyra MD - Last Filed: 03/18/21 11:00> Reevaluation #2: No acute findings on chest x-ray. Baseline pancytopenia is noted. Chemistry shows elevated BUN and Cretinine, however, it appears to be patients baseline when comparing to previous labs. Calcium elevated at baseline. Ammonia 88 will be given lactulose 30 mg PO now. Urine negative. Coags ordered and pending. Lactic acid 2.9 likely secondary to underlying cirrhosis with poor tissue perfusion, not concerned for infection. Trop 41.3, second trop ordered fro 1:40. <ELVIE Roach - Last Filed: 03/18/21 12:51> Time: 11:35 <ELVIE Roach - Last Filed: 03/18/21 12:51> Reevaluation #3: Tech sam troponin early, another order will be put in for 1:40pm. Coags elevated, patient at his baseline <ELVIE Roach - Last Filed: 03/18/21 12:51> Time: 11:35 <ELVIE Roach - Last Filed: 03/18/21 12:51> Additional Reevaluation(s): [address] Mayo which will be admitting the patient <ELVIE Roach - Last Filed: 03/18/21 12:51> Procedures Catheter Insertion (Urinary) Date of insertion: 03/19/21 <Toro Nickerson MD - Last Filed: 03/19/21 02:42> Time of insertion: 02:41 <Toro Nickerson MD - Last Filed: 03/19/21 02:42> Reason for placing indwelling catheter: Acute urinary retention <Toro Nickerson MD - Last Filed: 03/19/21 02:42> Bladder scan/ultrasound used before catheterization: Yes <Toro Nickerson MD - Last Filed: 03/19/21 02:42> Estimated amount of urine (mLs): 402 <Toro Nickerson MD - Last Filed: 03/19/21 02:42> Antiseptic solution prep: Povidone-Iodine <Toro Nickerson MD - Last Filed: 03/19/21 02:42> Topical anesthesia used: Yes (100 mL lidocaine Uro jet) <Toro Nickerson MD - Last Filed: 03/19/21 02:42> Catheter type/location: [place] <Toro Nickerson MD - Last Filed: 03/19/21 02:42> Size (Emirati): 16 <Toro Nickerson MD - Last Filed: 03/19/21 02:42> Catheter balloon size (mL): 30 <Toro Nickerson MD - Last Filed: 03/19/21 02:42> Catheter balloon amount: 30 <Toro Nickerson MD - Last Filed: 03/19/21 02:42> Results: successfully catheterized-immediate flow <Toro Nickerson MD - Last Filed: 03/19/21 02:42> Procedure performed: with complications <Toro Nickerson MD - Last Filed: 03/19/21 02:42> Medical Decision Making MDM Narrative Medical decision making narrative: 0945 75-year-old male alcohol use disorder, cirrhosis, asthma, prior COVID-19, AFib, diabetes, encephalopathy, portal HTN gastropathy, esophageal varicies presents to the ED via EMS for altered mental status, and suicidal ideation x2 days on [place] [address]. Patient is a poor historian. He verbalizes that he is having pain, however he cannot elaborate as to where he is having pain. Upon physical examination the patient is sitting upright on the stretcher, appears comfortable and in no distress. There is bruising noted to bilateral upper and lower extremities. With a small skin tear to the right forearm. Pupils equal round and reactive to light bilaterally. Head is normocephalic, atraumatic, no step-offs or deformities. Mild tongue fasciculations are noted. Bilateral cheek spider angiomas. Lungs are clear to auscultation bilaterally. S1 and S2 are appreciated free of murmurs. Abdomen is soft nontender nondistended, no ascites noted. Bilateral upper extremities with 5/5 strength. There is bilateral asterixis noted to upper extremities. No focal neuro deficits noted. Patient is answering questions slowly, has slow movements. Plan at this time is to obtain an EKG, CT cervical spine, head/brain, chest x-ray, ammonia level, acetaminophen labs, BNP, CBC, CMP, COVID, creatinine kinase, ethanol, lactic acid, lipase, magnesium, salicylate, troponin, UA, blood cultures. At this time there was a concern for hepatic encephalopathy based off patient's history, physical exam findings. To note patient was admitted here at [facility] from March 09, 2021 to March 14, 2021 for acute hepatic encephalopathy. He was told to take lactulose 3 times a day. At that time family was recommended long-term rehab, however they declined,they decided that they wanted to take him home instead. <ELVIE Roach - Last Filed: 03/18/21 12:51> Lab Data Result diagrams: : 03/18/21 10:41 03/18/21 10:41 <ELVIE Roach - Last Filed: 03/18/21 12:51> Labs: Lab Results 03/18/21 03/18/21 03/18/21 Range/Units 10:41 10:41 10:41 WBC 3.5 L (4.8-10.8) X10*3/uL RBC 2.42 L (4.60-5.80) X10*6/uL Hgb 7.2 L (14.0-18.0) g/dl Hct 21.5 L (42.0-52.0) % MCV 88.8 (80.0-98.0) fL MCH 29.8 (27.0-33.0) pg MCHC 33.5 (31.0-36.0) g/dl RDW 15.8 (11.0-16.0) % Plt Count 51 L (160-400) X10*3/uL MPV 9.0 L (9.4-12.4) fL Immature Gran % (Auto) 0.3 (0.0-0.4) % Neut % (Auto) 72.7 (45-73) % Lymph % (Auto) 15.1 L (20-40) % [place] % (Auto) 9.3 (2-11) % Eos % (Auto) 2.0 (0-4) % Baso % (Auto) 0.6 (0-2) % Lymph # (Auto) 0.5 L (1.2-4.9) X10*3/uL [place] # (Auto) 0.3 (0.1-1.2) X10*3/uL Eos # (Auto) 0.1 (0.0-0.4) X10*3/uL Baso # (Auto) 0.0 (0.0-0.2) X10*3/uL Abs Immat Gran (auto) 0.01 (0.00-0.03) X10*3/uL Absolute Neuts (auto) 2.5 (2.0-8.3) x10*3/uL Absolute Nucleated RBC 0.000 (0.0-0.012) X10*3/uL Nucleated RBC % (auto) 0.0 (0.0-0.2) /100WBC PT (9.9-13.0) SEC INR (0.9-1.1) APTT (24.1-38.0) SEC Sodium 139 (135-145) mmol/L Potassium 4.8 (3.3-5.1) mmol/L Chloride 107 (96-108) mmol/L Carbon Dioxide 23 (22-29) mmol/L Anion Gap 14 (12-20) BUN 44 H (9-16) mg/dL Creatinine 2.28 H (0.5-1.4) mg/dL Estim Creat Clear Calc 23.4 Estimated GFR 28 Random Glucose 213 H D (60-115) mg/dL Lactic Acid (0.5-2.0) mmol/L Lactic Acid Fup @ 2Hr Calcium 10.8 H (8.4-10.2) mg/dL Magnesium 2.3 (1.6-2.6) mg/dL Total Bilirubin 1.3 H (0.0-1.0) mg/dL AST 29 D (5-37) U/L ALT 29 (0-40) U/L Alkaline Phosphatase 83 D (39-117) U/L Ammonia (13-55) umol/L Total Creatine Kinase 70 (38-174) U/L Troponin I High Sens 41.3 H* D (<3.5-35.0) ng/L Total Protein 5.8 L (6.5-8.0) g/dL Albumin 3.6 (3.5-5.0) g/dL Lipase 51 (8-78) U/L Urine Color Urine Appearance Urine pH (5.0-8.0) Ur Specific [place] (1.005-1.025) Urine Protein (NEG-TRACE) MG/DL Urine Glucose (UA) (NEG) MG/DL Urine Ketones (NEG) MG/DL Urine Blood (NEG) Urine Nitrite (NEG) Ur Leukocyte Esterase (NEG) Urine RBC (0) /HPF Urine WBC (0-4) /HPF Ur Squamous Epith Cells /LPF Urine Bacteria /LPF Salicylates < 5.0 L (15-30) mg/dL Acetaminophen < 1 (<30) mcg/mL Ethyl Alcohol mg/dL COVID-19 ([facility]) (Negative) COVID-19 Clin Com 03/18/21 03/18/21 03/18/21 Range/Units 10:41 10:41 10:41 WBC (4.8-10.8) X10*3/uL RBC (4.60-5.80) X10*6/uL Hgb (14.0-18.0) g/dl Hct (42.0-52.0) % MCV (80.0-98.0) fL MCH (27.0-33.0) pg MCHC (31.0-36.0) g/dl RDW (11.0-16.0) % Plt Count (160-400) X10*3/uL MPV (9.4-12.4) fL Immature Gran % (Auto) (0.0-0.4) % Neut % (Auto) (45-73) % Lymph % (Auto) (20-40) % [place] % (Auto) (2-11) % Eos % (Auto) (0-4) % Baso % (Auto) (0-2) % Lymph # (Auto) (1.2-4.9) X10*3/uL [place] # (Auto) (0.1-1.2) X10*3/uL Eos # (Auto) (0.0-0.4) X10*3/uL Baso # (Auto) (0.0-0.2) X10*3/uL Abs Immat Gran (auto) (0.00-0.03) X10*3/uL Absolute Neuts (auto) (2.0-8.3) x10*3/uL Absolute Nucleated RBC (0.0-0.012) X10*3/uL Nucleated RBC % (auto) (0.0-0.2) /100WBC PT (9.9-13.0) SEC INR (0.9-1.1) APTT (24.1-38.0) SEC Sodium (135-145) mmol/L Potassium (3.3-5.1) mmol/L Chloride (96-108) mmol/L Carbon Dioxide (22-29) mmol/L Anion Gap (12-20) BUN (9-16) mg/dL Creatinine (0.5-1.4) mg/dL Estim Creat Clear Calc Estimated GFR Random Glucose (60-115) mg/dL Lactic Acid (0.5-2.0) mmol/L Lactic Acid Fup @ 2Hr Calcium (8.4-10.2) mg/dL Magnesium (1.6-2.6) mg/dL Total Bilirubin (0.0-1.0) mg/dL AST (5-37) U/L ALT (0-40) U/L Alkaline Phosphatase (39-117) U/L Ammonia 88 H (13-55) umol/L Total Creatine Kinase (38-174) U/L Troponin I High Sens (<3.5-35.0) ng/L Total Protein (6.5-8.0) g/dL Albumin (3.5-5.0) g/dL Lipase (8-78) U/L Urine Color Urine Appearance Urine pH (5.0-8.0) Ur Specific [place] (1.005-1.025) Urine Protein (NEG-TRACE) MG/DL Urine Glucose (UA) (NEG) MG/DL Urine Ketones (NEG) MG/DL Urine Blood (NEG) Urine Nitrite (NEG) Ur Leukocyte Esterase (NEG) Urine RBC (0) /HPF Urine WBC (0-4) /HPF Ur Squamous Epith Cells /LPF Urine Bacteria /LPF Salicylates (15-30) mg/dL Acetaminophen (<30) mcg/mL Ethyl Alcohol < 10 mg/dL COVID-19 (KUSH) Negative (Negative) COVID-19 Clin Com See Note 03/18/21 03/18/21 03/18/21 Range/Units 10:41 10:41 11:24 WBC (4.8-10.8) X10*3/uL RBC (4.60-5.80) X10*6/uL Hgb (14.0-18.0) g/dl Hct (42.0-52.0) % MCV (80.0-98.0) fL MCH (27.0-33.0) pg MCHC (31.0-36.0) g/dl RDW (11.0-16.0) % Plt Count (160-400) X10*3/uL MPV (9.4-12.4) fL Immature Gran % (Auto) (0.0-0.4) % Neut % (Auto) (45-73) % Lymph % (Auto) (20-40) % [place] % (Auto) (2-11) % Eos % (Auto) (0-4) % Baso % (Auto) (0-2) % Lymph # (Auto) (1.2-4.9) X10*3/uL [place] # (Auto) (0.1-1.2) X10*3/uL Eos # (Auto) (0.0-0.4) X10*3/uL Baso # (Auto) (0.0-0.2) X10*3/uL Abs Immat Gran (auto) (0.00-0.03) X10*3/uL Absolute Neuts (auto) (2.0-8.3) x10*3/uL Absolute Nucleated RBC (0.0-0.012) X10*3/uL Nucleated RBC % (auto) (0.0-0.2) /100WBC PT 55.0 H (9.9-13.0) SEC INR 4.7 H D (0.9-1.1) APTT 48.2 H D (24.1-38.0) SEC Sodium (135-145) mmol/L Potassium (3.3-5.1) mmol/L Chloride (96-108) mmol/L Carbon Dioxide (22-29) mmol/L Anion Gap (12-20) BUN (9-16) mg/dL Creatinine (0.5-1.4) mg/dL Estim Creat Clear Calc Estimated GFR Random Glucose (60-115) mg/dL Lactic Acid 2.9 H* (0.5-2.0) mmol/L Lactic Acid Fup @ 2Hr Calcium (8.4-10.2) mg/dL Magnesium (1.6-2.6) mg/dL Total Bilirubin (0.0-1.0) mg/dL AST (5-37) U/L ALT (0-40) U/L Alkaline Phosphatase (39-117) U/L Ammonia (13-55) umol/L Total Creatine Kinase (38-174) U/L Troponin I High Sens (<3.5-35.0) ng/L Total Protein (6.5-8.0) g/dL Albumin (3.5-5.0) g/dL Lipase (8-78) U/L Urine Color YELLOW Urine Appearance CLEAR Urine pH 6.5 (5.0-8.0) Ur Specific [place] 1.010 (1.005-1.025) Urine Protein NEG (NEG-TRACE) MG/DL Urine Glucose (UA) NEG (NEG) MG/DL Urine Ketones NEG (NEG) MG/DL Urine Blood NEG (NEG) Urine Nitrite NEG (NEG) Ur Leukocyte Esterase NEG (NEG) Urine RBC 0 (0) /HPF Urine WBC 0-2 (0-4) /HPF Ur Squamous Epith Cells NONE /LPF Urine Bacteria NONE /LPF Salicylates (15-30) mg/dL Acetaminophen (<30) mcg/mL Ethyl Alcohol mg/dL COVID-19 ([facility]) (Negative) COVID-19 Clin Com 03/18/21 03/18/21 Range/Units 13:20 13:20 WBC (4.8-10.8) X10*3/uL RBC (4.60-5.80) X10*6/uL Hgb (14.0-18.0) g/dl Hct (42.0-52.0) % MCV (80.0-98.0) fL MCH (27.0-33.0) pg MCHC (31.0-36.0) g/dl RDW (11.0-16.0) % Plt Count (160-400) X10*3/uL MPV (9.4-12.4) fL Immature Gran % (Auto) (0.0-0.4) % Neut % (Auto) (45-73) % Lymph % (Auto) (20-40) % [place] % (Auto) (2-11) % Eos % (Auto) (0-4) % Baso % (Auto) (0-2) % Lymph # (Auto) (1.2-4.9) X10*3/uL [place] # (Auto) (0.1-1.2) X10*3/uL Eos # (Auto) (0.0-0.4) X10*3/uL Baso # (Auto) (0.0-0.2) X10*3/uL Abs Immat Gran (auto) (0.00-0.03) X10*3/uL Absolute Neuts (auto) (2.0-8.3) x10*3/uL Absolute Nucleated RBC (0.0-0.012) X10*3/uL Nucleated RBC % (auto) (0.0-0.2) /100WBC PT (9.9-13.0) SEC INR (0.9-1.1) APTT (24.1-38.0) SEC Sodium (135-145) mmol/L Potassium (3.3-5.1) mmol/L Chloride (96-108) mmol/L Carbon Dioxide (22-29) mmol/L Anion Gap (12-20) BUN (9-16) mg/dL Creatinine (0.5-1.4) mg/dL Estim Creat Clear Calc Estimated GFR Random Glucose (60-115) mg/dL Lactic Acid (0.5-2.0) mmol/L Lactic Acid Fup @ 2Hr Cancelled Calcium (8.4-10.2) mg/dL Magnesium (1.6-2.6) mg/dL Total Bilirubin (0.0-1.0) mg/dL AST (5-37) U/L ALT (0-40) U/L Alkaline Phosphatase (39-117) U/L Ammonia (13-55) umol/L Total Creatine Kinase (38-174) U/L Troponin I High Sens 38.1 H* (<3.5-35.0) ng/L Total Protein (6.5-8.0) g/dL Albumin (3.5-5.0) g/dL Lipase (8-78) U/L Urine Color Urine Appearance Urine pH (5.0-8.0) Ur Specific [place] (1.005-1.025) Urine Protein (NEG-TRACE) MG/DL Urine Glucose (UA) (NEG) MG/DL Urine Ketones (NEG) MG/DL Urine Blood (NEG) Urine Nitrite (NEG) Ur Leukocyte Esterase (NEG) Urine RBC (0) /HPF Urine WBC (0-4) /HPF Ur Squamous Epith Cells /LPF Urine Bacteria /LPF Salicylates (15-30) mg/dL Acetaminophen (<30) mcg/mL Ethyl Alcohol mg/dL COVID-19 ([facility]) (Negative) COVID-19 Clin Com <ELVIE Roach - Last Filed: 03/18/21 12:51> Lab Results 03/18/21 03/18/21 03/18/21 Range/Units 10:41 10:41 10:41 WBC 3.5 L (4.8-10.8) X10*3/uL RBC 2.42 L (4.60-5.80) X10*6/uL Hgb 7.2 L (14.0-18.0) g/dl Hct 21.5 L (42.0-52.0) % MCV 88.8 (80.0-98.0) fL MCH 29.8 (27.0-33.0) pg MCHC 33.5 (31.0-36.0) g/dl RDW 15.8 (11.0-16.0) % Plt Count 51 L (160-400) X10*3/uL MPV 9.0 L (9.4-12.4) fL Immature Gran % (Auto) 0.3 (0.0-0.4) % Neut % (Auto) 72.7 (45-73) % Lymph % (Auto) 15.1 L (20-40) % [place] % (Auto) 9.3 (2-11) % Eos % (Auto) 2.0 (0-4) % Baso % (Auto) 0.6 (0-2) % Lymph # (Auto) 0.5 L (1.2-4.9) X10*3/uL [place] # (Auto) 0.3 (0.1-1.2) X10*3/uL Eos # (Auto) 0.1 (0.0-0.4) X10*3/uL Baso # (Auto) 0.0 (0.0-0.2) X10*3/uL Abs Immat Gran (auto) 0.01 (0.00-0.03) X10*3/uL Absolute Neuts (auto) 2.5 (2.0-8.3) x10*3/uL Absolute Nucleated RBC 0.000 (0.0-0.012) X10*3/uL Nucleated RBC % (auto) 0.0 (0.0-0.2) /100WBC PT (9.9-13.0) SEC INR (0.9-1.1) APTT (24.1-38.0) SEC Sodium 139 (135-145) mmol/L Potassium 4.8 (3.3-5.1) mmol/L Chloride 107 (96-108) mmol/L Carbon Dioxide 23 (22-29) mmol/L Anion Gap 14 (12-20) BUN 44 H (9-16) mg/dL Creatinine 2.28 H (0.5-1.4) mg/dL Estim Creat Clear Calc 23.4 Estimated GFR 28 Random Glucose 213 H D (60-115) mg/dL Lactic Acid (0.5-2.0) mmol/L Lactic Acid Fup @ 2Hr Calcium 10.8 H (8.4-10.2) mg/dL Magnesium 2.3 (1.6-2.6) mg/dL Total Bilirubin 1.3 H (0.0-1.0) mg/dL AST 29 D (5-37) U/L ALT 29 (0-40) U/L Alkaline Phosphatase 83 D (39-117) U/L Ammonia (13-55) umol/L Total Creatine Kinase 70 (38-174) U/L Troponin I High Sens 41.3 H* D (<3.5-35.0) ng/L Total Protein 5.8 L (6.5-8.0) g/dL Albumin 3.6 (3.5-5.0) g/dL Lipase 51 (8-78) U/L Urine Color Urine Appearance Urine pH (5.0-8.0) Ur Specific [place] (1.005-1.025) Urine Protein (NEG-TRACE) MG/DL Urine Glucose (UA) (NEG) MG/DL Urine Ketones (NEG) MG/DL Urine Blood (NEG) Urine Nitrite (NEG) Ur Leukocyte Esterase (NEG) Urine RBC (0) /HPF Urine WBC (0-4) /HPF Ur Squamous Epith Cells /LPF Urine Bacteria /LPF Salicylates < 5.0 L (15-30) mg/dL Acetaminophen < 1 (<30) mcg/mL Ethyl Alcohol mg/dL COVID-19 ([facility]) (Negative) COVID-19 Clin Com 03/18/21 03/18/21 03/18/21 Range/Units 10:41 10:41 10:41 WBC (4.8-10.8) X10*3/uL RBC (4.60-5.80) X10*6/uL Hgb (14.0-18.0) g/dl Hct (42.0-52.0) % MCV (80.0-98.0) fL MCH (27.0-33.0) pg MCHC (31.0-36.0) g/dl RDW (11.0-16.0) % Plt Count (160-400) X10*3/uL MPV (9.4-12.4) fL Immature Gran % (Auto) (0.0-0.4) % Neut % (Auto) (45-73) % Lymph % (Auto) (20-40) % [place] % (Auto) (2-11) % Eos % (Auto) (0-4) % Baso % (Auto) (0-2) % Lymph # (Auto) (1.2-4.9) X10*3/uL [place] # (Auto) (0.1-1.2) X10*3/uL Eos # (Auto) (0.0-0.4) X10*3/uL Baso # (Auto) (0.0-0.2) X10*3/uL Abs Immat Gran (auto) (0.00-0.03) X10*3/uL Absolute Neuts (auto) (2.0-8.3) x10*3/uL Absolute Nucleated RBC (0.0-0.012) X10*3/uL Nucleated RBC % (auto) (0.0-0.2) /100WBC PT (9.9-13.0) SEC INR (0.9-1.1) APTT (24.1-38.0) SEC Sodium (135-145) mmol/L Potassium (3.3-5.1) mmol/L Chloride (96-108) mmol/L Carbon Dioxide (22-29) mmol/L Anion Gap (12-20) BUN (9-16) mg/dL Creatinine (0.5-1.4) mg/dL Estim Creat Clear Calc Estimated GFR Random Glucose (60-115) mg/dL Lactic Acid (0.5-2.0) mmol/L Lactic Acid Fup @ 2Hr Calcium (8.4-10.2) mg/dL Magnesium (1.6-2.6) mg/dL Total Bilirubin (0.0-1.0) mg/dL AST (5-37) U/L ALT (0-40) U/L Alkaline Phosphatase (39-117) U/L Ammonia 88 H (13-55) umol/L Total Creatine Kinase (38-174) U/L Troponin I High Sens (<3.5-35.0) ng/L Total Protein (6.5-8.0) g/dL Albumin (3.5-5.0) g/dL Lipase (8-78) U/L Urine Color Urine Appearance Urine pH (5.0-8.0) Ur Specific [place] (1.005-1.025) Urine Protein (NEG-TRACE) MG/DL Urine Glucose (UA) (NEG) MG/DL Urine Ketones (NEG) MG/DL Urine Blood (NEG) Urine Nitrite (NEG) Ur Leukocyte Esterase (NEG) Urine RBC (0) /HPF Urine WBC (0-4) /HPF Ur Squamous Epith Cells /LPF Urine Bacteria /LPF Salicylates (15-30) mg/dL Acetaminophen (<30) mcg/mL Ethyl Alcohol < 10 mg/dL COVID-19 ([facility]) Negative (Negative) COVID-19 Clin Com See Note 03/18/21 03/18/21 03/18/21 Range/Units 10:41 10:41 11:24 WBC (4.8-10.8) X10*3/uL RBC (4.60-5.80) X10*6/uL Hgb (14.0-18.0) g/dl Hct (42.0-52.0) % MCV (80.0-98.0) fL MCH (27.0-33.0) pg MCHC (31.0-36.0) g/dl RDW (11.0-16.0) % Plt Count (160-400) X10*3/uL MPV (9.4-12.4) fL Immature Gran % (Auto) (0.0-0.4) % Neut % (Auto) (45-73) % Lymph % (Auto) (20-40) % [place] % (Auto) (2-11) % Eos % (Auto) (0-4) % Baso % (Auto) (0-2) % Lymph # (Auto) (1.2-4.9) X10*3/uL [place] # (Auto) (0.1-1.2) X10*3/uL Eos # (Auto) (0.0-0.4) X10*3/uL Baso # (Auto) (0.0-0.2) X10*3/uL Abs Immat Gran (auto) (0.00-0.03) X10*3/uL Absolute Neuts (auto) (2.0-8.3) x10*3/uL Absolute Nucleated RBC (0.0-0.012) X10*3/uL Nucleated RBC % (auto) (0.0-0.2) /100WBC PT 55.0 H (9.9-13.0) SEC INR 4.7 H D (0.9-1.1) APTT 48.2 H D (24.1-38.0) SEC Sodium (135-145) mmol/L Potassium (3.3-5.1) mmol/L Chloride (96-108) mmol/L Carbon Dioxide (22-29) mmol/L Anion Gap (12-20) BUN (9-16) mg/dL Creatinine (0.5-1.4) mg/dL Estim Creat Clear Calc Estimated GFR Random Glucose (60-115) mg/dL Lactic Acid 2.9 H* (0.5-2.0) mmol/L Lactic Acid Fup @ 2Hr Calcium (8.4-10.2) mg/dL Magnesium (1.6-2.6) mg/dL Total Bilirubin (0.0-1.0) mg/dL AST (5-37) U/L ALT (0-40) U/L Alkaline Phosphatase (39-117) U/L Ammonia (13-55) umol/L Total Creatine Kinase (38-174) U/L Troponin I High Sens (<3.5-35.0) ng/L Total Protein (6.5-8.0) g/dL Albumin (3.5-5.0) g/dL Lipase (8-78) U/L Urine Color YELLOW Urine Appearance CLEAR Urine pH 6.5 (5.0-8.0) Ur Specific [place] 1.010 (1.005-1.025) Urine Protein NEG (NEG-TRACE) MG/DL Urine Glucose (UA) NEG (NEG) MG/DL Urine Ketones NEG (NEG) MG/DL Urine Blood NEG (NEG) Urine Nitrite NEG (NEG) Ur Leukocyte Esterase NEG (NEG) Urine RBC 0 (0) /HPF Urine WBC 0-2 (0-4) /HPF Ur Squamous Epith Cells NONE /LPF Urine Bacteria NONE /LPF Salicylates (15-30) mg/dL Acetaminophen (<30) mcg/mL Ethyl Alcohol mg/dL COVID-19 ([facility]) (Negative) COVID-19 Clin Com 03/18/21 03/18/21 Range/Units 13:20 13:20 WBC (4.8-10.8) X10*3/uL RBC (4.60-5.80) X10*6/uL Hgb (14.0-18.0) g/dl Hct (42.0-52.0) % MCV (80.0-98.0) fL MCH (27.0-33.0) pg MCHC (31.0-36.0) g/dl RDW (11.0-16.0) % Plt Count (160-400) X10*3/uL MPV (9.4-12.4) fL Immature Gran % (Auto) (0.0-0.4) % Neut % (Auto) (45-73) % Lymph % (Auto) (20-40) % [place] % (Auto) (2-11) % Eos % (Auto) (0-4) % Baso % (Auto) (0-2) % Lymph # (Auto) (1.2-4.9) X10*3/uL [place] # (Auto) (0.1-1.2) X10*3/uL Eos # (Auto) (0.0-0.4) X10*3/uL Baso # (Auto) (0.0-0.2) X10*3/uL Abs Immat Gran (auto) (0.00-0.03) X10*3/uL Absolute Neuts (auto) (2.0-8.3) x10*3/uL Absolute Nucleated RBC (0.0-0.012) X10*3/uL Nucleated RBC % (auto) (0.0-0.2) /100WBC PT (9.9-13.0) SEC INR (0.9-1.1) APTT (24.1-38.0) SEC Sodium (135-145) mmol/L Potassium (3.3-5.1) mmol/L Chloride (96-108) mmol/L Carbon Dioxide (22-29) mmol/L Anion Gap (12-20) BUN (9-16) mg/dL Creatinine (0.5-1.4) mg/dL Estim Creat Clear Calc Estimated GFR Random Glucose (60-115) mg/dL Lactic Acid (0.5-2.0) mmol/L Lactic Acid Fup @ 2Hr Cancelled Calcium (8.4-10.2) mg/dL Magnesium (1.6-2.6) mg/dL Total Bilirubin (0.0-1.0) mg/dL AST (5-37) U/L ALT (0-40) U/L Alkaline Phosphatase (39-117) U/L Ammonia (13-55) umol/L Total Creatine Kinase (38-174) U/L Troponin I High Sens 38.1 H* (<3.5-35.0) ng/L Total Protein (6.5-8.0) g/dL Albumin (3.5-5.0) g/dL Lipase (8-78) U/L Urine Color Urine Appearance Urine pH (5.0-8.0) Ur Specific [place] (1.005-1.025) Urine Protein (NEG-TRACE) MG/DL Urine Glucose (UA) (NEG) MG/DL Urine Ketones (NEG) MG/DL Urine Blood (NEG) Urine Nitrite (NEG) Ur Leukocyte Esterase (NEG) Urine RBC (0) /HPF Urine WBC (0-4) /HPF Ur Squamous Epith Cells /LPF Urine Bacteria /LPF Salicylates (15-30) mg/dL Acetaminophen (<30) mcg/mL Ethyl Alcohol mg/dL COVID-19 ([facility]) (Negative) COVID-19 Clin Com <Jordi Pereyra MD - Last Filed: 03/18/21 11:00> Lab Results 03/18/21 03/18/21 03/18/21 Range/Units 10:41 10:41 10:41 WBC 3.5 L (4.8-10.8) X10*3/uL RBC 2.42 L (4.60-5.80) X10*6/uL Hgb 7.2 L (14.0-18.0) g/dl Hct 21.5 L (42.0-52.0) % MCV 88.8 (80.0-98.0) fL MCH 29.8 (27.0-33.0) pg MCHC 33.5 (31.0-36.0) g/dl RDW 15.8 (11.0-16.0) % Plt Count 51 L (160-400) X10*3/uL MPV 9.0 L (9.4-12.4) fL Immature Gran % (Auto) 0.3 (0.0-0.4) % Neut % (Auto) 72.7 (45-73) % Lymph % (Auto) 15.1 L (20-40) % [place] % (Auto) 9.3 (2-11) % Eos % (Auto) 2.0 (0-4) % Baso % (Auto) 0.6 (0-2) % Lymph # (Auto) 0.5 L (1.2-4.9) X10*3/uL [place] # (Auto) 0.3 (0.1-1.2) X10*3/uL Eos # (Auto) 0.1 (0.0-0.4) X10*3/uL Baso # (Auto) 0.0 (0.0-0.2) X10*3/uL Abs Immat Gran (auto) 0.01 (0.00-0.03) X10*3/uL Absolute Neuts (auto) 2.5 (2.0-8.3) x10*3/uL Absolute Nucleated RBC 0.000 (0.0-0.012) X10*3/uL Nucleated RBC % (auto) 0.0 (0.0-0.2) /100WBC PT (9.9-13.0) SEC INR (0.9-1.1) APTT (24.1-38.0) SEC Sodium 139 (135-145) mmol/L Potassium 4.8 (3.3-5.1) mmol/L Chloride 107 (96-108) mmol/L Carbon Dioxide 23 (22-29) mmol/L Anion Gap 14 (12-20) BUN 44 H (9-16) mg/dL Creatinine 2.28 H (0.5-1.4) mg/dL Estim Creat Clear Calc 23.4 Estimated GFR 28 Random Glucose 213 H D (60-115) mg/dL Lactic Acid (0.5-2.0) mmol/L Lactic Acid Fup @ 2Hr Calcium 10.8 H (8.4-10.2) mg/dL Magnesium 2.3 (1.6-2.6) mg/dL Total Bilirubin 1.3 H (0.0-1.0) mg/dL AST 29 D (5-37) U/L ALT 29 (0-40) U/L Alkaline Phosphatase 83 D (39-117) U/L Ammonia (13-55) umol/L Total Creatine Kinase 70 (38-174) U/L Troponin I High Sens 41.3 H* D (<3.5-35.0) ng/L Total Protein 5.8 L (6.5-8.0) g/dL Albumin 3.6 (3.5-5.0) g/dL Lipase 51 (8-78) U/L Urine Color Urine Appearance Urine pH (5.0-8.0) Ur Specific [place] (1.005-1.025) Urine Protein (NEG-TRACE) MG/DL Urine Glucose (UA) (NEG) MG/DL Urine Ketones (NEG) MG/DL Urine Blood (NEG) Urine Nitrite (NEG) Ur Leukocyte Esterase (NEG) Urine RBC (0) /HPF Urine WBC (0-4) /HPF Ur Squamous Epith Cells /LPF Urine Bacteria /LPF Salicylates < 5.0 L (15-30) mg/dL Acetaminophen < 1 (<30) mcg/mL Ethyl Alcohol mg/dL COVID-19 ([facility]) (Negative) COVID-19 Clin Com 03/18/21 03/18/21 03/18/21 Range/Units 10:41 10:41 10:41 WBC (4.8-10.8) X10*3/uL RBC (4.60-5.80) X10*6/uL Hgb (14.0-18.0) g/dl Hct (42.0-52.0) % MCV (80.0-98.0) fL MCH (27.0-33.0) pg MCHC (31.0-36.0) g/dl RDW (11.0-16.0) % Plt Count (160-400) X10*3/uL MPV (9.4-12.4) fL Immature Gran % (Auto) (0.0-0.4) % Neut % (Auto) (45-73) % Lymph % (Auto) (20-40) % [place] % (Auto) (2-11) % Eos % (Auto) (0-4) % Baso % (Auto) (0-2) % Lymph # (Auto) (1.2-4.9) X10*3/uL [place] # (Auto) (0.1-1.2) X10*3/uL Eos # (Auto) (0.0-0.4) X10*3/uL Baso # (Auto) (0.0-0.2) X10*3/uL Abs Immat Gran (auto) (0.00-0.03) X10*3/uL Absolute Neuts (auto) (2.0-8.3) x10*3/uL Absolute Nucleated RBC (0.0-0.012) X10*3/uL Nucleated RBC % (auto) (0.0-0.2) /100WBC PT (9.9-13.0) SEC INR (0.9-1.1) APTT (24.1-38.0) SEC Sodium (135-145) mmol/L Potassium (3.3-5.1) mmol/L Chloride (96-108) mmol/L Carbon Dioxide (22-29) mmol/L Anion Gap (12-20) BUN (9-16) mg/dL Creatinine (0.5-1.4) mg/dL Estim Creat Clear Calc Estimated GFR Random Glucose (60-115) mg/dL Lactic Acid (0.5-2.0) mmol/L Lactic Acid Fup @ 2Hr Calcium (8.4-10.2) mg/dL Magnesium (1.6-2.6) mg/dL Total Bilirubin (0.0-1.0) mg/dL AST (5-37) U/L ALT (0-40) U/L Alkaline Phosphatase (39-117) U/L Ammonia 88 H (13-55) umol/L Total Creatine Kinase (38-174) U/L Troponin I High Sens (<3.5-35.0) ng/L Total Protein (6.5-8.0) g/dL Albumin (3.5-5.0) g/dL Lipase (8-78) U/L Urine Color Urine Appearance Urine pH (5.0-8.0) Ur Specific [place] (1.005-1.025) Urine Protein (NEG-TRACE) MG/DL Urine Glucose (UA) (NEG) MG/DL Urine Ketones (NEG) MG/DL Urine Blood (NEG) Urine Nitrite (NEG) Ur Leukocyte Esterase (NEG) Urine RBC (0) /HPF Urine WBC (0-4) /HPF Ur Squamous Epith Cells /LPF Urine Bacteria /LPF Salicylates (15-30) mg/dL Acetaminophen (<30) mcg/mL Ethyl Alcohol < 10 mg/dL COVID-19 ([facility]) Negative (Negative) COVID-19 Clin Com See Note 03/18/21 03/18/21 03/18/21 Range/Units 10:41 10:41 11:24 WBC (4.8-10.8) X10*3/uL RBC (4.60-5.80) X10*6/uL Hgb (14.0-18.0) g/dl Hct (42.0-52.0) % MCV (80.0-98.0) fL MCH (27.0-33.0) pg MCHC (31.0-36.0) g/dl RDW (11.0-16.0) % Plt Count (160-400) X10*3/uL MPV (9.4-12.4) fL Immature Gran % (Auto) (0.0-0.4) % Neut % (Auto) (45-73) % Lymph % (Auto) (20-40) % [place] % (Auto) (2-11) % Eos % (Auto) (0-4) % Baso % (Auto) (0-2) % Lymph # (Auto) (1.2-4.9) X10*3/uL [place] # (Auto) (0.1-1.2) X10*3/uL Eos # (Auto) (0.0-0.4) X10*3/uL Baso # (Auto) (0.0-0.2) X10*3/uL Abs Immat Gran (auto) (0.00-0.03) X10*3/uL Absolute Neuts (auto) (2.0-8.3) x10*3/uL Absolute Nucleated RBC (0.0-0.012) X10*3/uL Nucleated RBC % (auto) (0.0-0.2) /100WBC PT 55.0 H (9.9-13.0) SEC INR 4.7 H D (0.9-1.1) APTT 48.2 H D (24.1-38.0) SEC Sodium (135-145) mmol/L Potassium (3.3-5.1) mmol/L Chloride (96-108) mmol/L Carbon Dioxide (22-29) mmol/L Anion Gap (12-20) BUN (9-16) mg/dL Creatinine (0.5-1.4) mg/dL Estim Creat Clear Calc Estimated GFR Random Glucose (60-115) mg/dL Lactic Acid 2.9 H* (0.5-2.0) mmol/L Lactic Acid Fup @ 2Hr Calcium (8.4-10.2) mg/dL Magnesium (1.6-2.6) mg/dL Total Bilirubin (0.0-1.0) mg/dL AST (5-37) U/L ALT (0-40) U/L Alkaline Phosphatase (39-117) U/L Ammonia (13-55) umol/L Total Creatine Kinase (38-174) U/L Troponin I High Sens (<3.5-35.0) ng/L Total Protein (6.5-8.0) g/dL Albumin (3.5-5.0) g/dL Lipase (8-78) U/L Urine Color YELLOW Urine Appearance CLEAR Urine pH 6.5 (5.0-8.0) Ur Specific [place] 1.010 (1.005-1.025) Urine Protein NEG (NEG-TRACE) MG/DL Urine Glucose (UA) NEG (NEG) MG/DL Urine Ketones NEG (NEG) MG/DL Urine Blood NEG (NEG) Urine Nitrite NEG (NEG) Ur Leukocyte Esterase NEG (NEG) Urine RBC 0 (0) /HPF Urine WBC 0-2 (0-4) /HPF Ur Squamous Epith Cells NONE /LPF Urine Bacteria NONE /LPF Salicylates (15-30) mg/dL Acetaminophen (<30) mcg/mL Ethyl Alcohol mg/dL COVID-19 ([facility]) (Negative) COVID-19 Clin Com 03/18/21 03/18/21 Range/Units 13:20 13:20 WBC (4.8-10.8) X10*3/uL RBC (4.60-5.80) X10*6/uL Hgb (14.0-18.0) g/dl Hct (42.0-52.0) % MCV (80.0-98.0) fL MCH (27.0-33.0) pg MCHC (31.0-36.0) g/dl RDW (11.0-16.0) % Plt Count (160-400) X10*3/uL MPV (9.4-12.4) fL Immature Gran % (Auto) (0.0-0.4) % Neut % (Auto) (45-73) % Lymph % (Auto) (20-40) % [place] % (Auto) (2-11) % Eos % (Auto) (0-4) % Baso % (Auto) (0-2) % Lymph # (Auto) (1.2-4.9) X10*3/uL [place] # (Auto) (0.1-1.2) X10*3/uL Eos # (Auto) (0.0-0.4) X10*3/uL Baso # (Auto) (0.0-0.2) X10*3/uL Abs Immat Gran (auto) (0.00-0.03) X10*3/uL Absolute Neuts (auto) (2.0-8.3) x10*3/uL Absolute Nucleated RBC (0.0-0.012) X10*3/uL Nucleated RBC % (auto) (0.0-0.2) /100WBC PT (9.9-13.0) SEC INR (0.9-1.1) APTT (24.1-38.0) SEC Sodium (135-145) mmol/L Potassium (3.3-5.1) mmol/L Chloride (96-108) mmol/L Carbon Dioxide (22-29) mmol/L Anion Gap (12-20) BUN (9-16) mg/dL Creatinine (0.5-1.4) mg/dL Estim Creat Clear Calc Estimated GFR Random Glucose (60-115) mg/dL Lactic Acid (0.5-2.0) mmol/L Lactic Acid Fup @ 2Hr Cancelled Calcium (8.4-10.2) mg/dL Magnesium (1.6-2.6) mg/dL Total Bilirubin (0.0-1.0) mg/dL AST (5-37) U/L ALT (0-40) U/L Alkaline Phosphatase (39-117) U/L Ammonia (13-55) umol/L Total Creatine Kinase (38-174) U/L Troponin I High Sens 38.1 H* (<3.5-35.0) ng/L Total Protein (6.5-8.0) g/dL Albumin (3.5-5.0) g/dL Lipase (8-78) U/L Urine Color Urine Appearance Urine pH (5.0-8.0) Ur Specific [place] (1.005-1.025) Urine Protein (NEG-TRACE) MG/DL Urine Glucose (UA) (NEG) MG/DL Urine Ketones (NEG) MG/DL Urine Blood (NEG) Urine Nitrite (NEG) Ur Leukocyte Esterase (NEG) Urine RBC (0) /HPF Urine WBC (0-4) /HPF Ur Squamous Epith Cells /LPF Urine Bacteria /LPF Salicylates (15-30) mg/dL Acetaminophen (<30) mcg/mL Ethyl Alcohol mg/dL COVID-19 ([facility]) (Negative) COVID-19 Clin Com <Toro Nickerson MD - Last Filed: 03/19/21 02:42> Imaging Data Chest x-ray: Attestation: I personally reviewed and interpreted this imaging study as follows: <ELVIE Roach - Last Filed: 03/18/21 12:51> Radiologist's impression: FINDINGS: The lungs are clear. The heart and mediastinal structures are unremarkable. The visualized osseous structures are intact. XR/XR chest 1V IMPRESSION: No acute cardiopulmonary process <ELVIE Roach - Last Filed: 03/18/21 12:51> CT scan - head: Attestation: I personally reviewed and interpreted this imaging study as follows: <ELVIE Roach - Last Filed: 03/18/21 12:51> My impression: ? <ELVIE Roach - Last Filed: 03/18/21 12:51> Radiologist's impression: CT/CT cervical spine wo con IMPRESSION: No acute intracranial abnormality. <ELVIE Roach - Last Filed: 03/18/21 12:51> CT C-spine: Attestation: I personally reviewed and interpreted this imaging study as follows: <ELVIE Roach - Last Filed: 03/18/21 12:51> Radiologist's impression: CT/CT cervical spine wo con IMPRESSION: No acute intracranial abnormality. <ELVIE Roach - Last Filed: 03/18/21 12:51> ECG Data Attestation: I personally reviewed and interpreted this ECG as follows: <ELVIE Roach - Last Filed: 03/18/21 12:51> Prior ECG tracings: available for review <ELVIE Roach - Last Filed: 03/18/21 12:51> Interpretation: Ventricular rate of 63, QRS normal QT/QTC prolonged. EKG shows a normal sinus rhythm, first-degree AV block. No ST elevations or depressions. No acute ischemia. No significant changes when compared to previous EKG from 03/06/21. <ELVIE Roach - Last Filed: 03/18/21 12:51> Discharge Plan Discharge Clinical Impression: Hepatic encephalopathy, Falls frequently, CKD (chronic kidney disease) stage 3, GFR 30-59 ml/min, Physical deconditioning <ELVIE Roach Last Filed: 03/18/21 12:51> Patient Disposition: Admitted As Inpatient <ELVIE Roach Last Filed: 03/18/21 12:51>
[2021-03-18 10:47] LABS: MANUAL DIFF FLAG NO
[2021-03-18 10:49] LABS: Basophils Percent Auto 0.6 % (0-2); Eosinophils Absolute Auto 0.1 X10*3/uL (0.0-0.4); Hematocrit 21.5 % (42.0-52.0); Hemoglobin 7.2 g/dl (14.0-18.0); Imm Gran Abs Auto 0.01 X10*3/uL (0.00-0.03); Imm Gran Pct Auto 0.3 % (0.0-0.4); Lymphocytes Absolute Auto 0.5 X10*3/uL (1.2-4.9); Lymphocytes Percent Auto 15.1 % (20-40); Mean Corpuscular HGB Conc 33.5 g/dl (31.0-36.0); Mean Corpuscular Hemoglobin 29.8 pg (27.0-33.0); Mean Corpuscular Volume 88.8 fL (80.0-98.0); Monocytes Absolute Auto 0.3 X10*3/uL (0.1-1.2); Monocytes Percent Auto 9.3 % (2-11); Neutrophils Absolute Auto 2.5 x10*3/uL (2.0-8.3); Neutrophils Percent Auto 72.7 % (45-73); Red Blood Count 2.42 X10*6/uL (4.60-5.80); Red Cell Distribution Width 15.8 % (11.0-16.0); White Blood Count 3.5 X10*3/uL (4.8-10.8)
[2021-03-18 10:50] LABS: Appearance Urine CLEAR; Color Urine YELLOW; Glucose Urine UA NEG (NEG); Leukocyte Esterase Urine NEG (NEG); Nitrite Urine NEG (NEG); PH 6.5 (5.0-8.0); Urine Blood NEG (NEG); Urine Ketones NEG (NEG); Urine Protein NEG (NEG-TRACE)
[2021-03-18 10:56] LABS: Ammonia 88 umol/L (13-55); Platelet Count 51 X10*3/uL (160-400)
[2021-03-18 11:00] LABS: RBC Urine 0 /HPF (0); WBC Urine 0-2 /HPF (0-4)
[2021-03-18 11:02] LABS: COVID-19 Test Negative (Negative)
[2021-03-18 11:07] LABS: Lactic Acid 2.9 mmol/L (0.5-2.0)
[2021-03-18 11:13] LABS: Troponin-I High Sensitivity 41.3 ng/L (<3.5-35.0)
[2021-03-18 11:22] LABS: Ethanol < 10 mg/dL
[2021-03-18] MEDS: Lactulose 20 GM/30 ML SOLUTION 30 GM PO (11:26)
[2021-03-18 11:32] LABS: Acetaminophen LAB < 1 mcg/mL (<30); Alanine Aminotransferase 29 U/L (0-40); Albumin Level 3.6 g/dL (3.5-5.0); Alkaline Phosphatase 83 U/L (39-117); Anion Gap 14 (12-20); Aspartate Amino Transferase 29 U/L (5-37); Bilirubin Total 1.3 mg/dL (0.0-1.0); Blood Urea Nitrogen 44 mg/dL (9-16); Calcium 10.8 mg/dL (8.4-10.2); Carbon Dioxide 23 mmol/L (22-29); Chloride 107 mmol/L (96-108); Creatinine Clr Calc Pharmacy 23.4; Estimated Glomerular Filt Rate 28; Glucose Random 213 mg/dL (60-115); Lipase 51 U/L (8-78); Magnesium 2.3 mg/dL (1.6-2.6); Potassium 4.8 mmol/L (3.3-5.1); Sodium 139 mmol/L (135-145); Total Protein 5.8 g/dL (6.5-8.0)
[2021-03-18 11:40] LABS: Salicylate < 5.0 mg/dL (15-30)
[2021-03-18 11:41] LABS: INTERNATIONAL NORM RATIO 4.7 (0.9-1.1)
[2021-03-18 11:43] LABS: Partial Thromboplastin Time 48.2 SEC (24.1-38.0)
[2021-03-18 12:45] LABS: Reflex Lactate? Lactic Acid Added
--- NOTE | 2021-03-18 12:55 | MHC.CARE ---
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
--- NOTE | 2021-03-18 13:32 | PM.IMHP ---
History of Present Illness Date of Service: 03/18/21 Attending physician on admission: Roberto Vogt Chief Complaint: Brought in on section 12 for suicidal ideation This is a 75-year-old Cuban-speaking male with multiple medical problems including alcoholic liver cirrhosis with multiple recent admissions for hepatic encephalopathy. Most recently he was admitted on March 09 and discharged on March 22 for hepatic encephalopathy. At that time physical therapy recommended short-term rehab but family elected to take him home. He was brought in to the hospital today for evaluation for supposedly suicidal comments. He threatened to throw himself down the stairs but his daughter states that he did not do it. When questioned now he denies any suicidal ideation. He had imaging and lab work done which was all primarily at his baseline with the exception of an ammonia level of 88. He was given a dose of lactulose and the decision was made to readmit him for further management of hepatic encephalopathy. Review of Systems Review of Systems: Yes all other systems are reviewed and are negative Constitutional: Constitutional: Denies chills and Denies fever(s) Cardiovascular: Cardiovascular: Denies chest pain Respiratory: Respiratory: Denies cough Neurologic: Reports confusion Psychiatric: Psychiatric: Reports confusion [facility] Medical History JACOB (acute kidney injury) JACOB (acute kidney injury) Ascites Cirrhosis of liver CKD (chronic kidney disease) stage 3, GFR 30-59 ml/min COVID-19 Diabetes Elevated INR Esophageal varices Esophageal varices determined by endoscopy GERD (gastroesophageal reflux disease) Hepatic encephalopathy Hypertension Portal vein thrombosis Thrombocytopenia Vitamin D deficiency Functional capacity: independent ambulation Family History Father Diabetes HTN (hypertension) Mother Diabetes Sister Cancer Surgical History Hx of colonoscopy Hx of endoscopy Hx of inguinal hernia repair Social History Household Members: Spouse Housing: Apartment Do you presently have visiting nurse or other home services: No Alcohol intake: unknown Patient Tobacco Use Status: Never used Tobacco Advance Directives: Yes Advance Directives on File: Yes Advance Directives Date on File: 10/26/21 service: No Current occupational status: retired Meds Allergies Allergy/AdvReac Type Severity Reaction Status Date / Time No Known Allergies Allergy Verified 01/23/21 10:24 Active Medications: Current Medications Albuterol Sulfate (Albuterol Sulfate (0.083%) 2.5 Mg/3 Ml Vial.Neb) mg INHALE Q6H PRN PRN Reason: Shortness Of Breath Docusate Sodium (Docusate Sodium 100 Mg Capsule) 100 mg PO DAILY PRN PRN Reason: Constipation Lactulose (Lactulose 20 Gm/30 Ml Solution) 20 gm PO TID [facility] Loratadine (Loratadine 10 Mg Tablet) 10 mg PO DAILY [facility] Midodrine (Midodrine Hcl 2.5 Mg Tablet) 2.5 mg PO BID [facility] Montelukast Sodium (Montelukast Sodium 10 Mg Tablet) 10 mg PO BEDTIME [facility] Multivitamins/Vitamin C (Multivitamin Tablet) 1 tab PO DAILY [facility] Non-Formulary Medication (Citalopram) 10 mg PO DAILY [facility] Non-Formulary Medication (Melatonin-L[place] Extr) 1 tab PO BEDTIME [facility] Non-Formulary Medication (Fluticasone Propionate [Flovent Hfa]) 2 puff PO BID [facility] Omeprazole (Omeprazole 20 Mg Capsule.Dr) 20 mg PO BID [facility] Pharmacy Consult (Consult Rx Perform Med Rec) 1 each MISCELLANE ONCE PRN PRN Reason: Consult order Rifaximin (Rifaximin 550 Mg Tablet) 550 mg PO BID [facility] Rivaroxaban (Rivaroxaban 20 Mg Tablet) 20 mg PO DAILY [facility] Sodium Chloride (0.9 % Sodium Chloride Flush 3 Ml Syringe) 3 ml IVFLUSH QSHIFT [facility] Spironolactone (Spironolactone 25 Mg Tablet) 25 mg PO DAILY [facility]; Protocol Trazodone HCl (Trazodone Hcl 25 Mg Halftab) 25 mg PO BEDTIME PRN PRN Reason: insomnia Vitamin D (Cholecalciferol (Vitamin D3) 25 Mcg Tablet) 50 mcg PO DAILY [facility] Home Medications Medication Instructions Recorded Confirmed Last Taken Type fluticasone propionate 220 2 puff PO BID 04/08/20 03/18/21 01/04/21 History mcg/actuation HFA aerosol inhaler (Flovent HFA) loratadine 10 mg tablet 1 tab PO DAILY 04/08/20 03/18/21 01/04/21 History montelukast 10 mg tablet 1 tab PO BEDTIME 04/08/20 03/18/21 01/03/21 History multivitamin (Daily-Arlene) 1 tab PO DAILY 04/08/20 03/18/21 01/04/21 History citalopram 10 mg tablet 10 mg PO DAILY 06/01/20 03/18/21 01/04/21 History rivaroxaban 20 mg tablet (Xarelto) 20 mg PO DAILY 06/01/20 03/18/21 01/04/21 History lactulose 10 gram/15 mL oral 30 ml PO TID 01/04/21 03/18/21 01/04/21 History solution spironolactone 25 mg tablet 25 mg PO DAILY 01/04/21 03/18/21 01/04/21 History albuterol sulfate 3 ml INHALATION Q6H PRN 03/06/21 03/18/21 Unknown History melatonin 10 mg-lemon balm leaf 1 tab PO BEDTIME 03/18/21 03/18/21 Unknown History extract 1 mg tablet Physical Exam Vital Signs and Narrative: Vital Signs: Last Vital Signs Temp 98 F 03/18/21 12:19 Pulse 55 03/18/21 12:19 Resp 17 03/18/21 12:19 BP 106/43 L 03/18/21 12:19 Pulse Ox 100 03/18/21 12:19 Body Mass Index 25.2 Const: General: alert, awake and confusion Nutritional Appearance: thin Orientation/consciousness: confusion HENMT: Head: Yes normocephalic and Yes atraumatic Eyes: Sclerae: sclerae normal Pupils: Equal, round and reactive pupils present Resp: Effort & Inspection: normal respiratory effort and no respiratory distress Cardio: Rate: bradycardic Rhythm: regular rhythm Heart sounds: S1 normal heart sound present and S2 normal heart sound present GI: Other: mild tenderness to palpation lower abdomen Inspection: No distended Palpation (GI): Soft to palpation and nontender Skin: Other: ecchymosis b/l arms; both forearms wrapped in clean dressings for skin tears Neuro: Other: + asterixis General: confusion Cranial nerves: Yes CN's II-XII intact bilaterally, Yes Equal, round and reactive pupils present and Yes Bilaterally intact EOM present Extrem: Other: no leg edema Results Labs CBC and Chem 7: 03/18/21 10:41 03/18/21 10:41 Labs: Laboratory Results - last 24 hr 03/18/21 03/18/21 03/18/21 10:41 10:41 10:41 MCV 88.8 MCH 29.8 MCHC 33.5 RDW 15.8 Plt Count 51 L MPV 9.0 L Immature Gran % (Auto) 0.3 Neut % (Auto) 72.7 Lymph % (Auto) 15.1 L [place] % (Auto) 9.3 Eos % (Auto) 2.0 Baso % (Auto) 0.6 Lymph # (Auto) 0.5 L [place] # (Auto) 0.3 Eos # (Auto) 0.1 Baso # (Auto) 0.0 Abs Immat Gran (auto) 0.01 Absolute Neuts (auto) 2.5 Absolute Nucleated RBC 0.000 Nucleated RBC % (auto) 0.0 PT INR APTT Anion Gap 14 Estim Creat Clear Calc 23.4 Estimated GFR 28 Random Glucose 213 H D Lactic Acid Calcium 10.8 H Magnesium 2.3 Total Bilirubin 1.3 H AST 29 D ALT 29 Alkaline Phosphatase 83 D Ammonia Total Creatine Kinase 70 Troponin I High Sens 41.3 H* D Total Protein 5.8 L Albumin 3.6 Lipase 51 Urine Color Urine Appearance Urine pH Ur Specific [place] Urine Protein Urine Glucose (UA) Urine Ketones Urine Blood Urine Nitrite Ur Leukocyte Esterase Urine RBC Urine WBC Ur Squamous Epith Cells Urine Bacteria Salicylates < 5.0 L Acetaminophen < 1 Ethyl Alcohol COVID-19 ([facility]) COVID-19 Clin Com 03/18/21 03/18/21 03/18/21 10:41 10:41 10:41 MCV MCH MCHC RDW Plt Count MPV Immature Gran % (Auto) Neut % (Auto) Lymph % (Auto) [place] % (Auto) Eos % (Auto) Baso % (Auto) Lymph # (Auto) [place] # (Auto) Eos # (Auto) Baso # (Auto) Abs Immat Gran (auto) Absolute Neuts (auto) Absolute Nucleated RBC Nucleated RBC % (auto) PT INR APTT Anion Gap Estim Creat Clear Calc Estimated GFR Random Glucose Lactic Acid Calcium Magnesium Total Bilirubin AST ALT Alkaline Phosphatase Ammonia 88 H Total Creatine Kinase Troponin I High Sens Total Protein Albumin Lipase Urine Color Urine Appearance Urine pH Ur Specific [place] Urine Protein Urine Glucose (UA) Urine Ketones Urine Blood Urine Nitrite Ur Leukocyte Esterase Urine RBC Urine WBC Ur Squamous Epith Cells Urine Bacteria Salicylates Acetaminophen Ethyl Alcohol < 10 COVID-19 ([facility]) Negative COVID-19 Clin Com See Note 03/18/21 03/18/21 03/18/21 10:41 10:41 11:24 MCV MCH MCHC RDW Plt Count MPV Immature Gran % (Auto) Neut % (Auto) Lymph % (Auto) [place] % (Auto) Eos % (Auto) Baso % (Auto) Lymph # (Auto) [place] # (Auto) Eos # (Auto) Baso # (Auto) Abs Immat Gran (auto) Absolute Neuts (auto) Absolute Nucleated RBC Nucleated RBC % (auto) PT 55.0 H INR 4.7 H D APTT 48.2 H D Anion Gap Estim Creat Clear Calc Estimated GFR Random Glucose Lactic Acid 2.9 H* Calcium Magnesium Total Bilirubin AST ALT Alkaline Phosphatase Ammonia Total Creatine Kinase Troponin I High Sens Total Protein Albumin Lipase Urine Color YELLOW Urine Appearance CLEAR Urine pH 6.5 Ur Specific [place] 1.010 Urine Protein NEG Urine Glucose (UA) NEG Urine Ketones NEG Urine Blood NEG Urine Nitrite NEG Ur Leukocyte Esterase NEG Urine RBC 0 Urine WBC 0-2 Ur Squamous Epith Cells NONE Urine Bacteria NONE Salicylates Acetaminophen Ethyl Alcohol COVID-19 ([facility]) COVID-19 Clin Com Imaging Radiologist's Impressions: Impressions Head CT 03/18/21 09:31 IMPRESSION: No acute intracranial abnormality. Cervical Spine CT 03/18/21 09:32 IMPRESSION: No acute intracranial abnormality. Chest X-Ray 03/18/21 09:33 IMPRESSION: No acute cardiopulmonary process. 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 No active bleeding noted Follow CBC Continue spironolactone, Xifaxan, midodrine history of DM A1c 5.1, may be inaccurate given anemia not on home meds follow POCs, if elevated add SSI CKD III-IV Creatinine within baseline stable, monitor Portal vein thrombosis continue xarelto may need to consider alternative given level of renal dysfunction Mood Continue Lexapro mild intermittent asthma singulair, albuterol prn dvt ppx - xarelto code status - full code attendign - dr. vogt Quality Stroke Does the patient have a stroke diagnosis?: No VTE Prior VTE?: No VTE Risk Level:: Medical - moderate - high VTE Device Contraindication: Treatment Not Indicated VTE Drug Contraindication: N/A - Med Ordered
[2021-03-18] MEDS: 0.9 % Sodium Chloride 1,000 ML 999 ML IV (13:46)
[2021-03-18 13:51] LABS: Troponin-I High Sensitivity 38.1 ng/L (<3.5-35.0)
[2021-03-18 14:05] LABS: Cancel Lactic Acid Canceled
[2021-03-18] MEDS: Phytonadione (Vit K1) Oral 10 MG/ML AMPUL 5 MG PO (14:33)
[2021-03-18] MEDS: Midodrine HCl 2.5 MG TABLET PO (16:29)
[2021-03-18] MEDS: Omeprazole 20 MG CAPSULE.DR PO (16:29)
[2021-03-18] MEDS: Lactulose 20 GM/30 ML SOLUTION PO ×2 (16:29→22:56)
[2021-03-18 16:33] LABS: Glucose, Whole Blood 106 mg/dL (60-115)
[2021-03-18 22:04] LABS: Glucose, Whole Blood 130 mg/dL (60-115)
[2021-03-18] MEDS: Montelukast Sodium 10 MG TABLET PO (22:57)
[2021-03-18] MEDS: rifAXIMin 550 MG TABLET PO (22:57)
[2021-03-18] MEDS: Fluticasone Propionate 250 MCG BLST.W.DEV 2 PUFF INHALE (22:58)
--- NOTE | 2021-03-19 02:34 | PC.NURSE ---
This pct was sitting with this patient noticed this pt was voided small amounts very frequent with him, I told the nurse that had him, I bladder scanned this patient post void pt still had 402ml. I told Kristian the RN I said do you want me to let know which I did she said she would put n order to put a flannery catheter in. I told Kristian that I attemted to place a 16 flannery nepali with resisitance so I tod him,I let know she asked if could place a [place] which he did with know issues.
[2021-03-19] MEDS: Lidocaine HCl 2 % Urojet 10 ML JEL.PF.APP TOPICAL (03:07)
[2021-03-19] MEDS: traZODone HCL 25 MG HALFTAB PO (04:09)
[2021-03-19 05:49] VITALS: BP 140/66; PULSE 66; RESP 16; TEMP 36.7; O2SAT 97
[2021-03-19] MEDS: Omeprazole 20 MG CAPSULE.DR PO (06:50)
[2021-03-19 07:06] LABS: Mean Corpuscular Hemoglobin 29.2 pg (27.0-33.0); Mean Corpuscular Volume 88.4 fL (80.0-98.0); Mean Platelet Volume 9.5 fL (9.4-12.4); Red Blood Count 2.33 X10*6/uL (4.60-5.80); White Blood Count 2.6 X10*3/uL (4.8-10.8)
[2021-03-19 07:12] LABS: INTERNATIONAL NORM RATIO 2.5 (0.9-1.1); Prothrombin Time 29.5 SEC (9.9-13.0)
[2021-03-19 07:15] LABS: Hematocrit 20.6 % (42.0-52.0); Hemoglobin 6.8 g/dl (14.0-18.0); Platelet Count 48 X10*3/uL (160-400)
[2021-03-19 07:20] LABS: Ammonia 53 umol/L (13-55)
[2021-03-19 07:26] LABS: Anion Gap 12 (12-20); Blood Urea Nitrogen 38 mg/dL (9-16); Calcium 10.7 mg/dL (8.4-10.2); Carbon Dioxide 23 mmol/L (22-29); Chloride 111 mmol/L (96-108); Creatinine Clr Calc Pharmacy 25.3; Estimated Glomerular Filt Rate 31; Glucose Random 116 mg/dL (60-115); Potassium 4.6 mmol/L (3.3-5.1); Sodium 141 mmol/L (135-145)
[2021-03-19 07:59] LABS: Glucose, Whole Blood 98 mg/dL (60-115)
[2021-03-19 08:34] VITALS: BP 140/66; PULSE 77
[2021-03-19] MEDS: Fluticasone Propionate 250 MCG BLST.W.DEV 2 PUFF INHALE (08:34)
[2021-03-19] MEDS: Multivitamin TABLET 1 TAB PO (08:34)
[2021-03-19] MEDS: Cholecalciferol (Vitamin D3) 25 MCG TABLET 50 MCG PO (08:34)
[2021-03-19] MEDS: Midodrine HCl 2.5 MG TABLET PO (08:34)
[2021-03-19] MEDS: rifAXIMin 550 MG TABLET PO ×2 (08:34→21:40)
[2021-03-19] MEDS: Spironolactone 25 MG TABLET PO (08:34)
[2021-03-19] MEDS: Escitalopram Oxalate 5 MG TABLET PO (08:34)
[2021-03-19] MEDS: Loratadine 10 MG TABLET PO (08:35)
--- NOTE | 2021-03-19 09:03 | PC.NURSE ---
PT TOLERATED BREAKFAST, MEDS GIVEN WAITING ON BLOOD CONSENT TO GIVE RBC
[2021-03-19 10:37] VITALS: BP 123/55; PULSE 70; RESP 16; TEMP 36.9
[2021-03-19 10:54] VITALS: BP 157/75; PULSE 71; RESP 16; TEMP 36.6
[2021-03-19 13:47] VITALS: BP 156/81; PULSE 67; RESP 13; TEMP 36.6
[2021-03-19 13:59] LABS: Glucose, Whole Blood 134 mg/dL (60-115)
--- NOTE | 2021-03-19 14:43 | P.PNIM_ITS ---
Subjective Subjective Date of Service: 03/19/21 <ELVIE Magallanes - Last Filed: 03/19/21 14:58> 04/07/21 <Gonzalo Beckman MD - Last Filed: 04/07/21 16:28> Interval History: seen and examined this morning follow up for hepatic encephalopathy alert and oriented this morning no complaints at this time <ELVIE Magallanes - Last Filed: 03/19/21 14: 58> Review of Systems Review of Systems: Yes all other systems are reviewed and are negative <ELVIE Magallanes - Last Filed: 03/19/21 14:58> Constitutional Constitutional: Denies chills and Denies fever(s) <ELVIE Magallanes - Last Filed: 03/19/21 14:58> Cardiovascular Cardiovascular: Denies chest pain <ELVIE Magallanes - Last Filed: 03/19/21 14:58> Respiratory Respiratory: Denies cough <ELVIE Magallanes - Last Filed: 03/19/21 14:58> Gastrointestinal Gastrointestinal: Denies abdominal pain <ELVIE Magallanes - Last Filed: 03/19/21 14:58> Physical Exam Vital Signs: Vital Signs: Last Vital Signs Temp 97.9 F 03/19/21 13:47 Pulse 67 03/19/21 13:47 Resp 13 03/19/21 13:47 BP 156/81 H 03/19/21 13:47 Pulse Ox 97 03/19/21 05:49 Body Mass Index 25.2 <ELVIE Magallanes - Last Filed: 03/19/21 14:58> Const: General: comfortable, no acute distress, alert, awake and Physically active <ELVIE Magallanes - Last Filed: 03/19/21 14:58> Nutritional Appearance: thin <ELVIE Magallanes - Last Filed: 03/19/21 14:58> Orientation/consciousness: oriented to person and oriented to place <ELVIE Magallanes - Last Filed: 03/19/21 14:58> HENMT: Head: Yes normocephalic and Yes atraumatic <ELVIE Magallanes - Last Filed: 03/19/21 14:58> Eyes: Sclerae: sclerae normal <ELVIE Magallanes Last Filed: 03/19/21 14:58> Pupils: Equal, round and reactive pupils present <ELVIE Magallanes Last Filed: 03/19/21 14:58> Resp: Effort & Inspection: normal respiratory effort and no respiratory distress <ELVIE Magallanes Last Filed: 03/19/21 14:58> Cardio: Rate: regular rate <ELVIE Magallanes - Last Filed: 03/19/21 14:58> Rhythm: regular rhythm <ELVIE Magallanes Last Filed: 03/19/21 14:58> GI: Inspection: No distended <ELVIE Magallanes - Last Filed: 03/19/21 14:58> Palpation (GI): Soft to palpation and nontender <ELVIE Magallanes - Last Filed: 03/19/21 14:58> Skin: Other: ecchymosis b/l arms; both forearms wrapped in clean dressings for skin tears <ELVIE Magallanes Last Filed: 03/19/21 14:58> Neuro: General: oriented to person and oriented to place <ELVIE Magallanes Last Filed: 03/19/21 14:58> Cranial nerves: Yes CN's II-XII intact bilaterally, Yes Equal, round and reactive pupils present and Yes Bilaterally intact EOM present <ELVIE Magallanes Last Filed: 03/19/21 14:58> Extrem: Other: no leg edema <ELVIE Magallanes Last Filed: 03/19/21 14:58> Objective Data Active Medications Albuterol Sulfate (Albuterol Sulfate (0.083%) 2.5 Mg/3 Ml Vial.Neb) 2.5 mg INHALE Q6H PRN PRN Reason: Shortness Of Breath Dextrose (Dextrose 50 % 25 Gm/50 Ml Vial) 25 gm IVPUSH Q15M PRN; Protocol PRN Reason: per Hypoglycemia Standing Ord. Docusate Sodium (Docusate Sodium 100 Mg Capsule) 100 mg PO DAILY PRN PRN Reason: Constipation Escitalopram Oxalate (Escitalopram Oxalate 5 Mg Tablet) 5 mg PO DAILY [facility] Last Admin: 03/19/21 08:34 Dose: 5 mg Documented by: JERMAINE Fluticasone Propionate (Fluticasone Propionate 250 Mcg Blst.W.Dev) 2 puff INHALE BID [facility] Last Admin: 03/19/21 08:34 Dose: 2 puff Documented by: JERMAINE Glucose (Glucose Gel 15 Gm Gel..Gram.) 15 gm PO Q15M PRN; Protocol PRN Reason: per Hypoglycemia Standing Ord. Lactulose (Lactulose 20 Gm/30 Ml Solution) 20 gm PO TID [facility] Last Admin: 03/19/21 08:35 Dose: Not Given Documented by: JERMAINE Non-Admin Reason: Medication Discontinued Loratadine (Loratadine 10 Mg Tablet) 10 mg PO DAILY [facility] Last Admin: 03/19/21 08:35 Dose: 10 mg Documented by: JERMAINE Midodrine (Midodrine Hcl 2.5 Mg Tablet) 2.5 mg PO BID@0800,1700 [facility] Last Admin: 03/19/21 08:34 Dose: 2.5 mg Documented by: JERMAINE Montelukast Sodium (Montelukast Sodium 10 Mg Tablet) 10 mg PO BEDTIME [facility] Last Admin: 03/18/21 22:57 Dose: 10 mg Documented by: MELISSA Multivitamins/Vitamin C (Multivitamin Tablet) 1 tab PO DAILY [facility] Last Admin: 03/19/21 08:34 Dose: 1 tab Documented by: JERMAINE Omeprazole (Omeprazole 20 Mg Priscila.) 20 mg PO BID@0630,1630 [facility] Last Admin: 03/19/21 06:50 Dose: 20 mg Documented by: MELISSA Pharmacy Consult (Consult Rx Perform Med Rec) 1 each MISCELLANE ONCE PRN PRN Reason: Consult order Rifaximin (Rifaximin 550 Mg Tablet) 550 mg PO BID [facility] Last Admin: 03/19/21 08:34 Dose: 550 mg Documented by: JERMAINE Rivaroxaban (Rivaroxaban 20 Mg Tablet) 20 mg PO DAILY@1700 [facility] Sodium Chloride (0.9 % Sodium Chloride Flush 3 Ml Syringe) 3 ml IVFLUSH QSHIFT [facility] Last Admin: 03/19/21 09:02 Dose: Not Given Documented by: JERMAINE Non-Admin Reason: IV Running Spironolactone (Spironolactone 25 Mg Tablet) 25 mg PO DAILY [facility]; Protocol Last Admin: 03/19/21 08:34 Dose: 25 mg Documented by: JERMAINE Trazodone HCl (Trazodone Hcl 25 Mg Halftab) 25 mg PO BEDTIME PRN PRN Reason: insomnia Last Admin: 03/19/21 04:09 Dose: 25 mg Documented by: MELISSA Vitamin D (Cholecalciferol (Vitamin D3) 25 Mcg Tablet) 50 mcg PO DAILY [facility] Last Admin: 03/19/21 08:34 Dose: 50 mcg Documented by: JERMAINE <ELVIE Magallanes - Last Filed: 03/19/21 14:58> Labs CBC & Chem 7: : 03/26/21 06:13 03/26/21 06:13 <ELVIE Magallanes - Last Filed: 03/19/21 14:58> Labs: Laboratory Results - last 24 hr 03/18/21 03/18/21 03/19/21 16:28 21:55 06:50 MCV 88.4 MCH 29.2 MCHC 33.0 RDW 16.0 Plt Count 48 L MPV 9.5 Absolute Nucleated RBC 0.000 Nucleated RBC % (auto) 0.0 Smear Path Review SEE NOTE PT INR Anion Gap Estim Creat Clear Calc Estimated GFR POC Glucose 106 130 H Random Glucose Calcium Ammonia Blood Type Antibody Screen Crossmatch 03/19/21 03/19/21 03/19/21 06:50 06:50 06:50 MCV MCH MCHC RDW Plt Count MPV Absolute Nucleated RBC Nucleated RBC % (auto) Smear Path Review PT 29.5 H INR 2.5 H D Anion Gap 12 Estim Creat Clear Calc 25.3 Estimated GFR 31 POC Glucose Random Glucose 116 H D Calcium 10.7 H Ammonia 53 Blood Type Antibody Screen Crossmatch 03/19/21 03/19/21 03/19/21 07:55 08:14 13:52 MCV MCH MCHC RDW Plt Count MPV Absolute Nucleated RBC Nucleated RBC % (auto) Smear Path Review PT INR Anion Gap Estim Creat Clear Calc Estimated GFR POC Glucose 98 134 H Random Glucose Calcium Ammonia Blood Type O Positive Antibody Screen NEGATIVE Crossmatch See Detail <ELVIE Magallanes - Last Filed: 03/19/21 14:58> Microbiology Microbiology Results: Microbiology 03/18/21 10:46 Blood Culture - Preliminary Blood - Venous No growth after 24 hours. 03/18/21 10:41 Blood Culture - Preliminary Blood - Venous No growth after 24 hours. <ELVIE Magallanes - Last Filed: 03/19/21 14:58> Assessment and Plan (1) Hepatic encephalopathy: Status: Acute <ELVIE Magallanes - Last Filed: 03/19/21 14:58> (2) Portal vein thrombosis: (3) CKD (chronic kidney disease) stage 3, GFR 30-59 ml/min: Status: Acute <ELVIE Magallanes - Last Filed: 03/19/21 14:58> (4) Hepatorenal syndrome: Status: Acute <ELVIE Magallanes - Last Filed: 03/19/21 14:58> Assessment and Plan: This is a 75-year-old Kinyarwanda-speaking male with a history of alcoholic liver cirrhosis with pancytopenia and esophageal varices, diabetes, portal vein thrombosis anticoagulated with Xarelto, hypertension, CKD 3, recent admission her for hepatic encephalopathy who was brought to the emergency department by EMS on section 12 due to suicidal ideation found to have hepatic encephalopathy Recurrent hepatic encephalopathy. improving. 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 No active bleeding noted Follow CBC Continue spironolactone, Xifaxan, midodrine history of DM A1c 5.1, may be inaccurate given anemia not on home meds follow POCs, if elevated add SSI CKD III-IV Creatinine within baseline stable, monitor Portal vein thrombosis continue xarelto may need to consider alternative given level of renal dysfunction Mood Continue Lexapro mild intermittent asthma singulair, albuterol prn dvt ppx - xarelto code status - full code attendign - dr. beckman dispo: PT eval ordered; family wishes for pt o go to [facility] upon discharge; unable to care for him at home <ELVIE Magallanes - Last Filed: 03/19/21 14:58> This is a 75-year-old Kinyarwanda-speaking male with a history of alcoholic liver cirrhosis with pancytopenia and esophageal varices, diabetes, portal vein thrombosis anticoagulated with Xarelto, hypertension, CKD 3, recent admission her for hepatic encephalopathy who was brought to the emergency department by EMS on section 12 due to suicidal ideation found to have hepatic encephalopathy Recurrent hepatic encephalopathy. improving. 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 No active bleeding noted Follow CBC Continue spironolactone, Xifaxan, midodrine history of DM A1c 5.1, may be inaccurate given anemia not on home meds follow POCs, if elevated add SSI CKD III-IV Creatinine within baseline stable, monitor Portal vein thrombosis continue xarelto may need to consider alternative given level of renal dysfunction Mood Continue Lexapro mild intermittent asthma singulair, albuterol prn dvt ppx - xarelto code status - full code attendign - dr. beckman dispo: PT eval ordered; family wishes for pt o go to [facility] upon discharge; unable to care for him at home I saw patient and discussed finding with midlevel provider and i agree with the above <Gonzalomarily Beckman MD - Last Filed: 04/07/21 16:28> Quality Stroke Does the patient have a stroke diagnosis?: No <ELVIE Magallanes - Last Filed: 03/19/21 14:58> VTE Prior VTE?: No <ELVIE Magallanes - Last Filed: 03/19/21 14:58> VTE Risk Level:: Medical - moderate - high <ELVIE Magallanes - Last Filed: 03/19/21 14:58> VTE Device Contraindication: Treatment Not Indicated <ELVIE Magallanes - Last Filed: 03/19/21 14:58> VTE Drug Contraindication: N/A - Med Ordered <ELVIE Magallanes - Last Filed: 03/19/21 14:58>
[2021-03-19] MEDS: Lactulose 20 GM/30 ML SOLUTION PO ×2 (15:42→21:40)
[2021-03-19] MEDS: Rivaroxaban 20 MG TABLET PO (18:35)
[2021-03-19 18:45] VITALS: BMI 25.2
[2021-03-19 19:53] VITALS: BP 154/68; PULSE 65; RESP 18; TEMP 36.6; O2SAT 92
[2021-03-19] MEDS: Montelukast Sodium 10 MG TABLET PO (21:40)
[2021-03-19] MEDS: 0.9 % Sodium Chloride Flush 3 ML SYRINGE IVFLUSH (21:41)
[2021-03-20] VITALS (14 sets, daily range): BP systolic 105–143; BP diastolic 52–65; PULSE 57–74; RESP 14–20; TEMP 36.4–37.7; O2SAT 98–100
--- NOTE | 2021-03-20 | ECG_ITS ---
Test Reason : av block on tele Blood Pressure : / mmHG Vent. Rate : 058 BPM Atrial Rate : 077 BPM P-R Int : 000 ms QRS Dur : 084 ms QT Int : 424 ms P-R-T Axes : 029 -04 024 degrees QTc Int : 416 ms Sinus rhythm with 2nd degree A-V block (Mobitz I) Nonspecific ST and T wave abnormality Abnormal ECG with 2nd degree SA block (Mobitz I) is new Referred By: Isreal Galvan Electronically Signed By:BRIAN FLORES MD
--- NOTE | 2021-03-20 05:30 | MHC.PIE ---
JIMY 1 I.NOTED ON TELEMETRY TO BE IN MOBITZ 1 [place] AT TIMES WITH HR IN THE 40'S.ASYMPTOMATIC.BP 120/58. NOTIFIED.STAT EKG DONE.CARDIO CONSULT ORDERED. E.CONT TO MONITOR
--- NOTE | 2021-03-20 05:32 | PM.EVENT ---
Event Note Date of Service: 04/02/21 Event Note: Bradycardia: pt asymptomatic; Tele concerning for Mobitz 1 block; Cardiology consult.
[2021-03-20] MEDS: Omeprazole 20 MG CAPSULE.DR PO ×2 (06:01→17:21)
[2021-03-20 06:39] LABS: Hemoglobin 7.7 g/dl (14.0-18.0); Mean Corpuscular HGB Conc 33.5 g/dl (31.0-36.0); Mean Corpuscular Hemoglobin 29.4 pg (27.0-33.0); Mean Corpuscular Volume 87.8 fL (80.0-98.0); Mean Platelet Volume 10.1 fL (9.4-12.4); Red Blood Count 2.62 X10*6/uL (4.60-5.80); Red Cell Distribution Width 15.7 % (11.0-16.0)
[2021-03-20 06:48] LABS: Platelet Count 46 X10*3/uL (160-400); White Blood Count 2.5 X10*3/uL (4.8-10.8)
[2021-03-20 07:08] LABS: Anion Gap 9 (12-20); Blood Urea Nitrogen 38 mg/dL (9-16); Calcium 10.5 mg/dL (8.4-10.2); Carbon Dioxide 26 mmol/L (22-29); Chloride 111 mmol/L (96-108); Creatinine Clr Calc Pharmacy 24.4; Estimated Glomerular Filt Rate 29; Glucose Random 95 mg/dL (60-115); Potassium 4.7 mmol/L (3.3-5.1); Sodium 141 mmol/L (135-145)
[2021-03-20 07:24] LABS: Glucose, Whole Blood 84 mg/dL (60-115)
--- NOTE | 2021-03-20 07:30 | P.CDIC_ITS ---
CDI Concurrent Query Documentation Clarification: PHYSICIAN'S DOCUMENTATION REQUEST Date of Query: 03/20/2131 Patient Name: Anthony Quesada Admit Date: 03/18/21 Dear Doctor, A review of the medical record indicates additional documentation may be needed. Please review below and update the documentation accordingly. Clinical Indicators: Risk Factors/Clinical Indicators/Treatments Discharged on 03/14/21 with Hepatic Encephalopathy Per ED note 03/19/21: Hepatic Encephalopathy Per H&P: Recurrent Hepatic Encephalopathy Based on the above, please further specify, in the Progress Notes, the known or suspected type of the documented encephalopathy: * Hepatic (reported as hepatic failure and needs further specificity as to acute, subacute, or chronic) * Other (please specify) * Unable to determine Use of terms such as suspected, likely, concern for, or probable (associated with a specific diagnosis that is being evaluated, monitored, or treated as if it exists) are acceptable and can be coded in the inpatient setting, when documented at the time of discharge. Thank you, Zaida Plascencia RN Extension: [phone] Please use your independent medical judgment in providing your response. THIS QUERY IS PART OF THE PERMANENT MEDICAL RECORD Provider Response: Other Other Diagnosis: acute on chronic hepatic encephalopathy
[2021-03-20] MEDS: rifAXIMin 550 MG TABLET PO ×2 (08:01→22:00)
[2021-03-20] MEDS: Spironolactone 25 MG TABLET PO (08:01)
[2021-03-20] MEDS: Loratadine 10 MG TABLET PO (08:01)
[2021-03-20] MEDS: Escitalopram Oxalate 5 MG TABLET PO (08:01)
[2021-03-20] MEDS: Lactulose 20 GM/30 ML SOLUTION PO ×3 (08:02→22:00)
[2021-03-20] MEDS: Multivitamin TABLET 1 TAB PO (08:02)
[2021-03-20] MEDS: Cholecalciferol (Vitamin D3) 25 MCG TABLET 50 MCG PO (08:02)
[2021-03-20] MEDS: 0.9 % Sodium Chloride Flush 3 ML SYRINGE IVFLUSH ×3 (08:02→22:00)
--- NOTE | 2021-03-20 09:44 | PM.CNCAR ---
History of Present Illness History of Present Illness Date of Service: 03/20/21 Chief complaint: hepatic encephalopathy Narrative: This is a cardiology consultation regarding heart block. It seems that second-degree heart block was noticed by overnight hospitalist and hence we have been asked to see the patient. Patient himself has multiple medical issues including cirrhosis of the liver, recent hospitalization for hepatic encephalopathy, thrombocytopenia, renal insufficiency among others. He denies any cardiac history like coronary disease or myocardial infarction but not clear how much we can rely on his information. In any case when I questioned him regarding chest pain or shortness of breath or any cardiac symptoms he denies them. Review of Systems Review of Systems: Yes all other systems are reviewed and are negative Cardiovascular: Cardiovascular: Reports as per HPI, Reports no additional cardiovascular complaints, Denies acrocyanosis, Denies cool extremities, Denies painful fingertips, Denies chest pain, Denies chest pain at rest, Denies diaphoresis, Denies syncope, Denies irregular heart rhythm, Denies claudication, Denies leg edema, Denies lightheadedness, Denies palpitations and Denies dyspnea Respiratory: Respiratory: Denies dyspnea Neurologic: Denies syncope Endocrine: Endocrine: Denies palpitations [facility] Past Medical History Medical History (Updated 03/20/21 @ 09:49 by Sy Joseph MD) JACOB (acute kidney injury) JACOB (acute kidney injury) Ascites Cirrhosis of liver CKD (chronic kidney disease) stage 3, GFR 30-59 ml/min COVID-19 Diabetes Elevated INR Esophageal varices Esophageal varices determined by endoscopy GERD (gastroesophageal reflux disease) Hepatic encephalopathy Hypertension Portal vein thrombosis Thrombocytopenia Vitamin D deficiency Functional capacity: independent ambulation Family History Family History Father Diabetes HTN (hypertension) Mother Diabetes Sister Cancer Surgical History Surgical History Hx of colonoscopy Hx of endoscopy Hx of inguinal hernia repair Social History Social History Household Members: Spouse Housing: House Do you presently have visiting nurse or other home services: Yes Unable to assess alcohol history related to: Unknown Alcohol intake: unknown Patient Tobacco Use Status: Never used Tobacco Advance Directives Date on File: 03/06/21 service: No Current occupational status: retired Meds Allergies Allergy/AdvReac Type Severity Reaction Status Date / Time No Known Allergies Allergy Verified 01/23/21 10:24 Active Medications: Current Medications Albuterol Sulfate (Albuterol Sulfate (0.083%) 2.5 Mg/3 Ml Vial.Neb) 2.5 mg INHALE Q6H PRN PRN Reason: Shortness Of Breath Dextrose (Dextrose 50 % 25 Gm/50 Ml Vial) 25 gm IVPUSH Q15M PRN; Protocol PRN Reason: per Hypoglycemia Standing Ord. Docusate Sodium (Docusate Sodium 100 Mg Capsule) 100 mg PO DAILY PRN PRN Reason: Constipation Escitalopram Oxalate (Escitalopram Oxalate 5 Mg Tablet) 5 mg PO DAILY [facility] Last Admin: 03/20/21 08:01 Dose: 5 mg Documented by: Fluticasone Propionate (Fluticasone Propionate 250 Mcg Blst.W.Dev) 2 puff INHALE BID [facility] Last Admin: 03/20/21 08:50 Dose: Not Given Documented by: Glucose (Glucose Gel 15 Gm Gel..Gram.) 15 gm PO Q15M PRN; Protocol PRN Reason: per Hypoglycemia Standing Ord. Lactulose (Lactulose 20 Gm/30 Ml Solution) 20 gm PO TID [facility] Last Admin: 03/20/21 08:02 Dose: 20 gm Documented by: Loratadine (Loratadine 10 Mg Tablet) 10 mg PO DAILY [facility] Last Admin: 03/20/21 08:01 Dose: 10 mg Documented by: Midodrine (Midodrine Hcl 2.5 Mg Tablet) 2.5 mg PO BID@0800,1700 [facility] Last Admin: 03/20/21 08:02 Dose: Not Given Documented by: Montelukast Sodium (Montelukast Sodium 10 Mg Tablet) 10 mg PO BEDTIME [facility] Last Admin: 03/19/21 21:40 Dose: 10 mg Documented by: Multivitamins/Vitamin C (Multivitamin Tablet) 1 tab PO DAILY [facility] Last Admin: 03/20/21 08:02 Dose: 1 tab Documented by: Omeprazole (Omeprazole 20 Mg Capsule.) 20 mg PO BID@0630,1630 [facility] Last Admin: 03/20/21 06:01 Dose: 20 mg Documented by: Pharmacy Consult (Consult Rx Perform Med Rec) 1 each MISCELLANE ONCE PRN PRN Reason: Consult order Rifaximin (Rifaximin 550 Mg Tablet) 550 mg PO BID [facility] Last Admin: 03/20/21 08:01 Dose: 550 mg Documented by: Rivaroxaban (Rivaroxaban 20 Mg Tablet) 20 mg PO DAILY@1700 [facility] Last Admin: 03/19/21 18:35 Dose: 20 mg Documented by: Sodium Chloride (0.9 % Sodium Chloride Flush 3 Ml Syringe) 3 ml IVFLUSH QSHIFT [facility] Last Admin: 03/20/21 08:02 Dose: 3 ml Documented by: Spironolactone (Spironolactone 25 Mg Tablet) 25 mg PO DAILY [facility]; Protocol Last Admin: 03/20/21 08:01 Dose: 25 mg Documented by: Trazodone HCl (Trazodone Hcl 25 Mg Halftab) 25 mg PO BEDTIME PRN PRN Reason: insomnia Last Admin: 03/19/21 04:09 Dose: 25 mg Documented by: Vitamin D (Cholecalciferol (Vitamin D3) 25 Mcg Tablet) 50 mcg PO DAILY [facility] Last Admin: 03/20/21 08:02 Dose: 50 mcg Documented by: Home Medications Medication Instructions Recorded Confirmed Last Taken Type fluticasone propionate 220 2 puff PO BID 04/08/20 03/18/21 01/04/21 History mcg/actuation HFA aerosol inhaler (Flovent HFA) loratadine 10 mg tablet 1 tab PO DAILY 04/08/20 03/18/21 01/04/21 History montelukast 10 mg tablet 1 tab PO BEDTIME 04/08/20 03/18/21 01/03/21 History multivitamin (Daily-Arlene) 1 tab PO DAILY 04/08/20 03/18/21 01/04/21 History citalopram 10 mg tablet 10 mg PO DAILY 06/01/20 03/18/21 01/04/21 History rivaroxaban 20 mg tablet (Xarelto) 20 mg PO DAILY 06/01/20 03/18/21 01/04/21 History lactulose 10 gram/15 mL oral 30 ml PO TID 01/04/21 03/18/21 01/04/21 History solution spironolactone 25 mg tablet 25 mg PO DAILY 01/04/21 03/18/21 01/04/21 History albuterol sulfate 3 ml INHALATION Q6H PRN 03/06/21 03/18/21 Unknown History melatonin 10 mg-lemon balm leaf 1 tab PO BEDTIME 03/18/21 03/18/21 Unknown History extract 1 mg tablet Physical Exam Vital Signs: Vital Signs: Last Vital Signs Temp 98.1 F 03/20/21 07:17 Pulse 62 03/20/21 08:01 Resp 18 03/20/21 07:17 BP 124/60 03/20/21 08:02 Pulse Ox 100 03/20/21 07:17 Body Mass Index 25.2 Const: General: cooperative and no acute distress HENMT: Other: Unremarkable Neck: Neck: Yes normal visual inspection Chest: Chest palpation & inspection: normal inspection of the chest Resp: Auscultation: clear to auscultation bilaterally, no crackles and no wheezes Cardio: Jugular venous distension: no JVD Palpation: normal PMI Heart sounds: S1 normal heart sound present, S2 normal heart sound present, no gallops, no murmurs and no rubs GI: Palpation (GI): Soft to palpation Back/Spine/Pelvis: Other: unremarkable Skin: General skin exam: no rashes or lesions noted Neuro: Cranial nerves: Yes Other cranial nerve findings present Extrem: General: Yes no clubbing, cyanosis or edema Psych: Mental Status: other Results Labs and Meds Result diagrams: 03/20/21 06:08 03/20/21 06:08 Lab results: Laboratory Results - last 24 hr 03/19/21 03/19/21 03/19/21 06:50 08:14 13:52 WBC RBC Hgb Hct MCV MCH MCHC RDW Plt Count MPV Absolute Nucleated RBC Nucleated RBC % (auto) Smear Path Review SEE NOTE Sodium Potassium Chloride Carbon Dioxide Anion Gap BUN Creatinine Estim Creat Clear Calc Estimated GFR POC Glucose 134 H Random Glucose Calcium Blood Type O Positive Antibody Screen NEGATIVE Crossmatch See Detail 03/20/21 03/20/21 03/20/21 06:08 06:08 07:19 WBC 2.5 L RBC 2.62 L Hgb 7.7 L Hct 23.0 L MCV 87.8 MCH 29.4 MCHC 33.5 RDW 15.7 Plt Count 46 L MPV 10.1 Absolute Nucleated RBC 0.000 Nucleated RBC % (auto) 0.0 Smear Path Review Sodium 141 Potassium 4.7 Chloride 111 H Carbon Dioxide 26 Anion Gap 9 L BUN 38 H Creatinine 2.19 H Estim Creat Clear Calc 24.4 Estimated GFR 29 POC Glucose 84 Random Glucose 95 Calcium 10.5 H Blood Type Antibody Screen Crossmatch ECG Interpretation: EKG with sinus rhythm at 58/Min with Mobitz 1 second-degree heart block and nonspecific ST-T changes. Assessment and Plan (1) Second degree heart block: Status: Acute (2) Cirrhosis of liver: Status: Acute (3) Thrombocytopenia: Status: Acute He has asymptomatic second-degree Mobitz type 1 heart block. Multiple medical comorbidities including cirrhosis, anemia, thrombocytopenia, renal insufficiency. At this time, no indication for permanent pacemaker. Avoid rate slowing medications. Procedures Date of Service Date of Service: 03/20/21
[2021-03-20 11:20] LABS: Glucose, Whole Blood 90 mg/dL (60-115)
--- NOTE | 2021-03-20 13:49 | MHC.CARE ---
CARE Team responded to consult request to speak with this 79 year-old, partnered, Occitan speaking, man who was admitted [place] [facility] [place] medical treatment. Upon arrival to the Emergency Dept on 03/19/21 it was documented that family reported that patient?s mental status was altered, he was behaving oddly and making suicidal statements such as wanting to hang himself and that he threw himself down the stairs. Today, in speaking at length with patient?s daughter who was at bedside, she stated that he father has no history of suicidal gestures or attempts, has never been in treatment for mental health issues and she has no concerns about his personal safety. She explained that he nearly fell down the stairs as she and her father?s girlfriend were helping him down the stairs, there may have been a misunderstanding about that fact. Daughter of patient reported her father may not have been taking his medication properly and as happened before when his ammonia levels are elevated, he talks nonsensically and that is why the ambulance was called. Apparently patient has experienced significant decline in all areas of functioning since having COVID-19 one year ago. Patient had been sleeping soundly but woke when his daughter roused him for lunch, he appeared weak and frail. Spoke to patient through a medical coding specialist, he seemed confused but was polite and attempted to engage. Patient did not remember saying he was suicidal, denied having any thought or intention of harming self, acknowledged feeling somewhat depressed due to his medical issues.? No further interventions indicated. Case discussed with railroad car repair supervisor, Lis Cuevas [facility], patient?s and RN
--- NOTE | 2021-03-20 14:11 | MHC.CM.PN ---
IMM 03/20/21 Male 75 DX Hepatic encephalopathy. He lives with his S.O. She is his primary caregiver. His dtr Yudith is HCP. Patient was discharged [place] [facility] last week 03/14/21. He was planned for STR. His insurance did not authorize STR at that time. They authorized correction care. The family wanted the pt to receive P.T. for strengthening. He was discharged with P.T. He returned with AMS. He has received a P.T. eval today. The recommendation is for STR. A list of facilities covered by his insurance was provided for choice. Preferences were obtained, referrals were sent. No bed offers have been made. The Careteam has met with the patient today. The documentation indicates no SI. The new information Has been added to the referrals. CM will follow for placement.
[2021-03-20 14:14] LABS: COVID-19 Test Negative (Negative); IDNOW Serial# 9DD0AD1C
--- NOTE | 2021-03-20 14:35 | P.PNIM_ITS ---
Subjective Subjective Date of Service: 03/20/21 Interval History: History obtained via pediatric acute care unit nurse patient offers no acute complaints of abdominal pain no nausea no vomiting, patient seen by care team and has been cleared for discharge with no suicidal ideation. Overnight noted to have bradycardia and Mobitz type 1 heart block, patient remained asymptomatic. Review of Systems General no headache no dizziness no fever chills. CVS no chest pain, no palpitation. Respiratory no cough. Gastrointestinal no nausea no vomiting, no abdominal pain Review of Systems: Yes all other systems are reviewed and are negative Physical Exam Vital Signs: Vital Signs: Last Vital Signs Temp 98.0 F 03/20/21 11:18 Pulse 57 03/20/21 11:18 Resp 18 03/20/21 11:18 BP 143/65 H 03/20/21 11:18 Pulse Ox 99 03/20/21 11:18 Body Mass Index 25.2 General awake alert, no acute distress. Neck is supple no JVD. CVS regular rate rhythm, Respiratory lungs clear to auscultation, no respiratory distress, no wheeze, no rhonchi. Gastrointestinal abdomen soft, nontender, bowel sounds audible, no guarding , no rigidity. Extremities no edema. Neuro nonfocal Objective Data Active Medications Albuterol Sulfate (Albuterol Sulfate (0.083%) 2.5 Mg/3 Ml Vial.Neb) 2.5 mg INHALE Q6H PRN PRN Reason: Shortness Of Breath Dextrose (Dextrose 50 % 25 Gm/50 Ml Vial) 25 gm IVPUSH Q15M PRN; Protocol PRN Reason: per Hypoglycemia Standing Ord. Docusate Sodium (Docusate Sodium 100 Mg Capsule) 100 mg PO DAILY PRN PRN Reason: Constipation Escitalopram Oxalate (Escitalopram Oxalate 5 Mg Tablet) 5 mg PO DAILY [facility] Last Admin: 03/20/21 08:01 Dose: 5 mg Documented by: LUCIA Fluticasone Propionate (Fluticasone Propionate 250 Mcg Blst.W.Dev) 2 puff INHALE BID [facility] Last Admin: 03/20/21 08:50 Dose: Not Given Documented by: RALPH Non-Admin Reason: previous shift Glucose (Glucose Gel 15 Gm Gel..Gram.) 15 gm PO Q15M PRN; Protocol PRN Reason: per Hypoglycemia Standing Ord. Lactulose (Lactulose 20 Gm/30 Ml Solution) 20 gm PO TID [facility] Last Admin: 03/20/21 08:02 Dose: 20 gm Documented by: LUCIA Loratadine (Loratadine 10 Mg Tablet) 10 mg PO DAILY [facility] Last Admin: 03/20/21 08:01 Dose: 10 mg Documented by: LUCIA Midodrine (Midodrine Hcl 2.5 Mg Tablet) 2.5 mg PO BID@0800,1700 [facility] Last Admin: 03/20/21 08:02 Dose: Not Given Documented by: LUCIA Non-Admin Reason: Elevated Blood Pressure Montelukast Sodium (Montelukast Sodium 10 Mg Tablet) 10 mg PO BEDTIME [facility] Last Admin: 03/19/21 21:40 Dose: 10 mg Documented by: IMELDA Multivitamins/Vitamin C (Multivitamin Tablet) 1 tab PO DAILY [facility] Last Admin: 03/20/21 08:02 Dose: 1 tab Documented by: LUCIA Omeprazole (Omeprazole 20 Mg Capsule.) 20 mg PO BID@0630,1630 [facility] Last Admin: 03/20/21 06:01 Dose: 20 mg Documented by: JEANNE Pharmacy Consult (Consult Rx Perform Med Rec) 1 each MISCELLANE ONCE PRN PRN Reason: Consult order Rifaximin (Rifaximin 550 Mg Tablet) 550 mg PO BID [facility] Last Admin: 03/20/21 08:01 Dose: 550 mg Documented by: LUCIA Rivaroxaban (Rivaroxaban 20 Mg Tablet) 20 mg PO DAILY@1700 [facility] Last Admin: 03/19/21 18:35 Dose: 20 mg Documented by: EVE Sodium Chloride (0.9 % Sodium Chloride Flush 3 Ml Syringe) 3 ml IVFLUSH QSHIFT [facility] Last Admin: 03/20/21 08:02 Dose: 3 ml Documented by: LUCIA Spironolactone (Spironolactone 25 Mg Tablet) 25 mg PO DAILY [facility]; Protocol Last Admin: 03/20/21 08:01 Dose: 25 mg Documented by: LUCIA Trazodone HCl (Trazodone Hcl 25 Mg Halftab) 25 mg PO BEDTIME PRN PRN Reason: insomnia Last Admin: 03/19/21 04:09 Dose: 25 mg Documented by: MELISSA Vitamin D (Cholecalciferol (Vitamin D3) 25 Mcg Tablet) 50 mcg PO DAILY [facility] Last Admin: 03/20/21 08:02 Dose: 50 mcg Documented by: LUCIA Labs CBC & Chem 7: 03/20/21 06:08 03/20/21 06:08 Labs: Laboratory Results - last 24 hr 03/20/21 03/20/21 03/20/21 06:08 06:08 07:19 MCV 87.8 MCH 29.4 MCHC 33.5 RDW 15.7 Plt Count 46 L MPV 10.1 Absolute Nucleated RBC 0.000 Nucleated RBC % (auto) 0.0 Anion Gap 9 L Estim Creat Clear Calc 24.4 Estimated GFR 29 POC Glucose 84 Random Glucose 95 Calcium 10.5 H COVID-19 ([facility]) COVID-19 Clin Com 03/20/21 03/20/21 11:15 13:41 MCV MCH MCHC RDW Plt Count MPV Absolute Nucleated RBC Nucleated RBC % (auto) Anion Gap Estim Creat Clear Calc Estimated GFR POC Glucose 90 Random Glucose Calcium COVID-19 ([facility]) Negative COVID-19 Clin Com See Note Microbiology Microbiology Results: Microbiology 03/18/21 10:46 Blood Culture - Preliminary Blood - Venous No growth after 48 hours. 03/18/21 10:41 Blood Culture - Preliminary Blood - Venous No growth after 48 hours. Assessment and Plan (1) Thrombocytopenia: Status: Acute (2) Cirrhosis of liver: Status: Acute (3) Second degree heart block: Status: Acute (4) CKD (chronic kidney disease) stage 3, GFR 30-59 ml/min: Status: Acute (5) Hepatic encephalopathy: Status: Acute (6) Portal vein thrombosis: Status: Acute (7) Falls frequently: Status: Acute (8) Physical deconditioning: Status: Acute Assessment and Plan: 75-year-old Romansh-speaking male with a history of alcoholic liver cirrhosis with pancytopenia and esophageal varices, diabetes, portal vein thrombosis anticoagulated with Xarelto, hypertension, CKD 3, recent admission her for hepatic encephalopathy who was brought to the emergency department by EMS on section 12 due to suicidal ideation found to have hepatic encephalopathy Recurrent hepatic encephalopathy. Resolved ammonia level down from 88 to 53 On a background of 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 (sober 15 years per ) Recommend compliance with lactulose resume lactulose with goal of 2-3 bm/day rifaximin Acute on chronic Anemia no evidence of blood loss Status post 1 unit of packed RBC, hematocrit improved from 20-23 Will transfuse 1 more unit today and follow hematocrit Elevated lactic acid Likely related to underlying liver dysfunction No evidence of acute infection at this time SI denies at this time came in on section 12 Patient seen by care team and has been cleared for discharge with no suicidal ideation elevated troponin trops flat, no chest pain Alcoholic liver cirrhosis with pancytopenia and esophageal varices H/H at lower end of baseline.? No active bleeding noted Follow CBC Continue spironolactone, Xifaxan, midodrine history of DM A1c 5.1, may be inaccurate given anemia not on home meds follow POCs, if elevated add SSI CKD III-IV Creatinine within baseline stable, monitor Portal vein thrombosis continue xarelto may need to consider alternative given level of renal dysfunction, will consider GI eval Mood Continue Lexapro mild intermittent asthma singulair, albuterol prn dvt ppx - xarelto code status - full code attendign - dr. garcia dispo: family wishes for pt o go to [facility] upon discharge; unable to care for him at home, PT recommend short-term rehab social economist looking for bed Quality Stroke Does the patient have a stroke diagnosis?: No VTE Prior VTE?: No VTE Risk Level:: Medical - moderate - high VTE Device Contraindication: Treatment Not Indicated VTE Drug Contraindication: N/A - Med Ordered
[2021-03-20 16:30] LABS: Glucose, Whole Blood 124 mg/dL (60-115)
[2021-03-20] MEDS: Midodrine HCl 2.5 MG TABLET PO (17:21)
[2021-03-20] MEDS: Rivaroxaban 20 MG TABLET PO (17:21)
[2021-03-20 21:07] LABS: Glucose, Whole Blood 111 mg/dL (60-115)
[2021-03-20] MEDS: Montelukast Sodium 10 MG TABLET PO (22:00)
[2021-03-21] VITALS (11 sets, daily range): BP systolic 100–137; BP diastolic 49–63; PULSE 60–72; RESP 18–20; TEMP 36.2–37.3; O2SAT 97–100
[2021-03-21] MEDS: Omeprazole 20 MG CAPSULE.DR PO ×2 (05:22→17:29)
[2021-03-21 07:22] LABS: Glucose, Whole Blood 84 mg/dL (60-115)
[2021-03-21 07:25] LABS: Hematocrit 25.4 % (42.0-52.0); Hemoglobin 8.8 g/dl (14.0-18.0); Mean Corpuscular HGB Conc 34.6 g/dl (31.0-36.0); Mean Corpuscular Hemoglobin 30.7 pg (27.0-33.0); Mean Corpuscular Volume 88.5 fL (80.0-98.0); Mean Platelet Volume 9.1 fL (9.4-12.4); Red Blood Count 2.87 X10*6/uL (4.60-5.80); Red Cell Distribution Width 15.4 % (11.0-16.0); White Blood Count 2.9 X10*3/uL (4.8-10.8)
[2021-03-21 07:32] LABS: Platelet Count 50 X10*3/uL (160-400)
[2021-03-21] MEDS: rifAXIMin 550 MG TABLET PO ×2 (09:27→21:48)
[2021-03-21] MEDS: Spironolactone 25 MG TABLET PO (09:28)
[2021-03-21] MEDS: Cholecalciferol (Vitamin D3) 25 MCG TABLET 50 MCG PO (09:31)
[2021-03-21] MEDS: Midodrine HCl 2.5 MG TABLET PO ×2 (09:32→17:28)
[2021-03-21] MEDS: Multivitamin TABLET 1 TAB PO (09:33)
[2021-03-21] MEDS: Loratadine 10 MG TABLET PO (09:34)
[2021-03-21] MEDS: Escitalopram Oxalate 5 MG TABLET PO (09:34)
[2021-03-21] MEDS: Lactulose 20 GM/30 ML SOLUTION PO ×3 (09:35→21:48)
[2021-03-21] MEDS: 0.9 % Sodium Chloride Flush 3 ML SYRINGE IVFLUSH ×3 (09:35→21:48)
[2021-03-21 11:14] LABS: Glucose, Whole Blood 94 mg/dL (60-115)
--- NOTE | 2021-03-21 12:37 | P.CNGI_ITS ---
History of Present Illness Data of Consult Service Date: 03/21/21 Requesting physician: Roberto Mayo Primary Care Provider: Becca Chavez MD [facility] Reason for consult: portal vein thrombosis on xarelto ?75-year-old male with hx of alcoholic liver cirrhosis and hepatic encephalopathy, portal vein thrombosis, heart block, frequent falls and CKD possibly 2/2 cirrhosis who I have been asked to see regards his hx of PVT and xarelto Patient was admitted with AMS and alleged suicidal thoughts which were thought to be 2/2 hepatic encephalopathy based on elevated ammonia so eh was treated with lactulose and apparently has now improved. He was placed on xarelto > 6 months ago after imaging with doppler US 04/2020 revealed portal v thrombus in the main vein incl left and right branches, with ascites and known cirrhosis. Recent imaging 01/[address] w/o contrast with ascites but no liver lesions or masses He has no complaints currently, but rehab has been recommended for him due to severe deconditioning and fraility. HGB was 7 g/dl on admission but went up appropriately after 2 unit of blood. No overt signs o GI bleeding Last EGD 2017 w Lg, with large varices and red teixeira, no banding done. Review of Systems Review of Systems: General no headache no dizziness no fever chills. CVS no chest pain, no palpitation. Respiratory no cough. Gastrointestinal no nausea no vomiting, no abdominal pain Yes all other systems are reviewed and are negative Constitutional: Constitutional: Denies chills and Denies fever(s) Cardiovascular: Cardiovascular: Reports as per HPI, Reports no additional cardiovascular complaints, Denies acrocyanosis, Denies cool extremities, Denies painful fingertips, Denies chest pain, Denies chest pain at rest, Denies diaphoresis, Denies syncope, Denies irregular heart rhythm, Denies claudication, Denies leg edema, Denies lightheadedness, Denies palpitations and Denies dyspnea Respiratory: Respiratory: Reports no additional respiratory complaints, Denies cough and Denies dyspnea Gastrointestinal: Gastrointestinal: Denies abdominal pain Neurologic: Reports confusion and Denies syncope Psychiatric: Psychiatric: Reports confusion Endocrine: Endocrine: Denies palpitations [facility] Past Medical History Medical History (Updated 03/20/21 @ 09:49 by Sy Joseph MD) JACOB (acute kidney injury) JACOB (acute kidney injury) Ascites Cirrhosis of liver CKD (chronic kidney disease) stage 3, GFR 30-59 ml/min COVID-19 Diabetes Elevated INR Esophageal varices Esophageal varices determined by endoscopy GERD (gastroesophageal reflux disease) Hepatic encephalopathy Hypertension Portal vein thrombosis Thrombocytopenia Vitamin D deficiency Functional capacity: independent ambulation Family History Family History Father Diabetes HTN (hypertension) Mother Diabetes Sister Cancer Surgical History Surgical History Hx of colonoscopy Hx of endoscopy Hx of inguinal hernia repair Social History Social History Household Members: Spouse Housing: House Do you presently have visiting nurse or other home services: Yes Unable to assess alcohol history related to: Unknown Alcohol intake: unknown Patient Tobacco Use Status: Never used Tobacco Advance Directives Date on File: 03/06/21 service: No Current occupational status: retired [employer] Allergies Allergy/AdvReac Type Severity Reaction Status Date / Time No Known Allergies Allergy Verified 01/23/21 10:24 Active Medications: Current Medications Albuterol Sulfate (Albuterol Sulfate (0.083%) 2.5 Mg/3 Ml Vial.Neb) 2.5 mg INHA LE Q6H PRN PRN Reason: Shortness Of Breath Dextrose (Dextrose 50 % 25 Gm/50 Ml Vial) 25 gm IVPUSH Q15M PRN; Protocol PRN Reason: per Hypoglycemia Standing Ord. Docusate Sodium (Docusate Sodium 100 Mg Capsule) 100 mg PO DAILY PRN PRN Reason: Constipation Escitalopram Oxalate (Escitalopram Oxalate 5 Mg Tablet) 5 mg PO DAILY [facility] Last Admin: 03/21/21 09:34 Dose: 5 mg Documented by: Fluticasone Propionate (Fluticasone Propionate 250 Mcg Blst.W.Dev) 2 puff INHALE BID [facility] Last Admin: 03/21/21 09:36 Dose: Not Given Documented by: Glucose (Glucose Gel 15 Gm Gel..Gram.) 15 gm PO Q15M PRN; Protocol PRN Reason: per Hypoglycemia Standing Ord. Lactulose (Lactulose 20 Gm/30 Ml Solution) 20 gm PO TID [facility] Last Admin: 03/21/21 09:35 Dose: 20 gm Documented by: Loratadine (Loratadine 10 Mg Tablet) 10 mg PO DAILY [facility] Last Admin: 03/21/21 09:34 Dose: 10 mg Documented by: Midodrine (Midodrine Hcl 2.5 Mg Tablet) 2.5 mg PO BID@0800,1700 [facility] Last Admin: 03/21/21 09:32 Dose: 2.5 mg Documented by: Montelukast Sodium (Montelukast Sodium 10 Mg Tablet) 10 mg PO BEDTIME [facility] Last Admin: 03/20/21 22:00 Dose: 10 mg Documented by: Multivitamins/Vitamin C (Multivitamin Tablet) 1 tab PO DAILY [facility] Last Admin: 03/21/21 09:33 Dose: 1 tab Documented by: Omeprazole (Omeprazole 20 Mg Capsule.Dr) 20 mg PO BID@0630,1630 [facility] Last Admin: 03/21/21 05:22 Dose: 20 mg Documented by: Pharmacy Consult (Consult Rx Perform Med Rec) 1 each MISCELLANE ONCE PRN PRN Reason: Consult order Rifaximin (Rifaximin 550 Mg Tablet) 550 mg PO BID [facility] Last Admin: 03/21/21 09:27 Dose: 550 mg Documented by: Rivaroxaban (Rivaroxaban 20 Mg Tablet) 20 mg PO DAILY@1700 [facility] Last Admin: 03/20/21 17:21 Dose: 20 mg Documented by: Sodium Chloride (0.9 % Sodium Chloride Flush 3 Ml Syringe) [address] [facility] Last Admin: 03/21/21 09:35 Dose: 3 ml Documented by: Spironolactone (Spironolactone 25 Mg Tablet) 25 mg PO DAILY [facility]; Protocol Last Admin: 03/21/21 09:28 Dose: 25 mg Documented by: Trazodone HCl (Trazodone Hcl 25 Mg Halftab) 25 mg PO BEDTIME PRN PRN Reason: insomnia Last Admin: 03/19/21 04:09 Dose: 25 mg Documented by: Vitamin D (Cholecalciferol (Vitamin D3) 25 Mcg Tablet) 50 mcg PO DAILY [facility] Last Admin: 03/21/21 09:31 Dose: 50 mcg Documented by: Home Medications Medication Instructions Recorded Confirmed Last Taken Type fluticasone propionate 220 2 puff PO BID 04/08/20 03/18/21 01/04/21 History mcg/actuation HFA aerosol inhaler (Flovent HFA) loratadine 10 mg tablet 1 tab PO DAILY 04/08/20 03/18/21 01/04/21 History montelukast 10 mg tablet 1 tab PO BEDTIME 04/08/20 03/18/21 01/03/21 History multivitamin (Daily-Arlene) 1 tab PO DAILY 04/08/20 03/18/21 01/04/21 History citalopram 10 mg tablet 10 mg PO DAILY 06/01/20 03/18/21 01/04/21 History rivaroxaban 20 mg tablet (Xarelto) 20 mg PO DAILY 06/01/20 03/18/21 01/04/21 History lactulose 10 gram/15 mL oral 30 ml PO TID 01/04/21 03/18/21 01/04/21 History solution spironolactone 25 mg tablet 25 mg PO DAILY 01/04/21 03/18/21 01/04/21 History albuterol sulfate 3 ml INHALATION Q6H PRN 03/06/21 03/18/21 Unknown History melatonin 10 mg-lemon balm leaf 1 tab PO BEDTIME 03/18/21 03/18/21 Unknown History extract 1 mg tablet Physical Exam Vital Signs: Vital Signs: Last Vital Signs Temp 98.2 F 03/21/21 12:00 Pulse 72 03/21/21 12:00 Resp 18 03/21/21 12:00 BP 125/60 03/21/21 10:12 Pulse Ox 97 03/21/21 12:00 Body Mass Index 25.2 Const: General: cooperative, comfortable, no acute distress, alert, awake, Physically active and confusion Nutritional Appearance: thin Orientation/consciousness: oriented to person, oriented to place and confusion HENMT: Other: Unremarkable Head: Yes normocephalic and Yes atraumatic Eyes: Sclerae: sclerae normal Pupils: Equal, round and reactive pupils present Neck: Neck: Yes normal visual inspection Chest: Chest palpation & inspection: normal inspection of the chest Resp: Effort & Inspection: normal respiratory effort and no respiratory distress Auscultation: clear to auscultation bilaterally, no crackles and no wheezes Cardio: Jugular venous distension: no JVD Palpation: normal PMI Rate: regular rate and bradycardic Rhythm: regular rhythm Heart sounds: S1 normal heart sound present, S2 normal heart sound present, no gallops, no murmurs and no rubs GI: Inspection: No distended Palpation (GI): Soft to palpation and nontender Back/Spine/Pelvis: Other: unremarkable Skin: Other: ecchymosis b/l arms; both forearms wrapped in clean dressings for skin tears General skin exam: no rashes or lesions noted Neuro: General: oriented to person, oriented to place and confusion Cranial nerves: Yes CN's II-XII intact bilaterally, Yes Equal, round and reactive pupils present, Yes Bilaterally intact EOM present and Yes Other cranial nerve findings present Extrem: Other: no leg edema General: Yes no clubbing, cyanosis or edema Psych: Mental Status: other Results Labs CBC & Chem 7: 03/21/21 06:44 03/20/21 06:08 Labs: Short CBC 03/21/21 Range/Units 06:44 WBC 2.9 L (4.8-10.8) X10*3/uL Hgb 8.8 L (14.0-18.0) g/dl Hct 25.4 L (42.0-52.0) % Plt Count 50 L (160-400) X10*3/uL Microbiology Microbiology Results: Microbiology 03/18/21 10:46 Blood - Venous Blood Culture - Preliminary No growth after 48 hours. 03/18/21 10:41 Blood - Venous Blood Culture - Preliminary No growth after 48 hours. Assessment and Plan (1) Cirrhosis of liver: Status: Acute (2) Hepatic encephalopathy: Status: Acute (3) Portal vein thrombosis: Status: Acute 1/ Portal vein thrombosis without any evidence of neoplasia from prior imaging although latest CT was non contrast 01/2021. He has poor mobility and has anemia with low platelets. Overall, data on tank terminal gauger AC for liver patients in this setting is of variable quality. Anti coagulation (AC) is more clearly beneficial for patients who are liver transplant candidates as improves outcomes and in those with extension of clot to SMV or to prevent cholangiopathy. However can risk bleeding from varices and other etiologies. Given he is not a transplant candidate due to age and his anemia with falls history and low platelets would recommned dc'ing anticoagulation unless needed for cardiac reasons. PLAN: 1/ DC xarelto 2/ Repeat US liver and doppler to get new baseline regards PV and also to r/o any obvious mass lesions. 3/ If has overt GIB then EGD for further assessment 4/ cont with lactulose for HE -aim for 2-3 soft stools daily, avoid more than this to reduce risk of dehydration and worsening HE 5/ f/u with nephro for kidney disease 6/ overall prgonosis is guarded for the medium term, may need to discuss goals of care with pt and family Procedures Date of Service Date of Service: 03/21/21
--- NOTE | 2021-03-21 15:02 | P.PNIM_ITS ---
Subjective Subjective Date of Service: 03/21/21 Interval History: cc: ams interval history: no complaints Cardiovascular Cardiovascular: Reports no additional cardiovascular complaints Respiratory Respiratory: Reports no additional respiratory complaints Physical Exam Vital Signs: Vital Signs: Last Vital Signs Temp 99.1 F 03/21/21 14:58 Pulse 66 03/21/21 14:58 Resp 20 03/21/21 14:58 BP 137/63 03/21/21 14:58 Pulse Ox 99 03/21/21 14:58 Body Mass Index 25.2 General awake alert, no acute distress.? Neck is supple no JVD. CVS? regular rate rhythm, Respiratory lungs clear to auscultation, no respiratory distress, no wheeze, no rhonchi. Gastrointestinal abdomen soft, nontender, bowel sounds audible, no guarding , no rigidity. Extremities no edema. Neuro nonfocal Objective Data Active Medications Albuterol Sulfate (Albuterol Sulfate (0.083%) 2.5 Mg/3 Ml Vial.Neb) 2.5 mg INHALE Q6H PRN PRN Reason: Shortness Of Breath Dextrose (Dextrose 50 % 25 Gm/50 Ml Vial) 25 gm IVPUSH Q15M PRN; Protocol PRN Reason: per Hypoglycemia Standing Ord. Docusate Sodium (Docusate Sodium 100 Mg Capsule) 100 mg PO DAILY PRN PRN Reason: Constipation Escitalopram Oxalate (Escitalopram Oxalate 5 Mg Tablet) 5 mg PO DAILY [facility] Last Admin: 03/21/21 09:34 Dose: 5 mg Documented by: EARNESTINE Fluticasone Propionate (Fluticasone Propionate 250 Mcg Blst.W.Dev) 2 puff INHALE BID [facility] Last Admin: 03/21/21 09:36 Dose: Not Given Documented by: EARNESTINE Non-Admin Reason: Patient Refused Glucose (Glucose Gel 15 Gm Gel..Gram.) 15 gm PO Q15M PRN; Protocol PRN Reason: per Hypoglycemia Standing Ord. Lactulose (Lactulose 20 Gm/30 Ml Solution) 20 gm PO TID [facility] Last Admin: 03/21/21 09:35 Dose: 20 gm Documented by: EARNESTINE Loratadine (Loratadine 10 Mg Tablet) 10 mg PO DAILY [facility] Last Admin: 03/21/21 09:34 Dose: 10 mg Documented by: EARNESTINE Midodrine (Midodrine Hcl 2.5 Mg Tablet) 2.5 mg PO BID@0800,1700 [facility] Last Admin: 03/21/21 09:32 Dose: 2.5 mg Documented by: EARNESTINE Montelukast Sodium (Montelukast Sodium 10 Mg Tablet) 10 mg PO BEDTIME [facility] Last Admin: 03/20/21 22:00 Dose: 10 mg Documented by: ELDON Multivitamins/Vitamin C (Multivitamin Tablet) 1 tab PO DAILY [facility] Last Admin: 03/21/21 09:33 Dose: 1 tab Documented by: EARNESTINE Omeprazole (Omeprazole 20 Mg Capsule.) 20 mg PO BID@0630,1630 [facility] Last Admin: 03/21/21 05:22 Dose: 20 mg Documented by: ELDON Pharmacy Consult (Consult Rx Perform Med Rec) 1 each MISCELLANE ONCE PRN PRN Reason: Consult order Rifaximin (Rifaximin 550 Mg Tablet) 550 mg PO BID [facility] Last Admin: 03/21/21 09:27 Dose: 550 mg Documented by: EARNESTINE Sodium Chloride (0.9 % Sodium Chloride Flush 3 Ml Syringe) 3 ml IVFLUSH QSHIFT [facility] Last Admin: 03/21/21 09:35 Dose: 3 ml Documented by: EARNESTINE Spironolactone (Spironolactone 25 Mg Tablet) 25 mg PO DAILY [facility]; Protocol Last Admin: 03/21/21 09:28 Dose: 25 mg Documented by: EARNESTINE Trazodone HCl (Trazodone Hcl 25 Mg Halftab) 25 mg PO BEDTIME PRN PRN Reason: insomnia Last Admin: 03/19/21 04:09 Dose: 25 mg Documented by: MELISSA Vitamin D (Cholecalciferol (Vitamin D3) 25 Mcg Tablet) 50 mcg PO DAILY [facility] Last Admin: 03/21/21 09:31 Dose: 50 mcg Documented by: EARNESTINE Labs CBC & Chem 7: 03/21/21 06:44 03/20/21 06:08 Labs: Laboratory Results - last 24 hr 03/19/21 03/20/21 03/20/21 08:14 16:09 17:48 MCV MCH MCHC RDW Plt Count MPV Absolute Nucleated RBC Nucleated RBC % (auto) POC Glucose 124 H Blood Type O Positive Antibody Screen NEGATIVE Crossmatch See Detail See Detail 03/20/21 03/21/21 03/21/21 21:01 06:44 07:18 MCV 88.5 MCH 30.7 MCHC 34.6 RDW 15.4 Plt Count 50 L MPV 9.1 L Absolute Nucleated RBC 0.000 Nucleated RBC % (auto) 0.0 POC Glucose 111 84 Blood Type Antibody Screen Crossmatch 03/21/21 11:06 MCV MCH MCHC RDW Plt Count MPV Absolute Nucleated RBC Nucleated RBC % (auto) POC Glucose 94 Blood Type Antibody Screen Crossmatch Microbiology Microbiology Results: Microbiology 03/18/21 10:46 Blood Culture - Preliminary Blood - Venous No growth after 48 hours. 03/18/21 10:41 Blood Culture - Preliminary Blood - Venous No growth after 48 hours. Assessment and Plan (1) Thrombocytopenia: Status: Acute (2) Cirrhosis of liver: Status: Acute (3) Second degree heart block: Status: Acute (4) CKD (chronic kidney disease) stage 3, GFR 30-59 ml/min: Status: Acute (5) Hepatic encephalopathy: Status: Acute (6) Portal vein thrombosis: Status: Acute (7) Falls frequently: Status: Acute (8) Physical deconditioning: Status: Acute Assessment and Plan: 75-year-old [place] Citizen-speaking male with a history of alcoholic liver cirrhosis with pancytopenia and esophageal varices, diabetes, portal vein thrombosis anticoagulated with Xarelto, hypertension, CKD 3, recent admission her for hepatic encephalopathy who was brought to the emergency department by EMS on section 12 due to suicidal ideation found to have hepatic encephalopathy Recurrent hepatic encephalopathy. 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 No active bleeding noted Follow CBC Continue spironolactone, Xifaxan, midodrine history of DM A1c 5.1, may be inaccurate given anemia not on home meds follow POCs, if elevated add SSI CKD III-IV Creatinine within baseline stable, monitor Portal vein thrombosis gi appreciated, risks of AC outweigh benefits, will dc xarelto Mood Continue Lexapro mild intermittent asthma singulair, albuterol prn dvt ppx - stopping xarelto, will start hep sq tomorrow code status - full code dispo: family wishes for pt o go to [facility] upon discharge; unable to care for him at home, PT recommend short-term rehab 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
[2021-03-21 16:06] LABS: Glucose, Whole Blood 146 mg/dL (60-115)
[2021-03-21 20:12] LABS: Glucose, Whole Blood 121 mg/dL (60-115)
[2021-03-21] MEDS: Montelukast Sodium 10 MG TABLET PO (21:48)
[2021-03-21] MEDS: Fluticasone Propionate 250 MCG BLST.W.DEV 2 PUFF INHALE (21:59)
[2021-03-22] VITALS (9 sets, daily range): BP systolic 98–149; BP diastolic 51–67; PULSE 54–88; RESP 18–20; TEMP 35.5–36.8; O2SAT 96–100
[2021-03-22] MEDS: Omeprazole 20 MG CAPSULE.DR PO ×2 (06:02→17:02)
[2021-03-22 07:25] LABS: Hematocrit 26.8 % (42.0-52.0); Hemoglobin 9.4 g/dl (14.0-18.0); Mean Corpuscular HGB Conc 35.1 g/dl (31.0-36.0); Mean Corpuscular Hemoglobin 30.3 pg (27.0-33.0); Mean Corpuscular Volume 86.5 fL (80.0-98.0); Red Cell Distribution Width 15.3 % (11.0-16.0); White Blood Count 3.7 X10*3/uL (4.8-10.8)
[2021-03-22 07:40] LABS: Glucose, Whole Blood 96 mg/dL (60-115)
[2021-03-22 07:41] LABS: Platelet Count 59 X10*3/uL (160-400)
[2021-03-22 07:55] LABS: Anion Gap 11 (12-20); Blood Urea Nitrogen 35 mg/dL (9-16); Calcium 10.3 mg/dL (8.4-10.2); Carbon Dioxide 23 mmol/L (22-29); Chloride 107 mmol/L (96-108); Creatinine Clr Calc Pharmacy 24.5; Estimated Glomerular Filt Rate 30; Glucose Fasting 96 mg/dL (60-99); Potassium 4.7 mmol/L (3.3-5.1); Sodium 136 mmol/L (135-145)
[2021-03-22] MEDS: 0.9 % Sodium Chloride Flush 3 ML SYRINGE IVFLUSH ×3 (09:37→22:34)
[2021-03-22] MEDS: Escitalopram Oxalate 5 MG TABLET PO (09:38)
[2021-03-22] MEDS: Multivitamin TABLET 1 TAB PO (09:38)
[2021-03-22] MEDS: Spironolactone 25 MG TABLET PO (09:38)
[2021-03-22] MEDS: Cholecalciferol (Vitamin D3) 25 MCG TABLET 50 MCG PO (09:38)
[2021-03-22] MEDS: Loratadine 10 MG TABLET PO (09:38)
[2021-03-22] MEDS: Midodrine HCl 2.5 MG TABLET PO ×2 (09:39→17:02)
[2021-03-22] MEDS: Lactulose 20 GM/30 ML SOLUTION PO ×4 (09:39→20:33)
[2021-03-22] MEDS: rifAXIMin 550 MG TABLET PO ×2 (09:39→20:33)
[2021-03-22] MEDS: Fluticasone Propionate 250 MCG BLST.W.DEV 2 PUFF INHALE (09:42)
[2021-03-22 11:28] LABS: Glucose, Whole Blood 108 mg/dL (60-115)
--- NOTE | 2021-03-22 12:10 | PC.NURSE ---
Daughter and physical therapist concerned about pt being not as conversing, poor eye contact and not able to get up and ambulate like he has been. *this is the first time I am meeting him. explained concerns from PT and brian to Dr. Montenegro. Also made him aware of continue bradycardia *39-48 due to weinkeback and 1st degree heart block. BP stable. Patient is chavo *50's even when in NSR. Will continue to monitor
--- NOTE | 2021-03-22 13:20 | HO.PM.IMPN ---
Subjective Subjective Date of Service: 03/22/21 Interval History: cc: ams interval history: more altered today Review of Systems Review of Systems: Yes Unobtainable due to mental condition Physical Exam Vital Signs: Vital Signs: Last Vital Signs Temp 96 F L 03/22/21 11:02 Pulse 54 03/22/21 11:52 Resp 18 03/22/21 11:02 BP 149/67 H 03/22/21 11:52 Pulse Ox 100 03/22/21 11:52 Body Mass Index 25.2 General: lethargic, no acute distress Resp: CTA bilateral, no accessory muscles used CVS: S1,S2,RRR GI: soft, non tender, non distended Neuro: motor grossly intact Psych: impaired insight Objective Data Active Medications Albuterol Sulfate (Albuterol Sulfate (0.083%) 2.5 Mg/3 Ml Vial.Neb) 2.5 mg INHALE Q6H PRN PRN Reason: Shortness Of Breath Dextrose (Dextrose 50 % 25 Gm/50 Ml Vial) 25 gm IVPUSH Q15M PRN; Protocol PRN Reason: per Hypoglycemia Standing Ord. Docusate Sodium (Docusate Sodium 100 Mg Capsule) 100 mg PO DAILY PRN PRN Reason: Constipation Escitalopram Oxalate (Escitalopram Oxalate 5 Mg Tablet) 5 mg PO DAILY [facility] Last Admin: 03/22/21 09:38 Dose: 5 mg Documented by: ABEBE Fluticasone Propionate (Fluticasone Propionate 250 Mcg Blst.W.Dev) 2 puff INHALE BID [facility] Last Admin: 03/22/21 09:42 Dose: 2 puff Documented by: ABEBE Glucose (Glucose Gel 15 Gm Gel..Gram.) 15 gm PO Q15M PRN; Protocol PRN Reason: per Hypoglycemia Standing Ord. Lactulose (Lactulose 20 Gm/30 Ml Solution) 20 gm PO Q4H [facility] Last Admin: 03/22/21 13:05 Dose: 20 gm Documented by: ABEBE Loratadine (Loratadine 10 Mg Tablet) 10 mg PO DAILY [facility] Last Admin: 03/22/21 09:38 Dose: 10 mg Documented by: ABEBE Midodrine (Midodrine Hcl 2.5 Mg Tablet) 2.5 mg PO BID@0800,1700 [facility] Last Admin: 03/22/21 09:39 Dose: 2.5 mg Documented by: ABEBE Montelukast Sodium (Montelukast Sodium 10 Mg Tablet) 10 mg PO BEDTIME [facility] Last Admin: 03/21/21 21:48 Dose: 10 mg Documented by: VANDANA Multivitamins/Vitamin C (Multivitamin Tablet) 1 tab PO DAILY [facility] Last Admin: 03/22/21 09:38 Dose: 1 tab Documented by: ABEBE Omeprazole (Omeprazole 20 Mg Capsule.) 20 mg PO BID@0630,1630 [facility] Last Admin: 03/22/21 06:02 Dose: 20 mg Documented by: VANDANA Pharmacy Consult (Consult Rx Perform Med Rec) 1 each MISCELLANE ONCE PRN PRN Reason: Consult order Rifaximin (Rifaximin 550 Mg Tablet) 550 mg PO BID [facility] Last Admin: 03/22/21 09:39 Dose: 550 mg Documented by: ABEBE Sodium Chloride (0.9 % Sodium Chloride Flush 3 Ml Syringe) [facility] Admin: 03/22/21 09:37 Dose: 3 ml Documented by: ABEBE Spironolactone (Spironolactone 25 Mg Tablet) 25 mg PO DAILY [facility]; Protocol Last Admin: 03/22/21 09:38 Dose: 25 mg Documented by: ABEBE Trazodone HCl (Trazodone Hcl 25 Mg Halftab) 25 mg PO BEDTIME PRN PRN Reason: insomnia Last Admin: 03/19/21 04:09 Dose: 25 mg Documented by: MELISSA Vitamin D (Cholecalciferol (Vitamin D3) 25 Mcg Tablet) 50 mcg PO DAILY [facility] Last Admin: 03/22/21 09:38 Dose: 50 mcg Documented by: ABEBE Labs CBC & Chem 7: 03/22/21 06:07 03/22/21 06:07 Labs: Laboratory Results - last 24 hr 03/21/21 03/21/21 03/22/21 16:02 20:08 06:07 MCV 86.5 MCH 30.3 MCHC 35.1 RDW 15.3 Plt Count 59 L MPV 11.0 Absolute Nucleated RBC 0.000 Nucleated RBC % (auto) 0.0 Anion Gap Estim Creat Clear Calc Estimated GFR POC Glucose 146 H 121 H Fasting Glucose Calcium 03/22/21 03/22/21 03/22/21 06:07 07:38 11:02 MCV MCH MCHC RDW Plt Count MPV Absolute Nucleated RBC Nucleated RBC % (auto) Anion Gap 11 L Estim Creat Clear Calc 24.5 Estimated GFR 30 POC Glucose 96 108 Fasting Glucose 96 Calcium 10.3 H Assessment and Plan (1) Hepatic encephalopathy: Status: Acute (2) Thrombocytopenia: Status: Acute (3) Cirrhosis of liver: Status: Acute (4) Second degree heart block: Status: Acute (5) CKD (chronic kidney disease) stage 3, GFR 30-59 ml/min: Status: Acute (6) Portal vein thrombosis: (7) Falls frequently: Status: Acute (8) Physical deconditioning: Status: Acute Assessment and Plan: 75-year-old [place]-speaking male with a history of alcoholic liver cirrhosis with pancytopenia and esophageal varices, diabetes, portal vein thrombosis anticoagulated with Xarelto, hypertension, CKD 3, recent admission her for hepatic encephalopathy who was brought to the emergency department by EMS on section 12 due to suicidal ideation found to have hepatic encephalopathy Recurrent hepatic encephalopathy. 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 No active bleeding noted Follow CBC Continue spironolactone, Xifaxan, midodrine history of DM A1c 4.7, may be inaccurate given anemia not on home meds follow POCs, if elevated add SSI CKD III-IV Creatinine within baseline stable, monitor Portal vein thrombosis gi appreciated, risks of AC outweigh benefits, now off xarelto Mood Continue Lexapro mild intermittent asthma singulair, albuterol prn dvt ppx - stopping xarelto, will start hep sq tomorrow code status - full code dispo: family wishes for pt o go to [facility] upon discharge; unable to care for him at home, PT recommend short-term rehab social professionals looking for bed Quality Stroke Does the patient have a stroke diagnosis?: No VTE Prior VTE?: No VTE Risk Level:: Medical - moderate - high VTE Device Contraindication: Treatment Not Indicated VTE Drug Contraindication: N/A - Med Ordered
[2021-03-22 16:00] LABS: Glucose, Whole Blood 173 mg/dL (60-115)
[2021-03-22 20:33] LABS: Glucose, Whole Blood 119 mg/dL (60-115)
[2021-03-22] MEDS: Montelukast Sodium 10 MG TABLET PO (20:33)
[2021-03-23] VITALS (9 sets, daily range): BP systolic 103–160; BP diastolic 53–72; PULSE 60–80; RESP 17–20; TEMP 35.7–36.9; O2SAT 99–100
[2021-03-23] MEDS: Lactulose 20 GM/30 ML SOLUTION PO ×5 (01:41→19:39)
[2021-03-23 06:55] LABS: Mean Corpuscular HGB Conc 34.5 g/dl (31.0-36.0); Mean Corpuscular Hemoglobin 29.7 pg (27.0-33.0); Mean Corpuscular Volume 86.1 fL (80.0-98.0); Mean Platelet Volume 9.4 fL (9.4-12.4); Red Blood Count 3.37 X10*6/uL (4.60-5.80); Red Cell Distribution Width 15.4 % (11.0-16.0); White Blood Count 4.6 X10*3/uL (4.8-10.8)
[2021-03-23 07:00] LABS: Platelet Count 66 X10*3/uL (160-400)
[2021-03-23 07:15] LABS: Anion Gap 11 (12-20); Blood Urea Nitrogen 35 mg/dL (9-16); Calcium 10.7 mg/dL (8.4-10.2); Carbon Dioxide 23 mmol/L (22-29); Chloride 107 mmol/L (96-108); Creatinine Clr Calc Pharmacy 22.4; Estimated Glomerular Filt Rate 27; Glucose Fasting 109 mg/dL (60-99); Potassium 4.3 mmol/L (3.3-5.1); Sodium 137 mmol/L (135-145)
[2021-03-23 07:19] LABS: Glucose, Whole Blood 105 mg/dL (60-115)
[2021-03-23] MEDS: Cholecalciferol (Vitamin D3) 25 MCG TABLET 50 MCG PO (09:34)
[2021-03-23] MEDS: rifAXIMin 550 MG TABLET PO ×2 (09:35→19:39)
[2021-03-23] MEDS: Spironolactone 25 MG TABLET PO (09:35)
[2021-03-23] MEDS: Escitalopram Oxalate 5 MG TABLET PO (09:35)
[2021-03-23] MEDS: Midodrine HCl 2.5 MG TABLET PO ×2 (09:36→16:12)
[2021-03-23] MEDS: Loratadine 10 MG TABLET PO (09:36)
[2021-03-23] MEDS: Multivitamin TABLET 1 TAB PO (09:37)
[2021-03-23] MEDS: 0.9 % Sodium Chloride Flush 3 ML SYRINGE IVFLUSH ×3 (09:38→19:39)
[2021-03-23] MEDS: Omeprazole 20 MG CAPSULE.DR PO ×2 (09:43→16:11)
--- NOTE | 2021-03-23 10:54 | HO.PM.IMPN ---
Subjective Subjective Date of Service: 03/23/21 Interval History: cc: ams interval history: became more altered yesterday Cardiovascular Cardiovascular: Reports no additional cardiovascular complaints Respiratory Respiratory: Reports no additional respiratory complaints Physical Exam Vital Signs: Vital Signs: Last Vital Signs Temp 96.3 F L 03/23/21 07:51 Pulse 60 03/23/21 09:36 Resp 20 03/23/21 07:51 BP 160/72 H 03/23/21 09:36 Pulse Ox 99 03/23/21 07:51 Body Mass Index 25.2 General: lethargic, no acute distress Resp:? CTA bilateral, no accessory muscles used CVS: S1,S2,RRR GI: soft, non tender, non distended Neuro:? motor grossly intact Psych:? impaired insight? Objective Data Active Medications Albuterol Sulfate (Albuterol Sulfate (0.083%) 2.5 Mg/3 Ml Vial.Neb) 2.5 mg INHALE Q6H PRN PRN Reason: Shortness Of Breath Dextrose (Dextrose 50 % 25 Gm/50 Ml Vial) 25 gm IVPUSH Q15M PRN; Protocol PRN Reason: per Hypoglycemia Standing Ord. Docusate Sodium (Docusate Sodium 100 Mg Capsule) 100 mg PO DAILY PRN PRN Reason: Constipation Escitalopram Oxalate (Escitalopram Oxalate 5 Mg Tablet) 5 mg PO DAILY [facility] Last Admin: 03/23/21 09:35 Dose: 5 mg Documented by: MATHEW Fluticasone Propionate (Fluticasone Propionate 250 Mcg Blst.W.Dev) 2 puff INHALE BID [facility] Last Admin: 03/23/21 04:32 Dose: Not Given Documented by: ZORAN Non-Admin Reason: not given on prev shift Glucose (Glucose Gel 15 Gm Gel..Gram.) 15 gm PO Q15M PRN; Protocol PRN Reason: per Hypoglycemia Standing Ord. Lactulose (Lactulose 20 Gm/30 Ml Solution) 20 gm PO Q4H [facility] Last Admin: 03/23/21 09:42 Dose: 20 gm Documented by: MATHEW Loratadine (Loratadine 10 Mg Tablet) 10 mg PO DAILY [facility] Last Admin: 03/23/21 09:36 Dose: 10 mg Documented by: MATHEW Midodrine (Midodrine Hcl 2.5 Mg Tablet) 2.5 mg PO BID@0800,1700 [facility] Last Admin: 03/23/21 09:36 Dose: 2.5 mg Documented by: MATHEW Montelukast Sodium (Montelukast Sodium 10 Mg Tablet) 10 mg PO BEDTIME [facility] Last Admin: 03/22/21 20:33 Dose: 10 mg Documented by: VIKTORIA Multivitamins/Vitamin C (Multivitamin Tablet) 1 tab PO DAILY [facility] Last Admin: 03/23/21 09:37 Dose: 1 tab Documented by: MATHEW Omeprazole (Omeprazole 20 Mg Capsule.Dr) 20 mg PO BID@0630,1630 [facility] Last Admin: 03/23/21 09:43 Dose: 20 mg Documented by: MATHEW Pharmacy Consult (Consult Rx Perform Med Rec) 1 each MISCELLANE ONCE PRN PRN Reason: Consult order Rifaximin (Rifaximin 550 Mg Tablet) 550 mg PO BID [facility] Last Admin: 03/23/21 09:35 Dose: 550 mg Documented by: MATHEW Sodium Chloride (0.9 % Sodium Chloride Flush 3 Ml Syringe) 3 ml IVFLUSH QSHIFT [facility] Last Admin: 03/23/21 09:38 Dose: 3 ml Documented by: MATHEW Spironolactone (Spironolactone 25 Mg Tablet) 25 mg PO DAILY [facility]; Protocol Last Admin: 03/23/21 09:35 Dose: 25 mg Documented by: MATHEW Trazodone HCl (Trazodone Hcl 25 Mg Halftab) 25 mg PO BEDTIME PRN PRN Reason: insomnia Last Admin: 03/19/21 04:09 Dose: 25 mg Documented by: MELISSA Vitamin D (Cholecalciferol (Vitamin D3) 25 Mcg Tablet) 50 mcg PO DAILY [facility] Last Admin: 03/23/21 09:34 Dose: 50 mcg Documented by: MATHEW Labs CBC & Chem 7: 03/23/21 05:52 03/23/21 05:52 Labs: Laboratory Results - last 24 hr 03/22/21 03/22/21 03/22/21 11:02 15:55 20:30 MCV MCH MCHC RDW Plt Count MPV Absolute Nucleated RBC Nucleated RBC % (auto) Anion Gap Estim Creat Clear Calc Estimated GFR POC Glucose 108 173 H 119 H Fasting Glucose Calcium 03/23/21 03/23/2103/23/21 05:52 05:52 07:11 MCV 86.1 MCH 29.7 MCHC 34.5 RDW 15.4 Plt Count 66 L MPV 9.4 Absolute Nucleated RBC 0.000 Nucleated RBC % (auto) 0.0 Anion Gap 11 L Estim Creat Clear Calc 22.4 Estimated GFR 27 POC Glucose 105 Fasting Glucose 109 H Calcium 10.7 H Assessment and Plan (1) Hepatic encephalopathy: Status: Acute (2) Thrombocytopenia: Status: Acute (3) Cirrhosis of liver: Status: Acute (4) Second degree heart block: Status: Acute (5) CKD (chronic kidney disease) stage 3, GFR 30-59 ml/min: Status: Acute (6) Portal vein thrombosis: (7) Falls frequently: Status: Acute (8) Physical deconditioning: Status: Acute Assessment and Plan: 75-year-old [place]-speaking male with a history of alcoholic liver cirrhosis with pancytopenia and esophageal varices, diabetes, portal vein thrombosis anticoagulated with Xarelto, hypertension, CKD 3, recent admission her for hepatic encephalopathy who was brought to the emergency department by EMS on section 12 due to suicidal ideation found to have hepatic encephalopathy Recurrent hepatic encephalopathy. 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 No active bleeding noted Follow CBC Continue spironolactone, Xifaxan, midodrine history of DM A1c 4.7, may be inaccurate given anemia not on home meds follow POCs, if elevated add SSI CKD III-IV Creatinine within baseline stable, monitor Portal vein thrombosis gi appreciated, risks of AC outweigh benefits, now off xarelto Mood Continue Lexapro mild intermittent asthma singulair, albuterol prn dvt ppx - stopping xarelto, will start hep sq tomorrow code status - full code dispo: family wishes for pt o go to [facility] upon discharge; unable to care for him at home, PT recommend short-term rehab social security specialist looking for bed Quality Stroke Does the patient have a stroke diagnosis?: No VTE Prior VTE?: No VTE Risk Level:: Medical - moderate - high VTE Device Contraindication: Treatment Not Indicated VTE Drug Contraindication: N/A - Med Ordered
[2021-03-23 11:27] LABS: Glucose, Whole Blood 154 mg/dL (60-115)
--- NOTE | 2021-03-23 11:50 | MHC.CM.PN ---
Addendum entered by Hannah Garcia 03/23/21 12:17: A bed offer, pending authorization has been received. [facility] is going for authorization today. Family has been notified of bed offer. Original Note: Male 75 DX Hepatic encephalopathy More referrals have been sent. [facility] and [facility] have been referred. [facility]ardo and [facility] are following. No bed offer at this time. CM will follow.
[2021-03-23 16:00] LABS: Glucose, Whole Blood 152 mg/dL (60-115)
--- NOTE | 2021-03-23 16:08 | MHC.CM.PN ---
The patient has been accepted by [facility]. They have auth. [facility] level UP today held DC
--- NOTE | 2021-03-23 18:41 | ECG_ITS ---
Test Reason : change in rhythm Blood Pressure : / mmHG Vent. Rate : 054 BPM Atrial Rate : 089 BPM P-R Int : 000 ms QRS Dur : 092 ms QT Int : 456 ms P-R-T Axes : 000 -12 040 degrees QTc Int : 432 ms Sinus rhythm with 2nd degree A-V block (Mobitz I) with 2:1 A-V conduction with Premature supraventricular complexes Abnormal ECG No significant changes seen Referred By: Cali Shah Electronically Signed By:BRIAN FLORES MD
--- NOTE | 2021-03-23 18:50 | PC.NURSE ---
Questionable change in rhythm from 2nd degree type II to 3rd degree block. Dr Shah informed. Nurse at bedside to assess pt and performed 12 EKG; pt remained stable and asymptomatic. MD assessed pt, instructed RN to monitor for change in rate. Will continue to monitor and report to incoming RN
[2021-03-23 19:30] LABS: Glucose, Whole Blood 159 mg/dL (60-115)
[2021-03-23] MEDS: traZODone HCL 25 MG HALFTAB PO (19:39)
[2021-03-23] MEDS: Montelukast Sodium 10 MG TABLET PO (19:39)
[2021-03-24] VITALS (8 sets, daily range): BP systolic 100–136; BP diastolic 51–66; PULSE 64–80; RESP 17–20; TEMP 36.4–37; O2SAT 95–99
[2021-03-24] MEDS: Lactulose 20 GM/30 ML SOLUTION PO ×5 (00:06→20:11)
[2021-03-24] MEDS: Omeprazole 20 MG CAPSULE.DR PO (05:00)
[2021-03-24 06:35] LABS: Mean Corpuscular HGB Conc 34.5 g/dl (31.0-36.0); Mean Corpuscular Hemoglobin 29.9 pg (27.0-33.0); Mean Corpuscular Volume 86.8 fL (80.0-98.0); Mean Platelet Volume 9.4 fL (9.4-12.4); Red Blood Count 3.34 X10*6/uL (4.60-5.80); Red Cell Distribution Width 15.4 % (11.0-16.0); White Blood Count 4.1 X10*3/uL (4.8-10.8)
[2021-03-24 06:38] LABS: Platelet Count 48 X10*3/uL (160-400)
[2021-03-24 07:12] LABS: Anion Gap 17 (12-20); Blood Urea Nitrogen 29 mg/dL (9-16); Calcium 10.6 mg/dL (8.4-10.2); Carbon Dioxide 20 mmol/L (22-29); Chloride 105 mmol/L (96-108); Creatinine Clr Calc Pharmacy 23.8; Estimated Glomerular Filt Rate 29; Glucose Fasting 107 mg/dL (60-99); Magnesium 1.9 mg/dL (1.6-2.6); Potassium 4.5 mmol/L (3.3-5.1); Sodium 137 mmol/L (135-145)
[2021-03-24 07:40] LABS: Glucose, Whole Blood 107 mg/dL (60-115)
[2021-03-24] MEDS: Escitalopram Oxalate 5 MG TABLET PO (10:11)
[2021-03-24] MEDS: rifAXIMin 550 MG TABLET PO ×2 (10:12→20:11)
[2021-03-24] MEDS: Multivitamin TABLET 1 TAB PO (10:12)
[2021-03-24] MEDS: Cholecalciferol (Vitamin D3) 25 MCG TABLET 50 MCG PO (10:12)
[2021-03-24] MEDS: Midodrine HCl 2.5 MG TABLET PO (10:13)
[2021-03-24] MEDS: Loratadine 10 MG TABLET PO (10:13)
[2021-03-24] MEDS: Spironolactone 25 MG TABLET PO (10:14)
[2021-03-24] MEDS: 0.9 % Sodium Chloride Flush 3 ML SYRINGE IVFLUSH ×2 (10:14→20:29)
--- NOTE | 2021-03-24 10:50 | P.PNIM_ITS ---
Subjective Subjective Date of Service: 03/24/21 Interval History: cc: ams interval history: still not at baseline Review of Systems Review of Systems: Yes Unobtainable due to mental condition Physical Exam Vital Signs: Vital Signs: Last Vital Signs Temp 98.2 F 03/24/21 08:00 Pulse 66 03/24/21 10:14 Resp 20 03/24/21 08:00 BP 136/60 03/24/21 10:14 Pulse Ox 98 03/24/21 08:00 Body Mass Index 25.2 General: lethargic, no acute distress Resp:? CTA bilateral, no accessory muscles used CVS: S1,S2,RRR GI: soft, non tender, non distended Neuro:? motor grossly intact Psych:? impaired insight? Objective Data Active Medications Albuterol Sulfate (Albuterol Sulfate (0.083%) 2.5 Mg/3 Ml Vial.Neb) 2.5 mg INHALE Q6H PRN PRN Reason: Shortness Of Breath Dextrose (Dextrose 50 % 25 Gm/50 Ml Vial) 25 gm IVPUSH Q15M PRN; Protocol PRN Reason: per Hypoglycemia Standing Ord. Docusate Sodium (Docusate Sodium 100 Mg Capsule) 100 mg PO DAILY PRN PRN Reason: Constipation Escitalopram Oxalate (Escitalopram Oxalate 5 Mg Tablet) 5 mg PO DAILY [facility] Last Admin: 03/24/21 10:11 Dose: 5 mg Documented by: ESTEBAN Fluticasone Propionate (Fluticasone Propionate 250 Mcg Blst.W.Dev) 2 puff INHALE BID [facility] Last Admin: 03/24/21 08:10 Dose: Not Given Documented by: KAT Non-Admin Reason: Patient Condition Contraindication Glucose (Glucose Gel 15 Gm Gel..Gram.) 15 gm PO Q15M PRN; Protocol PRN Reason: per Hypoglycemia Standing Ord. Lactulose (Lactulose 20 Gm/30 Ml Solution) 20 gm PO Q4H [facility] Last Admin: 03/24/21 10:11 Dose: 20 gm Documented by: ESTEBAN Loratadine (Loratadine 10 Mg Tablet) 10 mg PO DAILY [facility] Last Admin: 03/24/21 10:13 Dose: 10 mg Documented by: ESTEBAN Midodrine (Midodrine Hcl 2.5 Mg Tablet) 2.5 mg PO BID@0800,1700 [facility] Last Admin: 03/24/21 10:13 Dose: 2.5 mg Documented by: ESTEBAN Montelukast Sodium (Montelukast Sodium 10 Mg Tablet) 10 mg PO BEDTIME [facility] Last Admin: 03/23/21 19:39 Dose: 10 mg Documented by: YESSENIA Multivitamins/Vitamin C (Multivitamin Tablet) 1 tab PO DAILY [facility] Last Admin: 03/24/21 10:12 Dose: 1 tab Documented by: ESTEBAN Omeprazole (Omeprazole 20 Mg Capsule.Dr) 20 mg PO BID@0630,1630 [facility] Last Admin: 03/24/21 05:00 Dose: 20 mg Documented by: YESSENIA Pharmacy Consult (Consult Rx Perform Med Rec) 1 each MISCELLANE ONCE PRN PRN Reason: Consult order Rifaximin (Rifaximin 550 Mg Tablet) 550 mg PO BID [facility] Last Admin: 03/24/21 10:12 Dose: 550 mg Documented by: ESTEBAN Sodium Chloride (0.9 % Sodium Chloride Flush 3 Ml Syringe) 3 ml IVFLUSH QSHIFT [facility] Last Admin: 03/24/21 10:14 Dose: 3 ml Documented by: ESTEBAN Spironolactone (Spironolactone 25 Mg Tablet) 25 mg PO DAILY [facility]; Protocol Last Admin: 03/24/21 10:14 Dose: 25 mg Documented by: ESTEBAN Trazodone HCl (Trazodone Hcl 25 Mg Halftab) 25 mg PO BEDTIME PRN PRN Reason: insomnia Last Admin: 03/23/21 19:39 Dose: 25 mg Documented by: YESSENIA Vitamin D (Cholecalciferol (Vitamin D3) 25 Mcg Tablet) 50 mcg PO DAILY [facility] Last Admin: 03/24/21 10:12 Dose: 50 mcg Documented by: ESTEBAN Labs CBC & Chem 7: 03/24/21 06:00 03/24/21 06:00 Labs: Laboratory Results - last 24 hr 03/23/21 03/23/21 03/23/21 11:16 15:56 19:27 MCV MCH MCHC RDW Plt Count MPV Absolute Nucleated RBC Nucleated RBC % (auto) Anion Gap Estim Creat Clear Calc Estimated GFR POC Glucose 154 H 152 H 159 H Fasting Glucose Calcium Magnesium 03/24/21 03/24/21 03/24/21 06:00 06:00 07:35 MCV 86.8 MCH 29.9 MCHC 34.5 RDW 15.4 Plt Count 48 L D MPV 9.4 Absolute Nucleated RBC 0.000 Nucleated RBC % (auto) 0.0 Anion Gap 17 Estim Creat Clear Calc 23.8 Estimated GFR 29 POC Glucose 107 Fasting Glucose 107 H Calcium 10.6 H Magnesium 1.9 Microbiology Microbiology Results: Microbiology 03/18/21 10:46 Blood Culture - Final Blood - Venous No growth after 5 days. 03/18/21 10:41 Blood Culture - Final Blood - Venous No growth after 5 days. Assessment and Plan (1) Hepatic encephalopathy: Status: Acute (2) Thrombocytopenia: Status: Acute (3) Cirrhosis of liver: Status: Acute (4) Second degree heart block: Status: Acute (5) CKD (chronic kidney disease) stage 3, GFR 30-59 ml/min: Status: Acute (6) Portal vein thrombosis: (7) Falls frequently: Status: Acute (8) Physical deconditioning: Status: Acute Assessment and Plan: 75-year-old Luxembourgish-speaking male with a history of alcoholic liver cirrhosis with pancytopenia and esophageal varices, diabetes, portal vein thrombosis anticoagulated with Xarelto, hypertension, CKD 3, recent admission her for hepatic encephalopathy who was brought to the emergency department by EM S on section 12 due to suicidal ideation found to have hepatic encephalopathy Recurrent hepatic encephalopathy. 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 No active bleeding noted Follow CBC Continue spironolactone, Xifaxan, midodrine history of DM A1c 4.7, may be inaccurate given anemia not on home meds follow POCs, if elevated add SSI CKD III-IV Creatinine within baseline stable, monitor Portal vein thrombosis gi appreciated, risks of AC outweigh benefits, now off xarelto Mood Continue Lexapro mild intermittent asthma singulair, albuterol prn dvt ppx - stopping xarelto, will start hep sq tomorrow code status - full code dispo: family wishes for pt o go to [facility] upon discharge; unable to care for him at home, PT recommend short-term rehab director of social services looking for bed Quality Stroke Does the patient have a stroke diagnosis?: No VTE Prior VTE?: No VTE Risk Level:: Medical - moderate - high VTE Device Contraindication: Treatment Not Indicated VTE Drug Contraindication: N/A - Med Ordered
--- NOTE | 2021-03-24 11:14 | PM.PNCARD ---
Subjective Subjective Date of Service: 03/24/21 Interval history: Very sleepy; not answering questions. Daughter/RN at bedside. Tried several times with slot floor person. Review of Systems Review of Systems unable to obtain due to mental status. Physical Exam Vital Signs: Last Vital Signs Temp 98.2 F 03/24/21 08:00 Pulse 66 03/24/21 10:14 Resp 20 03/24/21 08:00 BP 136/60 03/24/21 10:14 Pulse Ox 98 03/24/21 08:00 Body Mass Index 25.2 Const Other: sleepy General: no acute distress HENOH Other: Unremarkable Neck Neck: Yes normal visual inspection Chest Chest palpation & inspection: normal inspection of the chest Resp Auscultation: clear to auscultation bilaterally, no crackles and no wheezes Cardio Jugular venous distension: no JVD Palpation: normal PMI Heart sounds: S1 normal heart sound present, S2 normal heart sound present, no gallops, no murmurs and no rubs GI Palpation (GI): Soft to palpation Back/Spine/Pelvis Other: unremarkable Skin General skin exam: no rashes or lesions noted Neuro Other: sleepy General: other Extrem General: Yes no clubbing, cyanosis or edema Psych Mental Status: other Objective Labs and Meds Result diagrams: 03/24/21 06:00 03/24/21 06:00 Lab results: Laboratory Results - last 24 hr 03/23/21 03/23/21 03/23/21 11:16 15:56 19:27 WBC RBC Hgb Hct MCV MCH MCHC RDW Plt Count MPV Absolute Nucleated RBC Nucleated RBC % (auto) Sodium Potassium Chloride Carbon Dioxide Anion Gap BUN Creatinine Estim Creat Clear Calc Estimated GFR POC Glucose 154 H 152 H 159 H Fasting Glucose Calcium Magnesium 03/24/21 03/24/21 03/24/21 06:00 06:00 07:35 WBC 4.1 L RBC 3.34 L Hgb 10.0 L Hct 29.0 L MCV 86.8 MCH 29.9 MCHC 34.5 RDW 15.4 Plt Count 48 L D MPV 9.4 Absolute Nucleated RBC 0.000 Nucleated RBC % (auto) 0.0 Sodium 137 Potassium 4.5 Chloride 105 Carbon Dioxide 20 L Anion Gap 17 BUN 29 H Creatinine 2.24 H Estim Creat Clear Calc 23.8 Estimated GFR 29 POC Glucose 107 Fasting Glucose 107 H Calcium 10.6 H Magnesium 1.9 Progress Note: A&P Assessment and plan (1) Second degree heart block: Status: Acute (2) Cirrhosis of liver: Status: Acute (3) Thrombocytopenia: Status: Acute Assessment and Plan: He has asymptomatic second-degree Mobitz type 1 heart block. Some areas with 2:1 block last pm, but ventricular rate still >50/min Multiple medical comorbidities including cirrhosis, anemia, thrombocytopenia, renal insufficiency. At this time, no indication for permanent pacemaker. Avoid rate slowing medications. Guarded prognosis overall. Discussed with daughter the bedside. She understands. Fall Risk Details Current Medications: Current Medications Albuterol Sulfate (Albuterol Sulfate (0.083%) 2.5 Mg/3 Ml Vial.Neb) 2.5 mg INHALE Q6H PRN PRN Reason: Shortness Of Breath Dextrose (Dextrose 50 % 25 Gm/50 Ml Vial) 25 gm IVPUSH Q15M PRN; Protocol PRN Reason: per Hypoglycemia Standing Ord. Docusate Sodium (Docusate Sodium 100 Mg Capsule) 100 mg PO DAILY PRN PRN Reason: Constipation Escitalopram Oxalate (Escitalopram Oxalate 5 Mg Tablet) 5 mg PO DAILY [facility] Last Admin: 03/24/21 10:11 Dose: 5 mg Documented by: Fluticasone Propionate (Fluticasone Propionate 250 Mcg Blst.W.Dev) 2 puff INHALE BID [facility] Last Admin: 03/24/21 08:10 Dose: Not Given Documented by: Glucose (Glucose Gel 15 Gm Gel..Gram.) 15 gm PO Q15M PRN; Protocol PRN Reason: per Hypoglycemia Standing Ord. Lactulose (Lactulose 20 Gm/30 Ml Solution) 20 gm PO Q4H [facility] Last Admin: 03/24/21 10:11 Dose: 20 gm Documented by: Loratadine (Loratadine 10 Mg Tablet) 10 mg PO DAILY [facility] Last Admin: 03/24/21 10:13 Dose: 10 mg Documented by: Midodrine (Midodrine Hcl 2.5 Mg Tablet) 2.5 mg PO BID@0800,1700 [facility] Last Admin: 03/24/21 10:13 Dose: 2.5 mg Documented by: Montelukast Sodium (Montelukast Sodium 10 Mg Tablet) 10 mg PO BEDTIME [facility] Last Admin: 03/23/21 19:39 Dose: 10 mg Documented by: Multivitamins/Vitamin C (Multivitamin Tablet) 1 tab PO DAILY [facility] Last Admin: 03/24/21 10:12 Dose: 1 tab Documented by: Omeprazole (Omeprazole 20 Mg Capsule.) 20 mg PO BID@0630,1630 [facility] Last Admin: 03/24/21 05:00 Dose: 20 mg Documented by: Pharmacy Consult (Consult Rx Perform Med Rec) 1 each MISCELLANE ONCE PRN PRN Reason: Consult order Rifaximin (Rifaximin 550 Mg Tablet) 550 mg PO BID [facility] Last Admin: 03/24/21 10:12 Dose: 550 mg Documented by: Sodium Chloride (0.9 % Sodium Chloride Flush 3 Ml Syringe) 3 ml IVFLUSH QSHIFT [facility] Last Admin: 03/24/21 10:14 Dose: 3 ml Documented by: Spironolactone (Spironolactone 25 Mg Tablet) 25 mg PO DAILY [facility]; Protocol Last Admin: 03/24/21 10:14 Dose: 25 mg Documented by: Trazodone HCl (Trazodone Hcl 25 Mg Halftab) 25 mg PO BEDTIME PRN PRN Reason: insomnia Last Admin: 03/23/21 19:39 Dose: 25 mg Documented by: Vitamin D (Cholecalciferol (Vitamin D3) 25 Mcg Tablet) 50 mcg PO DAILY [facility] Last Admin: 03/24/21 10:12 Dose: 50 mcg Documented by: Time Spent With Patient Time: Total time spent is greater than 50% in coordination of care (as documented) at patient's floor/unit and/or counseling patient: Time with patient: 15 - 24 minutes Progress Note: Quality Stroke Does the patient have a stroke diagnosis?: No Procedures Date of Service Date of Service: 03/24/21
[2021-03-24 11:21] LABS: Glucose, Whole Blood 195 mg/dL (60-115)
[2021-03-24 16:14] LABS: Glucose, Whole Blood 145 mg/dL (60-115)
[2021-03-24 19:47] LABS: Glucose, Whole Blood 137 mg/dL (60-115)
[2021-03-24] MEDS: Montelukast Sodium 10 MG TABLET PO (20:11)
[2021-03-25] VITALS (7 sets, daily range): BP systolic 99–128; BP diastolic 39–70; PULSE 58–88; RESP 18–20; TEMP 36.6–36.9; O2SAT 96–100
[2021-03-25] MEDS: Lactulose 20 GM/30 ML SOLUTION PO ×5 (01:39→21:27)
[2021-03-25] MEDS: Omeprazole 20 MG CAPSULE.DR PO (05:25)
[2021-03-25 07:16] LABS: Hemoglobin 9.7 g/dl (14.0-18.0); Mean Corpuscular HGB Conc 34.6 g/dl (31.0-36.0); Mean Corpuscular Hemoglobin 30.4 pg (27.0-33.0); Mean Corpuscular Volume 87.8 fL (80.0-98.0); Mean Platelet Volume 9.7 fL (9.4-12.4); Red Blood Count 3.19 X10*6/uL (4.60-5.80); Red Cell Distribution Width 15.6 % (11.0-16.0); White Blood Count 4.2 X10*3/uL (4.8-10.8)
[2021-03-25 07:30] LABS: Platelet Count 51 X10*3/uL (160-400)
[2021-03-25 08:00] LABS: Glucose, Whole Blood 105 mg/dL (60-115)
[2021-03-25 08:35] LABS: Anion Gap 11 (12-20); Blood Urea Nitrogen 29 mg/dL (9-16); Calcium 10.5 mg/dL (8.4-10.2); Carbon Dioxide 24 mmol/L (22-29); Chloride 107 mmol/L (96-108); Creatinine Clr Calc Pharmacy 22.2; Estimated Glomerular Filt Rate 27; Glucose Fasting 109 mg/dL (60-99); Potassium 4.9 mmol/L (3.3-5.1); Sodium 137 mmol/L (135-145)
[2021-03-25] MEDS: Cholecalciferol (Vitamin D3) 25 MCG TABLET 50 MCG PO (10:48)
[2021-03-25] MEDS: rifAXIMin 550 MG TABLET PO (10:48)
[2021-03-25] MEDS: 0.9 % Sodium Chloride Flush 3 ML SYRINGE IVFLUSH ×3 (10:48→21:27)
[2021-03-25] MEDS: Escitalopram Oxalate 5 MG TABLET PO (10:48)
[2021-03-25] MEDS: Loratadine 10 MG TABLET PO (10:49)
[2021-03-25] MEDS: Midodrine HCl 2.5 MG TABLET PO (10:49)
[2021-03-25] MEDS: Spironolactone 25 MG TABLET PO (10:49)
[2021-03-25] MEDS: Multivitamin TABLET 1 TAB PO (10:50)
--- NOTE | 2021-03-25 11:04 | HO.PM.IMPN ---
Subjective Subjective Date of Service: 03/25/21 Interval History: cc: ams interval history: very lethargic, not talking today Review of Systems Review of Systems: Yes Unobtainable due to mental condition Physical Exam Vital Signs: Vital Signs: Last Vital Signs Temp 98.1 F 03/25/21 08:00 Pulse 85 03/25/21 10:49 Resp 18 03/25/21 08:00 BP 101/48 L 03/25/21 10:49 Pulse Ox 99 03/25/21 02:55 Body Mass Index 25.2 General: lethargic, no acute distress Resp:? CTA bilateral, no accessory muscles used CVS: S1,S2,irregular GI: soft, non tender, non distended Neuro:? motor grossly intact Psych:? impaired insight? Objective Data Active Medications Albuterol Sulfate (Albuterol Sulfate (0.083%) 2.5 Mg/3 Ml Vial.Neb) 2.5 mg INHALE Q6H PRN PRN Reason: Shortness Of Breath Dextrose (Dextrose 50 % 25 Gm/50 Ml Vial) 25 gm IVPUSH Q15M PRN; Protocol PRN Reason: per Hypoglycemia Standing Ord. Docusate Sodium (Docusate Sodium 100 Mg Capsule) 100 mg PO DAILY PRN PRN Reason: Constipation Escitalopram Oxalate (Escitalopram Oxalate 5 Mg Tablet) 5 mg PO DAILY [facility] Last Admin: 03/25/21 10:48 Dose: 5 mg Documented by: LUZ MARIA Fluticasone Propionate (Fluticasone Propionate 250 Mcg Blst.W.Dev) 2 puff INHALE BID [facility] Last Admin: 03/25/21 08:17 Dose: Not Given Documented by: KAT Non-Admin Reason: Patient Condition Contraindication Glucose (Glucose Gel 15 Gm Gel..Gram.) 15 gm PO Q15M PRN; Protocol PRN Reason: per Hypoglycemia Standing Ord. Lactulose (Lactulose 20 Gm/30 Ml Solution) 20 gm PO Q4H [facility] Last Admin: 03/25/21 10:50 Dose: 20 gm Documented by: LUZ MARIA Loratadine (Loratadine 10 Mg Tablet) 10 mg PO DAILY [facility] Last Admin: 03/25/21 10:49 Dose: 10 mg Documented by: LUZ MARIA Midodrine (Midodrine Hcl 2.5 Mg Tablet) 2.5 mg PO BID@0800,1700 [facility] Last Admin: 03/25/21 10:49 Dose: 2.5 mg Documented by: LUZ MARIA Montelukast Sodium (Montelukast Sodium 10 Mg Tablet) 10 mg PO BEDTIME [facility] Last Admin: 03/24/21 20:11 Dose: 10 mg Documented by: CRISS Multivitamins/Vitamin C (Multivitamin Tablet) 1 tab PO DAILY [facility] Last Admin: 03/25/21 10:50 Dose: 1 tab Documented by: LUZ MARIA Omeprazole (Omeprazole 20 Mg Capsule.) 20 mg PO BID@0630,1630 [facility] Last Admin: 03/25/21 05:25 Dose: 20 mg Documented by: CRISS Pharmacy Consult (Consult Rx Perform Med Rec) 1 each MISCELLANE ONCE PRN PRN Reason: Consult order Rifaximin (Rifaximin 550 Mg Tablet) 550 mg PO BID [facility] Last Admin: 03/25/21 10:48 Dose: 550 mg Documented by: LUZ MARIA Sodium Chloride (0.9 % Sodium Chloride Flush 3 Ml Syringe) 3 ml IVFLUSH QSHIFT [facility] Last Admin: 03/25/21 10:48 Dose: 3 ml Documented by: LUZ MARIA Spironolactone (Spironolactone 25 Mg Tablet) 25 mg PO DAILY [facility]; Protocol Last Admin: 03/25/21 10:49 Dose: 25 mg Documented by: LUZ MARIA Trazodone HCl (Trazodone Hcl 25 Mg Halftab) 25 mg PO BEDTIME PRN PRN Reason: insomnia Last Admin: 03/23/21 19:39 Dose: 25 mg Documented by: YESSENIA Vitamin D (Cholecalciferol (Vitamin D3) 25 Mcg Tablet) 50 mcg PO DAILY [facility] Last Admin: 03/25/21 10:48 Dose: 50 mcg Documented by: LUZ MARIA Labs CBC & Chem 7: 03/25/21 06:07 03/25/21 06:07 Labs: Laboratory Results - last 24 hr 03/24/21 03/24/21 03/24/21 11:11 16:11 19:42 MCV MCH MCHC RDW Plt Count MPV Absolute Nucleated RBC Nucleated RBC % (auto) Anion Gap Estim Creat Clear Calc Estimated GFR POC Glucose 195 H 145 H 137 H Fasting Glucose Calcium 03/25/21 03/25/21 03/25/21 06:07 06:07 07:57 MCV 87.8 MCH 30.4 MCHC 34.6 RDW 15.6 Plt Count 51 L MPV 9.7 Absolute Nucleated RBC 0.000 Nucleated RBC % (auto) 0.0 Anion Gap 11 L Estim Creat Clear Calc 22.2 Estimated GFR 27 POC Glucose 105 Fasting Glucose 109 H Calcium 10.5 H Assessment and Plan (1) Hepatic encephalopathy: Status: Acute (2) Thrombocytopenia: Status: Acute (3) Cirrhosis of liver: Status: Acute (4) Second degree heart block: Status: Acute (5) CKD (chronic kidney disease) stage 3, GFR 30-59 ml/min: Status: Acute (6) Portal vein thrombosis: (7) Falls frequently: Status: Acute (8) Physical deconditioning: Status: Acute Assessment and Plan: 75-year-old Pashto-speaking male with a history of alcoholic liver cirrhosis with pancytopenia and esophageal varices, diabetes, portal vein thrombosis anticoagulated with Xarelto, hypertension, CKD 3, recent admission her for hepatic encephalopathy who was brought to the emergency department by EMS on section 12 due to suicidal ideation found to have hepatic encephalopathy Recurrent hepatic encephalopathy. 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 ) rifaximin GI following second degree Mobitz I heart block at around 6pm on 03/23/21 had questionable complete heart block, though escape rhythm was narrow complex and was brief monitor for now brief episode of aflutter/fib now back in sinus, not a candidate for AC due to bleeding risk Acute on chronic Anemia no evidence of blood loss Status post 2 units total of packed RBC hgb stable SI denies at this time came in on section 12 Patient seen by care team and has been cleared for discharge with no suicidal ideation elevated troponin trops flat, no chest pain Alcoholic liver cirrhosis with pancytopenia and esophageal varices H/H at lower end of baseline.? No active bleeding noted Follow CBC Continue spironolactone, Xifaxan, midodrine history of DM A1c 4.7, may be inaccurate given anemia not on home meds follow POCs, if elevated add SSI CKD III-IV Creatinine within baseline stable, monitor Portal vein thrombosis gi appreciated, risks of AC outweigh benefits, now off xarelto Mood Continue Lexapro mild intermittent asthma singulair, albuterol prn dvt ppx - hep sq code status - full code, poor prognosis dispo: family wishes for pt o go to [facility] upon discharge; unable to care for him at home, PT recommend short-term rehab, currently has auth. Quality Stroke Does the patient have a stroke diagnosis?: No VTE Prior VTE?: No VTE Risk Level:: Medical - moderate - high VTE Device Contraindication: Treatment Not Indicated VTE Drug Contraindication: N/A - Med Ordered
[2021-03-25 11:09] LABS: Glucose, Whole Blood 171 mg/dL (60-115)
--- NOTE | 2021-03-25 11:13 | P.PNCA_ITS ---
Subjective Subjective Date of Service: 03/25/21 Interval history: Still lethargic but better than yesterday; no cardiac complaints. Review of Systems Review of Systems Yes all other systems are reviewed and are negative Cardiovascular: Reports as per HPI, Reports no additional cardiovascular complaints, Denies acrocyanosis, Denies cool extremities, Denies painful fingertips, Denies chest pain, Denies chest pain at rest, Denies diaphoresis, Denies syncope, Denies irregular heart rhythm, Denies claudication, Denies leg edema, Denies lightheadedness, Denies palpitations and Denies dyspnea Respiratory: Denies dyspnea Denies syncope Endocrine: Denies palpitations Physical Exam Vital Signs: Last Vital Signs Temp 98.1 F 03/25/21 08:00 Pulse 85 03/25/21 10:49 Resp 18 03/25/21 08:00 BP 101/48 L 03/25/21 10:49 Pulse Ox 99 03/25/21 02:55 Body Mass Index 25.2 Const General: cooperative and no acute distress [facility] Other: Unremarkable Neck Neck: Yes normal visual inspection Chest Chest palpation & inspection: normal inspection of the chest Resp Auscultation: clear to auscultation bilaterally, no crackles and no wheezes Cardio Jugular venous distension: no JVD Palpation: normal PMI Heart sounds: S1 normal heart sound present, S2 normal heart sound present, no gallops, no murmurs and no rubs GI Palpation (GI): Soft to palpation Back/Spine/Pelvis Other: unremarkable Skin General skin exam: no rashes or lesions noted Neuro Cranial nerves: Yes Other cranial nerve findings present Extrem General: Yes no clubbing, cyanosis or edema Psych Mental Status: other Objective Labs and Meds Result diagrams: 03/25/21 06:07 03/25/21 06:07 Lab results: Laboratory Results - last 24 hr 03/24/21 03/24/21 03/24/21 11:11 16:11 19:42 WBC RBC Hgb Hct MCV MCH MCHC RDW Plt Count MPV Absolute Nucleated RBC Nucleated RBC % (auto) Sodium Potassium Chloride Carbon Dioxide Anion Gap BUN Creatinine Estim Creat Clear Calc Estimated GFR POC Glucose 195 H 145 H 137 H Fasting Glucose Calcium 03/25/21 03/25/21 03/25/21 06:07 06:07 07:57 WBC 4.2 L RBC 3.19 L Hgb 9.7 L Hct 28.0 L MCV 87.8 MCH 30.4 MCHC 34.6 RDW 15.6 Plt Count 51 L MPV 9.7 Absolute Nucleated RBC 0.000 Nucleated RBC % (auto) 0.0 Sodium 137 Potassium 4.9 Chloride 107 Carbon Dioxide 24 Anion Gap 11 L BUN 29 H Creatinine 2.40 H Estim Creat Clear Calc 22.2 Estimated GFR 27 POC Glucose 105 Fasting Glucose 109 H Calcium 10.5 H 03/25/21 10:58 WBC RBC Hgb Hct MCV MCH MCHC RDW Plt Count MPV Absolute Nucleated RBC Nucleated RBC % (auto) Sodium Potassium Chloride Carbon Dioxide Anion Gap BUN Creatinine Estim Creat Clear Calc Estimated GFR POC Glucose 171 H Fasting Glucose Calcium Progress Note: A&P Assessment and plan (1) Second degree heart block: Status: Acute (2) PAF (paroxysmal atrial fibrillation): Status: Acute (3) Cirrhosis of liver: Status: Acute (4) Thrombocytopenia: Status: Acute Assessment and Plan: He has asymptomatic second-degree Mobitz type 1 heart block. Some areas with 2:1 block two days ago, but ventricular rate still >50/min. Yesterday, some strips are suggestive of atrial fibrillation with controlled rates, less likely artifact from tremor. Multiple medical comorbidities including cirrhosis, anemia, thrombocytopenia, renal insufficiency. At this time, no indication for permanent pacemaker. Avoid rate slowing medications. Not good candidate for anticoagulation either. Guarded prognosis overall. Discussed again with daughter the bedside. She understands. Fall Risk Details Current Medications: Current Medications Albuterol Sulfate (Albuterol Sulfate (0.083%) 2.5 Mg/3 Ml Vial.Neb) 2.5 mg INHALE Q6H PRN PRN Reason: Shortness Of Breath Dextrose (Dextrose 50 % 25 Gm/50 Ml Vial) 25 gm IVPUSH Q15M PRN; Protocol PRN Reason: per Hypoglycemia Standing Ord. Docusate Sodium (Docusate Sodium 100 Mg Capsule) 100 mg PO DAILY PRN PRN Reason: Constipation Escitalopram Oxalate (Escitalopram Oxalate 5 Mg Tablet) 5 mg PO DAILY [facility] Last Admin: 03/25/21 10:48 Dose: 5 mg Documented by: Fluticasone Propionate (Fluticasone Propionate 250 Mcg Blst.W.Dev) 2 puff INHALE BID [facility] Last Admin: 03/25/21 08:17 Dose: Not Given Documented by: Glucose (Glucose Gel 15 Gm Gel..Gram.) 15 gm PO Q15M PRN; Protocol PRN Reason: per Hypoglycemia Standing Ord. Heparin Sodium (Porcine) (Heparin Sodium,Porcine 5,000 Unit/Ml Vial) 5,000 unit SUBCUT Q12H [facility] Lactulose (Lactulose 20 Gm/30 Ml Solution) 20 gm PO Q4H [facility] Last Admin: 03/25/21 10:50 Dose: 20 gm Documented by: Loratadine (Loratadine 10 Mg Tablet) 10 mg PO DAILY [facility] Last Admin: 03/25/21 10:49 Dose: 10 mg Documented by: Midodrine (Midodrine Hcl 2.5 Mg Tablet) 2.5 mg PO BID@0800,1700 [facility] Last Admin: 03/25/21 10:49 Dose: 2.5 mg Documented by: Montelukast Sodium (Montelukast Sodium 10 Mg Tablet) 10 mg PO BEDTIME [facility] Last Admin: 03/24/21 20:11 Dose: 10 mg Documented by: Multivitamins/Vitamin C (Multivitamin Tablet) 1 tab PO DAILY [facility] Last Admin: 03/25/21 10:50 Dose: 1 tab Documented by: Omeprazole (Omeprazole 20 Mg Capsule.Dr) 20 mg PO BID@0630,1630 [facility] Last Admin: 03/25/21 05:25 Dose: 20 mg Documented by: Pharmacy Consult (Consult Rx Perform Med Rec) 1 each MISCELLANE ONCE PRN PRN Reason: Consult order Rifaximin (Rifaximin 550 Mg Tablet) 550 mg PO BID [facility] Last Admin: 03/25/21 10:48 Dose: 550 mg Documented by: Sodium Chloride (0.9 % Sodium Chloride Flush 3 Ml Syringe) 3 ml IVFLUSH QSHIFT [facility] Last Admin: 03/25/21 10:48 Dose: 3 ml Documented by: Spironolactone (Spironolactone 25 Mg Tablet) 25 mg PO DAILY [facility]; Protocol Last Admin: 03/25/21 10:49 Dose: 25 mg Documented by: Trazodone HCl (Trazodone Hcl 25 Mg Halftab) 25 mg PO BEDTIME PRN PRN Reason: insomnia Last Admin: 03/23/21 19:39 Dose: 25 mg Documented by: Vitamin D (Cholecalciferol (Vitamin D3) 25 Mcg Tablet) 50 mcg PO DAILY [facility] Last Admin: 03/25/21 10:48 Dose: 50 mcg Documented by: Time Spent With Patient Time: Total time spent is greater than 50% in coordination of care (as documented) at patient's floor/unit and/or counseling patient: Time with patient: less than 15 minutes Progress Note: Quality Stroke Does the patient have a stroke diagnosis?: No Procedures Date of Service Date of Service: 03/25/21
[2021-03-25] MEDS: Heparin Sodium,Porcine 5,000 UNIT/ML VIAL 5000 UNIT SUBCUT (13:25)
[2021-03-25 16:09] LABS: Glucose, Whole Blood 125 mg/dL (60-115)
[2021-03-25 19:39] LABS: Glucose, Whole Blood 117 mg/dL (60-115)
[2021-03-25] MEDS: Montelukast Sodium 10 MG TABLET PO (21:27)
[2021-03-25] MEDS: traZODone HCL 25 MG HALFTAB PO (21:58)
[2021-03-26] MEDS: Lactulose 20 GM/30 ML SOLUTION PO ×4 (00:07→12:33)
[2021-03-26] MEDS: Heparin Sodium,Porcine 5,000 UNIT/ML VIAL 5000 UNIT SUBCUT (00:07)
[2021-03-26 00:57] VITALS: TEMP 37.8
[2021-03-26 04:00] VITALS: BP 106/52; PULSE 58; RESP 18; TEMP 37.7; O2SAT 100
[2021-03-26] MEDS: Omeprazole 20 MG CAPSULE.DR PO (05:08)
[2021-03-26 07:02] LABS: Hematocrit 27.8 % (42.0-52.0); Hemoglobin 9.5 g/dl (14.0-18.0); Mean Corpuscular HGB Conc 34.2 g/dl (31.0-36.0); Mean Corpuscular Hemoglobin 29.7 pg (27.0-33.0); Mean Corpuscular Volume 86.9 fL (80.0-98.0); Mean Platelet Volume 9.5 fL (9.4-12.4); Red Cell Distribution Width 15.4 % (11.0-16.0); White Blood Count 3.6 X10*3/uL (4.8-10.8)
[2021-03-26 07:13] LABS: Glucose, Whole Blood 87 mg/dL (60-115)
[2021-03-26 07:14] VITALS: BP 122/58; PULSE 61; RESP 18; TEMP 36.1; O2SAT 100
[2021-03-26 07:20] LABS: Platelet Count 51 X10*3/uL (160-400)
--- NOTE | 2021-03-26 07:21 | PC.NURSE ---
pt through 7p-7a shift very confused, restless, agitated, calling out camera in room, bed alarm in place. inc. of urine & toileting freq offered. constant redirection required, taking off monitor (leads placed on back) attempts oob exit seeking, calling for melida, unable to redirect/reorient. took lactulose q4h, as ordered with no bm. sitter in room from 2a-5a for 1:1 observation until staff unavailable. supv aware. 20 after sitter gone, pt alarm sounded & pt oob standing at bedside with urine on floor., cleaned and assisted back to bed. temp 100.1 decreased without meds (pt c/o feeling cold) - blankets provided. no meds due to liver cirrhosis and chronic kidney disease - at change of shift nsg joselin Jim & clinical coordinater Rola transferred pt to [address] with plan for sitter. Dr. Galvan aware of pt's temp & behavior.
[2021-03-26 07:24] LABS: Anion Gap 10 (12-20); Blood Urea Nitrogen 29 mg/dL (9-16); Calcium 10.7 mg/dL (8.4-10.2); Carbon Dioxide 26 mmol/L (22-29); Chloride 105 mmol/L (96-108); Creatinine Clr Calc Pharmacy 22.6; Estimated Glomerular Filt Rate 27; Glucose Fasting 97 mg/dL (60-99); Potassium 4.7 mmol/L (3.3-5.1); Sodium 136 mmol/L (135-145)
[2021-03-26 08:59] VITALS: BP 122/58; PULSE 61
[2021-03-26] MEDS: Midodrine HCl 2.5 MG TABLET PO (08:59)
[2021-03-26] MEDS: 0.9 % Sodium Chloride Flush 3 ML SYRINGE IVFLUSH (08:59)
[2021-03-26 09:00] VITALS: BP 122/58; PULSE 61
[2021-03-26] MEDS: Loratadine 10 MG TABLET PO (09:00)
[2021-03-26] MEDS: Spironolactone 25 MG TABLET PO (09:00)
[2021-03-26] MEDS: Cholecalciferol (Vitamin D3) 25 MCG TABLET 50 MCG PO (09:00)
[2021-03-26] MEDS: Multivitamin TABLET 1 TAB PO (09:00)
[2021-03-26] MEDS: Escitalopram Oxalate 5 MG TABLET PO (09:00)
[2021-03-26 10:54] LABS: Glucose, Whole Blood 176 mg/dL (60-115)
[2021-03-26 11:05] VITALS: BP 116/55; PULSE 59; RESP 20; TEMP 37.2; O2SAT 99
--- NOTE | 2021-03-26 11:52 | P.DS_ITS ---
DS: Providers Provider Date of Service: 03/26/21 Date of admission: 03/18/21 13:27 Primary care physician: Becca Chavez MD Consults: 03/20/21 05:33 Consult to Cardiology Routine Consulting Provider: Sy Joseph Reason for consultation: bradycardia; av block 03/20/21 11:24 Consult to Care Team Routine Comment: Reason for consultation: suicidal ideation 03/20/21 14:44 Consult to Gastroenterology Routine Consulting Provider: María Borrego Reason for consultation: portal vein thrombosis on xarelto Has provider been notified: No DS: Diagnosis Discharge Diagnosis (1) Second degree heart block: Status: Acute (2) PAF (paroxysmal atrial fibrillation): Status: Acute (3) Cirrhosis of liver: Status: Acute (4) Thrombocytopenia: Status: Acute DS: Summary Hospital Course Hospital Course: Patient was admitted for recurrent hepatic encephalopathy, acute on chronic. His lactulose was increased to q.4 hours, he was able to maintain 2-3 bowel movements per day. At discharge, He is still significantly ancephalopathic, but appears to be at his baseline chronic state. Patient was previously lethargic, not talking spontaneously, not recognizing family members. He is now alert when lightly stimulated, recognizes family, spontaneously talks, able to Eat with help. Though he still quite confused and mostly sleeps when not stimulated. He will continue on high-dose lactulose for goal of 2-3 bowel movements per day, this should be monitored and adjusted as needed. He will also continue rifaximin. Patient is not a candidate for liver transplant. He is likely approaching end of life, family is aware, would like to continue reasonable medical care to prolong life as much possible. course was complicated by new onset atrial flutter/fibrillation, rate was contolled, he was deemed not be a candidate for anticoagulation as bleeding risk outweigh benefits. for this reason as well, he was seen by GI, who recommended discontinuing xarelto that he had been on for previous portal vein thrombosus. patient had acute on chronic anemia, inflammatory, no evidence of blood loss. received 2 units prbc, hgb remained stable. he was also noted to have second degree Mobitz type I heart block. he was seen by cardiology who recommended no intervention. on admission there was some mention of suicidal ideation, however, this did not recur and he was evaluated and determined not to be a risk to himself or others. while still chronically ill, patient has been optimized and no longer requires hospital level care. he will be discharged to [facility]. Time Spent with Patient Time attestation: Total time spent providing and/or coordinating discharge services: Discharge coordination time: Greater than 30 minutes Quality: Stroke Does the patient have a stroke diagnosis?: No Physical Exam Vital Signs: Vital Signs: Last Vital Signs Temp 98.9 F 03/26/21 11:05 Pulse 59 03/26/21 11:05 Resp 20 03/26/21 11:05 BP 116/55 L 03/26/21 11:05 Pulse Ox 99 03/26/21 11:05 Body Mass Index 25.2 General: alert, no acute distress Resp:? CTA bilateral, no accessory muscles used CVS: S1,S2,irregular GI: soft, non tender, non distended Neuro:? motor grossly intact Psych:? impaired insight? DS: Data Data Completed and Pending Completed studies during hospitalization [Text1]: Procedures Drainage of Peritoneal Cavity, Percutaneous Approach (01/04/21) Labs on day of discharge: Laboratory Results - last 24 hr 03/25/21 03/25/21 03/26/21 16:05 19:36 06:13 WBC 3.6 L RBC 3.20 L Hgb 9.5 L Hct 27.8 L MCV 86.9 MCH 29.7 MCHC 34.2 RDW 15.4 Plt Count 51 L MPV 9.5 Absolute Nucleated RBC 0.000 Nucleated RBC % (auto) 0.0 Sodium Potassium Chloride Carbon Dioxide Anion Gap BUN Creatinine Estim Creat Clear Calc Estimated GFR POC Glucose 125 H 117 H Fasting Glucose Calcium 03/26/21 03/26/21 03/26/21 06:13 07:09 10:50 WBC RBC Hgb Hct MCV MCH MCHC RDW Plt Count MPV Absolute Nucleated RBC Nucleated RBC % (auto) Sodium 136 Potassium 4.7 Chloride 105 Carbon Dioxide 26 Anion Gap 10 L BUN 29 H Creatinine 2.36 H Estim Creat Clear Calc 22.6 Estimated GFR 27 POC Glucose 87 176 H Fasting Glucose 97 Calcium 10.7 H Discharge Plan Discharge Patient Disposition: [facility] Discharge Diagnosis: hepatic encephlaopathy Referrals: Becca Chavez MD [Primary Care Provider] - 1 Week Discharge Medications: Continued cholecalciferol (vitamin D3) 50 mcg (2,000 unit) capsule 50 mcg PO DAILY Qty: 30 RF: 1 Xifaxan 550 mg tablet 550 mg PO BID 30 Days Qty: 60 RF: 1 omeprazole 20 mg capsule,delayed release(DR/EC) 20 mg PO BID Qty: 60 RF: 1 multivitamin [Daily-Arlene] Tablet 1 tab PO DAILY RF: 0 montelukast 10 mg tablet 1 tab PO BEDTIME RF: 0 Flovent HFA 220 mcg/actuation HFA aerosol inhaler 2 puff PO BID RF: 0 loratadine 10 mg tablet 1 tab PO DAILY RF: 0 spironolactone 25 mg tablet 25 mg PO DAILY RF: 0 trazodone 50 mg tablet 25 mg PO BEDTIME PRN (Reason: insomnia) Qty: 4 RF: 0 albuterol sulfate 2.5 mg /3 mL (0.083 %) solution for nebulization 3 ml inhalation Q6H PRN (Reason: Shortness Of Breath) RF: 0 melatonin-lemon balm leaf extr 10-1 mg tablet 1 tab PO BEDTIME RF: 0 citalopram 10 mg tablet 10 mg PO DAILY RF: 0 midodrine 2.5 mg tablet 2.5 mg PO BID 30 Days Qty: 60 RF: 3 Changed lactulose 10 gram/15 mL solution 30 ml PO Q4H Qty: 0 RF: 0 Discontinued Xarelto 20 mg tablet 20 mg PO DAILY RF: 0 Discharge Orders: Discharge Order (Routine); Ordered 03/26/21 Ordered By: Devan Montenegro Diet: advance to usual diet Activity on Discharge: As tolerated Stand Alone Forms: Patient Portal Discharge page Care Plan Goals: optimize mental status, avoid hospitalizations Health Concerns: liver cirrhosis with hepatic encephalopathy Plan of Treatment: lacutlose titrated for 2-3 BM/day (please monitor closely), conitnue xifaximin Assessment: see above
--- NOTE | 2021-03-26 12:21 | MHC.CM.PN ---
met with family aware of dc to [facility] today at 1;30 by amb
[2021-03-26 12:58] LABS: COVID-19 Test Negative (Negative)
== END 2021-03-26 13:30 | disposition skilled nursing facility (03) | DRG 441 ==
LOC: HO.ED 12:49 → HO.EDOVER 13:43 → HO.IMC 03-19 15:04
PROVIDERS: Hospitalist; Physician Assistant; Admitting Provider Physician Assistant Medical; Emergency Provider Emergency Medicine; PCP Family Medicine; Visit Provider Internal Medicine
DX: K72.00 Acute and subacute hepatic failure without coma (principal); K76.7 Hepatorenal syndrome; R45.851 Suicidal ideations; D61.818 Other pancytopenia; K76.6 Portal hypertension; I85.10 Secondary esophageal varices without bleeding; K72.10 Chronic hepatic failure without coma; K70.30 Alcoholic cirrhosis of liver without ascites; E11.22 Type 2 diabetes mellitus with diabetic chronic kidney disease; D63.1 Anemia in chronic kidney disease; I44.1 Atrioventricular block, second degree; J45.20 Mild intermittent asthma, uncomplicated; I48.0 Paroxysmal atrial fibrillation; K31.89 Other diseases of stomach and duodenum; N18.30 Chronic kidney disease, stage 3 unspecified; R29.6 Repeated falls; Z86.718 Personal history of other venous thrombosis and embolism; Z91.81 History of falling; Z20.822 Contact with and (suspected) exposure to COVID-19; Z79.899 Other long term (current) drug therapy
CPT/HCPCS: 36415; 70450; 71045; 72125; 80048; 80053; 80143; 80179; 81001; 82077; 82140; 82550; 82947; 83605; 83690; 83735; 84484; 85025; 85027; 85610; 85730; 86850; 86900; 86901; 86923; 87040; 87635; 93005; 96360; 97110; 97162; 99285; P9016

== ENCOUNTER 2021-03-27 02:59 | Emergency (ER) | payer OTHER, SELFPAY ==
--- NOTE | ~2021-03-27 | XR_ITS ---
EXAMINATION: XR BILATERAL HIPS WITH AP PELVIS CLINICAL INFORMATION: Unwitnessed fall COMPARISON: 01/13/2021 TECHNIQUE: AP view of the pelvis and single views of each hip were obtained. FINDINGS: Alignment across the hips is anatomic. There is mild joint space narrowing as well as acetabular spurring bilaterally. No acute fracture is seen. Sacroiliac joints and pubic symphysis are intact. Vascular calcifications are present. XR/XR hip BI w PEL1V IMPRESSION: No acute findings identified. Degenerative changes of the hips.
--- NOTE | ~2021-03-27 | CT_ITS ---
EXAMINATION: NONCONTRAST HEAD CT NONCONTRAST CERVICAL SPINE CT INDICATION INFORMATION: Unwitnessed fall COMPARISON: 03/18/2021 TECHNIQUE: Separate noncontrast CT examinations of the head and cervical spine were performed. Coronal head CT images and coronal and sagittal cervical spine images were created at the technologist workstation. DLP: 99 mGy-cm DOSE LOWERING TECHNIQUES: This CT examination was performed using dose optimization techniques as appropriate, variously including the following: - Automated exposure control - Adjustment of mA and/or kV according to patient size (this includes techniques or standardized protocols for targeted exams were dose is matched to indication/reason for exam; i.e. extremities or head) - Use of iterative reconstruction technique FINDINGS: Head: Limited assessment in some regions due to motion artifact. There is no evidence of acute intracranial hemorrhage or territorial infarction. No abnormal mass-effect or midline shift is seen. Bueno to white matter differentiation is well preserved. No extra-axial fluid collections are identified. The ventricles are normal in size. There is mild periventricular white matter hypoattenuation consistent with chronic small vessel ischemic disease. Mild volume loss is noted. The osseous structures and soft tissues are normal. There is mucosal thickening of the maxillary and sphenoid sinuses. The mastoid air cells are well-aerated. Cervical spine: There is ankylosis across the atlantooccipital articulation. There is anatomic alignment of the vertebral bodies and posterior elements. Vertebral body heights are maintained. There is disc space narrowing of the mid to lower cervical spine. There are moderately extensive multilevel endplate osteophytes. Bilateral facet arthropathy is present, left-sided greater than right. No evidence of acute fracture. No prevertebral soft tissue swelling. Visualized portions of the lung apices are unremarkable. The thyroid gland is unremarkable. CT/CT cervical spine wo con IMPRESSION: 1. Head: Limited assessment in some regions due to motion artifact. No acute intracranial findings identified. 2. Cervical spine: No acute findings identified. Chronic appearing and degenerative changes as noted above.
[2021-03-27 03:09] VITALS: BP 125/56; BP 138/72; PULSE 54; PULSE 74; RESP 12; TEMP 37.1; O2SAT 100; O2SAT 95; BMI 20.7
--- NOTE | 2021-03-27 03:25 | PC.NURSE ---
This RN attempted to call [facility] to request report from nurse at facility regarding pt's visit to ED at this time. Phone call was not answered, automatically disconnected.
--- NOTE | 2021-03-27 04:44 | PC.NURSE ---
This RN contacting [facility] regarding current incident that led to summoning 911. Per ANG Tam, pt had just arrived at the facility from [facility] last night. Pt was in bed and had recently been rounded on. Per Yonatan, while he was on break, pt was found on the floor. Per Yontaan, pt is able to ambulate with assistance due to an unsteady gait. Staff at facility unsure if pt slipped out of bed onto the floor or if he tried to get OOB. Per Yonatan, the network contractor physician was notified of incident and due to the fall being unwitnessed, per network contractor MD, to send pt out for an eval. Yonatan aware of plan to CT head/neck and return to [facility].
--- NOTE | 2021-03-27 05:26 | ED.FALL ---
HPI - Fall General Chief Complaint: Fall Stated Complaint: FALL - NO COMPLAINTS Time Seen by Provider: 03/27/21 03:12 Source: patient, family (Daughter), EMS and aerial photograph interpreter Mode of arrival: EMS History of Present Illness HPI Narrative: 75-year-old male who is brought in by EMS after recent discharge to rehab facility and they states that while the nurse was at dinner the patient was found on the floor and appeared to be uninjured. However, they wanted to be cautious and have patient evaluated. Patient has no acute complaints of head/neck/pelvis pain. Related Data Home Medications Medication Instructions Recorded Confirmed fluticasone propionate 220 2 puff PO BID 04/08/20 03/18/21 mcg/actuation HFA aerosol inhaler (Flovent HFA) loratadine 10 mg tablet 1 tab PO DAILY 04/08/20 03/18/21 montelukast 10 mg tablet 1 tab PO BEDTIME 04/08/20 03/18/21 multivitamin (Daily-Arlene) 1 tab PO DAILY 04/08/20 03/18/21 citalopram 10 mg tablet 10 mg PO DAILY 06/01/20 03/18/21 spironolactone 25 mg tablet 25 mg PO DAILY 01/04/21 03/18/21 albuterol sulfate 3 ml INHALATION Q6H PRN 03/06/21 03/18/21 melatonin 10 mg-lemon balm leaf 1 tab PO BEDTIME 03/18/21 03/18/21 extract 1 mg tablet Previous Rx's Medication Instructions Recorded cholecalciferol (vitamin D3) 50 50 mcg PO DAILY #30 cap 05/25/20 mcg (2,000 unit) capsule rifaximin 550 mg tablet (Xifaxan) 550 mg PO BID 30 Days #60 tab 09/26/20 midodrine 2.5 mg tablet 2.5 mg PO BID 30 Days #60 tab 11/10/20 omeprazole 20 mg capsule,delayed 20 mg PO BID #60 cap 01/23/21 release trazodone 50 mg tablet 25 mg PO BEDTIME PRN #4 tab 03/01/21 lactulose 10 gram/15 mL oral 30 ml PO Q4H #0 ml 03/26/21 solution Allergies Allergy/AdvReac Type Severity Reaction Status Date / Time No Known Allergies Allergy Verified 01/23/21 10:24 Review of Systems Review of Systems: Pertinent positives and negatives as stated in HPI 10 point review of systems is otherwise negative. FOR[facility]LY [facility], [facility] Past Medical History Source: nursing notes reviewed Medical History JACOB (acute kidney injury) JACOB (acute kidney injury) Ascites Cirrhosis of liver CKD (chronic kidney disease) stage 3, GFR 30-59 ml/min COVID-19 Diabetes Elevated INR Esophageal varices Esophageal varices determined by endoscopy GERD (gastroesophageal reflux disease) Hepatic encephalopathy Hypertension Portal vein thrombosis Thrombocytopenia Vitamin D deficiency Surgical History Hx of colonoscopy Hx of endoscopy Hx of inguinal hernia repair Family History Family History Father Diabetes HTN (hypertension) Mother Diabetes Sister Cancer Social History Social History Household Members: Spouse Housing: House Do you presently have visiting nurse or other home services: Yes Unable to assess alcohol history related to: Unknown Alcohol intake: unknown Patient Tobacco Use Status: Never used Tobacco Advance Directives: Yes Advance Directives on File: Yes Advance Directives Date on File: 03/06/21 service: No Current occupational status: retired Physical Exam Vital Signs: Vital Signs: Last Vital Signs Temp 98.8 F 03/27/21 03:09 Pulse 57 03/27/21 06:17 Resp 13 03/27/21 06:17 BP 111/38 L 03/27/21 06:17 Pulse Ox 100 03/27/21 06:17 Body Mass Index 20.7 VITAL SIGNS: Reviewed. GENERAL: Chronically ill, cachectic,, in no acute distress. HEAD: Normocephalic/atraumatic EYES: PERRLA, EOMI OROPHARYNX: no oral lesions noted, posterior pharynx clear NECK: Supple, no adenopathy, no midline cervical spine tenderness LUNGS: Normal breath sounds. No adventitious sounds or accessory muscle use. SpO2<100> CARDIOVASCULAR: Regular rate and rhythm without noted murmurs, no JVD or lower extremity edema. ABDOMEN: Soft, non-tender, non-distended with bowel sounds, no pelvic pain MUSCULOSKELETAL: No tenderness, deformities, or effusions noted on gross inspection. EXTREMITIES: No cyanosis, clubbing or edema. SKIN: Inspection of the skin reveals no rashes NEUROLOGIC: Alert and oriented x 3. Strength and sensation to light touch were grossly intact x 4. Course Course Course Narrative: 75-year-old male with unwitnessed fall, will obtain CT head/C-spine and x-rays of pelvis. Review of all imaging is without acute findings and patient is otherwise stable for transfer back to the rehab facility. Discharge Plan Discharge Clinical Impression: Falls frequently Patient Disposition: Xfer [facility] Instructions: Fall Prevention for Older Adults (ED) Additional Instructions: Patient would likely benefit from someone to monitor patient as he has fallen numerous times. Return to the ER for any change or worsening of symptoms. Prescriptions: No Action cholecalciferol (vitamin D3) 50 mcg (2,000 unit) capsule 50 mcg PO DAILY Qty: 30 RF: 1 Xifaxan 550 mg tablet 550 mg PO BID 30 Days Qty: 60 RF: 1 omeprazole 20 mg capsule,delayed release(DR/EC) 20 mg PO BID Qty: 60 RF: 1 multivitamin [Daily-Arlene] Tablet 1 tab PO DAILY RF: 0 montelukast 10 mg tablet 1 tab PO BEDTIME RF: 0 Flovent HFA 220 mcg/actuation HFA aerosol inhaler 2 puff PO BID RF: 0 loratadine 10 mg tablet 1 tab PO DAILY RF: 0 spironolactone 25 mg tablet 25 mg PO DAILY RF: 0 trazodone 50 mg tablet 25 mg PO BEDTIME PRN (Reason: insomnia) Qty: 4 RF: 0 albuterol sulfate 2.5 mg /3 mL (0.083 %) solution for nebulization 3 ml inhalation Q6H PRN (Reason: Shortness Of Breath) RF: 0 melatonin-lemon balm leaf extr 10-1 mg tablet 1 tab PO BEDTIME RF: 0 lactulose 10 gram/15 mL solution 30 ml PO Q4H Qty: 0 RF: 0 citalopram 10 mg tablet 10 mg PO DAILY RF: 0 midodrine 2.5 mg tablet 2.5 mg PO BID 30 Days Qty: 60 RF: 3 Referrals: Becca Chavez MD [Primary Care Provider] - 2 days Print Language: Uzbek
--- NOTE | 2021-03-27 06:16 | PC.NURSE ---
Pt's daughter, Aiyana can be reached at [phone]
[2021-03-27 06:17] VITALS: BP 111/38; PULSE 57; RESP 13; O2SAT 100
--- NOTE | 2021-03-27 06:36 | PC.NURSE ---
Patti Guzman called twice with no one to answer the phones. PT is ready for discharge back to this facility.
== END 2021-03-27 09:02 | disposition skilled nursing facility (03) ==
PROVIDERS: Emergency Provider Student in an Organized Health Care Education/Training Program; PCP Family Medicine
DX: S09.90XA Unspecified injury of head, initial encounter (principal); S39.92XA Unspecified injury of lower back, initial encounter; M54.2 Cervicalgia; M25.552 Pain in left hip; M25.551 Pain in right hip; W01.0XXA Fall on same level from slipping, tripping and stumbling without subsequent striking against object, initial encounter; Y93.9 Activity, unspecified; Y92.9 Unspecified place or not applicable; Y99.9 Unspecified external cause status; Z79.899 Other long term (current) drug therapy
CPT/HCPCS: 70450; 72125; 73521; 99284

== ENCOUNTER 2021-04-08 10:47 | Emergency (ER) | payer OTHER, SELFPAY ==
--- NOTE | ~2021-04-08 | CT_ITS ---
EXAMINATION: CT BRAIN AND CT CERVICAL SPINE WITHOUT CONTRAST. CLINICAL INFORMATION: Fall, anticoagulated. COMPARISON: CT brain and cervical spine 03/27/2021 TECHNIQUE: 5 mm thin axial and reformatted 2 mm thin sagittal and coronal images of brain were obtained without contrast. Subsequently axial 3 mm thin and reformatted 2 mm thin sagittal and coronal images of cervical spine were obtained. DLP 1250. FINDINGS: Brain: There is no acute intra-axial, extra-axial bleed, masses or midline shift. There is no acute infarction evolution. There is no edema. The barlow to white matter difference is maintained normal. The lateral ventricles are symmetrical in size but enlarged and so are the cortical sulci there is mild periventricular hypodensity in both cerebral hemispheres without mass effect. Bone windows reveal no calvarial abnormality. There is no scalp soft tissue abnormality. There is patient motion along the skull base limiting evaluation. There is mild mucoperiosteal thickening right sphenoid and bilateral maxillary sinuses. Cervical spine: There is mild straightening of cervical lordosis. The vertebral heights and alignment is normal. There is grade 1 anterolisthesis C3 over C4 and C4 over C5. Rest of the vertebral alignment is normal. There is loss of C5-C6, C6-C7 and C7-T1 disc heights. There is moderate ventral spondylosis throughout cervical spine. The craniovertebral junction and the C1-C2 alignment is normal. There is moderate left C2-C3, C3-C4, C4-C5 and mild bilateral C5-C6 facet joint arthropathy and hypertrophy. The prevertebral and paravertebral soft tissues are normal. The thyroid lobes are symmetrical and normal. The lung apices are clear. CT/CT cervical spine wo con IMPRESSION: No acute intracranial process seen. The skull base is limited in evaluation secondary to motion artifact. There is chronic inflammatory changes right sphenoid and bilateral maxillary sinuses. There is grade 1 anterolisthesis C3 over C4 and C4 over C5. There are degenerative disc changes and moderate ventral spondylosis. No visible acute fracture or dislocation seen.
--- NOTE | ~2021-04-08 | XR_ITS ---
EXAMINATION: LEFT HUMERUS. CLINICAL INFORMATION: Fall, arm pain. COMPARISON: None TECHNIQUE: 2 views left arm. FINDINGS: There is old the left mid humeral healed fracture with deformity. No additional fracture or dislocation seen. The soft tissues are normal. XR/XR humerus LT IMPRESSION: Healed healed left mid humeral fracture with mild deformity.. No acute fracture seen.
--- NOTE | ~2021-04-08 | XR_ITS ---
EXAMINATION: LEFT HUMERUS. CLINICAL INFORMATION: Fall, arm pain. COMPARISON: None TECHNIQUE: 2 views left arm. FINDINGS: There is old the left mid humeral healed fracture with deformity. No additional fracture or dislocation seen. The soft tissues are normal. XR/XR shoulder LT min 2V IMPRESSION: Healed healed left mid humeral fracture with mild deformity.. No acute fracture seen.
[2021-04-08 11:07] VITALS: BP 127/70; BP 153/73; PULSE 76; PULSE 80; RESP 16; TEMP 36.8; O2SAT 98; O2SAT 99; BMI 18.8
--- NOTE | 2021-04-08 11:42 | ED.FALL ---
HPI - Fall General Chief Complaint: Fall Stated Complaint: fall out of chair Time Seen by Provider: 04/08/21 10:58 Source: other (long term report) Mode of arrival: EMS Limitations: altered mental status (baseline dementia) History of Present Illness HPI Narrative: 75-year-old male who lives at a local long term with a past medical history of cirrhosis, alcohol use disorder, chronic kidney disease, hepatic renal disease, atrial fibrillation, hepatic encephalopathy, atrial fibrillation, recent COVID, asthma, and a recent diagnosis of dementia presents for the 3rd visit in the last month to the emergency room for fall. Per long term, patient was in the hallway in a recliner, and then was found lying in the front of the recliner. Patient is complaining of left arm pain. Patient cannot say his name but knows use at [facility]. correction states that this is his baseline, he will respond to his name but does not know it. Patient is anticoagulated on Xarelto. Patient is endorsing left shoulder pain, and is denying headache, neck pain, or pain other parts of his body MD complaint: fall Onset (ago): hour(s) (2) Fall from: chair Fall witnessed: no Place fall occurred: long term/SNF Prolonged down time: no Location of injury - extremities: left: shoulder and arm Associated symptoms (after fall): denies Related Data Home Medications Medication Instructions Recorded Confirmed fluticasone propionate 220 2 puff PO BID 04/08/20 03/18/21 mcg/actuation HFA aerosol inhaler (Flovent HFA) loratadine 10 mg tablet 1 tab PO DAILY 04/08/20 03/18/21 montelukast 10 mg tablet 1 tab PO BEDTIME 04/08/20 03/18/21 multivitamin (Daily-Arlene) 1 tab PO DAILY 04/08/20 03/18/21 citalopram 10 mg tablet 10 mg PO DAILY 06/01/20 03/18/21 albuterol sulfate 3 ml INHALATION Q6H PRN 03/06/21 03/18/21 melatonin 10 mg-lemon balm leaf 1 tab PO BEDTIME 03/18/21 03/18/21 extract 1 mg tablet Previous Rx's Medication Instructions Recorded cholecalciferol (vitamin D3) 50 50 mcg PO DAILY #30 cap 05/25/20 mcg (2,000 unit) capsule rifaximin 550 mg tablet (Xifaxan) 550 mg PO BID 30 Days #60 tab 09/26/20 omeprazole 20 mg capsule,delayed 20 mg PO BID #60 cap 01/23/21 release trazodone 50 mg tablet 25 mg PO BEDTIME PRN #4 tab 03/01/21 lactulose 10 gram/15 mL oral 30 ml PO Q4H #0 ml 03/26/21 solution midodrine 2.5 mg tablet 2.5 mg PO BID #180 tab 03/27/21 spironolactone 25 mg tablet 25 mg PO DAILY #90 tab 03/27/21 oxycodone 5 mg capsule 2.5 mg PO Q8H 3 Days #5 cap 04/08/21 oxycodone 5 mg tablet 2.5 mg PO Q8H 3 Days #5 tab 04/08/21 Allergies Allergy/AdvReac Type Severity Reaction Status Date / Time No Known Allergies Allergy Verified 01/23/21 10:24 Review of Systems Review of Systems: Limited review of systems due to altered mental status, baseline dementia. Yes Unobtainable due to mental status Constitutional: Constitutional: Denies fever(s) and Denies headache(s) ENT: Denies headache(s) and Denies neck pain Respiratory: Respiratory: Denies cough Musculoskeletal: Musculoskeletal: Reports arthralgias and Denies neck pain Neurologic: Denies headache(s) [facility] Past Medical History Medical History JACOB (acute kidney injury) JACOB (acute kidney injury) Ascites Cirrhosis of liver CKD (chronic kidney disease) stage 3, GFR 30-59 ml/min COVID-19 Diabetes Elevated INR Esophageal varices Esophageal varices determined by endoscopy GERD (gastroesophageal reflux disease) Hepatic encephalopathy Hypertension Portal vein thrombosis Thrombocytopenia Vitamin D deficiency Surgical History Hx of colonoscopy Hx of endoscopy Hx of inguinal hernia repair Family History Family History Father Diabetes HTN (hypertension) Mother Diabetes Sister Cancer Social History Social History Household Members: Spouse Housing: House Do you presently have visiting nurse or other home services: Yes Unable to assess alcohol history related to: Unknown Alcohol intake: unknown Patient Tobacco Use Status: Never used Tobacco Advance Directives: Yes Advance Directives on File: Yes Advance Directives Date on File: 03/06/21 service: No Current occupational status: retired Physical Exam Vital Signs: Vital Signs: Last Vital Signs Temp 97.7 F 04/08/21 11:53 Pulse 80 04/08/21 14:00 Resp 16 04/08/21 11:07 BP 130/78 04/08/21 14:00 Pulse Ox 98 04/08/21 14:00 Body Mass Index 18.8 Const: Other: Cachectic elderly gentleman with bronzing of skin with multiple fading bruises, squirming and moaning in bed. General: alert, awake, acute distress moderate and ill appearing chronically Nutritional Appearance: cachectic Orientation/consciousness: No oriented to person, oriented to place and No oriented to time Limitations: altered mental status HENMT: Head: Yes normal to inspection, Yes No palpable skull fracture present, Yes normocephalic, Yes atraumatic and No abrasion Ears: hearing grossly normal bilaterally General nose exam: Normal external nose present Face and sinus: Yes normal facial exam, Yes face symmetric and No ecchymosis Mouth: Normal oral and palatal mucosa present, lip normal and tongue normal Teeth and gingiva: dentures Throat: Yes posterior oropharynx normal Eyes: Pupils: Equal, round and reactive pupils present EOM: EOMs intact bilaterally Neck: Neck: Yes normal visual inspection, Yes full ROM and Yes trachea midline Chest: Chest palpation & inspection: normal inspection of the chest and normal palpation of entire chest wall Resp: Effort & Inspection: normal respiratory effort, able to speak in complete sentences, no audible wheezes, no cough, no respiratory distress and no retractions Auscultation: clear to auscultation bilaterally, no crackles, no rales, no rhonchi and no wheezes Cardio: Rate: regular rate Rhythm: regular rhythm GI: Inspection: Yes distended Palpation (GI): Soft to palpation, nontender, no guarding, not rigid and Ascites present Percussion: Yes normal to percussion Auscultation: normal bowel sounds : General: Yes no CVA tenderness Male General Exam: Yes normal external exam Penis: normal penis and circumcised Meatus: meatus normal Back/Spine/Pelvis: Back: no CVA tenderness Cervical Spine: cervical ROM normal, No Cervical spine tenderness and No step off deformity Thoracic/Lumbar Spine: No thoracic spinal tenderness and No lumbar spinal tenderness Pelvis: no pain with anterior-posterior compression and no pain with lateral compression Skin: General skin exam: ecchymosis Neuro: General: No oriented to person, oriented to place, No oriented to time and Unable to assess gait Cranial nerves: Yes Equal, round and reactive pupils present and Yes Nystagmus not present Gait exam (Neuro): Unable to assess gait Motor exam (neuro): 5/5 motor strength present throughout Extrem: Left upper extremity: normal capillary refill, shoulder/upper arm Details: tenderness Location: of the proximal humerus and ecchymosis (Shoulder and lateral aspect of the entire arm) and elbow/forearm Details: normal ROM; Negative for no tenderness and no deformity Course Course Course Narrative: 75-year-old male who has dementia and lives in a long term presents for an unwitnessed fall off of a recliner chair. Patient is endorsing left shoulder and left upper arm pain. On exam, patient responds to questions, knows where he is but does not know the day or who he is. Patient is tender over his proximal humerus, has ecchymosis over entire left arm. Patient is cachectic with distended abdomen due to ascites. Patient initially agitated and squirming in bed. Will get head and neck CT, urine, labs with coags and ammonia, x-ray left arm shoulder. Patient was agitated prior to my exam. Nursing homes states if not started any antipsychotics or meds for dementia because they are waiting a psych evaluation After my exam patient settled down. 2 mg morphine given for pain. XR shoulder FINDINGS: There is mild reduction in the left lateral joint and AC joint space. There is a displaced lateral clavicular acute fracture. The soft tissues are normal.. IMPRESSION: Acute mildly displaced lateral clavicular fracture. Mild degenerative changes left glenohumeral and AC joint. There is no dislocation. XR humerus shows old healed midshaft fracture Patient's labs are abnormal, but are at his baseline. White blood cell 4.7, H&H 9.5 and 28, platelets 59. Patient has a history of thrombocytopenia. INR 1.3, ammonia 41. Negative urine. Creatinine 2.5, patient's creatinine generally runs 2.3. Patient has hypercalcemia at 11.8, IA calculated albumin corrected calcium. Patient sent home with shoulder immobilizer, pain medication, follow-up with orthopedics. MDM - Fall Lab Data Result diagrams: 04/08/21 11:51 04/08/21 11:50 Labs: Lab Results 04/08/21 04/08/21 04/08/21 Range/Units 11:50 11:50 11:50 WBC (4.8-10.8) X10*3/uL RBC (4.60-5.80) X10*6/uL Hgb (14.0-18.0) g/dl Hct (42.0-52.0) % MCV (80.0-98.0) fL MCH (27.0-33.0) pg MCHC (31.0-36.0) g/dl RDW (11.0-16.0) % Plt Count (160-400) X10*3/uL MPV (9.4-12.4) fL Immature Gran % (Auto) (0.0-0.4) % Neut % (Auto) (45-73) % Lymph % (Auto) (20-40) % [place] % (Auto) (2-11) % Eos % (Auto) (0-4) % Baso % (Auto) (0-2) % Lymph # (Auto) (1.2-4.9) X10*3/uL [place] # (Auto) (0.1-1.2) X10*3/uL Eos # (Auto) (0.0-0.4) X10*3/uL Baso # (Auto) (0.0-0.2) X10*3/uL Abs Immat Gran (auto) (0.00-0.03) X10*3/uL Absolute Neuts (auto) (2.0-8.3) x10*3/uL Absolute Nucleated RBC (0.0-0.012) X10*3/uL Nucleated RBC % (auto) (0.0-0.2) /100WBC PT 15.1 H (9.9-13.0) SEC INR 1.3 H (0.9-1.1) APTT 32.9 D (24.1-38.0) SEC Sodium 137 (135-145) mmol/L Potassium 4.5 (3.3-5.1) mmol/L Chloride 105 (96-108) mmol/L Carbon Dioxide 24 (22-29) mmol/L Anion Gap 13 (12-20) BUN 36 H (9-16) mg/dL Creatinine 2.54 H (0.5-1.4) mg/dL Estim Creat Clear Calc 17.7 Estimated GFR 25 Random Glucose 111 (60-115) mg/dL Calcium 11.3 H (8.4-10.2) mg/dL Total Bilirubin 1.7 H (0.0-1.0) mg/dL AST 35 (5-37) U/L ALT 40 (0-40) U/L Alkaline Phosphatase 121 H D (39-117) U/L Ammonia 41 (13-55) umol/L Total Protein 5.7 L (6.5-8.0) g/dL Albumin 3.4 L (3.5-5.0) g/dL Urine Color Urine Appearance Urine pH (5.0-8.0) Ur Specific [place] (1.005-1.025) Urine Protein (NEG-TRACE) MG/DL Urine Glucose (UA) (NEG) MG/DL Urine Ketones (NEG) MG/DL Urine Blood (NEG) Urine Nitrite (NEG) Ur Leukocyte Esterase (NEG) COVID-19 ([facility]) (Negative) COVID-19 Clin Com 04/08/21 04/08/21 04/08/21 Range/Units 11:50 11:51 11:51 WBC 4.7 L (4.8-10.8) X10*3/uL RBC 3.19 L (4.60-5.80) X10*6/uL Hgb 9.5 L (14.0-18.0) g/dl Hct 28.2 L (42.0-52.0) % MCV 88.4 (80.0-98.0) fL MCH 29.8 (27.0-33.0) pg MCHC 33.7 (31.0-36.0) g/dl RDW 14.5 (11.0-16.0) % Plt Count 59 L (160-400) X10*3/uL MPV 8.8 L (9.4-12.4) fL Immature Gran % (Auto) 0.2 (0.0-0.4) % Neut % (Auto) 68.5 (45-73) % Lymph % (Auto) 16.5 L (20-40) % [place] % (Auto) 10.8 (2-11) % Eos % (Auto) 3.6 (0-4) % Baso % (Auto) 0.4 (0-2) % Lymph # (Auto) 0.8 L (1.2-4.9) X10*3/uL [place] # (Auto) 0.5 (0.1-1.2) X10*3/uL Eos # (Auto) 0.2 (0.0-0.4) X10*3/uL Baso # (Auto) 0.0 (0.0-0.2) X10*3/uL Abs Immat Gran (auto) 0.01 (0.00-0.03) X10*3/uL Absolute Neuts (auto) 3.2 (2.0-8.3) x10*3/uL Absolute Nucleated RBC 0.000 (0.0-0.012) X10*3/uL Nucleated RBC % (auto) 0.0 (0.0-0.2) /100WBC PT (9.9-13.0) SEC INR (0.9-1.1) APTT (24.1-38.0) SEC Sodium (135-145) mmol/L Potassium (3.3-5.1) mmol/L Chloride (96-108) mmol/L Carbon Dioxide (22-29) mmol/L Anion Gap (12-20) BUN (9-16) mg/dL Creatinine (0.5-1.4) mg/dL Estim Creat Clear Calc Estimated GFR Random Glucose (60-115) mg/dL Calcium (8.4-10.2) mg/dL Total Bilirubin (0.0-1.0) mg/dL AST (5-37) U/L ALT (0-40) U/L Alkaline Phosphatase (39-117) U/L Ammonia (13-55) umol/L Total Protein (6.5-8.0) g/dL Albumin (3.5-5.0) g/dL Urine Color YELLOW Urine Appearance CLEAR Urine pH 6.0 (5.0-8.0) Ur Specific [place] 1.015 (1.005-1.025) Urine Protein NEG (NEG-TRACE) MG/DL Urine Glucose (UA) NEG (NEG) MG/DL Urine Ketones NEG (NEG) MG/DL Urine Blood NEG (NEG) Urine Nitrite NEG (NEG) Ur Leukocyte Esterase NEG (NEG) COVID-19 ([facility]) Negative (Negative) COVID-19 Clin Com See Note Discharge Plan Discharge Clinical Impression: Hypercalcemia Fracture of clavicular shaft, left, closed Qualifiers: Encounter type: initial encounter Fracture alignment: displaced Qualified Code(s): S42.022A - Displaced fracture of shaft of left clavicle, initial encounter for closed fracture Patient Disposition: er SNF Transfer Details: back to long term Instructions: How to Use a Sling (ED) Additional Instructions: You have a left clavicular fracture. You must keep the shoulder immobilizer on until you are seen by Orthopedics. I have referred due to Orthopedics, if you do not perform them on Friday, please give him a call. I have prescribed oxycodone to your pharmacy for the next [address], neck CT, and shoulder x-ray were all negative. Your labs are abnormal but they are at your baseline. Your calcium levels high. Prescriptions: New oxycodone 5 mg capsule 2.5 mg PO Q8H 3 Days Qty: 5 RF: 0 oxycodone 5 mg tablet 2.5 mg PO Q8H 3 Days Qty: 5 RF: 0 No Action cholecalciferol (vitamin D3) 50 mcg (2,000 unit) capsule 50 mcg PO DAILY Qty: 30 RF: 1 Xifaxan 550 mg tablet 550 mg PO BID 30 Days Qty: 60 RF: 1 omeprazole 20 mg capsule,delayed release(DR/EC) 20 mg PO BID Qty: 60 RF: 1 spironolactone 25 mg tablet 25 mg PO DAILY Qty: 90 RF: 0 midodrine 2.5 mg tablet 2.5 mg PO BID Qty: 180 RF: 0 multivitamin [Daily-Arlene] Tablet 1 tab PO DAILY RF: 0 montelukast 10 mg tablet 1 tab PO BEDTIME RF: 0 Flovent HFA 220 mcg/actuation HFA aerosol inhaler 2 puff PO BID RF: 0 loratadine 10 mg tablet 1 tab PO DAILY RF: 0 trazodone 50 mg tablet 25 mg PO BEDTIME PRN (Reason: insomnia) Qty: 4 RF: 0 albuterol sulfate 2.5 mg /3 mL (0.083 %) solution for nebulization 3 ml inhalation Q6H PRN (Reason: Shortness Of Breath) RF: 0 melatonin-lemon balm leaf extr 10-1 mg tablet 1 tab PO BEDTIME RF: 0 lactulose 10 gram/15 mL solution 30 ml PO Q4H Qty: 0 RF: 0 citalopram 10 mg tablet 10 mg PO DAILY RF: 0 Referrals: Edgar Cunha MD [Physician] - 2 days (left clavicle fracture There is mild reduction in the left lateral joint and AC joint space. There is a displaced lateral clavicular acute fracture. The soft tissues are normal.. IMPRESSION: Acute mildly displaced lateral clavicular fracture. Mild degenerative changes left glenohumeral and AC joint. There is no dislocation.) Interventions: ED Discharge Assessment Last Done: 04/08/21 15:01 Discharge Date/Time: 04/08/21 15:01
[2021-04-08 11:53] VITALS: TEMP 36.5
[2021-04-08 11:55] LABS: MANUAL DIFF FLAG NO
[2021-04-08 11:57] LABS: Basophils Percent Auto 0.4 % (0-2); Eosinophils Absolute Auto 0.2 X10*3/uL (0.0-0.4); Eosinophils Percent Auto 3.6 % (0-4); Hematocrit 28.2 % (42.0-52.0); Hemoglobin 9.5 g/dl (14.0-18.0); Imm Gran Abs Auto 0.01 X10*3/uL (0.00-0.03); Imm Gran Pct Auto 0.2 % (0.0-0.4); Lymphocytes Absolute Auto 0.8 X10*3/uL (1.2-4.9); Lymphocytes Percent Auto 16.5 % (20-40); Mean Corpuscular HGB Conc 33.7 g/dl (31.0-36.0); Mean Corpuscular Hemoglobin 29.8 pg (27.0-33.0); Mean Corpuscular Volume 88.4 fL (80.0-98.0); Mean Platelet Volume 8.8 fL (9.4-12.4); Monocytes Absolute Auto 0.5 X10*3/uL (0.1-1.2); Monocytes Percent Auto 10.8 % (2-11); Neutrophils Absolute Auto 3.2 x10*3/uL (2.0-8.3); Neutrophils Percent Auto 68.5 % (45-73); Red Blood Count 3.19 X10*6/uL (4.60-5.80); Red Cell Distribution Width 14.5 % (11.0-16.0); White Blood Count 4.7 X10*3/uL (4.8-10.8)
[2021-04-08 11:58] LABS: Platelet Count 59 X10*3/uL (160-400)
[2021-04-08 12:02] LABS: INTERNATIONAL NORM RATIO 1.3 (0.9-1.1); Prothrombin Time 15.1 SEC (9.9-13.0)
[2021-04-08 12:03] LABS: Ammonia 41 umol/L (13-55)
[2021-04-08 12:04] LABS: Appearance Urine CLEAR; Color Urine YELLOW; Glucose Urine UA NEG (NEG); Leukocyte Esterase Urine NEG (NEG); Nitrite Urine NEG (NEG); Specific Gravity - Urine 1.015 (1.005-1.025); Urine Blood NEG (NEG); Urine Ketones NEG (NEG); Urine Protein NEG (NEG-TRACE)
[2021-04-08 12:05] LABS: Partial Thromboplastin Time 32.9 SEC (24.1-38.0)
[2021-04-08 12:30] LABS: COVID-19 Test Negative (Negative)
[2021-04-08 12:36] LABS: Alanine Aminotransferase 40 U/L (0-40); Albumin Level 3.4 g/dL (3.5-5.0); Alkaline Phosphatase 121 U/L (39-117); Anion Gap 13 (12-20); Aspartate Amino Transferase 35 U/L (5-37); Bilirubin Total 1.7 mg/dL (0.0-1.0); Blood Urea Nitrogen 36 mg/dL (9-16); Calcium 11.3 mg/dL (8.4-10.2); Carbon Dioxide 24 mmol/L (22-29); Chloride 105 mmol/L (96-108); Creatinine Clr Calc Pharmacy 17.7; Estimated Glomerular Filt Rate 25; Glucose Random 111 mg/dL (60-115); Potassium 4.5 mmol/L (3.3-5.1); Sodium 137 mmol/L (135-145); Total Protein 5.7 g/dL (6.5-8.0)
[2021-04-08] MEDS: Morphine Sulfate 2 MG/ML CARTRIDGE IVPUSH (12:54)
[2021-04-08 14:00] VITALS: BP 130/78; PULSE 80; O2SAT 98
[2021-04-08] MEDS: Lidocaine 4 % Patch ADH..PATCH 1 PATCH TRANSDERMA (14:10)
== END 2021-04-08 15:01 | disposition skilled nursing facility (03) ==
PROVIDERS: Physician Assistant; Emergency Provider Emergency Medicine; PCP Internal Medicine
DX: E83.52 Hypercalcemia (principal); S42.022A Displaced fracture of shaft of left clavicle, initial encounter for closed fracture; W07.XXXA Fall from chair, initial encounter; Z20.822 Contact with and (suspected) exposure to COVID-19; E11.22 Type 2 diabetes mellitus with diabetic chronic kidney disease; I12.9 Hypertensive chronic kidney disease with stage 1 through stage 4 chronic kidney disease, or unspecified chronic kidney disease; N18.30 Chronic kidney disease, stage 3 unspecified; I48.0 Paroxysmal atrial fibrillation; Y93.89 Activity, other specified; Y92.128 Other place in nursing home as the place of occurrence of the external cause; Y99.9 Unspecified external cause status; Z91.81 History of falling; Z79.01 Long term (current) use of anticoagulants; Z79.899 Other long term (current) drug therapy
CPT/HCPCS: 36415; 70450; 72125; 73030; 73060; 80053; 81003; 82140; 85025; 85610; 85730; 87635; 96374; 99285; J2270

== ENCOUNTER → 2021-04-12 10:53 | Outpatient (BNVA) | payer OTHER, SELFPAY | PROVIDERS: PCP Internal Medicine; Visit Provider Physician Assistant | DX: S42.032A Displaced fracture of lateral end of left clavicle, initial encounter for closed fracture (principal) | CPT/HCPCS: 99202 ==

== ENCOUNTER → 2021-04-16 11:13 | Outpatient (BNVA) | payer OTHER, SELFPAY | PROVIDERS: PCP Internal Medicine; Visit Provider Internal Medicine Gastroenterology | DX: K74.60 Unspecified cirrhosis of liver (principal); D69.6 Thrombocytopenia, unspecified | CPT/HCPCS: 99212 ==

== ENCOUNTER 2021-04-16 19:46 | Emergency (ER) | payer OTHER, SELFPAY ==
--- NOTE | ~2021-04-16 | CT_ITS ---
EXAMINATION: CT CHEST, ABDOMEN AND PELVIS WITHOUT CONTRAST. CLINICAL INFORMATION: trauma . COMPARISON: No pertinent prior studies are available for comparison. TECHNIQUE: Multidetector volumetric imaging was performed from the thoracic inlet through the pubic symphysis without intravenous contrast. Sagittal and coronal reformatted images were obtained on the technologist workstation. This CT examination was performed using dose optimization techniques as appropriate, variously including the following: *Automated exposure control *Adjustment of mA and/or kV according to patient size (this includes techniques or standardized protocols for targeted exams where dose is matched to indication/reason for exam; i.e. extremities or head) *Use of iterative reconstruction technique DLP: 869 mGy-cm FINDINGS: CHEST: Lungs: Dependent atelectatic changes similar to prior study. Calcified granuloma in the medial right lung base again noted. No superimposed focal infiltrate or pneumothorax Mediastinum: Prominent vascular calcification within the aorta and coronary vessels. No bulky adenopathy. Hiatal hernia and likely esophageal varicosities are noted Pericardium/Pleura: No significant effusion. No pleural mass or thickening. Chest Wall/Axilla: Mild bilateral gynecomastia ABDOMEN/PELVIS: Peritoneal Space:Large volume of ascites is again demonstrated Liver, Gallbladder, Biliary Tree: The liver is atrophic and nodular cyst with underlying cirrhotic change. I do not appreciate any discrete mass lesion on this noncontrast exam. No biliary ductal dilatation gallbladder is contracted. Pancreas: Atrophic . Spleen: mild splenomegaly with the spleen measuring 13.5 cm in length Adrenal Glands: Unremarkable. Kidneys and Ureters: The kidneys are normal in size, shape, and attenuation. No hydronephrosis, hydroureter, or calculi seen. No perinephric stranding. Bladder: Unremarkable. Gastrointestinal Tract: Scattered colonic diverticulosis. No obvious diverticulitis or obstructive changes to the bowel Abdominal Wall: Fluid extending into the right femoral hernia and a left inguinal hernia Lymphovascular Structures: Extensive vascular calcification within the aorta iliac system. Pelvic Viscera: Unremarkable. Osseus Structures: There is a distal left clavicle fracture partially seen on the first slice of the study. This is of uncertain acuteness. There is motion artifact but I do not appreciate any displaced rib fractures. Degenerative changes in the sacroiliac joints and hips. No acute abnormality within the visualized spine with multilevel degenerative changes noted CT/CT abdomen pelvis wo con IMPRESSION: Distal left clavicle fracture partially seen on the first slices of the study. In retrospect this was present on the 04/08/2021 x-ray. No acute displaced fracture seen. Noncontrast study but no visceral organ injury is appreciated. Nodular cirrhotic liver with ascites and sequela of portal hypertension as described above.
--- NOTE | ~2021-04-16 | CT_ITS ---
EXAMINATION: CT CERVICAL SPINE without contrast. CLINICAL INFORMATION: AMS COMPARISON: Prior CT 04/08/2021 TECHNIQUE: Computed axial sagittal and coronal images acquired using department's standard protocol. This CT examination was performed using dose optimization techniques as appropriate, variously including the following: *Automated exposure control *Adjustment of mA and/or kV according to patient size (this includes techniques or standardized protocols for targeted exams where dose is matched to indication/reason for exam; i.e. extremities or head) *Use of iterative reconstruction technique CONTRAST: None DLP: 359 mGy-cm FINDINGS: SKULL BASE: Visualized structures at skull base are normal, Included facial sinuses are clear, CERVICAL VERTEBRAE: Seven cervical vertebrae identified maintaining proper height and alignment, DISCS: There is degenerative disc disease at all levels especially at C5-C6, C6-C7 and C7-T1. Facet joints arthropathy seen at all levels. C1-C2: There is no CT evidence of significant osseous narrowing of the central canal or neural foramen. C2-C3: There is no CT evidence of significant osseous narrowing of the central canal or neural foramen. C3-C4: Facet joints arthropathy and osteophyte developed from the edges of endplates cause left foraminal stenosis. There is no osseous narrowing of central canal or right foramen. C4-C5: There is severe facet joints arthropathy. No significant stenosis of central canal or foramen. C5-C6: There is a stenosis of the left foramen caused by facet joints arthropathy and developed osteophyte from the edges of endplates. No central stenosis. Right foramen is patent. C6-C7: There is facet joints arthropathy. No fracture. No significant osseous a stenosis of central canal or foramen. C7-T1: There is no CT evidence of significant osseous narrowing of the central canal or neural foramen. PARAVERTEBRAL SOFT TISSUE: Paravertebral soft tissues unremarkable. CT/CT cervical spine wo con IMPRESSION: 1. No evidence of acute fracture. 2. Early advanced degenerative disc disease at all levels especially at C5-C6 and C6-C7. 3. Combination of facet joints arthropathy and developed osteophyte from the edges of endplates cause foraminal stenosis at multiple levels as above. 4. Loss of of normal cervical lordosis likely spasm.
--- NOTE | ~2021-04-16 | CT_ITS ---
EXAMINATION: CT HEAD WITHOUT CONTRAST CLINICAL INFORMATION: Fall. Altered mental status. COMPARISON: CT head 04/08/2021, 03/27/2021. TECHNIQUE: Contiguous axial imaging was performed from the skull base to vertex without intravenous administration of contrast. Coronal and sagittal reformatted images are performed at the CT scanner. This CT examination was performed using dose optimization techniques as appropriate, variously including the following: *Automated exposure control. *Adjustment of mA and/or kV according to patient size (this includes techniques or standardized protocols for targeted exams where dose is matched to indication/reason for exam; i.e. extremities or head). *Use of iterative reconstruction technique. DLP: 753.5+10.25 mGy-cm FINDINGS: There is generalized global volume loss. There is moderate prominence of the ventricles and the sulci . There is mild hypodensity of the periventricular white matter due to chronic small vessel ischemic disease. There are vascular calcifications of the internal carotid arteries bilaterally. There is an acute intraparenchymal hemorrhage involving the anterior tip of the right temporal lobe and small multifocal parenchymal hemorrhage along the subcortical barlow matter in the right inferior parietal lobe. There is also another region of parenchymal hemorrhage in the subcortical barlow matter in the right frontal region. There are few scattered areas of hemorrhage in the subarachnoid region in the right frontal parietal area. 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 There is a small acute subdural hemorrhage in the left frontal lobe region. There is acute hemorrhage at the quadrigeminal plate cistern at the base of the brain with extension along the left tentorium. There is a right frontal scalp hematoma. No skull fracture. CT/CT head/brain wo con IMPRESSION: Bilateral multifocal areas of hemorrhage involving brain parenchyma, subarachnoid and subdural regions. Largest collection is at the quadrigeminal plate cistern extending along left tentorium. This critical result was discussed with ELVIE Hoffman on 04/16/2021, 8:49 PM and it was ascertained that the content and urgency of the report was understood at the time of direct communication.
[2021-04-16 19:52] VITALS: BMI 21.2
--- NOTE | 2021-04-16 20:02 | ED.AMS ---
HPI - Altered Mental Status General Chief Complaint: Fall <Ernestina Lester NP - Last Filed: 04/16/21 23:09> Stated Complaint: fall head lac <Ernestina Lester NP - Last Filed: 04/16/21 23:09> Time Seen by Provider: 04/16/21 20:00 <Ernestina Lester NP - Last Filed: 04/16/21 23:09> Source: EMS <Ernestina Lester NP - Last Filed: 04/16/21 23:09> Mode of arrival: EMS <Ernestina Lester NP - Last Filed: 04/16/21 23:09> Limitations: altered mental status <Ernestina Lester NP - Last Filed: 04/16/21 23:09> History of Present Illness HPI narrative: 75-year-old male coming from a care home with a past medical history of liver cirrhosis, chronic kidney disease, diabetes, GERD, hypertension after being found down. History of present illness is limited due to patient's altered mental status. EMS is unclear on how long the patient has been down for. He was found altered with a head laceration. He was quite combative for EMS during transfer. <Ernestina Lester NP - Last Filed: 04/16/21 23:09> Related Data Home Medications: Home Medications Medication Instructions Recorded Confirmed fluticasone propionate 220 2 puff PO BID 04/08/20 03/18/21 mcg/actuation HFA aerosol inhaler (Flovent HFA) loratadine 10 mg tablet 1 tab PO DAILY 04/08/20 03/18/21 montelukast 10 mg tablet 1 tab PO BEDTIME 04/08/20 03/18/21 multivitamin (Daily-Arlene) 1 tab PO DAILY 04/08/20 03/18/21 citalopram 10 mg tablet 10 mg PO DAILY 06/01/20 03/18/21 albuterol sulfate 3 ml INHALATION Q6H PRN 03/06/21 03/18/21 melatonin 10 mg-lemon balm leaf 1 tab PO BEDTIME 03/18/21 03/18/21 extract 1 mg tablet Previous Rx's Medication Instructions Recorded cholecalciferol (vitamin D3) 50 50 mcg PO DAILY #30 cap 05/25/20 mcg (2,000 unit) capsule rifaximin 550 mg tablet (Xifaxan) 550 mg PO BID 30 Days #60 tab 09/26/20 omeprazole 20 mg capsule,delayed 20 mg PO BID #60 cap 01/23/21 release trazodone 50 mg tablet 25 mg PO BEDTIME PRN #4 tab 03/01/21 lactulose 10 gram/15 mL oral 30 ml PO Q4H #0 ml 03/26/21 solution midodrine 2.5 mg tablet 2.5 mg PO BID #180 tab 03/27/21 spironolactone 25 mg tablet 25 mg PO DAILY #90 tab 03/27/21 oxycodone 5 mg capsule 2.5 mg PO Q8H 3 Days #5 cap 04/08/21 oxycodone 5 mg tablet 2.5 mg PO Q8H 3 Days #5 tab 04/08/21 <Ernestina Lester NP - Last Filed: 04/16/21 23:09> Allergies/Adverse Reactions: Allergies Allergy/AdvReac Type Severity Reaction Status Date / Time No Known Allergies Allergy Verified 04/16/21 11:25 <Ernestina Lester NP - Last Filed: 04/16/21 23:09> Review of Systems Review of Systems: Yes Unobtainable due to mental status <Ernestina Lester NP - Last Filed: 04/16/21 23:09> [facility] Past Medical History Attestation statement: The following information was validated with the patient. <Ernestina Lester NP - Last Filed: 04/16/21 23:09> Source: old records reviewed and nursing notes reviewed <rEnestina Lester NP - Last Filed: 04/16/21 23:09> Medical History: Medical History JACOB (acute kidney injury) JACOB (acute kidney injury) Ascites Cirrhosis of liver CKD (chronic kidney disease) stage 3, GFR 30-59 ml/min COVID-19 Diabetes Elevated INR Esophageal varices Esophageal varices determined by endoscopy GERD (gastroesophageal reflux disease) Hepatic encephalopathy Hypertension Portal vein thrombosis Thrombocytopenia Vitamin D deficiency <Ernestina Lester NP - Last Filed: 04/16/21 23:09> Surgical History: Surgical History Hx of colonoscopy Hx of endoscopy Hx of inguinal hernia repair <Ernestina Lester NP - Last Filed: 04/16/21 23:09> Family History Family History: Family History Father Diabetes HTN (hypertension) Mother Diabetes Sister Cancer <Ernestina Lester NP - Last Filed: 04/16/21 23:09> Social History Social History: Social History Household Members: Spouse Housing: House Do you presently have visiting nurse or other home services: Yes Unable to assess alcohol history related to: Unknown Alcohol intake: unknown Patient Tobacco Use Status: Never used Tobacco Advance Directives: Yes Advance Directives on File: Yes Advance Directives Date on File: 03/06/21 service: No Current occupational status: retired <Ernestina Lester NP - Last Filed: 04/16/21 23:09> Physical Exam Vital Signs: Vital Signs: Last Vital Signs Temp 97.4 F 04/16/21 20:40 Pulse 68 04/16/21 20:40 Resp 14 04/16/21 20:40 BP 156/76 H 04/16/21 21:47 Pulse Ox 97 04/16/21 20:40 BMI result Body Mass Index 21.2 <Ernestina Lester NP - Last Filed: 04/16/21 23:09> Vital Signs: Last Vital Signs Temp 97.4 F 04/16/21 20:40 Pulse 68 04/16/21 20:40 Resp 14 04/16/21 20:40 BP 156/76 H 04/16/21 21:47 Pulse Ox 97 04/16/21 20:40 BMI result Body Mass Index 21.2 <Jordi Pereyra MD - Last Filed: 04/16/21 20:53> Const: Other: Does not respond to verbal. Patient is resistive to exam. He is moving his arms and legs independently <Ernestina Lester NP - Last Filed: 04/16/21 23:09> Limitations: altered mental status <Ernestina Lester NP - Last Filed: 04/16/21 23:09> HENMT: Other: Laceration to the frontal right forehead with large hematoma with bogginess <Ernestina Lester NP - Last Filed: 04/16/21 23:09> General nose exam: Normal external nose present <Ernestina Lester NP - Last Filed: 04/16/21 23:09> Face and sinus: Yes normal facial exam <Ernestina Lester NP - Last Filed: 04/16/21 23:09> Mouth: Normal oral and palatal mucosa present <Ernestina Lester NP - Last Filed: 04/16/21 23:09> Throat: Yes posterior oropharynx normal <Ernestina Lester NP - Last Filed: 04/16/21 23:09> Eyes: Other: Bilateral eyes are fixed to the left with pupils that are reactive but slow to light <Ernestina Lester NP - Last Filed: 04/16/21 23:09> Neck: Neck: Yes normal visual inspection <Ernestina Lester NP - Last Filed: 04/16/21 23:09> Chest: Chest palpation & inspection: normal inspection of the chest <Ernestina Lester NP - Last Filed: 04/16/21 23:09> Resp: Effort & Inspection: normal respiratory effort <Ernestina Lester NP - Last Filed: 04/16/21 23:09> Auscultation: clear to auscultation bilaterally <Ernestina Lester NP - Last Filed: 04/16/21 23:09> Cardio: Rate: regular rate <Ernestina Lester NP - Last Filed: 04/16/21 23:09> Rhythm: regular rhythm <Ernestina Lester NP - Last Filed: 04/16/21 23:09> Peripheral pulses: Peripheral pulses 2+ throughout <Ernestina Lester NP - Last Filed: 04/16/21 23:09> GI: Other: Incontinent of stool and urine <Ernestina Lester NP - Last Filed: 04/16/21 23:09> Inspection: Yes normal to inspection <Ernestina Lester NP - Last Filed: 04/16/21 23:09> Palpation (GI): Soft to palpation and nontender <Ernestina Lester NP - Last Filed: 04/16/21 23:09> Auscultation: normal bowel sounds <Ernestina Lester NP - Last Filed: 04/16/21 23:09> Back/Spine/Pelvis: Thoracic/Lumbar Spine: thoracic and lumbar spine normal to inspection <Ernestina Lester NP - Last Filed: 04/16/21 23:09> Skin: General skin exam: no rashes or lesions noted <Ernestina Lester NP - Last Filed: 04/16/21 23:09> Neuro: Other: Patient is not following commands. He is resting with his eyes closed. He occasionally moans. He is resistive to physical exam. He does seem to be moving both his upper and lower extremities equally. His eyes are fixed to the left with a leftward gaze. His pupils are reactive to light. Sensation is intact <Ernestina Lester NP - Last Filed: 04/16/21 23:09> Extrem: Other: Multiple skin tears of the upper extremities <Ernestina Lester NP - Last Filed: 04/16/21 23:09> General: Yes normal to inspection <Ernestina Lester NP - Last Filed: 04/16/21 23:09> Course Course Course Narrative: 75-year-old male coming from a care home after being found down by nursing staff. Patient was down for an unknown period of time. He was found to be altered with multiple skin tears of the upper extremities and head laceration. His baseline mental status is unknown. He is a DNR/DNI. He does have an extensive medical history of liver cirrhosis with encephalopathy, diabetes, chronic kidney disease, hypertension, GERD. He was combative and resistant to care for EMS. On arrival the patient is obtunded. He does seem to move all his 4 extremities and sensation is intact but he is not following commands and resistive to all care. His eyes are fixed the left but his pupils are reactive. GCS11 He is incontinent of urine and stool. Has a head laceration over the right forehead with bogginess and a large hematoma with active bleeding. Bleeding was controlled with direct pressure an Gerald bandage. Cervical collar placed. 1999-I saw the patient at the bedside immediately with Dr. Pereyra. Plan for CT head and neck immediately. Patient brought direct to ct. 2010-patient back from CT scan. There does appear to be an area of right intraparenchymal bleeding as well as ?L SDH. Pending formal read from radiologist. Patient continues to have a leftward gaze. ?seizing. After further discussion will give 1 dose of lorazepam an and load with Keppra. Patient has known history of liver cirrhosis with likely coagulopathy. Will check labs and address as needed. Unknown cause of fall so will also check EKG and chest x-ray. 2099-patient has a hemoglobin of 8.7 and hematocrit of 26.3. Baseline is 9.5/28.2. Platelets today are 83,000. Baseline is 50s. INR 1.4. Additional labs pending. D/t coagulopathy w/ head trauma will check CT A/P, CT chest. 2114-Direct with nursing to CT A/P, Chest. Vitals continue to remain stable. 2129-Reviewed CT A/P with Dr Martinez independently. Patient has splenomegaly and hepatomegaly with what appears to be ascites in the abdomen. Pending formal read. 2229-CT chest is negative. CT abdomen shows chronic liver cirrhosis changes with ascites but no bleeding. Blood pressure is stable. Patient's gaze is more midline and he is moving all extremities. He is still not following commands and is confused. Call to [facility] [place] [facility] to discuss if transfer is appropriate. 2239-Spoke to trauma surgeon Dr Michelle who accepted patient as trauma transfer. Called and spoke to family (HCP-Yudith) [phone] who is aware of plan of care. <Ernestina Lester NP - Last Filed: 04/16/21 23:09> Reevaluation(s) Reevaluation #1: I agree with history and physical, patient with active cranial bleeding intraparechymal, subarachnoid, and subdural, likely thrombocytopenia. Patient appears to be actively seizing with fixed left gaze, patient given ativan and IV keppra. We will reverse coagulopathy and transfuse platelets if necessary. Consult neurosurgery for cranial bleeding. <Jordi Pereyra MD - Last Filed: 04/16/21 20:53> Time: 20:52 <Jordi Pereyra MD - Last Filed: 04/16/21 20:53> MDM - Altered Mental Status Medical Records Attestation: I reviewed the patient's medical records. <Ernestina Lester NP - Last Filed: 04/16/21 23:09> Lab Data Attestation: I reviewed the patient's lab results. <Ernestina Lester NP - Last Filed: 04/16/21 23:09> Result diagrams: : 04/16/21 20:35 04/16/21 20:35 <Ernestina Lester NP - Last Filed: 04/16/21 23:09> Labs: Lab Results 04/16/21 04/16/21 04/16/21 Range/Units 20:35 20:35 20:35 WBC 7.5 (4.8-10.8) X10*3/uL RBC 2.94 L (4.60-5.80) X10*6/uL Hgb 8.7 L (14.0-18.0) g/dl Hct 26.3 L (42.0-52.0) % MCV 89.5 (80.0-98.0) fL MCH 29.6 (27.0-33.0) pg MCHC 33.1 (31.0-36.0) g/dl RDW 14.7 (11.0-16.0) % Plt Count 83 L D (160-400) X10*3/uL MPV 9.1 L (9.4-12.4) fL Immature Gran % (Auto) 0.4 (0.0-0.4) % Neut % (Auto) 73.0 (45-73) % Lymph % (Auto) 14.6 L (20-40) % [place] % (Auto) 8.5 (2-11) % Eos % (Auto) 3.1 (0-4) % Baso % (Auto) 0.4 (0-2) % Lymph # (Auto) 1.1 L (1.2-4.9) X10*3/uL [place] # (Auto) 0.6 (0.1-1.2) X10*3/uL Eos # (Auto) 0.2 (0.0-0.4) X10*3/uL Baso # (Auto) 0.0 (0.0-0.2) X10*3/uL Abs Immat Gran (auto) 0.03 (0.00-0.03) X10*3/uL Absolute Neuts (auto) 5.5 (2.0-8.3) x10*3/uL Absolute Nucleated RBC 0.000 (0.0-0.012) X10*3/uL Nucleated RBC % (auto) 0.0 (0.0-0.2) /100WBC PT (9.9-13.0) SEC INR (0.9-1.1) Sodium 142 (135-145) mmol/L Potassium 4.8 (3.3-5.1) mmol/L Chloride 109 H (96-108) mmol/L Carbon Dioxide 25 (22-29) mmol/L Anion Gap 13 (12-20) BUN 37 H (9-16) mg/dL Creatinine 2.50 H (0.5-1.4) mg/dL Estim Creat Clear Calc 22.9 Estimated GFR 25 Random Glucose 135 H (60-115) mg/dL Lactic Acid (0.5-2.0) mmol/L Calcium 12.0 H D (8.4-10.2) mg/dL Total Bilirubin 1.5 H (0.0-1.0) mg/dL Direct Bilirubin 0.6 H (0.0-0.5) mg/dL AST 44 H (5-37) U/L ALT 43 H (0-40) U/L Alkaline Phosphatase 123 H (39-117) U/L Ammonia (13-55) umol/L Total Creatine Kinase 48 (38-174) U/L Troponin I High Sens 59.5 H (<3.5-35.0) ng/L Total Protein 5.4 L (6.5-8.0) g/dL Albumin 3.2 L (3.5-5.0) g/dL COVID-19 ([facility]) (Negative) COVID-19 Clin Com Blood Type Antibody Screen 12/06/21 12/06/21 12/06/21 Range/Units 20:35 20:35 20:35 WBC (4.8-10.8) X10*3/uL RBC (4.60-5.80) X10*6/uL Hgb (14.0-18.0) g/dl Hct (42.0-52.0) % MCV (80.0-98.0) fL MCH (27.0-33.0) pg MCHC (31.0-36.0) g/dl RDW (11.0-16.0) % Plt Count (160-400) X10*3/uL MPV (9.4-12.4) fL Immature Gran % (Auto) (0.0-0.4) % Neut % (Auto) (45-73) % Lymph % (Auto) (20-40) % [place] % (Auto) (2-11) % Eos % (Auto) (0-4) % Baso % (Auto) (0-2) % Lymph # (Auto) (1.2-4.9) X10*3/uL [place] # (Auto) (0.1-1.2) X10*3/uL Eos # (Auto) (0.0-0.4) X10*3/uL Baso # (Auto) (0.0-0.2) X10*3/uL Abs Immat Gran (auto) (0.00-0.03) X10*3/uL Absolute Neuts (auto) (2.0-8.3) x10*3/uL Absolute Nucleated RBC (0.0-0.012) X10*3/uL Nucleated RBC % (auto) (0.0-0.2) /100WBC PT 16.1 H (9.9-13.0) SEC INR 1.4 H (0.9-1.1) Sodium (135-145) mmol/L Potassium (3.3-5.1) mmol/L Chloride (96-108) mmol/L Carbon Dioxide (22-29) mmol/L Anion Gap (12-20) BUN (9-16) mg/dL Creatinine (0.5-1.4) mg/dL Estim Creat Clear Calc Estimated GFR Random Glucose (60-115) mg/dL Lactic Acid 4.2 H* (0.5-2.0) mmol/L Calcium (8.4-10.2) mg/dL Total Bilirubin (0.0-1.0) mg/dL Direct Bilirubin (0.0-0.5) mg/dL AST (5-37) U/L ALT (0-40) U/L Alkaline Phosphatase (39-117) U/L Ammonia 80 H (13-55) umol/L Total Creatine Kinase (38-174) U/L Troponin I High Sens (<3.5-35.0) ng/L Total Protein (6.5-8.0) g/dL Albumin (3.5-5.0) g/dL COVID-19 ([facility]) (Negative) COVID-19 Clin Com Blood Type Antibody Screen 04/16/21 04/16/21 Range/Units 22:00 22:04 WBC (4.8-10.8) X10*3/uL RBC (4.60-5.80) X10*6/uL Hgb (14.0-18.0) g/dl Hct (42.0-52.0) % MCV (80.0-98.0) fL MCH (27.0-33.0) pg MCHC (31.0-36.0) g/dl RDW (11.0-16.0) % Plt Count (160-400) X10*3/uL MPV (9.4-12.4) fL Immature Gran % (Auto) (0.0-0.4) % Neut % (Auto) (45-73) % Lymph % (Auto) (20-40) % [place] % (Auto) (2-11) % Eos % (Auto) (0-4) % Baso % (Auto) (0-2) % Lymph # (Auto) (1.2-4.9) X10*3/uL [place] # (Auto) (0.1-1.2) X10*3/uL Eos # (Auto) (0.0-0.4) X10*3/uL Baso # (Auto) (0.0-0.2) X10*3/uL Abs Immat Gran (auto) (0.00-0.03) X10*3/uL Absolute Neuts (auto) (2.0-8.3) x10*3/uL Absolute Nucleated RBC (0.0-0.012) X10*3/uL Nucleated RBC % (auto) (0.0-0.2) /100WBC PT (9.9-13.0) SEC INR (0.9-1.1) Sodium (135-145) mmol/L Potassium (3.3-5.1) mmol/L Chloride (96-108) mmol/L Carbon Dioxide (22-29) mmol/L Anion Gap (12-20) BUN (9-16) mg/dL Creatinine (0.5-1.4) mg/dL Estim Creat Clear Calc Estimated GFR Random Glucose (60-115) mg/dL Lactic Acid (0.5-2.0) mmol/L Calcium (8.4-10.2) mg/dL Total Bilirubin (0.0-1.0) mg/dL Direct Bilirubin (0.0-0.5) mg/dL AST (5-37) U/L ALT (0-40) U/L Alkaline Phosphatase (39-117) U/L Ammonia (13-55) umol/L Total Creatine Kinase (38-174) U/L Troponin I High Sens (<3.5-35.0) ng/L Total Protein (6.5-8.0) g/dL Albumin (3.5-5.0) g/dL COVID-19 ([facility]) Negative (Negative) COVID-19 Clin Com See Note Blood Type O Positive Antibody Screen NEGATIVE <Ernestina Lester NP - Last Filed: 04/16/21 23:09> Lab Results 04/16/21 04/16/21 04/16/21 Range/Units 20:35 20:35 20:35 WBC 7.5 (4.8-10.8) X10*3/uL RBC 2.94 L (4.60-5.80) X10*6/uL Hgb 8.7 L (14.0-18.0) g/dl Hct 26.3 L (42.0-52.0) % MCV 89.5 (80.0-98.0) fL MCH 29.6 (27.0-33.0) pg MCHC 33.1 (31.0-36.0) g/dl RDW 14.7 (11.0-16.0) % Plt Count 83 L D (160-400) X10*3/uL MPV 9.1 L (9.4-12.4) fL Immature Gran % (Auto) 0.4 (0.0-0.4) % Neut % (Auto) 73.0 (45-73) % Lymph % (Auto) 14.6 L (20-40) % [place] % (Auto) 8.5 (2-11) % Eos % (Auto) 3.1 (0-4) % Baso % (Auto) 0.4 (0-2) % Lymph # (Auto) 1.1 L (1.2-4.9) X10*3/uL [place] # (Auto) 0.6 (0.1-1.2) X10*3/uL Eos # (Auto) 0.2 (0.0-0.4) X10*3/uL Baso # (Auto) 0.0 (0.0-0.2) X10*3/uL Abs Immat Gran (auto) 0.03 (0.00-0.03) X10*3/uL Absolute Neuts (auto) 5.5 (2.0-8.3) x10*3/uL Absolute Nucleated RBC 0.000 (0.0-0.012) X10*3/uL Nucleated RBC % (auto) 0.0 (0.0-0.2) /100WBC PT (9.9-13.0) SEC INR (0.9-1.1) Sodium 142 (135-145) mmol/L Potassium 4.8 (3.3-5.1) mmol/L Chloride 109 H (96-108) mmol/L Carbon Dioxide 25 (22-29) mmol/L Anion Gap 13 (12-20) BUN 37 H (9-16) mg/dL Creatinine 2.50 H (0.5-1.4) mg/dL Estim Creat Clear Calc 22.9 Estimated GFR 25 Random Glucose 135 H (60-115) mg/dL Lactic Acid (0.5-2.0) mmol/L Calcium 12.0 H D (8.4-10.2) mg/dL Total Bilirubin 1.5 H (0.0-1.0) mg/dL Direct Bilirubin 0.6 H (0.0-0.5) mg/dL AST 44 H (5-37) U/L ALT 43 H (0-40) U/L Alkaline Phosphatase 123 H (39-117) U/L Ammonia (13-55) umol/L Total Creatine Kinase 48 (38-174) U/L Troponin I High Sens 59.5 H (<3.5-35.0) ng/L Total Protein 5.4 L (6.5-8.0) g/dL Albumin 3.2 L (3.5-5.0) g/dL COVID-19 ([facility]) (Negative) COVID-19 Clin Com Blood Type Antibody Screen 04/16/21 04/16/21 04/16/21 Range/Units 20:35 20:35 20:35 WBC (4.8-10.8) X10*3/uL RBC (4.60-5.80) X10*6/uL Hgb (14.0-18.0) g/dl Hct (42.0-52.0) % MCV (80.0-98.0) fL MCH (27.0-33.0) pg MCHC (31.0-36.0) g/dl RDW (11.0-16.0) % Plt Count (160-400) X10*3/uL MPV (9.4-12.4) fL Immature Gran % (Auto) (0.0-0.4) % Neut % (Auto) (45-73) % Lymph % (Auto) (20-40) % [place] % (Auto) (2-11) % Eos % (Auto) (0-4) % Baso % (Auto) (0-2) % Lymph # (Auto) (1.2-4.9) X10*3/uL [place] # (Auto) (0.1-1.2) X10*3/uL Eos # (Auto) (0.0-0.4) X10*3/uL Baso # (Auto) (0.0-0.2) X10*3/uL Abs Immat Gran (auto) (0.00-0.03) X10*3/uL Absolute Neuts (auto) (2.0-8.3) x10*3/uL Absolute Nucleated RBC (0.0-0.012) X10*3/uL Nucleated RBC % (auto) (0.0-0.2) /100WBC PT 16.1 H (9.9-13.0) SEC INR 1.4 H (0.9-1.1) Sodium (135-145) mmol/L Potassium (3.3-5.1) mmol/L Chloride (96-108) mmol/L Carbon Dioxide (22-29) mmol/L Anion Gap (12-20) BUN (9-16) mg/dL Creatinine (0.5-1.4) mg/dL Estim Creat Clear Calc Estimated GFR Random Glucose (60-115) mg/dL Lactic Acid 4.2 H* (0.5-2.0) mmol/L Calcium (8.4-10.2) mg/dL Total Bilirubin (0.0-1.0) mg/dL Direct Bilirubin (0.0-0.5) mg/dL AST (5-37) U/L ALT (0-40) U/L Alkaline Phosphatase (39-117) U/L Ammonia 80 H (13-55) umol/L Total Creatine Kinase (38-174) U/L Troponin I High Sens (<3.5-35.0) ng/L Total Protein (6.5-8.0) g/dL Albumin (3.5-5.0) g/dL COVID-19 ([facility]) (Negative) COVID-19 Clin Com Blood Type Antibody Screen 04/16/21 04/16/21 Range/Units 22:00 22:04 WBC (4.8-10.8) X10*3/uL RBC (4.60-5.80) X10*6/uL Hgb (14.0-18.0) g/dl Hct (42.0-52.0) % MCV (80.0-98.0) fL MCH (27.0-33.0) pg MCHC (31.0-36.0) g/dl RDW (11.0-16.0) % Plt Count (160-400) X10*3/uL MPV (9.4-12.4) fL Immature Gran % (Auto) (0.0-0.4) % Neut % (Auto) (45-73) % Lymph % (Auto) (20-40) % [place] % (Auto) (2-11) % Eos % (Auto) (0-4) % Baso % (Auto) (0-2) % Lymph # (Auto) (1.2-4.9) X10*3/uL [place] # (Auto) (0.1-1.2) X10*3/uL Eos # (Auto) (0.0-0.4) X10*3/uL Baso # (Auto) (0.0-0.2) X10*3/uL Abs Immat Gran (auto) (0.00-0.03) X10*3/uL Absolute Neuts (auto) (2.0-8.3) x10*3/uL Absolute Nucleated RBC (0.0-0.012) X10*3/uL Nucleated RBC % (auto) (0.0-0.2) /100WBC PT (9.9-13.0) SEC INR (0.9-1.1) Sodium (135-145) mmol/L Potassium (3.3-5.1) mmol/L Chloride (96-108) mmol/L Carbon Dioxide (22-29) mmol/L Anion Gap (12-20) BUN (9-16) mg/dL Creatinine (0.5-1.4) mg/dL Estim Creat Clear Calc Estimated GFR Random Glucose (60-115) mg/dL Lactic Acid (0.5-2.0) mmol/L Calcium (8.4-10.2) mg/dL Total Bilirubin (0.0-1.0) mg/dL Direct Bilirubin (0.0-0.5) mg/dL AST (5-37) U/L ALT (0-40) U/L Alkaline Phosphatase (39-117) U/L Ammonia (13-55) umol/L Total Creatine Kinase (38-174) U/L Troponin I High Sens (<3.5-35.0) ng/L Total Protein (6.5-8.0) g/dL Albumin (3.5-5.0) g/dL COVID-19 ([facility]) Negative (Negative) COVID-19 Clin Com See Note Blood Type O Positive Antibody Screen NEGATIVE <Jordi Pereyra MD - Last Filed: 04/16/21 20:53> Imaging Data CT scan - head: Attestation: I personally reviewed and interpreted this imaging study as follows: <Ernestina Lester NP - Last Filed: 04/16/21 23:09> Radiologist's impression: FINDINGS: There is generalized global volume loss. There is moderate prominence of the ventricles and the sulci . There is mild hypodensity of the periventricular white matter due to chronic small vessel ischemic disease. There are vascular calcifications of the internal carotid arteries bilaterally. There is an acute intraparenchymal hemorrhage involving the anterior tip of the right temporal lobe and small multifocal parenchymal hemorrhage along the subcortical barlow matter in the right inferior parietal lobe. There is also another region of parenchymal hemorrhage in the subcortical barlow matter in the right frontal region. There are few scattered areas of hemorrhage in the subarachnoid region in the right frontal parietal area. 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 There is a small acute subdural hemorrhage in the left frontal lobe region. There is acute hemorrhage at the quadrigeminal plate cistern at the base of the brain with extension along the left tentorium. There is a right frontal scalp hematoma. No skull fracture. CT/CT head/brain wo con IMPRESSION: Bilateral multifocal areas of hemorrhage involving brain parenchyma, subarachnoid and subdural regions. Largest collection is at the quadrigeminal plate cistern extending along left tentorium. <Ernestina Lester NP - Last Filed: 04/16/21 23:09> ct cervical: Attestation: I personally reviewed and interpreted this imaging study as follows: <Ernestina Lester NP - Last Filed: 04/16/21 23:09> Radiologist's impression: IMPRESSION: ? 1. No evidence of acute fracture. ? 2. Early advanced degenerative disc disease at all levels especially at C5-C6 and C6-C7. ? 3. Combination of facet joints arthropathy and developed osteophyte from the edges of endplates cause foraminal stenosis at multiple levels as above. ? 4. Loss of of normal cervical lordosis likely spasm. <Ernestina Lester NP - Last Filed: 04/16/21 23:09> CT scan - chest: Attestation: I personally reviewed and interpreted this imaging study as follows: <Ernestina Lester NP - Last Filed: 04/16/21 23:09> Radiologist's impression: CHEST: Lungs: Dependent atelectatic changes similar to prior study. Calcified granuloma in the medial right lung base again noted. No superimposed focal infiltrate or pneumothorax Mediastinum: Prominent vascular calcification within the aorta and coronary vessels. No bulky adenopathy. Hiatal hernia and likely esophageal varicosities are noted Pericardium/Pleura: No significant effusion. No pleural mass or thickening. Chest Wall/Axilla: Mild bilateral gynecomastia <Ernestina Lester NP - Last Filed: 04/16/21 23:09> CT scan - abdomen: Attestation: I personally reviewed and interpreted this imaging study as follows: <Ernestina Lester NP - Last Filed: 04/16/21 23:09> Radiologist's impression: ABDOMEN/PELVIS: Peritoneal Space:Large volume of ascites is again demonstrated Liver, Gallbladder, Biliary Tree: The liver is atrophic and nodular cyst with underlying cirrhotic change. I do not appreciate any discrete mass lesion on this noncontrast exam. No biliary ductal dilatation gallbladder is contracted. Pancreas: Atrophic . Spleen: mild splenomegaly with the spleen measuring 13.5 cm in length Adrenal Glands: Unremarkable. Kidneys and Ureters: The kidneys are normal in size, shape, and attenuation. No hydronephrosis, hydroureter, or calculi seen. No perinephric stranding. Bladder: Unremarkable. Gastrointestinal Tract: Scattered colonic diverticulosis. No obvious diverticulitis or obstructive changes to the bowel Abdominal Wall: Fluid extending into the right femoral hernia and a left inguinal hernia Lymphovascular Structures: Extensive vascular calcification within the aorta iliac system. Pelvic Viscera: Unremarkable. Osseus Structures: There is a distal left clavicle fracture partially seen on the first slice of the study. This is of uncertain acuteness. There is motion artifact but I do not appreciate any displaced rib fractures. Degenerative changes in the sacroiliac joints and hips. No acute abnormality within the visualized spine with multilevel degenerative changes noted <Ernestina Lester NP - Last Filed: 04/16/21 23:09> ECG Data ECG #1: Attestation: I personally reviewed and interpreted this ECG as follows: <Ernestina Lester NP - Last Filed: 04/16/21 23:09> ECG interpretation date: 04/16/21 <Ernestina Lester NP - Last Filed: 04/16/21 23:09> ECG interpretation time: 09:37 <Ernestina Lester NP - Last Filed: 04/16/21 23:09> Prior ECG tracings: available for review <Ernestina Lester NP - Last Filed: 04/16/21 23:09> Interpretation: Normal sinus rhythm with a first-degree AV block with PACs, nonspecific ST changes, rate of 76 <Ernestina Lester NP - Last Filed: 04/16/21 23:09> Critical Care Time Critical Care Time Critical Care Time: Yes <Ernestina Lester NP - Last Filed: 04/16/21 23:09> Total Critical Care Time: 120 <Ernestina Lester NP - Last Filed: 04/16/21 23:09> Attestation: Multiple re-evaluations for neurological status, discussion with family with goals of care, discussion with transfer line and transferred to tertiary care center <Ernestina Lester NP - Last Filed: 04/16/21 23:09> Discharge Plan Discharge Clinical Impression: Intracranial bleeding <Ernestina Lester NP - Last Filed: 04/16/21 23:09> Patient Disposition: [facility] <Ernestina Lester NP - Last Filed: 04/16/21 23:09> Transfer Details: [facility] <Ernestina Lester NP - Last Filed: 04/16/21 23:09> [facility] <Jordi Pereyra MD - Last Filed: 04/16/21 20:53> Prescriptions: No Action cholecalciferol (vitamin D3) 50 mcg (2,000 unit) capsule 50 mcg PO DAILY Qty: 30 RF: 1 Xifaxan 550 mg tablet 550 mg PO BID 30 Days Qty: 60 RF: 1 omeprazole 20 mg capsule,delayed release(DR/EC) 20 mg PO BID Qty: 60 RF: 1 spironolactone 25 mg tablet 25 mg PO DAILY Qty: 90 RF: 0 midodrine 2.5 mg tablet 2.5 mg PO BID Qty: 180 RF: 0 multivitamin [Daily-Arlene] Tablet 1 tab PO DAILY RF: 0 montelukast 10 mg tablet 1 tab PO BEDTIME RF: 0 Flovent HFA 220 mcg/actuation HFA aerosol inhaler 2 puff PO BID RF: 0 loratadine 10 mg tablet 1 tab PO DAILY RF: 0 oxycodone 5 mg capsule 2.5 mg PO Q8H 3 Days Qty: 5 RF: 0 oxycodone 5 mg tablet 2.5 mg PO Q8H 3 Days Qty: 5 RF: 0 trazodone 50 mg tablet 25 mg PO BEDTIME PRN (Reason: insomnia) Qty: 4 RF: 0 albuterol sulfate 2.5 mg /3 mL (0.083 %) solution for nebulization 3 ml inhalation Q6H PRN (Reason: Shortness Of Breath) RF: 0 melatonin-lemon balm leaf extr 10-1 mg tablet 1 tab PO BEDTIME RF: 0 lactulose 10 gram/15 mL solution 30 ml PO Q4H Qty: 0 RF: 0 citalopram 10 mg tablet 10 mg PO DAILY RF: 0 <Ernestina Lester NP - Last Filed: 04/16/21 23:09> Interventions: Acute Care Transfer Worksheet (ED) Last Done: 04/16/21 22:59 <Ernestina Lester NP - Last Filed: 04/16/21 23:09>
--- NOTE | 2021-04-16 20:08 | ECG_ITS ---
Test Reason : AMS Blood Pressure : / mmHG Vent. Rate : 076 BPM Atrial Rate : 076 BPM P-R Int : 272 ms QRS Dur : 078 ms QT Int : 364 ms P-R-T Axes : 000 004 -05 degrees QTc Int : 409 ms Sinus rhythm with 1st degree A-V block with Premature atrial complexes in a pattern of bigeminy Nonspecific ST and T wave abnormality Abnormal ECG When compared with ECG of 23-MAR-2021 19:27, 2:1 block not present anymore. Referred By: Ernestina Lester Electronically Signed By:Pascual Orozco
[2021-04-16 20:40] VITALS: BP 141/57; PULSE 68; RESP 14; TEMP 36.3; O2SAT 97
[2021-04-16 20:44] LABS: Basophils Percent Auto 0.4 % (0-2); Eosinophils Absolute Auto 0.2 X10*3/uL (0.0-0.4); Eosinophils Percent Auto 3.1 % (0-4); Hematocrit 26.3 % (42.0-52.0); Hemoglobin 8.7 g/dl (14.0-18.0); Imm Gran Abs Auto 0.03 X10*3/uL (0.00-0.03); Imm Gran Pct Auto 0.4 % (0.0-0.4); Lymphocytes Absolute Auto 1.1 X10*3/uL (1.2-4.9); Lymphocytes Percent Auto 14.6 % (20-40); MANUAL DIFF FLAG NO; Mean Corpuscular HGB Conc 33.1 g/dl (31.0-36.0); Mean Corpuscular Hemoglobin 29.6 pg (27.0-33.0); Mean Corpuscular Volume 89.5 fL (80.0-98.0); Mean Platelet Volume 9.1 fL (9.4-12.4); Monocytes Absolute Auto 0.6 X10*3/uL (0.1-1.2); Monocytes Percent Auto 8.5 % (2-11); Neutrophils Absolute Auto 5.5 x10*3/uL (2.0-8.3); Platelet Count 83 X10*3/uL (160-400); Red Blood Count 2.94 X10*6/uL (4.60-5.80); Red Cell Distribution Width 14.7 % (11.0-16.0); White Blood Count 7.5 X10*3/uL (4.8-10.8)
[2021-04-16 20:51] LABS: Ammonia 80 umol/L (13-55)
[2021-04-16 20:52] LABS: INTERNATIONAL NORM RATIO 1.4 (0.9-1.1); Prothrombin Time 16.1 SEC (9.9-13.0)
[2021-04-16] MEDS: Diphth,Pertus(ACell),Tet Adult 0.5 ML SYRINGE IM (20:56)
[2021-04-16] MEDS: LORazepam 2 MG/ML VIAL 1 MG IVPUSH (20:57)
[2021-04-16] MEDS: levETIRAcetam in NaCl (iso-os) 1,000 MG/100 ML PIGGYBACK 400 MG IV (20:57)
[2021-04-16 21:03] LABS: Lactic Acid 4.2 mmol/L (0.5-2.0)
[2021-04-16 21:05] LABS: Troponin-I High Sensitivity 59.5 ng/L (<3.5-35.0)
[2021-04-16 21:15] LABS: Alanine Aminotransferase 43 U/L (0-40); Albumin Level 3.2 g/dL (3.5-5.0); Alkaline Phosphatase 123 U/L (39-117); Anion Gap 13 (12-20); Aspartate Amino Transferase 44 U/L (5-37); Bilirubin Direct 0.6 mg/dL (0.0-0.5); Bilirubin Total 1.5 mg/dL (0.0-1.0); Blood Urea Nitrogen 37 mg/dL (9-16); Carbon Dioxide 25 mmol/L (22-29); Chloride 109 mmol/L (96-108); Creatinine Clr Calc Pharmacy 22.9; Estimated Glomerular Filt Rate 25; Glucose Random 135 mg/dL (60-115); Potassium 4.8 mmol/L (3.3-5.1); Sodium 142 mmol/L (135-145); Total Protein 5.4 g/dL (6.5-8.0)
[2021-04-16] MEDS: SODIUM CHLORIDE 1905 ML IV (21:33)
[2021-04-16 21:47] VITALS: BP 156/76
[2021-04-16 22:21] LABS: COVID-19 Test Negative (Negative)
--- NOTE | 2021-04-16 22:33 | PC.NURSE ---
CALL OUT TO PATIENT TRANSFER LINE AT [facility].
[2021-04-16 22:40] LABS: Reflex Lactate? Lactic Acid Added
== END 2021-04-16 23:10 | disposition short-term general hospital (02) ==
PROVIDERS: Nurse Practitioner Family; Emergency Provider Emergency Medicine; PCP Family Medicine
DX: S06.6X9A Traumatic subarachnoid hemorrhage with loss of consciousness of unspecified duration, initial encounter (principal); S01.81XA Laceration without foreign body of other part of head, initial encounter; S80.812A Abrasion, left lower leg, initial encounter; S80.811A Abrasion, right lower leg, initial encounter; I12.9 Hypertensive chronic kidney disease with stage 1 through stage 4 chronic kidney disease, or unspecified chronic kidney disease; R16.2 Hepatomegaly with splenomegaly, not elsewhere classified; M54.6 Pain in thoracic spine; M54.2 Cervicalgia; N18.30 Chronic kidney disease, stage 3 unspecified; R10.9 Unspecified abdominal pain; E11.22 Type 2 diabetes mellitus with diabetic chronic kidney disease; R32 Unspecified urinary incontinence; W18.30XA Fall on same level, unspecified, initial encounter; Y93.9 Activity, unspecified; Y92.129 Unspecified place in nursing home as the place of occurrence of the external cause; Y99.9 Unspecified external cause status; Z20.822 Contact with and (suspected) exposure to COVID-19; Z79.899 Other long term (current) drug therapy
CPT/HCPCS: 36415; 70450; 71250; 72125; 74176; 80048; 80076; 82140; 82550; 83605; 84484; 85025; 85610; 86850; 86900; 86901; 87040; 87635; 90471; 90715; 93005; 99285; J1953; J2060